=== PATIENT | male | born 1935 | race Caucasian/White ===

== ENCOUNTER 2018-03-21 08:54 | Day surgery (SDC) | payer OTHER, BC ==
[2018-03-14 15:28] LABS: Absolute Lymphocytes (CBC) 1.2 K/uL (0.7-4.9); Absolute Monocytes 0.6 K/uL (0.1-1.3); Absolute Neutrophil 3.9 K/uL (1.8-8.0); Basophils % 0.9 % (0-1.3); Eosinophils % 2.5 % (0-4.4); Hematocrit 39.8 % (39.6-49.0); Lymphocytes % 20.9 % (15.3-44.8); MCH 31.9 pg (27.0-35.0); MCV 92.7 fL (80-100); MPV 8.6 fL (7.6-11.3); Monocytes % 10.6 % (3.3-12.3); RBC Red Blood Cell Count 4.29 M/uL (4.33-5.43)
[2018-03-14 15:47] LABS: Potassium 4.4 mmol/L (3.5-5.1)
--- NOTE | 2018-03-14 16:27 | RAD REPORT ---
EXAM DESCRIPTION: RAD - Chest Pa And Lat (2 Views) - 03/14/2018 3:43 pm CLINICAL HISTORY: Preop chest, pending abdominal hernia repair COMPARISON: July 2012 TECHNIQUE: PA and lateral views of the chest were obtained. FINDINGS: The lungs are clear. Heart size is normal and central vasculature is within normal limit s. No pleural effusion or pneumothorax seen. No acute bony finding noted. No aortic abnormality. IMPRESSION: No acute cardiopulmonary process.
--- NOTE | 2018-03-14 17:05 | EKG ---
Test Date: 2018-03-14 Test Time: 15:15:26 Drivers License Examiner: LIZZIE MEASUREMENT RESULTS: Intervals: Rate: 60 MD: 176 QRSD: 76 QT: 394 QTc: 394 [place]: P: 50 MD: 176 QRS: 12 T: 56 INTERPRETIVE STATEMENTS: Normal sinus rhythm Normal ECG Compared to ECG 08/06/2012 16:59:08 Atrial premature complex(es) no longer present Electronically Signed On 03-14-18 17:04:05 CDT by Moisés Conway
--- OUTSIDE RECORDS SUMMARY | 2018-03-21 09:01 | XMS REPORT | Clinical Summary ---
:1935 Author Organization [facility] Address [address] [place] [address] Care Team Providers Name Role Phone Abbe Carl MD Primary Care Provider Allergies No Known Allergies Current Medications Prescription Sig. Disp. Refills Start Date End Date Status ferrous sulfate 325 TK 1 T PO BID 3 04/15/2017 Active (65 FE) MG tablet metoprolol succinate 3 01/26/2017 Active XL (TOPROL-XL) 50 mg 24 hr tablet sucralfate (CARAFATE) TK 1 T PO Q 6 H 11 03/17/2017 Active 1 gram tablet simvastatin (ZOCOR) TK 1 T PO QD 3 02/09/2017 Active 20 MG tablet AFTER THE SILVIA MEAL amLODIPine (NORVASC) TK 1 T PO QD 3 02/21/2017 Active 10 mg tablet valsartan (DIOVAN) 80 TK 1 T PO D ... 3 04/15/2017 Active MG tablet STOP BENICAR 20MG psyllium (METAMUCIL) Take 0.52 g by Active 0.52 gram capsule mouth as needed for constipation. aspirin 325 MG tablet Take 325 mg by Active mouth daily. diphenoxylate-atropin Take 1 tablet by Active e (LOMOTIL) 2.5-0.025 mouth 4 (four) mg per tablet times a day as needed for diarrhea. magnesium oxide 250 Take 250 mg by Active mg tablet mouth daily. esomeprazole (NexIUM) Take 1 capsule 30 capsule 11 04/20/2017 04/20/2018 Active 40 MG (40 mg total) by capsuleIndications: mouth daily Hematemesis without before nausea, Erosive breakfast. gastritis Active Problems Problem Noted Date Diverticulitis of colon Erosive gastritis Duodenitis with hemorrhage Hematemesis/vomiting blood CKD (chronic kidney disease) Colon polyp Diverticulosis of colon Encounters Date Type Specialty Care Team Description 12/12/2017 Telephone Family Medicine Abbe Carl MD 07/25/2017 Documentation Gastroenterology Areli Posey MA 07/24/2017 Telephone Gastroenterology Emmanuelle Carlin RN 04/20/2017 Office Visit Gastroenterology Keenan Cardona Diverticulitis of colon (Primary Dx); MD Carina Colon polyp; Hematemesis without nausea; Erosive gastritis; Duodenitis with hemorrhage; Diverticulosis of large intestine without hemorrhage 03/27/2017 Documentation Gastroenterology Areli Posey MA after 03/20/2017 Family History Medical History Relation Name Comments Pancreatic cancer Other Spouse Relation Name Status Comments Father Mother Other Spouse Alive Social History Tobacco Use Types Packs/Day Years Used Date Never Smoker Alcohol Use Drinks/Week oz/Week Comments Yes Sex Assigned at Date Recorded Not on file Last Filed Vital Signs Vital Sign Reading Time Taken Blood Pressure 175/83 04/20/2017 3:39 PM CDT Pulse 74 04/20/2017 3:39 PM CDT Temperature - - Respiratory Rate - - Oxygen Saturation - - Inhaled Oxygen Concentration - - Weight 78 kg (172 lb) 04/20/2017 3:39 PM CDT Height 177.8 cm (5' 10") 04/20/2017 3:39 PM CDT Body Mass Index 24.68 04/20/2017 3:39 PM CDT Plan of Treatment Health Maintenance Due Date Last Done Comments SHINGRIX VACCINE (#1) 1986 ZOSTER VACCINE 1996 PNEUMOCOCCAL POLYSACCHARIDE VACCINE AGE 65 AND OVER 2001 PNEUMOCOCCAL-13 2001 INFLUENZA VACCINE 03/07/2018 Procedures Procedure Name Priority Date/Time Associated Diagnosis Comments BASIC METABOLIC Routine 04/20/2017 4:36 PM Hematemesis without Results for this PANEL CDT nausea procedure are in the results section. CBC HEMOGRAM Routine 04/20/2017 4:36 PM Hematemesis without Results for this CDT nausea procedure are in the results section. after 03/20/2017 Results CBC hemogram (04/20/2017 4:36 PM) WBC 7.2 3.8 - 10.8 Thousand/uL [facility] [place] RBC 3.71 (L) 4.20 - 5.80 Million/uL [facility] [place] HGB 12.1 (L) 13.2 - 17.1 g/dL [facility] [place] HCT 35.2 (L) 38.5 - 50.0 % [email or web address] [place] MCV 94.9 80.0 - 100.0 fL [email or web address] [place] MCH 32.6 27.0 - 33.0 pg [facility] [place] MCHC 34.4 32.0 - 36.0 g/dL [facility] [place] RDW 12.6 11.0 - 15.0 % [facility] Platelet count 160 140 - 400 Thousand/uL [facility] [place] MPV 11.4 7.5 - 12.5 fL [email or web address] [place] Specimen Blood Narrative Performed At FASTING:UNKNOWN [facility] Resulting Agency Comment Performing Organization Information: Site ID: [id number] Name: [facility] Address: [address] [place] [id number] Director: Valeria Lopez MD Performing Organization Address City/State/Zipcode Phone Number [facility] [address] [place], [place] [id number] Basic metabolic panel (04/20/2017 4:36 PM) Glucose 105 (H) 65 - 99 mg/dL [email or web address] Comment: [place] Fasting reference interval For someone without known diabetes, a glucose value between 100 and 125 mg/dL is consistent with prediabetes and should be confirmed with a follow-up test. BUN, whole blood 23 7 - 25 mg/dL [facility] Creatinine 1.40 (H) 0.70 - 1.11 [facility] Comment: mg/dL [place] For patients >49 years of age, the reference limit for Creatinine is approximately 13% higher for people identified as -[place] Islander. EGFR Non-Afr. [place] Islander 47 (L) > OR=60 [facility] mL/min/1.73m2 [place] EGFR 54 (L) > OR=60 [facility] mL/min/1.73m2 [place] BUN/creatinine ratio 16 6 - 22 (calc) [facility] Sodium 139 135 - 146 mmol/L [facility] [place] Potassium 5.8 (H) 3.5 - 5.3 mmol/L [facility] [place] Chloride 107 98 - 110 mmol/L [email or web address] [place] CO2 27 20 - 31 mmol/L [email or web address] [place] Calcium 9.2 8.6 - 10.3 mg/dL [email or web address] [place] Specimen Blood Narrative Performed At FASTING:[facility]KNOWN [facility] Resulting Agency Comment Performing Organization Information: Site ID: [id number] Name: [facility] Address: [address] [place] [address] Director: Valeria Lopez MD Performing Organization Address City/State/Zipcode Phone Number [email or web address] [place] [address] [place] [address] after 03/20/2017 Insurance Payer Benefit Plan / Group Subscriber ID Type Phone Address MEDICARE MEDICARE PART A AND B xxxxxxxxxx Medicare [place], [place] BCBS BCBS CHOICE PPO/FEDERAL EMPL PPO xxxxxxxxxxxx PPO Home: [facility] [id number] [phone] [address]
--- OUTSIDE RECORDS SUMMARY | 2018-03-21 09:01 | XMS REPORT | Clinical Summary ---
:1935 Author Organization [facility] Address [address] [place] [address] Phone Care Team Providers Name Role Phone Unavailable Primary Care Provider Unavailable Allergies No Known Allergies Current Medications Prescription Sig. Disp. Refills Start Date End Date Status metoprolol Take 50 mg by Active (TOPROL-XL) 50 MG 24 mouth daily. hr tablet valsartan (DIOVAN) 80 Take 80 mg by Active MG tablet mouth daily. ALPRAZolam (XANAX) Take 0.25 mg by Active 0.25 MG tablet mouth every night as needed for Anxiety. psyllium 0.52 gram Take 0.52 g by Active capsule mouth daily. amLODIPine (NORVASC) Take 10 mg by Active 10 MG tablet mouth daily. pantoprazole Take 1 tablet 30 tablet 0 03/17/2017 Active (PROTONIX) 40 MG (40 mg total) tablet by mouth 2 (two) times daily. sucralfate (CARAFATE) Take 1 tablet 120 tablet 11 03/17/2017 03/17/2018 1 gram tablet (1 g total) by mouth every 6 (six) hours. Active Problems Problem Noted Date Hypertension 03/17/2017 Renal insufficiency 03/17/2017 Gastrointestinal hemorrhage, unspecified gastrointestinal hemorrhage type 05/2017 Social History Tobacco Use Types Packs/Day Years Used Date Never Smoker Alcohol Use Drinks/Week oz/Week Comments Yes ocassionally Sex Assigned at Date Recorded Not on file Last Filed Vital Signs Not on file Plan of Treatment Not on file Results RHYTHM STRIP - SCAN (04/21/2017 2:03 PM)Only the most recent of2 resultswithin the time period is included.TRANSFUSION SERVICE REPORT - SCAN (03/27/2017 3:39 PM)after 03/20/2017
--- OUTSIDE RECORDS SUMMARY | 2018-03-21 09:01 | XMS REPORT ---
:1935 Author [facility] Address [address] [place] [address] Dr. Saunders [address] [place] [id number] Care Team Providers Name Role Phone JONH ESTRADA Unavailable Unavailable Problems This patient has no known problems. Allergies, Adverse Reactions, Alerts This patient has no known allergies or adverse reactions. Medications This patient has no known medications. Results Test Description Test Time Test Comments Text Results Atomic Results Result Comments TISSUE EXAM 2017-03-22 13:29:00 Surgical Pathology Report Case: [id number] Authorizing Provider: Charly Mendoza MD Collected: 03/17/2017 1026 Ordering Location: [address] Received: 03/17/2017 1432 Service Pathologist: Angelia Pierre MD Specimen: Biopsy, Gastric, random gastric bx A. STOMACH, RANDOM BIOPSY: - ANTRAL MUCOSA WITH FOCAL ACTIVE CHRONIC GASTRITIS - OXYNTIC MUCOSA WITH CHRONIC INACTIVE GASTRITIS - RARE HELICOBACTER PYLORI ORGANISMS ON WARTHIN-STARRY STAIN - NO EVIDENCE OF INTESTINAL METAPLASIA OR DYSPLASIA OR MALIGNANCY IDENTIFIED Signing Pathologist Direct Phone Line: [phone] signed by Angelia Pierre MD on 03/22/2017 at 1:29 PMPreliminary result electronically signed by Angelia Pierre MD on 03/18/2017 at 10:20 [id number] gastric biopsyThe specimen is received in a formalin-filled container and labeled with the patient's information and labeled "random gastric biopsy" and consists of multiple fragments of vázquez tissue ranging from 0.1 to 0.6 cm. Submitted entirely A1. CG/pl Performed. CBC (HEMOGRAM ONLY) 2017-03-17 13:47:00 Test Item Value Reference Range Comments WHITE BLOOD CELL COUNT (BEAKER) (test gabv=053) 11.8 K/ L 3.5-10.5 RED BLOOD CELL COUNT (BEAKER) (test lsca=966) 3.23 M/ L 4.63-6.08 HEMOGLOBIN (BEAKER) (test atsj=095) 9.9 GM/DL 13.7-17.5 HEMATOCRIT (BEAKER) (test mcox=353) 31.4 % 40.1-51.0 MEAN CORPUSCULAR VOLUME (BEAKER) (test kgxz=181) 97.2 fL 79.0-92.2 MEAN CORPUSCULAR HEMOGLOBIN (BEAKER) (test dgls=627) 30.7 pg 25.7-32.2 MEAN CORPUSCULAR HEMOGLOBIN CONC (BEAKER) (test excr=487) 31.5 GM/DL 32.3- 36.5 RED CELL DISTRIBUTION WIDTH (BEAKER) (test nego=231) 13.2 % 11.6-14.4 PLATELET COUNT (BEAKER) (test uaea=214) 157 K/CU MM 150-450 MEAN PLATELET VOLUME (BEAKER) (test iazt=346) 10.8 fL 9.4-12.4 NUCLEATED RED BLOOD CELLS (BEAKER) (test pyuk=018) 0 /100 WBC 0-0 SEDIMENTATION [id number] 13:42:00 Test Item Value Reference Range Comments SEDIMENTATION RATE, ERYTHROCYTE (BEAKER) (test 17 mm/HR 0-40 tohw=655) TSH/FREE T4 IF [id number] 10:54:00 Test Item Value Reference Range Comments THYROID STIMULATING HORMONE (BEAKER) (test 1.53 uIU/mL 0.35-4.94 otnj=052) HEMOGLOBIN [id number] 08:51:00 Test Item Value Reference Range Comments HEMOGLOBIN A1C (BEAKER) (test deyw=149) 5.9 % 4.3-6.1 [id number] 06:34:00 Test Item Value Reference Range Comments MAGNESIUM (BEAKER) (test 2.1 mg/dL 1.6-2.6 Specimen slightly hemolyzed omdx=209) [id number] 06:34:00 Test Item Value Reference Range Comments PHOSPHORUS (BEAKER) (test 2.4 mg/dL 2.3-4.7 Specimen slightly hemolyzed wnsa=140) BASIC METABOLIC [id number] 06:34:00 Test Item Value Reference Range Comments SODIUM (BEAKER) (test 141 meq/L 136-145 upmy=572) POTASSIUM (BEAKER) (test 4.9 meq/L 3.5-5.1 Specimen slightly vabj=403) hemolyzed CHLORIDE (BEAKER) (test 112 meq/L 98-107 pved=536) CO2 (BEAKER) (test 22 meq/L 22-29 hnhn=560) BLOOD UREA NITROGEN 56 mg/dL 7-21 (BEAKER) (test jyak=064) CREATININE (BEAKER) (test 1.24 mg/dL 0.57-1.25 Specimen slightly pgtf=324) hemolyzed GLUCOSE RANDOM (BEAKER) 99 mg/dL 70-105 (test ucti=820) CALCIUM (BEAKER) (test 8.3 mg/dL 8.4-10.2 zyxs=534) EGFR (BEAKER) (test 56 mL/min/1.73 sq m ESTIMATED GFR IS NOT gpmi=2193) ACCURATE CREATININE CLEARANCE IN PREDICTING GLOMERULAR FILTRATION RATE. ESTIMATED GFR IS NOT APPLICABLE FOR DIALYSIS PATIENTS. LIPID [id number] 06:34:00 Test Item Value Reference Range Comments TRIGLYCERIDES (BEAKER) (test 75 mg/dL Specimen slightly hemolyzed mcch=032) CHOLESTEROL (BEAKER) (test 98 mg/dL Specimen slightly hemolyzed zvvc=454) HDL CHOLESTEROL (BEAKER) (test 46 mg/dL uoyk=121) LDL CHOLESTEROL CALCULATED 37 mg/dL (BEAKER) (test ccsf=639) Triglyceride Reference Range: Low Risk <150 Borderline 150- 199 High Risk 200-499 Very High Risk >=500Cholesterol Reference Range: Low Risk <200 Borderline 200-239 High Risk > 240HDL Cholesterol Reference Range: Low Risk >=60 High Risk <40LDL Cholesterol Reference Range: Optimal <100 Near Optimal 100-129 Borderline 130-159 High 160-189 Very High >=190HEPATIC FUNCTION [id number] 06:34:00 Test Item Value Reference Range Comments TOTAL PROTEIN (BEAKER) (test 5.7 gm/dL 6.0-8.3 Specimen slightly hemolyzed epco=093) ALBUMIN (BEAKER) (test 3.0 g/dL 3.5-5.0 Specimen slightly hemolyzed tbln=7697) BILIRUBIN TOTAL (BEAKER) (test 0.7 mg/dL 0.2-1.2 Specimen slightly hemolyzed mfpm=581) BILIRUBIN DIRECT (BEAKER) (test 0.3 mg/dL 0.1-0.5 Specimen slightly hemolyzed wair=297) ALKALINE PHOSPHATASE (BEAKER) 37 U/L 40-150 (test xtiy=310) AST (SGOT) (BEAKER) (test 23 U/L 5-34 Specimen slightly hemolyzed jmvs=591) ALT (SGPT) (BEAKER) (test 16 U/L 6-55 Specimen slightly hemolyzed ntem=311) CREATINE KINASE (CK), TOTAL AND [id number] 06:34:00 Test Item Value Reference Range Comments CREATINE KINASE TOTAL (BEAKER) (test wepp=428) 48 U/L 29-200 CREATINE KINASE-MB (BEAKER) (test liea=542) 1.2 ng/mL 0.0-6.6 CREATINE KINASE-MB INDEX (BEAKER) (test bxly=375) 2.5 % Effective 06/24/2014: CK-MB Reference Range ChangeNew: 0.0-6.6 Previous: 0.0- 4.9CK-MB Reference Range:<6.7 Normal6.7-10.0 Borderline>10.0 AbnormalC-REACTIVE [id number] 06:34:00 Test Item Value Reference Range Comments C-REACTIVE PROTEIN (BEAKER) (test ivol=450) 1.09 mg/dL 0.00-0.50 TROPONIN [id number] 06:20:00 Test Item Value Reference Range Comments TROPONIN I (BEAKER) (test rrkx=335) 0.01 ng/mL 0.00-0.03 Effective 06/24/2014: Reference Range ChangeNew: 0.00-0.03 Previous 0.00- 0.15Troponin I (TnI) levels must be interpreted in the context of the presenting symptoms and the clinical findings. Elevated TnI levels indicate myocardial damage, but are not specific for ischemic heart disease. Elevated TnI levels are seen in patients with other cardiac conditions (including myocarditis and congestive heartfailure), and slight TnI elevations occur in patients with other conditions, including sepsis, renalfailure, acidosis, acute neurological disease, and persistent tachyarrhythmia.CBC (HEMOGRAM ONLY) 05:48:00 Test Item Value Reference Range Comments WHITE BLOOD CELL COUNT (BEAKER) (test rcvs=225) 11.4 K/ L 3.5-10.5 RED BLOOD CELL COUNT (BEAKER) (test cxyf=223) 3.09 M/ L 4.63-6.08 HEMOGLOBIN (BEAKER) (test fmal=831) 9.7 GM/DL 13.7-17.5 HEMATOCRIT (BEAKER) (test tgmx=648) 29.6 % 40.1-51.0 MEAN CORPUSCULAR VOLUME (BEAKER) (test uqft=408) 95.8 fL 79.0-92.2 MEAN CORPUSCULAR HEMOGLOBIN (BEAKER) (test 31.4 pg 25.7-32.2 pxra=762) MEAN CORPUSCULAR HEMOGLOBIN CONC (BEAKER) (test 32.8 GM/DL 32.3-36.5 cbvy=137) RED CELL DISTRIBUTION WIDTH (BEAKER) (test 13.2 % 11.6-14.4 ulkv=230) PLATELET COUNT (BEAKER) (test ktbs=819) 155 K/CU MM 150-450 MEAN PLATELET VOLUME (BEAKER) (test ovkv=131) 11.0 fL 9.4-12.4 NUCLEATED RED BLOOD CELLS (BEAKER) (test 0 /100 WBC 0-0 tbxb=254) BASIC METABOLIC [id number] 19:47:00 Test Item Value Reference Range Comments SODIUM (BEAKER) (test 139 meq/L 136-145 ayga=476) POTASSIUM (BEAKER) (test 4.7 meq/L 3.5-5.1 apzg=842) CHLORIDE (BEAKER) (test 103 meq/L 98-107 chne=497) CO2 (BEAKER) (test 27 meq/L 22-29 guwl=805) BLOOD UREA NITROGEN 42 mg/dL 7-21 (BEAKER) (test tjjl=632) CREATININE (BEAKER) (test 1.89 mg/dL 0.57-1.25 uklb=436) GLUCOSE RANDOM (BEAKER) 188 mg/dL 70-105 (test tewi=412) CALCIUM (BEAKER) (test 9.2 mg/dL 8.4-10.2 gfln=314) EGFR (BEAKER) (test mL/min/1.73 sq m INSUFFICIENT CLINICAL DATA ojmu=7595) TO CALCULATE ESTIMATED GFR. HEPATIC FUNCTION [id number] 19:46:00 Test Item Value Reference Range Comments TOTAL PROTEIN (BEAKER) (test gmmv=770) 6.6 gm/dL 6.0-8.3 ALBUMIN (BEAKER) (test drmz=2001) 3.6 g/dL 3.5-5.0 BILIRUBIN TOTAL (BEAKER) (test sgwk=002) 0.7 mg/dL 0.2-1.2 BILIRUBIN DIRECT (BEAKER) (test ihgm=303) 0.3 mg/dL 0.1-0.5 ALKALINE PHOSPHATASE (BEAKER) (test btye=148) 49 U/L 40-150 AST (SGOT) (BEAKER) (test qdpw=444) 25 U/L 5-34 ALT (SGPT) (BEAKER) (test edmv=886) 19 U/L 6-55 [id number] 19:14:00 Test Item Value Reference Range Comments PROTIME (BEAKER) (test kcrc=937) 14.5 seconds 11.7-14.7 INR (BEAKER) (test ktvm=168) 1.1 <=5.9 PARTIAL THROMBOPLASTIN TIME (BEAKER) (test 25.7 seconds 22.5-36.0 jtve=546) RECOMMENDED COUMADIN/WARFARIN INR THERAPY RANGESSTANDARD DOSE: 2.0 - 3.0 Includes: PROPHYLAXIS forvenous thrombosis, systemic embolization; TREATMENT for venous thrombosis and/or pulmonary embolus.HIGH RISK: Target INR is 2.5-3.5 for patients with mechanical heart valves.CBC W/PLT COUNT & AUTO [id number] 19:08:00 Test Item Value Reference Range Comments WHITE BLOOD CELL COUNT (BEAKER) (test bcvk=786) 9.4 K/ L 3.5-10.5 RED BLOOD CELL COUNT (BEAKER) (test rprp=284) 3.62 M/ L 4.63-6.08 HEMOGLOBIN (BEAKER) (test yvxu=157) 11.3 GM/DL 13.7-17.5 HEMATOCRIT (BEAKER) (test piyb=890) 35.1 % 40.1-51.0 MEAN CORPUSCULAR VOLUME (BEAKER) (test hqob=047) 97.0 fL 79.0-92.2 MEAN CORPUSCULAR HEMOGLOBIN (BEAKER) (test 31.2 pg 25.7-32.2 seul=961) MEAN CORPUSCULAR HEMOGLOBIN CONC (BEAKER) (test 32.2 GM/DL 32.3-36.5 snmt=417) RED CELL DISTRIBUTION WIDTH (BEAKER) (test 13.1 % 11.6-14.4 qzil=120) PLATELET COUNT (BEAKER) (test qrvq=294) 196 K/CU MM 150-450 MEAN PLATELET VOLUME (BEAKER) (test bzgl=849) 11.0 fL 9.4-12.4 NUCLEATED RED BLOOD CELLS (BEAKER) (test 0 /100 WBC 0-0 lefq=821) NEUTROPHILS RELATIVE PERCENT (BEAKER) (test 71 % agsl=169) LYMPHOCYTES RELATIVE PERCENT (BEAKER) (test 19 % teuk=984) MONOCYTES RELATIVE PERCENT (BEAKER) (test 8 % xzzy=968) EOSINOPHILS RELATIVE PERCENT (BEAKER) (test 1 % pjvl=012) BASOPHILS RELATIVE PERCENT (BEAKER) (test 0 % tnad=517) NEUTROPHILS ABSOLUTE COUNT (BEAKER) (test 6.66 K/ L 1.78-5.38 pjwu=733) LYMPHOCYTES ABSOLUTE COUNT (BEAKER) (test 1.80 K/ L 1.32-3.57 bnqc=109) MONOCYTES ABSOLUTE COUNT (BEAKER) (test 0.72 K/ L 0.30-0.82 gooy=982) EOSINOPHILS ABSOLUTE COUNT (BEAKER) (test 0.12 K/ L 0.04-0.54 huuz=077) BASOPHILS ABSOLUTE COUNT (BEAKER) (test 0.04 K/ L 0.01-0.08 szyr=347) IMMATURE GRANULOCYTES-RELATIVE PERCENT (BEAKER) 0 % 0-1 (test xcyj=4263)
[2018-03-21] MEDS ORDERED: CEFAZOLIN/SWI 1gm 1 GM/10 ML SYR ONE (09:21)
[2018-03-21] MEDS ORDERED: Ringers Lactate 1,000 ML IV ONE (09:21)
[2018-03-21] MEDS ORDERED: ROCURONIUM 50 MG/5 ML VIAL IV ONE (09:36)
[2018-03-21] MEDS ORDERED: FENTANYL CITR 100 MCG/2 ML ONE (09:36)
[2018-03-21] MEDS ORDERED: LIDOCAINE 2% MPF 5 ML VIAL ONE (09:36)
[2018-03-21] MEDS ORDERED: ONDANSETRON HCL 40 MG/20 ML VIAL ONE (09:36)
[2018-03-21] MEDS ORDERED: PROPOFOL 200 MG/20 ML VIAL IV ONE (09:36)
[2018-03-21] MEDS ORDERED: MIDAZOLAM HCL 2 MG/2 ML INJ ONE (09:44)
[2018-03-21] MEDS ORDERED: EPHEDRINE SULF 50 MG/10 ML SYR ONE (10:18)
[2018-03-21] MEDS ORDERED: GLYCOPYRROLATE 0.2 MG/ML SYR ONE (10:47)
[2018-03-21] MEDS ORDERED: KETOROLAC 30 MG/ML INJ ONE (10:52)
[2018-03-21] MEDS: MORPHINE 4 MG/ML SYR ONE ×2 (11:05→11:10)
[2018-03-21] MEDS ORDERED: MORPHINE 4 MG/ML SYR ONE (11:18)
[2018-03-21] MEDS ORDERED: MEPERIDINE HCL 50 MG/ML AMP ONE (11:23)
[2018-03-21] MEDS ORDERED: HYDROCODONE/APAP 7.5/325 MG TAB ONE (12:43)
[2018-03-21 14:20] VITALS: BP 127/60; TEMP 97.6; O2SAT 100
--- NOTE | 2018-03-21 22:22 | OP ---
Date of Procedure: 03/21/2018 Surgeon: Devendra Bonds MD Preoperative Diagnosis: Umbilical hernia. Postoperative Diagnosis: Incarcerated umbilical hernia. Procedure Performed: Laparoscopic repair of incarcerated umbilical hernia. Estimated Blood Loss: Minimal. Specimen: Hernia sac. Findings: As above. Anesthesia: General. Complications: None. Disposition: The patient tolerated the procedure in stable condition and taken to recovery in good g eneral condition. Description Of Procedure: The patient was brought to the OR and placed in supine position. General anesthesia was begun. The patient was prepped and draped in usual sterile fashion. Marcaine 0.5% wa s infiltrated locally. A 15-blade was used to make a 1-cm left upper quadrant incision. Subcu tissu e was divided. The fascia was identified and divided. A #1 Vicryl stay suture was placed. Peritone al cavity was entered with sharp and blunt dissection. A 12-mm trocar was placed into the peritoneal cavity under direct vision. Pneumoperitoneum was established. A 5-mm trocar placed in the left low er quadrant. Laparoscopy revealed incarcerated omentum into the hernia sac which was carefully disse cted free from the hernia sac, and adhesions were lysed in order to reduce the omentum back into the peritoneal cavity. Then, a 4-cm infraumbilical transverse incision was made. Subcutaneous tissue wa s divided. Hernia sac was identified and excised and sent to Pathology as specimen. A 3-cm defect r emained. Primary closure with #1 PDS was performed. Then, 3-0 chromic was used for subcutaneous tis preethi and tano used to close the skin. Pneumoperitoneum was reestablished. Mesh medium sized with a balloon mechanism was inserted into the peritoneal cavity in the standard fashion. Tacks were used to secure the mesh to the peritoneal surface with at least 3-cm border in every direction. Then, th e balloon mechanism was removed. All components were accounted for. Subsequently, all trocars were removed under direct vision. Stay sutures were tied to each other across the fascial defect. Subcut aneous wounds were irrigated. Bleeding was controlled with cautery, and then tano were used to cl ose skin. Sterile dressing was applied. The patient was awakened and taken to Recovery in good gene ral condition. Discharge Note: The patient will go to Day Surgery and home when stable. Disposition: Home. Condition: Stable. Discharge Instructions: Resume home medications and diet. Activity as tolerated. No heavy lifting. Remove outer dressing in 2 days. Shower. Keep wound clean and dry. Abdominal binder, incentive s pirometry, Tylenol No. 3 one tablet p.o. q.4 hours p.r.n. pain. Follow up in my office in 1 week. C all for appointment. ALESSANDRO Voice ID: [id number] Report ID: [id number]
== END 2018-03-21 13:35 | disposition home or self-care (01) ==
LOC: OR 08:54
PROVIDERS: ATTEND Surgery
PROC: 0WUF4JZ Supplement Abdominal Wall with Synthetic Substitute, Percutaneous Endoscopic Approach (ICD-10-PCS; principal; 2018-03-21 10:30)
DX: K42.0 Umbilical hernia with obstruction, without gangrene (principal); Z88.7 Allergy status to serum and vaccine
CPT/HCPCS: 36415; 49653; 71046; 80048; 85025; 88302; 93005; C1781; J0690; J2175; J2405; J3010; J2250

== ENCOUNTER 2020-02-05 09:56 | Emergency (ER) | payer OTHER, BC ==
[2020-02-05] MEDS ORDERED: METHYLPREDNISOLONE 125 MG INJ ONE (10:52)
[2020-02-05] MEDS ORDERED: MAGNESIUM SULFATE 1 gm IVPB 1 GM/100 ML BAG IV ONE (10:52)
[2020-02-05] MEDS ORDERED: ALBUTEROL INHALER 60 PUFF/8 GM IH ONE (10:52)
--- NOTE | 2020-02-05 11:04 | RAD REPORT ---
EXAM DESCRIPTION: RAD - Chest Single View - 02/05/2020 10:53 am CLINICAL HISTORY: Cough;SOB Chest pain. COMPARISON: Chest Pa And Lat (2 Views) dated 03/14/2018; CHEST SINGLE VIEW dated 08/06/2012 FINDINGS: Portable technique limits examination quality. The lungs are grossly clear. The heart is normal in size. No displaced fractures. IMPRESSION: No acute intrathoracic process suspected.
[2020-02-05 11:21] LABS: Absolute Lymphocytes (CBC) 1.4 K/uL (0.7-4.9); Basophils % 0.4 % (0-1.3); Hematocrit 41.4 % (39.6-49.0); Lymphocytes % 14.1 % (15.3-44.8); MPV 8.2 fL (7.6-11.3); RBC Red Blood Cell Count 4.47 M/uL (4.33-5.43)
[2020-02-05 11:47] LABS: ALT/SGPT 28 U/L (12-78); AST/SGOT 27 U/L (15-37); Albumin 3.9 g/dL (3.4-5.0); Alkaline Phosphatase 72 U/L (45-117); BUN Blood Urea Nitrogen 29 mg/dL (7-18); Bicarbonate 23 mmol/L (21-32); Bilirubin Direct 0.2 mg/dL (0-0.2); Bilirubin Total 0.7 mg/dL (0.2-1.0); Glucose Level 102 mg/dL (74-106); Magnesium 2.7 mg/dL (1.8-2.4); NT PRO-BNP 192 pg/mL (<450); Potassium 4.1 mmol/L (3.5-5.1); Protein, Total 8.3 g/dL (6.4-8.2); Sodium Level 139 mmol/L (136-145); Troponin (Emerg Dept Use Only) < 0.02 ng/mL (0.0-0.045)
--- NOTE | 2020-02-05 13:06 | ER ---
Nurse's Notes [facility] Name: Navi Contreras Age: 84 yrs Sex: Male : 1935 Arrival Date: 02/05/2020 Time: 09:58 Bed 7 Private MD: Urban Carl C Diagnosis: Acute bronchitis, unspecified Presentation: 02/04 10:20 Chief complaint: Patient states: Cough and SOB x 1 week, denies fever, denies chest jl7 pain, denies N/V/D. Coronavirus screen: Surgical mask placed on patient. Patient moved to private room, placed in contact and droplet isolation with eye protection until further assessment. Patient reports a cough. Patient reports shortness of breath or difficulty breathing. Patient denies measured and/or subjective temperature greater than 100.4F prior to today's visit. Patient denies travel on a cruise ship or to a country the [facility] currently lists as an affected area. Patient denies contact with known and/or suspected case of COVID-19. Ebola Screen: No symptoms or risks identified at this time. Initial Sepsis Screen: Does the patient meet any 2 criteria? No. Patient's initial sepsis screen is negative. Does the patient have a suspected source of infection? No. Patient's initial sepsis screen is negative. Risk Assessment: Do you want to hurt yourself or someone else? Patient reports no desire to harm self or others. Onset of symptoms was January 29, 2020. Care prior to arrival: None. 10:20 Method Of Arrival: Ambulatory jl7 10:20 Acuity: IFTIKHAR 3 jl7 Triage Assessment: 10:23 General: Appears in no apparent distress. uncomfortable, Behavior is calm, cooperative, jl7 appropriate for age. Pain: Denies pain. Neuro: Level of Consciousness is awake, alert, obeys commands, Oriented to person, place, time, situation. Cardiovascular: Patient's skin is warm and dry. Respiratory: Reports shortness of breath cough that is dry, Airway is patent Respiratory effort is even, unlabored, Respiratory pattern is regular, symmetrical. Derm: Skin is pink, warm \T\ dry. Historical: - Allergies: 10:23 Horse/Equine Containing Products; jl7 - Home Meds: 10:23 Metamucil Smooth Texture Oral [Active]; carvedilol oral oral [Active]; amlodipine oral jl7 [Active]; losartan oral oral [Active]; esomeprazole magnesium oral oral [Active]; Magnesium Oxide Oral [Active]; Simvastatin Oral [Active]; Alprazolam Oral [Active]; Hydralazine Oral [Active]; - PMHx: 10:23 Hypertension; Hyperlipidemia; jl7 - Immunization history:: Adult Immunizations unknown. - Social history:: Smoking status: Patient denies any tobacco usage or history of. Screenin:13 Abuse screen: Denies threats or abuse. Denies injuries from another. Nutritional jl7 screening: No deficits noted. Tuberculosis screening: No symptoms or risk factors identified. Fall Risk IV access (20 points). Total Huff Fall Scale indicates No Risk (0-24 pts). Assessment: 10:15 General: See triage assessment. jl7 11:15 Reassessment: Patient appears in no apparent distress at this time. No changes from jl7 previously documented assessment. Patient and/or family updated on plan of care and expected duration. Pain level reassessed. Patient is alert, oriented x 3, equal unlabored respirations, skin warm/dry/pink. 12:15 Reassessment: Patient appears in no apparent distress at this time. No changes from jl7 previously documented assessment. Patient and/or family updated on plan of care and expected duration. Pain level reassessed. Patient is alert, oriented x 3, equal unlabored respirations, skin warm/dry/pink. 13:01 Reassessment: ERP at bedside discussing results and POC. jl7 Vital Signs: 10:20 BP 152 / 80; Pulse 76; Resp 19; Pulse Ox 96% ; jl7 11:12 BP 139 / 81; Pulse 76; Resp 20; Temp 97; Pulse Ox 96% ; jl7 12:24 BP 132 / 71; Pulse 71; Resp 15; Pulse Ox 98% ; jl7 13:30 BP 131 / 75; Pulse 75; Resp 17; Pulse Ox 98% ; jl7 ED Course: 09:58 Patient arrived in ED. ag5 09:58 Urban Carl MD is Private Physician. ag5 10:00 Cleveland Posey, KIA is Primary Nurse. jl7 10:02 Mcihel Cervantes PA is PHCP. cp 10:02 Matias Winchester MD is Attending Physician. cp 10:21 Triage completed. jl7 10:23 Arm band placed on right wrist. jl7 10:53 CXR XRAY In Process Unspecified. EDMS 11:13 Patient has correct armband on for positive identification. Placed in gown. Bed in low jl7 position. Call light in reach. Side rails up X 1. Pulse ox on. NIBP on. Warm blanket given. 11:13 Initial lab(s) drawn, by nc, sent to lab. Flu and/or RSV swab sent to lab. Strep swab jl7 sent to lab. COVID-19 swab sent to lab. Inserted saline lock: 20 gauge in right hand, using aseptic technique. Blood collected. 13:04 Urban Carl MD is Referral Physician. cp 13:30 No provider procedures requiring assistance completed. IV discontinued, intact, jl7 bleeding controlled, No redness/swelling at site. Pressure dressing applied. Administered Medications: 11:00 Drug: Magnesium Sulfate 1 grams Route: IVPB; Infused Over: 1 hrs; Site: right hand; jl7 12:00 Follow up: Response: No adverse reaction; IV Status: Completed infusion jl7 11:00 Drug: SOLU-Medrol 125 mg Route: IVP; Site: right hand; jl7 12:00 Follow up: Response: No adverse reaction; Marked relief of symptoms jl7 11:12 Drug: Albuterol HFA Inhaler 2 puffs Route: Inhalation; jl7 13:46 Follow up: Response: No adverse reaction jl7 Outcome: 13:05 Discharge ordered by MD. cp 13:47 Discharged to home ambulatory. jl7 13:47 Condition: stable 13:47 Discharge instructions given to patient, Instructed on discharge instructions, follow up and referral plans. medication usage, Demonstrated understanding of instructions, follow-up care, medications, Prescriptions given X 2. 13:47 Patient left the ED. jl7 Addendum: 02/07/2020 12:25 Addendum: Other pt notified of negative COVID-19 swab results. Pt advised to remain in d m5 isolation until symptom free for 3 days and to return to the ED for worsening symptoms. Signatures: Dispatcher [employer] EDMS Mariam Devries, RN RN [email or web address] Michel Cervantes PA PA cp Leal, Jahala, RN RN jl7 Neo Steve ag5
--- NOTE | 2020-02-05 13:06 | EDPHYS ---
Physician Documentation [facility] Name: Navi Contreras Age: 84 yrs Sex: Male : 1935 Arrival Date: 02/05/2020 Time: 09:58 Bed 7 Private MD: Urban Carl C ED Physician Matias Winchester HPI: 02/04 10:24 This 84 yrs old Male presents to ER via Ambulatory with complaints of Cough. cp 10:24 The patient or guardian reports cough, that is intermittent, with no sputum. Onset: The cp symptoms/episode began/occurred 7 day(s) ago. Associated signs and symptoms: Pertinent positives: shortness of breath, Pertinent negatives: chest pain, fever, abdominal pain. Historical: - Allergies: 10:23 Horse/Equine Containing Products; jl7 - Home Meds: 10:23 Metamucil Smooth Texture Oral [Active]; carvedilol oral oral [Active]; amlodipine oral jl7 [Active]; losartan oral oral [Active]; esomeprazole magnesium oral oral [Active]; Magnesium Oxide Oral [Active]; Simvastatin Oral [Active]; Alprazolam Oral [Active]; Hydralazine Oral [Active]; - PMHx: 10:23 Hypertension; Hyperlipidemia; jl7 - Immunization history:: Adult Immunizations unknown. - Social history:: Smoking status: Patient denies any tobacco usage or history of. ROS: 10:30 Constitutional: Negative for body aches, chills, fever, poor PO intake. cp 10:30 Eyes: Negative for injury, pain, redness, and discharge. cp 10:30 ENT: Negative for ear pain, sore throat, difficulty swallowing, difficulty handling secretions. 10:30 Cardiovascular: Negative for chest pain, edema, palpitations. 10:30 Respiratory: Positive for cough, shortness of breath, at rest. wheezing. 10:30 Abdomen/GI: Negative for abdominal pain, nausea, vomiting, and diarrhea, constipation. 10:30 Skin: Negative for rash. 10:30 Neuro: Negative for altered mental status, dizziness, headache, weakness. 10:30 All other systems are negative. Exam: 10:35 Constitutional: The patient appears in no acute distress, alert, awake, cp non-diaphoretic, non-toxic, well developed, well nourished. 10:35 Head/Face: Normocephalic, atraumatic. cp 10:35 Eyes: Periorbital structures: appear normal, Conjunctiva: normal, no exudate, no cp injection, Lids and lashes: appear normal, bilaterally. 10:35 ENT: External ear(s): are unremarkable, Ear canal(s): are normal, clear, TM's: cp dullness, bilaterally, Nose: is normal, Mouth: Lips: moist, Oral mucosa: pink and intact, moist, Posterior pharynx: is normal, airway is patent, no erythema, no exudate. 10:35 Neck: ROM/movement: is normal, is supple, without pain, no range of motions limitations, no nuchal rigidity. 10:35 Chest/axilla: Inspection: normal, Palpation: is normal, no crepitus, no tenderness. 10:35 Cardiovascular: Rate: normal, Rhythm: irregular, Edema: is not appreciated, JVD: is not appreciated. 10:35 Respiratory: the patient does not display signs of respiratory distress, Respirations: labored breathing, that is mild, accessory muscle usage, is absent, intercostal retractions, are absent, shallow respirations, are not present, tachypnea, is not appreciated, Breath sounds: decreased breath sounds, that are mild, diffuse, stridor, is not appreciated, wheezing: expiratory that is mild, is heard diffusely. 10:35 Abdomen/GI: Exam negative for discomfort, distension, guarding, Inspection: abdomen appears normal. 10:35 Skin: no rash present. cp 10:35 Neuro: Orientation: to person, place \T\ time. Mentation: is normal, Motor: moves all fours, strength is normal. 13:03 ECG was reviewed by the Attending Physician. cp Vital Signs: 10:20 BP 152 / 80; Pulse 76; Resp 19; Pulse Ox 96% ; jl7 11:12 BP 139 / 81; Pulse 76; Resp 20; Temp 97; Pulse Ox 96% ; jl7 12:24 BP 132 / 71; Pulse 71; Resp 15; Pulse Ox 98% ; jl7 13:30 BP 131 / 75; Pulse 75; Resp 17; Pulse Ox 98% ; jl7 MDM: 10:11 Patient medically screened. cp 10:30 Differential Diagnosis: Bronchitis Influenza Upper Respiratory Infection Viral Syndrome cp Pneumonia Other COVID-19, sepsis, respiratory distress, hypoxemia. 13:05 Data reviewed: vital signs, nurses notes, lab test result(s), EKG, radiologic studies, cp plain films, and as a result, I will. 13:05 Test interpretation: by ED physician or midlevel provider: ECG. Counseling: I had a cp detailed discussion with the patient and/or guardian regarding: the historical points, exam findings, and any diagnostic results supporting the discharge/admit diagnosis, lab results, radiology results, to return to the emergency department if symptoms worsen or persist or if there are any questions or concerns that arise at home. 13:05 Response to treatment: the patient's symptoms have markedly improved after treatment, cp and as a result, I will discharge patient. 13:05 ED course: VSS. Symptoms improved with meds. Will discharge to home for continued cp monitoring. 02/04 10:24 Order name: Flu 02/04 10:24 Order name: Strep 02/04 10:24 Order name: Basic Metabolic Panel; Complete Time: 12:01 02/04 12:01 Interpretation: Normal except: BUN 29; CRE 1.53; GFR 44. 02/04 10:24 Order name: CBC with Diff; Complete Time: 12:01 02/04 12:02 Interpretation: Normal except: LYM% 14.1; EOSINOPHIL % 4.9. 02/04 10:24 Order name: LFT's; Complete Time: 12:01 02/04 12:02 Interpretation: Normal except: TP 8.3; GLOB 4.4; A/G 0.9. 02/04 10:24 Order name: Magnesium; Complete Time: 12:01 02/04 10:24 Order name: NT PRO-BNP; Complete Time: 12:01 cp 02/04 10:24 Order name: Troponin (emerg Dept Use Only); Complete Time: 12:01 02/04 10:24 Order name: Procalcitonin; Complete Time: 12:40 02/04 10:24 Order name: Influenza Screen (A ; Complete Time: 12:01 EDID 02/04 10:24 Order name: Group A Streptococcus Rapid Sc; Complete Time: 12:01 [facility] 02/04 10:48 Order name: COVID-19 jl7 02/04 10:24 Order name: CXR XRAY; Complete Time: 11:24 02/04 11:25 Interpretation: Report review. 02/04 10:24 Order name: Document PUI#; Complete Time: 10:41 02/04 10:24 Order name: Droplet/Contact Precautions; Complete Time: 10:41 02/04 10:24 Order name: Labs collected and sent; Complete Time: 11:12 02/04 10:24 Order name: O2 Per Protocol; Complete Time: 10:42 02/04 10:24 Order name: EKG; Complete Time: 10:25 02/04 10:24 Order name: Cardiac monitoring; Complete Time: 11:12 02/04 10:24 Order name: EKG - Nurse/Tech; Complete Time: 13:46 02/04 10:24 Order name: IV Saline Lock; Complete Time: 11:12 02/04 10:24 Order name: O2 Sat Monitoring; Complete Time: 11:12 02/04 11:42 Order name: Throat Culture EDMS EC:03 Rate is 73 beats/min. Rhythm is regular. MN interval is normal. QRS interval is normal. cp QT interval is normal. T waves are Inverted in lead aVR. Interpreted by me. Reviewed by me. Administered Medications: 11:00 Drug: Magnesium Sulfate 1 grams Route: IVPB; Infused Over: 1 hrs; Site: right hand; 7 12:00 Follow up: Response: No adverse reaction; IV Status: Completed infusion jl7 11:00 Drug: SOLU-Medrol 125 mg Route: IVP; Site: right hand; 7 12:00 Follow up: Response: No adverse reaction; Marked relief of symptoms jl7 11:12 Drug: Albuterol HFA Inhaler 2 puffs Route: Inhalation; jl7 13:46 Follow up: Response: No adverse reaction jl7 Disposition: 15:55 Co-signature as Attending Physician, Matias Winchester MD I agree with the assessment and kdr plan of care. Disposition: 02/05/20 13:05 Discharged to Home. Impression: Acute bronchitis, unspecified. - Condition is Stable. - Discharge Instructions: Acute Bronchitis, Adult, COVID-19. - Prescriptions for Prednisone 20 mg Oral Tablet - take 2 tablet by ORAL route once daily for 5 days; 10 tablet. Albuterol Sulfate 90 mcg/actuation - inhale 1-2 puff by INHALATION route every 4-6 hours; 1 Inhaler. - Medication Reconciliation Form, Thank You Letter, Antibiotic Education, Prescription Opioid Use, Work release form form. - Follow up: Urban Carl MD; When: 2 - 3 days; Reason: Recheck today's complaints. - Problem is new. - Symptoms have improved. Signatures: Dispatcher [employer] EDID Matias Winchester MD MD kdr Michel Cervantes PA PA cp Cleveland Posey RN RN jl7 Corrections: (The following items were deleted from the chart) 10:25 10:24 CORONAVIRUS ordered. [facility] EDMS 13:47 13:05 02/05/2020 13:05 Discharged to Home. Impression: Acute bronchitis, unspecified. jl7 Condition is Stable. Discharge Instructions: COVID-19. Prescriptions for Zithromax Z-Nic 250 mg Oral Tablet - take 1 tablet by ORAL route as directed for 5 days Day 1 - take two (2) tablets one time. Day 2, 3, 4 , 5 take one (1) tablet once daily.; 6 tablet, Prednisone 20 mg Oral Tablet - take 2 tablet by ORAL route once daily for 5 days; 10 tablet, Albuterol Sulfate 90 mcg/actuation - inhale 1-2 puff by INHALATION route every 4-6 hours; 1 Inhaler. and Forms are Work release form, Medication Reconciliation Form, Thank You Letter, Antibiotic Education, Prescription Opioid Use. Follow up: Urban Carl; When: 2 - 3 days; Reason: Recheck today's complaints. Problem is new. Symptoms have improved. cp
[2020-02-05 13:55] VITALS: TEMP 97
[2020-02-05 13:56] VITALS: BP 132/71; O2SAT 98
--- OUTSIDE RECORDS SUMMARY | 2020-02-05 14:29 | XMS REPORT | Clinical Summary ---
:1935 Author Organization [facility] Address [address] [place] [address] Care Team Providers Name Role Phone Leelee Carl MD Primary Care Provider Allergies No Known Allergies Medications Medication Sig Dispensed Refills Start Date End Date Status metoprolol (TOPROL-XL) Take 50 mg by 0 Active 50 MG 24 hr tablet mouth daily. valsartan (DIOVAN) 80 Take 80 mg by 0 Active MG tablet mouth daily. ALPRAZolam (XANAX) 0.25 Take 0.25 mg by 0 Active MG tablet mouth every night as needed for Anxiety. psyllium 0.52 gram Take 0.52 g by 0 Active capsule mouth daily. amLODIPine (NORVASC) 10 Take 10 mg by 0 Active MG tablet mouth daily. pantoprazole (PROTONIX) Take 1 tablet (40 30 tablet 0 03/17/20 17 Active 40 MG tablet mg total) by mouth 2 (two) times daily. Active Problems Problem Noted Date Hypertension 03/17/2017 Renal insufficiency 03/17/2017 Gastrointestinal hemorrhage, unspecified gastrointesti nal hemorrhage type 03/16/2017 Social History Tobacco Use Types Packs/Day Years Used Date Never Smoker Alcohol Use Drinks/Week oz/Week Comments Yes ocassionally Sex Assigned at Date Recorded Not on file Job Start Date Occupation Industry Not on file Not on file Not on file Travel History Travel Start Travel End No recent travel history available. Last Filed Vital Signs Not on file Plan of Treatment Not on file Results Not on fileafter 02/04/2019 Insurance Payer Benefit Plan / Subscriber ID Type Phone Address Group MEDICARE MEDICARE A B xxxxxxxxxx Medicare BLUE CROSS/BLUE [place] IN[place]MNITY [place] xxxxxxxxxxxx [facility] [address] [place] [address] Advance Directives For more information, please contact:[place] [id number] [facility] [place], [place] [phone] Code Status Date Activated Date Inactivated Comments Full Code 03/17/2017 2:44 AM 03/17/2017 5:06 PM This code status was determined by: Patient
--- OUTSIDE RECORDS SUMMARY | 2020-02-05 14:29 | XMS REPORT | Clinical Summary ---
:1935 Author Organization [facility] Address [address] [place] [address] Care Team Providers Name Role Phone Leelee Carl MD Primary Care Provider Allergies No Known Allergies Medications Medication Sig Dispensed Refills Start Date End Date Status ferrous sulfate 325 TK 1 T PO BID 3 04/15/2017 Active (65 FE) MG tablet metoprolol succinate 3 01/26/2017 Active XL (TOPROL-XL) 50 mg 24 hr tablet sucralfate (CARAFATE) TK 1 T PO Q 6 H 11 03/17/2017 Active 1 gram tablet simvastatin (ZOCOR) TK 1 T PO QD AFTER 3 02/09/2017 Active 20 MG tablet THE SILVIA MEAL amLODIPine (NORVASC) TK 1 T PO QD 3 02/21/2017 Active 10 mg tablet valsartan (DIOVAN) 80 TK 1 T PO D ... 3 04/15/2017 Active MG tablet STOP BENICAR 20MG psyllium (METAMUCIL) Take 0.52 g by 0 Active 0.52 gram capsule mouth as needed for constipation. aspirin 325 MG tablet Take 325 mg by 0 Active mouth daily. diphenoxylate-atropin Take 1 tablet by 0 Active e (LOMOTIL) 2.5-0.025 mouth 4 (four) mg per tablet times a day as needed for diarrhea. magnesium oxide 250 Take 250 mg by 0 Active mg tablet mouth daily. esomeprazole (NexIUM) TAKE 1 CAPSULE(40 90 capsule 0 8 Active 40 MG MG) BY MOUTH DAILY capsuleIndications: BEFORE BREAKFAST Hematemesis without nausea, Erosive gastritis esomeprazole (NexIUM) TAKE 1 CAPSULE(40 90 capsule 0 9 Active 40 MG MG) BY MOUTH DAILY capsuleIndications: BEFORE BREAKFAST Hematemesis without nausea, Erosive gastritis Active Problems Problem Noted Date Diverticulitis of colon Erosive gastritis Duodenitis with hemorrhage Hematemesis/vomiting blood CKD (chronic kidney disease) Colon polyp Diverticulosis of colon Family History Medical History Relation Name Comments [...] Signs Not on file Plan of Treatment Health Maintenance Due Date Last Done Comments SHINGLES VACCINES (#1) 1986 65+ PNEUMOCOCCAL VACCINE (1 of 2 - PCV13) 2001 INFLUENZA VACCINE 03/07/2020 Results Not on fileafter 02/04/2019 Insurance Payer Benefit Plan / Subscriber ID Effective Dates Phone Addre ss Type Group MEDICARE MEDICARE PART A xxxxxxxxxx 2001-Present [place] Medicare AND B BCBS BCBS CHOICE xxxxxxxxxxxx 2012-Present PPO PPO/F[employer] EMPL PPO Advance Directives For more information, please contact: [phone] Type Date Recorded 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
--- OUTSIDE RECORDS SUMMARY | 2020-02-05 14:30 | XMS REPORT | Continuity of Care Document ---
:1935 Author Organization [facility] t Address [address] [place] [place] [address] Care Team Providers Name Role Phone Leelee Carl MD Primary Care Physician ERNESTO ESTRADA Attending Clinician Unavailable CLIFTON MORALES Admitting Clinician Unavailable Problems Condition Condition Condition Status Onset Resolution Last Treating Co mments Source Name Details Category Date Date Treatment Clinician Date Hypertensi Hypertensi Disease Active [facility] Renal Renal Disease Active [facility] insuffic[facility] insufficie 03-17 Jennifer kes - ncy ncy 00:00: Medical 00 Center Gastrointe Gastrointe Disease Active [facility] stinal stinal 03-16 [facility] - hemorrhage hemorrhage 00:00: Me dical , , 00 Center unspecifie unspecifie d d gastrointe gastrointe stinal stinal hemorrhage hemorrhage type type Diverticul Diverticul Disease Active [place] itis of itis of [facility] colon colon st Erosive Erosive Disease Active [place] gastritis gastritis Meth ace st Duodenitis Duodenitis Disease Active [place] with with [facility] hemorrhage hemorrhage st Hematemesi Hematemesi Disease Active H ou s/vomiting s/vomiting Me thodi blood blood st CKD CKD Disease Active [place] (chronic (chronic Method i kidney kidney st disease) disease) Colon Colon Disease Active [place] polyp polyp Methodi st Diverticul Diverticul Disease Active H osis of osis of Methodi colon colon st Allergies, Adverse Reactions, Alerts This patient has no known allergies or adverse reactions. Family History Family Member Diagnosis Comments Start Date Stop Date Source Other Pancreatic cancer [place] [facility] Social History Social Habit Start Date Stop Date Quantity Comments Source Sex Assigned At [place] [facility] Alcohol intake 2017-04-20 2017-04-20 Current drinker of Keanu ortiz 00:00:00 00:00:00 alcohol (finding) [facility] st Alcohol Comment 2017-03-16 2017-03-[address] [facility] Smoking Status Start Date Stop Date Source Never smoker [place] [facility] Medications Ordered Filled Start Stop Current Ordering Indication Dosage Frequency Signature Comments Components Source Medication Medication Date Date Medication? Clinician (SIG) Name Name esomeprazol Yes Erosive TAKE 1 [place] e (NexIUM) 4-09 gastritis CAPSULE(40 [facility] 40 MG 00:00: MG) BY st capsule 00 MOUTH DAILY BEFORE BREAKFAST esomeprazol 2017-08 Yes Erosive TAKE 1 [place] (NexIUM) 0-06 gastritis CAPSULE(40 [facility] 40 MG 00:00: MG) BY st capsule 00 MOUTH DAILY BEFORE BREAKFAST aspirin 325 Yes 325mg QD Take 325 [place] MG tablet 9-14 mg by Methodi 15:46: mouth st 31 daily. diphenoxyla Yes 1{tbl} Q.25D Take 1 [place] te-atropine 9-14 tablet by Met gregory (LOMOTIL) 15:46: mouth 4 st 2.5-0.025 31 (four) mg per times a tablet day as needed for diarrhea. magnesium 2016- Yes 250mg QD Take 250 Steven ston oxide 250 9-14 mg by [facility] mg tablet 15:46: mouth st 31 daily. psyllium 2017- Yes .52g Take 0.52 [place] (METAMUCIL) 9-14 g by mouth Me thodi 0.52 gram 15:45: as needed st capsule 18 for constipati on. ferrous 2017-0 Yes TK 1 T PO [place] sulfate 325 9-09 BID Method[facility] (65 FE) MG 00:00: st tablet 00 valsartan 2016- Yes TK 1 T PO Steven ston (DIOVAN) 80 9-09 D ... STOP Me thodi MG tablet 00:00: BENICAR st 00 20MG pantoprazol Yes 40mg Q.5D Take [address] e 8-11 tablet (40 [facility] - (PROTONIX) 00:00: mg total) Me dical 40 MG 00 by mouth 2 Center tablet (two) times daily. sucralfate Yes TK 1 T PO [place] (CARAFATE) 8-11 Q 6 H Methodi 1 gram 00:00: st tablet 00 valsartan Yes 80mg QD Take [address] (DIOVAN) 80 8-10 by mouth Luke s - MG tablet 18:20: daily. Medica l 58 Center ALPRAZolam Yes .25mg Take 0.[address] (XANAX) 8-10 mg by [facility] - 0.25 MG 18:20: mouth Medical tablet 58 every Center night as needed for Anxiety. psyllium Yes .52g QD Take 0.[address] 0.52 gram 8-10 g by mouth Luke s - capsule 18:20: daily. Medical 58 Center amLODIPine Yes 10mg QD Take [address] (NORVASC) 8-10 by mouth [facility] - 10 MG 18:20: daily. Medical tablet 58 Center metoprolol Yes 50mg QD Take [address] (TOPROL-XL) 8-10 by mouth Luke s - 50 MG 24 hr 18:20: daily. Medi kelly tablet 57 Center amLODIPine Yes TK 1 T PO Ho angel (NORVASC) 7-18 QD Methodi 10 mg 00:00: st tablet 00 simvastatin 2016-0 Yes TK 1 T PO [place] (ZOCOR) 20 7-06 QD AFTER Metho di MG tablet 00:00: THE SILVIA st 00 MEAL metoprolol Yes [place] succinate 6-22 Methodi XL 00:00: st (TOPROL-XL) 00 50 mg 24 hr tablet Procedures This patient has no known procedures. Plan of Care Planned Activity Planned Date Details Comments Source Future Scheduled 2020-03-07 INFLUENZA VACCINE [facility]ari l[facility] Test 00:00:00 [code = INFLUENZA VACCINE] Future Scheduled 2001 65+ PNEUMOCOCCAL [facility] Test 00:00:00 VACCINE (1 of 2 - PCV13) [code = 65+ PNEUMOCOCCAL VACCINE (1 of 2 - PCV13)] Future Scheduled 1986 SHINGLES VACCINES (#1) [facility] Test 00:00:00 [code = SHINGLES VACCINES (#1)] Results Test Description Test Time Test Comments Results Result Comments Source TISSUE EXAM 2017-03-22 Surgical Pathology 13:29:00 Report Case: [id number] Authorizing Provider: Charly Mendoza MD Collected: 03/17/2017 1026 Ordering Location: [address] Received: 03/17/2017 1432 Service Pathologist: Angelia Pierre MD Specimen: Biopsy, Gastric, random gastric bx A. STOMACH, RANDOM BIOPSY: - ANTRAL MUCOSA WITH FOCAL ACTIVE CHRONIC GASTRITIS - OXYNTIC MUCOSA WITH CHRONIC INACTIVE GASTRITIS - RARE HELICOBACTER PYLORI ORGANISMS ON WARTHIN-STARRY STAIN - NO EVIDENCE OF INTESTINAL METAPLASIA OR DYSPLASIA OR MALIGNANCY IDENTIFIED Signing Pathologist Direct Phone Line: [phone] ically signed by Angelia Pierre MD on 03/22/2017 at 1:29 PMPreliminary result electronically signed by Angelia Pierre MD on 03/18/2017 at 10:20 [id number] sisRandom gastric biopsyThe specimen is received in a formalin-filled container and labeled with the patient's information and labeled "random gastric biopsy" and consists of multiple fragments of vázquez tissue ranging from 0.1 to 0.6 cm. Submitted entirely A1. CG/pl Performed. CBC (HEMOGRAM ONLY) 2017-03-17 13:47:00 Test Item Value Reference Range Interpretation Comme nts WHITE BLOOD CELL COUNT (BEAKER) (test code = 775) 11.8 K/ L 3.5- 10.5 H RED BLOOD CELL COUNT (BEAKER) (test code = 761) 3.23 M/ L 4.63-6 .08 L HEMOGLOBIN (BEAKER) (test code = 410) 9.9 GM/DL 13.7-17.5 L HEMATOCRIT (BEAKER) (test code = 411) 31.4 % 40.1-51.0 L MEAN CORPUSCULAR VOLUME (BEAKER) (test code = 753) 97.2 fL 79. 0-92.2 H MEAN CORPUSCULAR HEMOGLOBIN (BEAKER) (test code = 751) 30.7 pg 25.7-32.2 MEAN CORPUSCULAR HEMOGLOBIN CONC (BEAKER) (test code = 752) 31.5 GM/DL 32.3-36.5 L RED CELL DISTRIBUTION WIDTH (BEAKER) (test code = 412) 13.2 % 11.6-14.4 PLATELET COUNT (BEAKER) (test code = 756) 157 K/CU MM 150-450 MEAN PLATELET VOLUME (BEAKER) (test code = 754) 10.8 fL 9.4-12 .4 NUCLEATED RED BLOOD CELLS (BEAKER) (test code = 413) 0 /100 WBC 0 -0 SEDIMENTATION [id number] 13:42:00 Test Item Value Reference Range Interpretation Comments SEDIMENTATION RATE, ERYTHROCYTE 17 mm/HR 0-40 (BEAKER) (test code = 766) TSH/FREE T4 IF [id number] 10:54:00 Test Item Value Reference Range Interpretation Comments THYROID STIMULATING HORMONE 1.53 uIU/mL 0.35-4.94 (BEAKER) (test code = 772) HEMOGLOBIN [id number] 08:51:00 Test Item Value Reference Range Interpretation Comments HEMOGLOBIN A1C (BEAKER) (test code = 5.9 % 4.3-6.1 368) [id number] 06:34:00 Test Item Value Reference Range Interpretation Comments MAGNESIUM (BEAKER) 2.1 mg/dL 1.6-2.6 Specimen slightly (test code = 627) hemolyzed [id number] 06:34:00 Test Item Value Reference Range Interpretation Comments PHOSPHORUS (BEAKER) 2.4 mg/dL 2.3-4.7 Specimen slightly (test code = 604) hemolyzed BASIC METABOLIC [id number] 06:34:00 Test Item Value Reference Range Interpretation Comments SODIUM (BEAKER) 141 meq/L 136-145 (test code = 381) POTASSIUM (BEAKER) 4.9 meq/L 3.5-5.1 Specimen slightly (test code = 379) hemolyzed CHLORIDE (BEAKER) 112 meq/L 98-107 H (test code = 382) CO2 (BEAKER) (test 22 meq/L 22-29 code = 355) BLOOD UREA NITROGEN 56 mg/dL 7-21 H (BEAKER) (test code = 354) CREATININE (BEAKER) 1.24 mg/dL 0.57-1.25 Specimen slightly (test code = 358) hemolyzed GLUCOSE RANDOM 99 mg/dL 70-105 (BEAKER) (test code = 652) CALCIUM (BEAKER) 8.3 mg/dL 8.4-10.2 L (test code = 697) EGFR (BEAKER) (test 56 mL/min/1.73 ESTIMA PRIYA GFR IS code = 1092) sq m NOT ACCURATE CREATININE CLEARANCE IN PREDICTING GLOMERULAR FILTRATION RATE . ESTIMATED GFR I S NOT APPLICABLE FOR DIALYSIS PATIEN TS. LIPID [id number] 06:34:00 Test Item Value Reference Range Interpretation Comments TRIGLYCERIDES (BEAKER) 75 mg/dL Speci men slightly (test code = 540) hemolyzed CHOLESTEROL (BEAKER) 98 mg/dL Specime n slightly (test code = 631) hemolyzed HDL CHOLESTEROL (BEAKER) 46 mg/dL (test code = 976) LDL CHOLESTEROL 37 mg/dL CALCULATED (BEAKER) (test code = 633) Triglyceride Reference Range: Low Risk <150 Borderline 150-199 High Risk 200-499 Very High Risk >=500Cholesterol Reference Range: Low Risk <200 Borderline 200-239 High Risk >240HDL Cholesterol Reference Range: Low Risk >=60 High Risk <40LDL Cholesterol Reference Range: Optimal <100 Near Optimal 100-129 Borderline 130-159 High 160-189 Very High >=190HEPATIC FUNCTION [id number] 06:34:00 Test Item Value Reference Range Interpretation Comments TOTAL PROTEIN (BEAKER) 5.7 gm/dL 6.0-8.3 L Speci men slightly (test code = 770) hemolyzed ALBUMIN (BEAKER) (test 3.0 g/dL 3.5-5.0 L Speci men slightly code = 1145) hemolyzed BILIRUBIN TOTAL 0.7 mg/dL 0.2-1.2 Specimen sli ghtly (BEAKER) (test code = hemoly zed 377) BILIRUBIN DIRECT 0.3 mg/dL 0.1-0.5 Specimen sl ightly (BEAKER) (test code = hemoly zed 706) ALKALINE PHOSPHATASE 37 U/L 40-150 L (BEAKER) (test code = 346) AST (SGOT) (BEAKER) 23 U/L 5-34 Specimen slightly (test code = 353) hemolyzed ALT (SGPT) (BEAKER) 16 U/L 6-55 Specimen slightly (test code = 347) hemolyzed CREATINE KINASE (CK), TOTAL AND [id number] 06:34:00 Test Item Value Reference Range Interpretation Comments CREATINE KINASE TOTAL (BEAKER) 48 U/L 29-200 (test code = 380) CREATINE KINASE-MB (BEAKER) (test 1.2 ng/mL 0.0-6.6 code = 750) CREATINE KINASE-MB INDEX (BEAKER) 2.5 % (test code = 395) Effective 06/24/2014: CK-MB Reference Range ChangeNew: 0.0-6.6 Previous: 0.0-4.9CK-MB Reference Range:<6.7 Normal6.7-10.0 Borderline>10.0 AbnormalC-REACTIVE [id number] 06:34:00 Test Item Value Reference Range Interpretation Comments C-REACTIVE PROTEIN (BEAKER) (test 1.09 mg/dL 0.00-0.50 H code = 676) TROPONIN [id number] 06:20:00 Test Item Value Reference Range Interpretation Comments TROPONIN I (BEAKER) (test code = 0.01 ng/mL 0.00-0.03 397) Effective 06/24/2014: Reference Range ChangeNew: 0.00-0.03 Previous [...] acute neurological disease, and persistent tachyarrhythmia.CBC (HEMOGRAM ONLY)2017-03-17 05:48:00 Test Item Value Reference Range Interpretation Comments WHITE BLOOD CELL COUNT (BEAKER) 11.4 K/ L 3.5-10.5 H (test code = 775) RED BLOOD CELL COUNT (BEAKER) 3.09 M/ L 4.63-6.08 L (test code = 761) HEMOGLOBIN (BEAKER) (test code = 9.7 GM/DL 13.7-17.5 L 410) HEMATOCRIT (BEAKER) (test code = 29.6 % 40.1-51.0 L 411) MEAN CORPUSCULAR VOLUME (BEAKER) 95.8 fL 79.0-92.2 H (test code = 753) MEAN CORPUSCULAR HEMOGLOBIN 31.4 pg 25.7-32.2 (BEAKER) (test code = 751) MEAN CORPUSCULAR HEMOGLOBIN CONC 32.8 GM/DL 32.3-36.5 (BEAKER) (test code = 752) RED CELL DISTRIBUTION WIDTH 13.2 % 11.6-14.4 (BEAKER) (test code = 412) PLATELET COUNT (BEAKER) (test 155 K/CU MM 150-450 code = 756) MEAN PLATELET VOLUME (BEAKER) 11.0 fL 9.4-12.4 (test code = 754) NUCLEATED RED BLOOD CELLS 0 /100 WBC 0-0 (BEAKER) (test code = 413) BASIC METABOLIC [id number] 19:47:00 Test Item Value Reference Range Interpretation Comments SODIUM (BEAKER) 139 meq/L 136-145 (test code = 381) POTASSIUM (BEAKER) 4.7 meq/L 3.5-5.1 (test code = 379) CHLORIDE (BEAKER) 103 meq/L 98-107 (test code = 382) CO2 (BEAKER) (test 27 meq/L 22-29 code = 355) BLOOD UREA NITROGEN 42 mg/dL 7-21 H (BEAKER) (test code = 354) CREATININE (BEAKER) 1.89 mg/dL 0.57-1.25 H (test code = 358) GLUCOSE RANDOM 188 mg/dL 70-105 H (BEAKER) (test code = 652) CALCIUM (BEAKER) 9.2 mg/dL 8.4-10.2 (test code = 697) EGFR (BEAKER) (test mL/min/1.73 INSUFFIC IENT CLINICAL code = 1092) sq m DATA TO CALCULA TE ESTIMATED GFR. HEPATIC FUNCTION [id number] 19:46:00 Test Item Value Reference Range Interpretation Comments TOTAL PROTEIN (BEAKER) (test code = 6.6 gm/dL 6.0-8.3 770) ALBUMIN (BEAKER) (test code = 1145) 3.6 g/dL 3.5-5.0 BILIRUBIN TOTAL (BEAKER) (test code 0.7 mg/dL 0.2-1.2 = 377) BILIRUBIN DIRECT (BEAKER) (test 0.3 mg/dL 0.1-0.5 code = 706) ALKALINE PHOSPHATASE (BEAKER) (test 49 U/L 40-150 code = 346) AST (SGOT) (BEAKER) (test code = 25 U/L 5-34 353) ALT (SGPT) (BEAKER) (test code = 19 U/L 6-55 347) [id number] 19:14:00 Test Item Value Reference Range Interpretation Comments PROTIME (BEAKER) (test code = 14.5 seconds 11.7-14.7 759) INR (BEAKER) (test code = 370) 1.1 <=5.9 PARTIAL THROMBOPLASTIN TIME 25.7 seconds 22.5-36.0 (BEAKER) (test code = 760) RECOMMENDED COUMADIN/WARFARIN INR THERAPY RANGESSTANDARD DOSE: 2.0 - 3.0 Includes: PROPHYLAXIS forvenous thrombosis, systemic embolization; TREATMENT for venous thrombosis and/or pulmonary embolus.HIGH RISK: Target INR is 2.5-3.5 for patients with mechanical heart valves.CBC W/PLT COUNT & AUTO DIFFERENTIAL 2017-03-16 19:08:00 Test Item Value Reference Range Interpretation Comments WHITE BLOOD CELL COUNT (BEAKER) 9.4 K/ L 3.5-10.5 (test code = 775) RED BLOOD CELL COUNT (BEAKER) 3.62 M/ L 4.63-6.08 L (test code = 761) HEMOGLOBIN (BEAKER) (test code = 11.3 GM/DL 13.7-17.5 L 410) HEMATOCRIT (BEAKER) (test code = 35.1 % 40.1-51.0 L 411) MEAN CORPUSCULAR VOLUME (BEAKER) 97.0 fL 79.0-92.2 H (test code = 753) MEAN CORPUSCULAR HEMOGLOBIN 31.2 pg 25.7-32.2 (BEAKER) (test code = 751) MEAN CORPUSCULAR HEMOGLOBIN CONC 32.2 GM/DL 32.3-36.5 L (BEAKER) (test code = 752) RED CELL DISTRIBUTION WIDTH 13.1 % 11.6-14.4 (BEAKER) (test code = 412) PLATELET COUNT (BEAKER) (test 196 K/CU MM 150-450 code = 756) MEAN PLATELET VOLUME (BEAKER) 11.0 fL 9.4-12.4 (test code = 754) NUCLEATED RED BLOOD CELLS 0 /100 WBC 0-0 (BEAKER) (test code = 413) NEUTROPHILS RELATIVE PERCENT 71 % (BEAKER) (test code = 429) LYMPHOCYTES RELATIVE PERCENT 19 % (BEAKER) (test code = 430) MONOCYTES RELATIVE PERCENT 8 % (BEAKER) (test code = 431) EOSINOPHILS RELATIVE PERCENT 1 % (BEAKER) (test code = 432) BASOPHILS RELATIVE PERCENT 0 % (BEAKER) (test code = 437) NEUTROPHILS ABSOLUTE COUNT 6.66 K/ L 1.78-5.38 H (BEAKER) (test code = 670) LYMPHOCYTES ABSOLUTE COUNT 1.80 K/ L 1.32-3.57 (BEAKER) (test code = 414) MONOCYTES ABSOLUTE COUNT (BEAKER) 0.72 K/ L 0.30-0.82 (test code = 415) EOSINOPHILS ABSOLUTE COUNT 0.12 K/ L 0.04-0.54 (BEAKER) (test code = 416) BASOPHILS ABSOLUTE COUNT (BEAKER) 0.04 K/ L 0.01-0.08 (test code = 417) IMMATURE GRANULOCYTES-RELATIVE 0 % 0-1 PERCENT (BEAKER) (test code = 3071)
--- NOTE | 2020-02-05 20:58 | EKG ---
Test Date: 2020-02-05 Test Time: 12:52:13 Marine Services Technician: MCKENZIE MEASUREMENT RESULTS: Intervals: Rate: 73 AK: 168 QRSD: 74 QT: 380 QTc: 418 [place]: P: 81 AK: 168 QRS: 0 T: 73 INTERPRETIVE STATEMENTS: Normal sinus rhythm Normal ECG Compared to ECG 03/14/2018 15:15:26 No significant changes Electronically Signed On 02-05-20 20:56:53 CDT by Kj Blackwell
== END 2020-02-05 13:47 | disposition home or self-care (01) ==
LOC: ER 09:56
DX: J20.9 Acute bronchitis, unspecified (principal); Z20.828 Contact with and (suspected) exposure to other viral communicable diseases; I10 Essential (primary) hypertension; E78.5 Hyperlipidemia, unspecified; Z91.048 Other nonmedicinal substance allergy status
CPT/HCPCS: 96365; 93005; 87070; 85025; 80048; 36415; 83735; 80076; 87081; 84484; 84145; 83880; 87804 ×2; 71045; 96375; 99284; U0001; J3475; J2930

== ENCOUNTER 2020-06-01 08:49 | Emergency (ER) | payer OTHER, BC ==
[2020-06-01] MEDS ORDERED: ALBUTEROL 2.5 MG/3 ML NEB SOL ONE (09:35)
[2020-06-01] MEDS ORDERED: METHYLPREDNISOLONE 125 MG INJ ONE (09:35)
[2020-06-01] MEDS ORDERED: IPRATROPIUM BROM 0.5MG/2.5ML ONE (09:35)
--- OUTSIDE RECORDS SUMMARY | 2020-06-01 09:36 | XMS REPORT | Clinical Summary ---
:1935 Author Organization [facility] Address [address] [place] [address] Care Team Providers Name Role Phone Leelee [...] Not on file Results Not on fileafter 06/01/2019 Insurance Payer Benefit Plan / Subscriber ID Effective Phone Address T ype Group Dates MEDICARE MEDICARE A B [id number] 2001-Joyce cruz BLUE BCBS INDEMNITY [id number] 2012-Joyce [phone] [address] [place] [id number] [place] [address] Advance Directives For more information, please contact: [phone] Code Status Date Activated Date Inactivated Comments Full Code 03/17/2017 2:44 AM 03/17/2017 5:06 PM This code status was determined by: Patient
--- OUTSIDE RECORDS SUMMARY | 2020-06-01 09:36 | XMS REPORT | Clinical Summary ---
:1935 Author Organization [facility] Address [address] [place] [address] Care Team Providers Name Role Phone Leelee Carl MD Primary Care Provider Allergies No Known Active Allergies Medications Medication Sig Dispensed Refills Start [...] kidney disease) Colon polyp Diverticulosis of colon Surgical History Surgery Date Site/Laterality Comments VASECTOMY CYSTO RETROGRADE TONSILLECTOMY COLONOSCOPY ZZ BLADDER CANCER, FISH Medical History Medical History Date Comments Hypertension Hyperlipidemia Aortic aneurysm and dissection (HCC) Arthritis Back pain Cancer (HCC) Bladder cancer (HCC) Colon polyp Hematemesis/vomiting blood Erosive gastritis Duodenitis with hemorrhage CKD (chronic kidney disease) Diverticulosis of colon Family History Medical History [...] (#1) 1986 65+ PNEUMOCOCCAL VACCINE (1 of 1 - PPSV23) 2001 INFLUENZA VACCINE 03/07/2020 Results Not on fileafter 06/01/2019 Insurance Payer Benefit Plan / Subscriber ID Effective Dates Phone Addre ss Type Group MEDICARE MEDICARE PART A [id number] 2001-Present [place], [place] Medicare [place] B BC[place] BCBS CHOICE [id number] 2012-Present PPO PPO/FEDERAL EMPL PPO Advance Directives For more information, please contact: [phone] Type Date Recorded 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
[2020-06-01 09:58] LABS: Absolute Lymphocytes (CBC) 1.3 K/uL (0.7-4.9); Basophils % 0.7 % (0-1.3); Hematocrit 39.4 % (39.6-49.0); Lymphocytes % 14.9 % (15.3-44.8); MPV 8.3 fL (7.6-11.3); RBC Red Blood Cell Count 4.24 M/uL (4.33-5.43)
[2020-06-01 10:01] LABS: Protime INR 1.05
[2020-06-01 10:37] LABS: ALT/SGPT 18 U/L (12-78); AST/SGOT 21 U/L (15-37); Albumin 3.4 g/dL (3.4-5.0); Alkaline Phosphatase 67 U/L (45-117); BUN Blood Urea Nitrogen 28 mg/dL (7-18); Bicarbonate 27 mmol/L (21-32); Bilirubin Direct 0.2 mg/dL (0-0.2); Bilirubin Total 0.6 mg/dL (0.2-1.0); Glucose Level 115 mg/dL (74-106); Magnesium 2.6 mg/dL (1.8-2.4); NT PRO-BNP 188 pg/mL (<450); Potassium 4.3 mmol/L (3.5-5.1); Protein, Total 7.2 g/dL (6.4-8.2); Sodium Level 142 mmol/L (136-145); Troponin (Emerg Dept Use Only) < 0.02 ng/mL (0.0-0.045)
--- NOTE | 2020-06-01 11:18 | RAD REPORT ---
EXAM DESCRIPTION: RAD - Chest Single View - 06/01/2020 10:29 am CLINICAL HISTORY: DYSPNEA Chest pain. COMPARISON: Chest Single View dated 02/05/2020; Chest Pa And Lat (2 Views) dated 03/14/2018; CHEST SINGL E VIEW dated 08/06/2012 FINDINGS: Portable technique limits examination quality. The lungs are grossly clear. The heart is normal in size. No displaced fractures. IMPRESSION: No acute intrathoracic process suspected.
--- NOTE | 2020-06-01 12:08 | EDPHYS ---
Physician Documentation [facility] Name: Navi Contreras Age: 85 yrs Sex: Male : 1935 Arrival Date: 06/01/2020 Time: 08:51 Bed 8 Private MD: Urban Carl C ED Physician Michel Alfred HPI: 06/01 10:13 This 85 yrs old Male presents to ER via Ambulatory with complaints of jr8 Shortness Of Breath, Congestion. 10:13 The patient has shortness of breath at rest. Onset: The symptoms/episode began/occurred jr8 acutely, 4 day(s) ago. Duration: The symptoms are continuous, and are steadily getting worse. The patient's shortness of breath is aggravated by light activity. Associated signs and symptoms: Pertinent positives: non-productive cough. Severity of symptoms: At their worst the symptoms were moderate in the emergency department the symptoms are unchanged. It is unknown whether or not the patient has had similar symptoms in the past. The patient has been recently seen by a physician:. Patient stated that he was started on albuterol HFA and fluticasone after started with cough, shortness of breath, and wheezing since last . Came to ED today for worsening of symptoms. Denies sick contacts or travel . Historical: - Allergies: 09:14 Horse/Equine Containing Products; aa5 09:16 Tetanus Vaccines and Toxoid; tw2 - Home Meds: 10:13 amlodipine 10 mg oral tab 1 tab once daily [Active]; carvedilol 6.25 mg oral tab 1 tab tw2 2 times per day [Active]; hydralazine 25 mg oral tab 1 tab 2 times per day [Active]; losartan 50 mg oral tab 1 tab 2 times per day [Active]; simvastatin 20 mg oral tab 2 tabs once daily [Active]; famotidine 20 mg Oral tab 1 tab once daily [Active]; fluticasone 50 mcg/actuation nasal spsn 1 spray 2 times per day [Active]; - PMHx: 09:16 Hyperlipidemia; Hypertension; tw2 - Immunization history:: Flu vaccine is up to date. Adult Immunizations. - Social history:: Smoking status: Patient denies any tobacco usage or history of. Smoking status: . ROS: 10:13 Eyes: Negative for injury, pain, redness, and discharge, ENT: Negative for injury, jr8 pain, and discharge, Neck: Negative for injury, pain, and swelling, Cardiovascular: Negative for chest pain, palpitations, and edema, Abdomen/GI: Negative for abdominal pain, nausea, vomiting, diarrhea, and constipation, Back: Negative for injury and pain, MS/Extremity: Negative for injury and deformity, Skin: Negative for injury, rash, and discoloration, Neuro: Negative for headache, weakness, numbness, tingling, and seizure. 10:13 Respiratory: Positive for cough, dyspnea on exertion, shortness of breath, wheezing. Exam: 10:13 Eyes: Pupils equal round and reactive to light, extra-ocular motions intact. Lids and jr8 lashes normal. Conjunctiva and sclera are non-icteric and not injected. Cornea within normal limits. Periorbital areas with no swelling, redness, or edema. ENT: Nares patent. No nasal discharge, no septal abnormalities noted. Tympanic membranes are normal and external auditory canals are clear. Oropharynx with no redness, swelling, or masses, exudates, or evidence of obstruction, uvula midline. Mucous membranes moist. Neck: Trachea midline, no thyromegaly or masses palpated, and no cervical lymphadenopathy. Supple, full range of motion without nuchal rigidity, or vertebral point tenderness. No Meningismus. Cardiovascular: Regular rate and rhythm with a normal S1 and S2. No gallops, murmurs, or rubs. Normal PMI, no JVD. No pulse deficits. Abdomen/GI: Soft, non-tender, with normal bowel sounds. No distension or tympany. No guarding or rebound. No evidence of tenderness throughout. Back: No spinal tenderness. No costovertebral tenderness. Full range of motion. Skin: Warm, dry with normal turgor. Normal color with no rashes, no lesions, and no evidence of cellulitis. MS/ Extremity: Pulses equal, no cyanosis. Neurovascular intact. Full, normal range of motion. Neuro: Awake and alert, GCS 15, oriented to person, place, time, and situation. Cranial nerves II-XII grossly intact. Motor strength 5/5 in all extremities. Sensory grossly intact. Cerebellar exam normal. Normal gait. 10:13 ECG was reviewed by the Attending Physician. 10:13 Respiratory: mild respiratory distress is noted, Respirations: tachypnea, that is mild, Breath sounds: wheezing: expiratory that is moderate, is heard diffusely. Vital Signs: 08:54 BP 118 / 79; Pulse 76; Resp 24 S; Temp 98.2(O); Pulse Ox 93% on R/A; Weight 74.84 kg aa5 (R); Height 5 ft. 9 in. (175.26 cm) (R); Pain 0/10; 09:56 BP 156 / 66; Pulse 69; Resp 14; Pulse Ox 100% on Nebulizer Mask; tw2 10:57 BP 134 / 62; Pulse 64; Resp 19; Pulse Ox 95% ; jl7 12:41 BP 140 / 66; Pulse 72; Resp 15; Temp 97.6(O); Pulse Ox 94% on R/A; mh5 08:54 Body Mass Index 24.37 (74.84 kg, 175.26 cm) aa5 MDM: 09:03 Patient medically screened. jr8 12:06 Data reviewed: vital signs, nurses notes, lab test result(s), EKG, radiologic studies, jr8 plain films. Data interpreted: Pulse oximetry: on room air is 93 %. Interpretation: borderline. Counseling: I had a detailed discussion with the patient and/or guardian regarding: the historical points, exam findings, and any diagnostic results supporting the discharge/admit diagnosis, lab results, radiology results, the need for outpatient follow up, a family practitioner, to return to the emergency department if symptoms worsen or persist or if there are any questions or concerns that arise at home. ED course: Patient doing much better. Decrease in wheezing. Saturation off oxygen 97% at this time. No pneumonia. Spoke to patient about renal function as well. Will refer to Dr. Garcia . 06/01 09:17 Order name: Basic Metabolic Panel; Complete Time: 10:45 8 06/01 09:17 Order name: CBC with Diff; Complete Time: 10:20 jr8 06/01 09:17 Order name: LFT's; Complete Time: 10:45 jr8 06/01 09:17 Order name: Magnesium; Complete Time: 10:45 jr8 06/01 09:17 Order name: NT PRO-BNP; Complete Time: 10:45 jr8 06/01 09:17 Order name: PT-INR; Complete Time: 10:20 jr8 06/01 09:17 Order name: Troponin (emerg Dept Use Only); Complete Time: 10:45 jr8 06/01 09:17 Order name: XRAY Chest (1 view); Complete Time: 12:06 jr8 06/01 09:17 Order name: Cardiac monitoring; Complete Time: 09:21 jr8 06/01 11:18 Order name: SARS-COV-2 RT PCR; Complete Time: 12:06 EDMS 06/01 09:17 Order name: EKG - Nurse/Tech; Complete Time: 09:56 jr8 06/01 09:17 Order name: IV Saline Lock; Complete Time: 09:56 jr8 06/01 09:17 Order name: Labs collected and sent; Complete Time: :06/01 09:17 Order name: O2 Per Protocol; Complete Time: :22 jr8 06/01 09:17 Order name: O2 Sat Monitoring; Complete Time: : EC:13 Rate is 70 beats/min. Rhythm is regular, Normal Sinus Rhythm. QRS [place] is Normal. IN jr8 interval is normal at 172 msec. QRS interval is normal at 74 msec. QT interval is normal at 376 msec. No Q waves. T waves are Normal. No ST changes noted. Clinical impression: Normal ECG. Interpreted by me. Reviewed by me. Administered Medications: 09:39 Drug: SOLU-Medrol 125 mg Route: IVP; Site: right antecubital; tw2 10:58 Follow up: Response: No adverse reaction jl7 09:45 Drug: Albuterol - atroVENT (3:1) (2.5 mg - 0.5 mg) 3 ml Route: Nebulizer; tw2 10:00 Follow up: Response: No adverse reaction jl7 Disposition: 15:57 Co-signature as Attending Physician, Michel Alfred MD I agree with the assessment and narciso plan of care. Disposition: 06/01/20 12:07 Discharged to Home. Impression: Acute bronchitis. - Condition is Stable. - Discharge Instructions: Acute Bronchitis, Adult. - Prescriptions for Albuterol Sulfate 2.5 mg /3 mL (0.083 %) Inhalation Solution for Nebulization - inhale 1 unit by NEBULIZATION route every 8 hours As needed; 1 box. Prednisone 20 mg Oral Tablet - take 2 tablet by ORAL route once daily for 5 days; 10 tablet. - Medication Reconciliation Form, Thank You Letter, Antibiotic Education, Prescription Opioid Use form. - Follow up: Urban Carl MD; When: 2 - 3 days; Reason: Recheck today's complaints, Continuance of care, Re-evaluation by your physician. Follow up: Zechariah Myers MD; When: 2 - 3 days; Reason: Recheck today's complaints, Continuance of care, Re-evaluation by your physician. - Problem is new. - Symptoms have improved. Signatures: Dispatcher [employer] [facility] Michel Alfred MD MD cha Calderon, Audri, RN RN aa5 Freddy Solis PA PA jr8 Mary Ch RN RN tw2 Cleveland Posey RN RN jl7 Corrections: (The following items were deleted from the chart) 09:55 09:21 CORONAVIRUS+.BRZ ordered. [facility] 10:13 09:14 PMHx: Hyperlipidemia; [place] [id number] 10:13 09:14 PMHx: Hypertension; [place] [id number] 10:13 09:16 Allergies: Horse/Equine Containing Products; [place] [id number] 13:16 12:07 06/01/2020 12:07 Discharged to Home. Impression: Acute bronchitis. Condition is jl7 Stable. Forms are Medication Reconciliation Form, Thank You Letter, Antibiotic Education, Prescription Opioid Use. Follow up: Urban Carl; When: 2 - 3 days; Reason: Recheck today's complaints, Continuance of care, Re-evaluation by your physician. Follow up: Zechariah Myers; When: 2 - 3 days; Reason: Recheck today's complaints, Continuance of care, Re-evaluation by your physician. Problem is new. Symptoms have improved. jr8
--- NOTE | 2020-06-01 12:08 | ER ---
Nurse's Notes [facility] Name: Navi Contreras Age: 85 yrs Sex: Male : 1935 Arrival Date: 06/01/2020 Time: 08:51 Bed 8 Private MD: Urban Carl C Diagnosis: Acute bronchitis Presentation: 06/01 08:54 Chief complaint: Patient states: SOB, productive cough that began 4 days ago. Audible aa5 wheezing noted. 08:54 Coronavirus screen: cough unrelated to allergies, shortness of breath, Client presents aa5 with at least one sign or symptom that may indicate coronavirus-19. Standard/surgical mask placed on the client. Provider contacted for isolation considerations. Ebola Screen: Patient negative for fever greater than or equal to 101.5 degrees Fahrenheit, and additional compatible Ebola Virus Disease symptoms. Initial Sepsis Screen: Does the patient meet any 2 criteria? RR > 20 per min. Does the patient have a suspected source of infection? Yes: Productive cough/pneumonia. Risk Assessment: Do you want to hurt yourself or someone else? Patient reports no desire to harm self or others. Onset of symptoms was May 2020. 08:54 Method Of Arrival: Ambulatory aa5 08:54 Acuity: IFTIKHAR 3 aa5 Historical: - Allergies: 09:14 Horse/Equine Containing Products; aa5 09:16 Tetanus Vaccines and Toxoid; tw2 - Home Meds: 10:13 amlodipine 10 mg oral tab 1 tab once daily [Active]; carvedilol 6.25 mg oral tab 1 tab tw2 2 times per day [Active]; hydralazine 25 mg oral tab 1 tab 2 times per day [Active]; losartan 50 mg oral tab 1 tab 2 times per day [Active]; simvastatin 20 mg oral tab 2 tabs once daily [Active]; famotidine 20 mg Oral tab 1 tab once daily [Active]; fluticasone 50 mcg/actuation nasal spsn 1 spray 2 times per day [Active]; - PMHx: 09:16 Hyperlipidemia; Hypertension; tw2 - Immunization history:: Flu vaccine is up to date. Adult Immunizations. - Social history:: Smoking status: Patient denies any tobacco usage or history of. Smoking status: . Screenin:59 Abuse screen: Denies threats or abuse. Nutritional screening: No deficits noted. tw2 Tuberculosis screening: No symptoms or risk factors identified. Fall Risk Secondary diagnosis (15 points) impaired mobility. Assessment: 08:55 General: Appears in no apparent distress. slender, well groomed, Behavior is calm, tw2 cooperative, appropriate for age. Pain: Denies pain. Neuro: Level of Consciousness is awake, alert, obeys commands, Oriented to person, place, time, situation. Cardiovascular: Heart tones S1 S2 Capillary refill < 3 seconds Patient's skin is warm and dry. Rhythm is regular. Respiratory: Reports shortness of breath at rest on exertion cough that is Airway is patent Respiratory effort is even, unlabored, Respiratory pattern is regular, symmetrical, Breath sounds with wheezes bilaterally. GI: Abdomen is flat, Bowel sounds present X 4 quads. : No signs and/or symptoms were reported regarding the genitourinary system. EENT: Reports nasal congestion nasal discharge. Derm: No signs and/or symptoms reported regarding the dermatologic system. Skin is intact, is fragile, is thin, Skin is dry. Musculoskeletal: Range of motion: intact in all extremities. 09:13 Reassessment: provider at bedside at this time. tw2 09:56 Reassessment: Patient appears in no apparent distress at this time. No changes from tw2 previously documented assessment. Patient and/or family updated on plan of care and expected duration. Pain level reassessed. Patient is alert, oriented x 3, equal unlabored respirations, skin warm/dry/pink. 10:57 Reassessment: Patient appears in no apparent distress at this time. Patient and/or jl7 family updated on plan of care and expected duration. Pain level reassessed. Patient is alert, oriented x 3, equal unlabored respirations, skin warm/dry/pink. Patient states feeling better. Patient states symptoms have improved. Vital Signs: 08:54 BP 118 / 79; Pulse 76; Resp 24 S; Temp 98.2(O); Pulse Ox 93% on R/A; Weight 74.84 kg aa5 (R); Height 5 ft. 9 in. (175.26 cm) (R); Pain 0/10; 09:56 BP 156 / 66; Pulse 69; Resp 14; Pulse Ox 100% on Nebulizer Mask; tw2 10:57 BP 134 / 62; Pulse 64; Resp 19; Pulse Ox 95% ; jl7 12:41 BP 140 / 66; Pulse 72; Resp 15; Temp 97.6(O); Pulse Ox 94% on R/A; mh5 08:54 Body Mass Index 24.37 (74.84 kg, 175.26 cm) aa5 ED Course: 08:51 Patient arrived in ED. ag5 08:51 Urban Carl MD is Private Physician. ag5 08:53 Arm band placed on. tw2 08:59 Mary Ch RN is Primary Nurse. tw2 08:59 Placed in gown. Bed in low position. traffic monitor specialist on. Pulse ox on. NIBP on. tw2 09:03 Freddy Solis PA is PHCP. jr8 09:03 Michel Alfred MD is Attending Physician. jr8 09:13 Triage completed. aa5 09:30 Radiology exam delayed due to nurse and tech in room getting labs and EKG. md1 09:38 Inserted saline lock: 20 gauge in right antecubital area, using aseptic technique. tw2 Blood collected. 10:29 XRAY Chest (1 view) In Process Unspecified. EDMS 12:07 Urban Carl MD is Referral Physician. jr8 12:07 Zechariah Myers MD is Referral Physician. jr8 13:16 No provider procedures requiring assistance completed. IV discontinued, intact, jl7 bleeding controlled, No redness/swelling at site. Pressure dressing applied. Administered Medications: 09:39 Drug: SOLU-Medrol 125 mg Route: IVP; Site: right antecubital; tw2 10:58 Follow up: Response: No adverse reaction jl7 09:45 Drug: Albuterol - atroVENT (3:1) (2.5 mg - 0.5 mg) 3 ml Route: Nebulizer; tw2 10:00 Follow up: Response: No adverse reaction jl7 Outcome: 12:07 Discharge ordered by MD. jr8 13:16 Discharged to home ambulatory, with family. jl7 13:16 Condition: stable 13:16 Discharge instructions given to patient, family, Instructed on discharge instructions, follow up and referral plans. medication usage, Demonstrated understanding of instructions, follow-up care, medications, Prescriptions given X 2. 13:16 Patient left the ED. jl7 Signatures: Dispatcher [employer] [facility] Monse Tolliver RN RN aa5 Freddy Solis PA PA jr8 Mary Ch RN RN tw2 Sahra Cobian 5 [place] Posey RN RN jl7 Neo Steve 5 Sandra Bowman md1 Corrections: (The following items were deleted from the chart) 09:14 PMHx: Hyperlipidemia; aa5 09:14 PMHx: Hypertension; 09:16 Allergies: Horse/Equine Containing Products;
[2020-06-01 13:45] VITALS: BP 140/66; TEMP 97.6; O2SAT 94
--- NOTE | 2020-06-02 10:10 | EKG ---
Test Date: 2020-06-01 Test Time: 09:32:04 Financial Rep: SANDY MEASUREMENT RESULTS: Intervals: Rate: 70 RI: 172 QRSD: 74 QT: 376 QTc: 406 [place]: P: 65 RI: 172 QRS: 43 T: 72 INTERPRETIVE STATEMENTS: Normal sinus rhythm with sinus arrhythmia Normal ECG Compared to ECG 02/05/2020 12:52:13 No significant changes Electronically Signed On 06-02-20 10:06:54 CDT by Kj Blackwell
== END 2020-06-01 13:16 | disposition home or self-care (01) ==
LOC: ER 08:49
DX: J20.9 Acute bronchitis, unspecified (principal); Z20.828 Contact with and (suspected) exposure to other viral communicable diseases; I10 Essential (primary) hypertension; E78.5 Hyperlipidemia, unspecified; Z88.7 Allergy status to serum and vaccine; Z91.048 Other nonmedicinal substance allergy status
CPT/HCPCS: 93005; 85025; 80048; 36415; 83735; 85610; 80076; 84484; 83880; 71045; 96374; 99285; U0003; J2930

== ENCOUNTER 2020-11-02 11:51 | Inpatient (IN) | payer OTHER, BC ==
[2020-11-02 15:35] LABS: Albumin 3.3 g/dL (3.4-5.0); Bilirubin Direct 0.2 mg/dL (0-0.2); Bilirubin Total 0.7 mg/dL (0.2-1.0); Potassium 4.4 mmol/L (3.5-5.1); Protein, Total 7.6 g/dL (6.4-8.2)
[2020-11-02 16:13] LABS: Absolute Lymphocytes (CBC) 1.3 K/uL (0.7-4.9); Basophils % 0.5 % (0-1.3); Hematocrit 34.2 % (39.6-49.0); Lymphocytes % 8.9 % (15.3-44.8); MPV 9.4 fL (7.6-11.3); RBC Red Blood Cell Count 3.52 M/uL (4.33-5.43)
--- NOTE | 2020-11-02 16:30 | RAD REPORT ---
EXAM DESCRIPTION: CT - Abdomen Pelvis Wo Contrast - 11/02/2020 4:12 pm CLINICAL HISTORY: Abdominal pain. ABD PAIN COMPARISON: <Comparisons> TECHNIQUE: CT imaging of the abdomen and pelvis was performed without contrast. Solid organ, bowel a nd vascular assessment is limited due to lack of IV and oral contrast. All CT scans are performed using dose optimization technique as appropriate and may include automated exposure control or mA/KV adjustment according to patient size. FINDINGS: The lower lung sanders are clear.Small hiatal hernia. The liver, spleen, pancreas, adrenal glands and kidneys are within normal limits for a limited non-co ntrast examination.Small benign 26 mm right renal cyst. Infrarenal abdominal aortic aneurysm is present measuring 5 cm in transverse dimension. This represen ts an increase in size from 2012 study at which time it measured 3.4 cm. No bowel obstruction, free air, free fluid or abscess. Prominent sigmoid diverticulosis coli is prese nt. There is wall thickening and mild inflammation involving a 10 cm length of sigmoid colon suspicio us for acute diverticulitis. No peridiverticular abscess. The appendix is normal. The osseous structures are within normal limits.11 cm diverticulum is present off of the posterolater al aspect of the urinary bladder. IMPRESSION: Evidence of moderate sigmoid acute diverticulitis is present. No abscess seen. Given the degree of wall thickening involving this portion of the colon, after appropriate therapy followup co lonoscopy would be recommended. Infrarenal abdominal aortic aneurysm is present measuring 5 cm, moderately enlarged since 2012 study as detailed. Large bladder diverticulum. A limited non-contrast examination was performed as detailed.
--- NOTE | 2020-11-02 16:55 | ER ---
Nurse's Notes [facility] Name: Navi Contreras Age: 85 yrs Sex: Male : 1935 Arrival Date: 11/02/2020 Time: 11:54 Bed 13 Private MD: Urban Carl C Diagnosis: Diverticulitis of intestine, part unspecified, without perforation or abscess without bleeding Presentation: 11/02 12:52 Chief complaint: Patient states: Went to urgent care on Monday for LLQ pain, was ca1 prescribed Amox-Clav. But for the last 4 - 5 days, haven't had a BM. Prior to Monday, I've had diarrhea. Right now, I am hurting on my lower abdominal cramps. Coronavirus screen: Client denies travel out of the [place] in the last 14 days. At this time, the client does not indicate any symptoms associated with coronavirus-19. Ebola Screen: Patient negative for fever greater than or equal to 101.5 degrees Fahrenheit, and additional compatible Ebola Virus Disease symptoms Patient denies exposure to infectious person. Patient denies travel to an Ebola-affected area in the 21 days before illness onset. No symptoms or risks identified at this time. Initial Sepsis Screen: Does the patient meet any 2 criteria? No. Patient's initial sepsis screen is negative. Does the patient have a suspected source of infection? No. Patient's initial sepsis screen is negative. Risk Assessment: Do you want to hurt yourself or someone else? Patient reports no desire to harm self or others. Onset of symptoms was November 02, 2020. 12:52 Method Of Arrival: Ambulatory ca1 12:52 Acuity: IFTIKHAR 3 ca1 Historical: - Allergies: 12:56 Tetanus Vaccines and Toxoid; ca1 - PMHx: 12:56 Hypertension; Hyperlipidemia; Diverticulitis; ca1 - PSHx: 12:56 Bladder Surgery; shouler surgery; ca1 - Immunization history:: Client reports receiving the 2nd dose of the Covid vaccine, Pneumococcal vaccine is up to date, Flu vaccine is up to date. - Social history:: Smoking status: Patient denies any tobacco usage or history of. Screenin:37 Abuse screen: Denies threats or abuse. Denies injuries from another. Nutritional zb screening: No deficits noted. Tuberculosis screening: No symptoms or risk factors identified. Fall Risk None identified. Assessment: 15:00 General: Appears in no apparent distress. uncomfortable, Behavior is calm, cooperative, zb appropriate for age. Pain: Complains of pain in right lower quadrant and left lower quadrant Pain currently is 8 out of 10 on a pain scale. Also complains of constipation. Neuro: Level of Consciousness is awake, alert, obeys commands, Oriented to person, place, time, situation. Cardiovascular: Capillary refill < 3 seconds Patient's skin is warm and dry. Respiratory: Airway is patent Respiratory effort is even, unlabored, Respiratory pattern is regular, symmetrical. GI: Abdomen is round Bowel sounds present X 4 quads. Abd is non tender in right lower quadrant and left lower quadrant. : No deficits noted. Derm: Skin is intact, is healthy with good turgor, Skin is dry, Skin is normal, Skin temperature is warm. Musculoskeletal: Range of motion: intact in all extremities. 15:50 Reassessment: Patient appears in no apparent distress at this time. Patient and/or zb family updated on plan of care and expected duration. Pain level reassessed. Patient is alert, oriented x 3, equal unlabored respirations, skin warm/dry/pink. 16:37 Reassessment: Patient appears in no apparent distress at this time. Patient and/or zb family updated on plan of care and expected duration. Pain level reassessed. Patient is alert, oriented x 3, equal unlabored respirations, skin warm/dry/pink. ECP at bedside. 17:00 Reassessment: Patient appears in no apparent distress at this time. Patient and/or zb family updated on plan of care and expected duration. Pain level reassessed. Patient is alert, oriented x 3, equal unlabored respirations, skin warm/dry/pink. 18:00 Reassessment: Patient appears in no apparent distress at this time. Patient and/or zb family updated on plan of care and expected duration. Pain level reassessed. Patient is alert, oriented x 3, equal unlabored respirations, skin warm/dry/pink. 19:00 Reassessment: Patient appears in no apparent distress at this time. Patient and/or zb family updated on plan of care and expected duration. Pain level reassessed. Patient is alert, oriented x 3, equal unlabored respirations, skin warm/dry/pink. 20:00 Reassessment: Patient appears in no apparent distress at this time. Patient and/or zb family updated on plan of care and expected duration. Pain level reassessed. Patient is alert, oriented x 3, equal unlabored respirations, skin warm/dry/pink. 20:59 Reassessment: Patient appears in no apparent distress at this time. Patient and/or zb family updated on plan of care and expected duration. Pain level reassessed. Patient is alert, oriented x 3, equal unlabored respirations, skin warm/dry/pink. pt ambulated to restroom. Vital Signs: 12:52 BP 120 / 70; Pulse 72; Resp 16 S; Temp 97; Pulse Ox 99% on R/A; Weight 72.57 kg (R); ca1 Height 5 ft. 10 in. (177.80 cm) (R); Pain 2/10; 15:41 BP 126 / 75; Pulse 72; Resp 16; Pulse Ox 98% on R/A; zb 16:40 BP 138 / 77; Pulse 77; Resp 16; Pulse Ox 98% on R/A; dh4 17:30 BP 144 / 71; Pulse 79; Resp 18; Pulse Ox 98% on R/A; dh4 18:30 BP 131 / 72; Pulse 79; Resp 18; Pulse Ox 97% on R/A; dh4 19:30 BP 132 / 66; Pulse 64; Resp 19; Pulse Ox 97% on R/A; dh4 20:17 BP 130 / 78; Pulse 87; Resp 17; Pulse Ox 97% on R/A; dh4 12:52 Body Mass Index 22.96 (72.57 kg, 177.80 cm) ca1 ED Course: 11:54 Patient arrived in ED. as 11:54 Urabn Carl MD is Private Physician. as 12:54 Triage completed. ca1 12:56 Arm band placed on right wrist. ca1 14:30 Mirella Biggs FNP-C [facility] kb 14:30 Harley Fay MD is Attending Physician. kb 14:36 Cassy Padgett RN is Primary Nurse. zb 15:04 Inserted saline lock: 20 gauge in left antecubital area, using aseptic technique. Blood dh4 collected. 15:52 Patient has correct armband on for positive identification. Bed in low position. Call zb light in reach. Side rails up X 1. Pulse ox on. NIBP on. Door closed. Noise minimized. 16:12 CT Abd/Pelvis - Without Contrast In Process Unspecified. EDMS 16:54 Urban Carl MD is Hospitalizing Provider. kb 22:20 No provider procedures requiring assistance completed. Patient admitted, IV remains in zb place. Administered Medications: 17:10 Drug: Flagyl 500 mg Volume: 100 ml; Route: IVPB; Rate: 200 ml/hr; Infused Over: 30 zb mins; Site: left antecubital; 18:24 Follow up: Response: No adverse reaction; IV Status: Completed infusion; IV Intake: zb 100ml 17:55 Drug: morphine 4 mg {Note: RASS 0.} Route: IVP; Site: left antecubital; zb 18:23 Follow up: Response: No adverse reaction; Marked relief of symptoms; Pain is decreased; zb RASS: Alert and Calm (0) 17:55 Drug: Zofran (Ondansetron) 4 mg Route: IVP; Site: left antecubital; zb 18:24 Follow up: Response: No adverse reaction; Marked relief of symptoms zb 18:22 Drug: Cipro (ciprofloxacin) 400 mg Volume: 200 ml; Route: IVPB; Infused Over: 60 mins; zb Site: left antecubital; 19:00 Follow up: Response: No adverse reaction; IV Status: Completed infusion; IV Intake: zb 200ml 21:08 Drug: morphine 4 mg {Note: RASS 0.} Route: IVP; Site: left antecubital; zb 21:20 Follow up: Response: No adverse reaction; Pain is decreased; RASS: Alert and Calm (0) zb Intake: 18:24 IV: 100ml; Total: 100ml. zb 19:00 IV: 200ml; Total: 300ml. zb Outcome: 16:54 Decision to Hospitalize by Provider. kb 22:00 Admitted to zb 22:00 Admitted to Med/surg accompanied by tech, room 216, with chart, Report called to KIA Garcia 22:00 Condition: stable 22:00 Instructed on the need for admit. 22:21 Patient left the ED. zb Signatures: Dispatcher [employer] EDMirella Figueroa, RUSSELL-C MEMBERSHIP MANAGER-CkIngrid Briggs Jimena Lowe RN RN [facility] Otilio [facility] Cassy Padgett RN RN zb Corrections: (The following items were deleted from the chart) 15:52 15:00 Musculoskeletal: zb zb 18:23 17:55 morphine 4 mg IVP in left antecubital zb zb 18: 18:23 Response: No adverse reaction; Marked relief of symptoms zb zb
--- NOTE | 2020-11-02 16:55 | EDPHYS ---
Physician Documentation [facility] Name: Navi Contreras Age: 85 yrs Sex: Male : 1935 Arrival Date: 11/02/2020 Time: 11:54 Bed 13 Private MD: Urban Carl C ED Physician Harley Fay HPI: 11/02 15:06 This 85 yrs old Male presents to ER via Ambulatory with complaints of kb Abdominal Pain. 15:06 Associated signs and symptoms: Pertinent positives: constipation, diarrhea, Pertinent kb negatives: nausea and vomiting, fever. 15:06 The patient presents with abdominal pain in the left lower quadrant. Onset: The kb symptoms/episode began/occurred 7 day(s) ago. The symptoms do not radiate. The symptoms are described as intermittent. Modifying factors: The symptoms are alleviated by nothing, the symptoms are aggravated by nothing. Severity of pain: At its worst the pain was moderate in the emergency department the pain is unchanged. The patient has experienced similar episodes in the past, a few times. The patient has been recently seen at an urgent care. Pt reports LLQ and diarrhea started 7 days ago, went to UC and was given augmentin for possible diverticulitis. Pain has continued intermittently and now pt reports constipation for 4-5 days.. Historical: - Allergies: 12:56 Tetanus Vaccines and Toxoid; ca1 - PMHx: 12:56 Hypertension; Hyperlipidemia; Diverticulitis; ca1 - PSHx: 12:56 Bladder Surgery; shouler surgery; ca1 - Immunization history:: Client reports receiving the 2nd dose of the Covid vaccine, Pneumococcal vaccine is up to date, Flu vaccine is up to date. - Social history:: Smoking status: Patient denies any tobacco usage or history of. ROS: 15:04 Constitutional: Negative for fever, chills, and weight loss, Cardiovascular: Negative kb for chest pain, palpitations, and edema, Respiratory: Negative for shortness of breath, cough, wheezing, and pleuritic chest pain, Back: Negative for injury and pain, MS/Extremity: Negative for injury and deformity, Skin: Negative for injury, rash, and discoloration, Neuro: Negative for headache, weakness, numbness, tingling, and seizure. 15:04 Abdomen/GI: Positive for abdominal pain, diarrhea, constipation, Negative for nausea and vomiting. Exam: 15:04 Constitutional: This is a well developed, well nourished patient who is awake, alert, kb and in no acute distress. Head/Face: Normocephalic, atraumatic. Cardiovascular: Regular rate and rhythm with a normal S1 and S2. No gallops, murmurs, or rubs. No pulse deficits. Respiratory: Respirations even and unlabored. No increased work of breathing, no retractions or nasal flaring. Skin: Warm, dry with normal turgor. Normal color. MS/ Extremity: Pulses equal, no cyanosis. Neurovascular intact. Full, normal range of motion. Neuro: Awake and alert, GCS 15, oriented to person, place, time, and situation. Moves all extremities. Normal gait. 15:04 Abdomen/GI: Inspection: abdomen appears normal, Bowel sounds: active, in the left upper quadrant and left lower quadrant, diminished, in the right upper quadrant and right lower quadrant, Palpation: soft, in all quadrants, mild abdominal tenderness, in the right lower quadrant and left lower quadrant. Vital Signs: 12:52 BP 120 / 70; Pulse 72; Resp 16 S; Temp 97; Pulse Ox 99% on R/A; Weight 72.57 kg (R); ca1 Height 5 ft. 10 in. (177.80 cm) (R); Pain 2/10; 15:41 BP 126 / 75; Pulse 72; Resp 16; Pulse Ox 98% on R/A; zb 16:40 BP 138 / 77; Pulse 77; Resp 16; Pulse Ox 98% on R/A; dh4 17:30 BP 144 / 71; Pulse 79; Resp 18; Pulse Ox 98% on R/A; dh4 18:30 BP 131 / 72; Pulse 79; Resp 18; Pulse Ox 97% on R/A; dh4 19:30 BP 132 / 66; Pulse 64; Resp 19; Pulse Ox 97% on R/A; dh4 20:17 BP 130 / 78; Pulse 87; Resp 17; Pulse Ox 97% on R/A; dh4 12:52 Body Mass Index 22.96 (72.57 kg, 177.80 cm) ca1 MDM: 14:30 Patient medically screened. kb 15:06 Data reviewed: vital signs, nurses notes. Data interpreted: Pulse oximetry: on room air kb is 99 %. Interpretation: normal. 16:51 Counseling: I had a detailed discussion with the patient and/or guardian regarding: the kb historical points, exam findings, and any diagnostic results supporting the discharge/admit diagnosis, lab results, radiology results, the need for further work-up and treatment in the hospital. Physician consultation: A Meseret DE LA FUENTE was contacted at 16:51, regarding admission, to the medical/surgical unit. patient's condition, and will see patient in inpatient room. ED course: Reviewed old medical records. Pt has been having yearly US to monitor growth of AAA by Dr Carl. Transverse measured 4.1cm on 2019 US. . 11/02 14:37 Order name: Basic Metabolic Panel; Complete Time: 15:52 kb 11/02 14:37 Order name: CBC with Diff; Complete Time: 16:28 kb 11/02 14:37 Order name: Hepatic Function; Complete Time: 15:52 kb 11/02 14:37 Order name: Lipase; Complete Time: 15:52 kb 11/02 18:02 Order name: SARS-COV-2 RT PCR; Complete Time: 18:04 EDMS 11/02 14:37 Order name: IV Saline Lock; Complete Time: 15:04 kb 11/02 14:37 Order name: Labs collected and sent; Complete Time: 15:04 kb 11/02 15:53 Order name: CT Abd/Pelvis - Without Contrast; Complete Time: 16:32 kb Administered Medications: 17:10 Drug: Flagyl 500 mg Volume: 100 ml; Route: IVPB; Rate: 200 ml/hr; Infused Over: 30 zb mins; Site: left antecubital; 18:24 Follow up: Response: No adverse reaction; IV Status: Completed infusion; IV Intake: zb 100ml 17:55 Drug: morphine 4 mg {Note: RASS 0.} Route: IVP; Site: left antecubital; zb 18:23 Follow up: Response: No adverse reaction; Marked relief of symptoms; Pain is decreased; zb RASS: Alert and Calm (0) 17:55 Drug: Zofran (Ondansetron) 4 mg Route: IVP; Site: left antecubital; zb 18:24 Follow up: Response: No adverse reaction; Marked relief of symptoms zb 18:22 Drug: Cipro (ciprofloxacin) 400 mg Volume: 200 ml; Route: IVPB; Infused Over: 60 mins; zb Site: left antecubital; 19:00 Follow up: Response: No adverse reaction; IV Status: Completed infusion; IV Intake: zb 200ml 21:08 Drug: morphine 4 mg {Note: RASS 0.} Route: IVP; Site: left antecubital; zb 21:20 Follow up: Response: No adverse reaction; Pain is decreased; RASS: Alert and Calm (0) zb Disposition: 11/03 18:47 Co-signature as Attending Physician, Harley Fay MD. ma2 Disposition: 11/02/20 16:54 Hospitalization ordered by Urban Carl for Inpatient Admission. Preliminary diagnosis is Diverticulitis of intestine, part unspecified, without perforation or abscess without bleeding. - Bed requested for Telemetry/MedSurg (Inpatient). - Status is Inpatient Admission. zb - Condition is Stable. - Problem is new. - Symptoms are unchanged. Signatures: Dispatcher [employer] EDNH Mirella Biggs, RUSSELL-Leelee VICE INVESTIGATOR-Svitlana Doss RN RN Harley Zamora MD MD ma2 Jimena Lowe RN RN ca1 Brown, Zipporah, RN RN zb Corrections: (The following items were deleted from the chart) 11/02 16:54 16:51 ED course: Reviewed old medical records. Pt has been having yearly US to monitor kb growth of AAA by Dr Carl. . kb 17:10 16:46 CORONAVIRUS+MR.LAB.BRZ ordered. EDMS EDMS 19:31 16:54 Hospitalization Ordered by A Meseret DE LA FUENTE for Inpatient Admission. Preliminary dw diagnosis is Diverticulitis of intestine, part unspecified, without perforation or abscess without bleeding. Bed requested for Telemetry/MedSurg (Inpatient). Status is Inpatient Admission. Condition is Stable. Problem is new. Symptoms are unchanged. kb 19:33 19:31 11/02/2020 16:54 Hospitalization Ordered by A Meseret DE LA FUENTE for Inpatient Admission. dw Preliminary diagnosis is Diverticulitis of intestine, part unspecified, without perforation or abscess without bleeding. Bed requested for Telemetry/MedSurg (Inpatient). Status is Inpatient Admission. Condition is Stable. Problem is new. Symptoms are unchanged. dw 22:21 19:33 11/02/2020 16:54 Hospitalization Ordered by A Meseret DE LA FUENTE for Inpatient Admission. zb Preliminary diagnosis is Diverticulitis of intestine, part unspecified, without perforation or abscess without bleeding. Bed requested for Telemetry/MedSurg (Inpatient). Status is Inpatient Admission. Condition is Stable. Problem is new. Symptoms are unchanged. dw
[2020-11-02] MEDS ORDERED: METRONIDAZOLE 500mg IVPB 500 MG/100 ML BAG IV ONE (17:09)
[2020-11-02] MEDS ORDERED: CIPROFLOXACIN 400mg IV 400 MG/200 ML BAG IV ONE (17:09)
[2020-11-02] MEDS ORDERED: ONDANSETRON 4 MG/2 ML VIAL ONE (18:08)
[2020-11-02] MEDS ORDERED: MORPHINE 4 MG/ML SYR ONE ×2 (18:08→21:21)
[2020-11-02] MEDS ORDERED: MORPHINE 4 MG/ML SYR IV PRN (22:13)
[2020-11-02] MEDS ORDERED: ACETAMINOPHEN 500 MG TAB PO PRN (22:13)
[2020-11-02] MEDS ORDERED: ONDANSETRON 4 MG/2 ML VIAL IV PRN (22:13)
[2020-11-02] MEDS: CIPROFLOXACIN 400mg IV 400 MG/200 ML BAG IV SCH (22:24)
[2020-11-02 22:53] VITALS: BMI 23.5
[2020-11-02] MEDS: carvediloL 6.25 MG TAB PO SCH (23:10)
[2020-11-02] MEDS: ALPRAZOLAM 0.5 MG TABLET PO PRN (23:10)
[2020-11-02] MEDS: HYDRALAZINE HCL 10 MG TABLET PO SCH (23:10)
[2020-11-02 23:38] VITALS: O2SAT 97
[2020-11-03] MEDS: METRONIDAZOLE 500mg IVPB 500 MG/100 ML BAG IV SCH ×3 (01:15→17:18)
[2020-11-03 04:20] LABS: Absolute Lymphocytes (CBC) 1.6 K/uL (0.7-4.9); Basophils % 0.5 % (0-1.3); Hematocrit 32.3 % (39.6-49.0); Lymphocytes % 10.8 % (15.3-44.8); MPV 8.7 fL (7.6-11.3); RBC Red Blood Cell Count 3.49 M/uL (4.33-5.43)
[2020-11-03 04:33] LABS: Potassium 4.5 mmol/L (3.5-5.1)
[2020-11-03] MEDS: FAMOTIDINE 20 MG TAB PO SCH (11:10)
[2020-11-03] MEDS: HEPARIN 5000 UNIT/ML 1 ML VIAL SQ SCH ×2 (11:10→20:15)
[2020-11-03] MEDS: HYDRALAZINE HCL 10 MG TABLET PO SCH ×2 (11:11→20:15)
[2020-11-03] MEDS: ATORVASTATIN 10 MG TAB PO SCH (11:11)
[2020-11-03] MEDS: carvediloL 6.25 MG TAB PO SCH ×2 (11:11→20:14)
[2020-11-03] MEDS: MAGNESIUM OXIDE 400 MG TAB PO SCH (11:12)
[2020-11-03] MEDS: CIPROFLOXACIN 400mg IV 400 MG/200 ML BAG IV SCH ×2 (11:13→20:15)
[2020-11-03] MEDS: ALPRAZOLAM 0.5 MG TABLET PO PRN (21:49)
[2020-11-04] MEDS: METRONIDAZOLE 500mg IVPB 500 MG/100 ML BAG IV SCH ×2 (00:52→09:18)
[2020-11-04] MEDS ORDERED: MAGNESIUM HYDROXIDE 8% 30 ML PO ONE (07:51)
[2020-11-04 08:42] VITALS: BP 115/65; TEMP 97.8
[2020-11-04] MEDS: MAGNESIUM OXIDE 400 MG TAB PO SCH (09:00)
[2020-11-04] MEDS: FAMOTIDINE 20 MG TAB PO SCH (09:18)
[2020-11-04] MEDS: carvediloL 6.25 MG TAB PO SCH (09:18)
[2020-11-04] MEDS: ATORVASTATIN 10 MG TAB PO SCH (09:19)
[2020-11-04] MEDS: HYDRALAZINE HCL 10 MG TABLET PO SCH (09:19)
[2020-11-04] MEDS: HEPARIN 5000 UNIT/ML 1 ML VIAL SQ SCH (09:19)
[2020-11-04] MEDS: CIPROFLOXACIN 400mg IV 400 MG/200 ML BAG IV SCH (09:57)
--- NOTE | 2020-11-04 20:47 | DS ---
Date of Discharge: 11/04/2020 Disposition: Discharged to go home. Physical Examination: HEENT: Unremarkable. Lungs: Clear to auscultation. Heart: Sounds normal. Abdomen: Soft. Bowel sounds normal. No guarding, rigidity, tenderness, distention. Extremities: No leg edema. Discharge Medications And Instructions: 1. Continue all prior home medications. 2. Take Cipro 500 mg 2 times a day for 10 days and Flagyl 500 mg 3 times a day for 10 days. 3. Follow up at office next week on Monday, which is 11/10/2020. 4. Discontinue previously prescribed antibiotic from [facility], which is Augmentin. Hospital Course: This is an 85-year-old male patient admitted to hospital with left lower quadrant abdominal pain. Please see dictated H and P for more information. The patient came into emergency room after 1 week of outpatient antibiotic therapy, which was Augmentin that he was taking, which was prescribed from [facility] and his symptoms of abdominal pain did not improve, so he came into emergency room after he was evaluated. He was admitted to hospital with acute diverticulitis problem. CAT scan did not show any complications from diverticulitis. CAT scan did report 5 cm abdominal aortic aneurysm. The patient was made aware of this CAT scan finding and he was advised that on an outpatient basis, we will refer him to civil engineering drafter for this abdominal aortic aneurysm problem. Initially, he was kept n.p.o., then clear liquid diet was started, and then today we advanced his diet to soft diet. The patient reported that he has not had a bowel movement in last few days and some milk of magnesia dose was given today and he had a bowel movement today. Overall, he feels better, ready to go home as he describes, and he was discharged to go home in stable condition. Final Diagnoses: 1. Acute diverticulitis without perforation. 2. Chronic kidney disease, stage 3B. 3. Hypertension. 4. Hyperlipidemia. 5. Abdominal aortic aneurysm. 6. Impaired fasting glucose. 7. Anemia due to chronic kidney disease. 8. Benign prostatic hypertrophy. 9. Gastroesophageal reflux disease. 10. Renal cyst. HELEN/MODL Voice ID: [id number] Report ID: [id number] [facility] SYSTEMSim
--- NOTE | 2020-11-09 13:48 | HP ---
Date of Admission: 11/03/2020 Chief Complaint: Abdominal pain. History Of Present Illness: This is an 85-year-old pleasant male patient, who started to have left lower quadrant abdominal pain about 1 week ago. [facility], was diagnosed as having acute diverticulitis and was sent home with Augmentin. The patient was taking his medication as prescribed, but his pain did not improve, so he went back to [facility] yesterday from where he was asked to come to the emergency room. Further evaluation done in the emergency room including CAT scan of the abdomen was done and it showed acute diverticulitis and patient was admitted to the hospital. He denies any nausea, vomiting. No bleeding. No constipation. No diarrhea. Allergies: TO TETANUS VACCINE. Medications: List reviewed. Review of Systems: GI: As mentioned above. All other systems reviewed and negative. Past Medical History: Significant for impaired fasting glucose, hypertension, hyperlipidemia, abdominal aortic aneurysm, gastroesophageal reflux disease, diverticulosis, umbilical hernia, renal cyst, chronic kidney disease, benign prostatic hypertrophy, anemia due to chronic kidney disease. Past Surgical History: Significant for inguinal hernia repair, transurethral resection of bladder tumor, shoulder surgery on the left shoulder. Family History: Details unknown about mother and brother. Father had some kind of kidney disease. Social History: Negative for smoking. Use of alcohol 1 or 2 glass of wine once a week. Physical Examination: Vital Signs: Temperature 97.6, pulse 67, respiratory rate 17, blood pressure 115/58, oxygen saturation 96%. Height 5 feet 10 inches, weight 163 pounds. General: Awake, alert, oriented, not in distress. HEENT: Head atraumatic, normocephalic. Conjunctivae nonerythematous. Sclerae white. Mouth, no thrush or edema noted. Ears/Nose, no mass, lesion, discharge noted. Neck: Supple. No JVD, lymph nodes, bruit, thyromegaly noted. Lungs: Bilateral good equal air entry. Clear to auscultation. No rhonchi. No rales. Heart: Normal heart sounds, no murmur or gallop. Abdomen: Soft. Bowel sounds normal. No guarding, rigidity, distention. No rebound tenderness. Bowel sounds normoactive. The patient has mild tenderness in left lower quadrant of abdomen. Extremities: No leg edema. No calf tenderness. Skin: No rash, ulcer, cellulitis. Lymphatics: No lymph node enlargement in neck, supraclavicular, infraclavicular region. Neuro: No focal neurological deficit. Chest: Unremarkable. External Genitalia: Deferred. Rectal: Deferred. Laboratory Data: CAT scan of the abdomen and pelvis done in emergency room shows evidence of diverticulitis without any evidence of perforation or abscess. White count 14.8, hemoglobin 11.8, and platelet count of 211. Sodium 139, potassium 4.4, chloride 107, bicarb 24, BUN 26, creatinine 1.54, glucose 113. Liver function tests unremarkable. Lipase 46. Impression: 1. Acute diverticulitis without perforation. 2. Chronic kidney disease, stage 3B. 3. Hypertension. 4. Hyperlipidemia. 5. Abdominal aortic aneurysm. 6. Impaired fasting glucose. 7. Anemia due to chronic kidney disease. 8. Benign prostatic hypertrophy. 9. Gastroesophageal reflux disease. 10. Renal cyst. Plan: Admit patient to hospital for further evaluation and management of this problem. The patient is appropriate for inpatient and is expected to spend 2 midnights in hospital. We will continue home medications per order. Give empiric antibiotic, Cipro and Flagyl per order. We will start the patient on DVT prophylaxis, and we will go ahead and leave him on clear liquid diet today. I will see him tomorrow for followup. Depending on his condition, we will decide about advancing diet and possible discharge tomorrow. Ambulation was encouraged. Details and plan of treatment discussed with the patient. The patient's abdominal aortic aneurysm is 5 cm in size and we will have him follow up with fiberglass boat parts finisher on outpatient basis. HELEN/ZA Voice ID: [id number]
== END 2020-11-04 12:32 | disposition home or self-care (01) | DRG 392 ==
LOC: ER 11:51 → ERHOLD 17:23 → 2ND 21:50
PROVIDERS: ADMIT Internal Medicine; ATTEND Internal Medicine
DX: K57.92 Diverticulitis of intestine, part unspecified, without perforation or abscess without bleeding (principal); E78.5 Hyperlipidemia, unspecified; I71.4 Abdominal aortic aneurysm, without rupture; K21.9 Gastro-esophageal reflux disease without esophagitis; I12.9 Hypertensive chronic kidney disease with stage 1 through stage 4 chronic kidney disease, or unspecified chronic kidney disease; N18.32 Chronic kidney disease, stage 3b; D63.1 Anemia in chronic kidney disease; N28.1 Cyst of kidney, acquired; R73.01 Impaired fasting glucose; Z88.7 Allergy status to serum and vaccine; Z20.822 Contact with and (suspected) exposure to COVID-19
CPT/HCPCS: 36415; 74176; 80048; 80076; 83690; 85025; 96365; 96375; 99285; J0744; J1644; J2405; U0003

== ENCOUNTER → 2023-09-04 | Emergency (ER) | payer OTHER, BC ==
[~2023-09-04] MED LIST: ACETAMINOPHEN 500 MG TAB ONE; TDAP (DIPHTH,PERTUSS(ACELL),TET VAC) 0.5 ML VIAL IMVAC ONE
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
[2023-09-04 17:29] VITALS: BP 145/75; TEMP 98.1; O2SAT 97
== END ==
LOC: ER 13:52
PROC: 0HQEXZZ Repair Left Lower Arm Skin, External Approach (ICD-10-PCS; principal; 2023-09-04)
DX: S51.812A Laceration without foreign body of left forearm, initial encounter (principal); Z88.7 Allergy status to serum and vaccine

== ENCOUNTER 2024-08-19 18:17 | Inpatient (IN) | payer OTHER, BC ==
[2024-08-19] MEDS ORDERED: METOPROLOL TAR 25 MG TAB ONE (19:32)
[2024-08-19] MEDS ORDERED: MAGNESIUM SULFATE 1 gm IVPB 1 GM/100 ML BAG IV ONE (19:32)
[2024-08-19] MEDS ORDERED: NA CHLORIDE 0.9% 500 ML ONE (19:32)
[2024-08-19 19:35] LABS: Absolute Basophils 0.1 K/uL (0-0.5); Absolute Eosinophils 0.6 K/uL (0-0.5); Absolute Lymphocytes (CBC) 1.5 K/uL (0.7-4.9); Absolute Monocytes 1.1 K/uL (0.1-1.3); Absolute Neutrophil 5.4 K/uL (1.8-8.0); Basophils % 0.7 % (0-1.3); Eosinophils % 6.9 % (0-4.4); Hematocrit 33.8 % (39.6-49.0); Hemoglobin 11.4 g/dL (13.6-17.9); Lymphocytes % 17.4 % (15.3-44.8); MCH 31.9 pg (27.0-35.0); MCHC 33.8 g/dL (32.0-36.0); MCV 94.4 fL (80-100); MPV 8.9 fL (7.6-11.3); Monocytes % 12.2 % (3.3-12.3); Neutrophils % 62.8 % (41.7-73.7); Platelets 161 thou/uL (152-406); RBC Red Blood Cell Count 3.58 M/uL (4.33-5.43); Red Cell Distribution Width 14.2 % (12.1-15.2)
[2024-08-19 19:40] LABS: PT Prothrombin Time 11.1 SECONDS (9.4-12.5); Protime INR 1.06
--- NOTE | 2024-08-19 19:47 | ER ---
Nurse's Notes [facility] Name: Navi Contreras Age: 89 yrs Sex: Male : 1935 Arrival Date: 08/19/2024 Time: 18:17 Bed 5 Private MD: Diagnosis: Persistent atrial fibrillation-with RVR Presentation: 08/19 18:51 Chief complaint: Patient states: Dizziness onset 2 days ago. Pt states that he checked cm10 his blood pressure and his heart rate was elevated in the 90s. Pt denies any chest pain. Coronavirus screen: Client denies travel out of the [place] in the last 14 days. Ebola Screen: Patient denies travel to an Ebola-affected area in the 21 days before illness onset. Initial Sepsis Screen: Does the patient meet any 2 criteria? No. Patient's initial sepsis screen is negative. Does the patient have a suspected source of infection? No. Patient's initial sepsis screen is negative. Risk Assessment: Do you want to hurt yourself or someone else? Patient reports no desire to harm self or others. Onset of symptoms was August 19, 2024. 18:51 Method Of Arrival: Ambulatory cm10 18:51 Acuity: IFTIKHAR 3 cm10 Triage Assessment: 18:52 General: Appears in no apparent distress. comfortable, Behavior is calm, cooperative. cm10 Neuro: No deficits noted. Level of Consciousness is awake, alert, obeys commands, Oriented to person, place, time, situation, Appropriate for age. Respiratory: No deficits noted. Airway is patent Respiratory effort is even, unlabored, Respiratory pattern is regular, symmetrical. Historical: - Allergies: 18:52 Tetanus Vaccines and Toxoid; cm10 - PMHx: 18:52 Aneurysm; Diverticulitis; Hyperlipidemia; Hypertension; cm10 - Immunization history:: Adult Immunizations up to date. - Infectious Disease History:: Denies. - Family history:: not pertinent. - Social history:: Smoking status: Patient denies any tobacco usage or history of. - Hospitalizations: : No recent hospitalization is reported. Screenin:10 [facility] ED Fall Risk Assessment (Adult) History of falling in the last 3 months, jj7 including since admission No falls in past 3 months (0 pts) Confusion or Disorientation No (0 pts) Intoxicated or Sedated No (0 pts) Impaired Gait No (0 pts) Mobility Assist Device Used No (0 pt) Altered Elimination No (0 pt) Score/Fall Risk Level 0 - 2 = Low Risk Oriented to surroundings, Maintained a safe environment, Educated pt \T\ family on fall prevention, incl call for assistance when getting out of bed, Assessed \T\ reinforced patient's understanding of fall precautions. Abuse screen: Denies threats or abuse. Nutritional screening: No deficits noted. Tuberculosis screening: No symptoms or risk factors identified. Assessment: 19:10 General: Appears in no apparent distress. uncomfortable, Behavior is calm, cooperative, jj7 appropriate for age. Pain: Denies pain. Cardiovascular: Reports DIZZINESS AND TACHYCARDIA EARLIER THAT HAS NOW RESOLVED Denies chest pain, lightheadedness, palpitations. 20:00 Reassessment: Patient is alert, oriented x 3, equal unlabored respirations, skin jj7 warm/dry/pink. Patient states feeling better. Vital Signs: 18:51 BP 151 / 70; Pulse 87; Resp 17; Temp 97.9; Pulse Ox 100% ; Weight 70.31 kg; Height 5 cm10 ft. 10 in. ; Pain 0/10; 19:25 BP 125 / 44; Pulse 84; Resp 17; Pulse Ox 100% ; jj7 20:06 BP 155 / 73; Pulse 93; Resp 18; Pulse Ox 99% on R/A; br2 21:14 BP 152 / 75; Pulse 91; Resp 16; Pulse Ox 96% on R/A; Pain 0/10; jj7 21:56 BP 148 / 72; Pulse 87; Resp 16; Temp 98.1; Pulse Ox 98% ; Pain 0/10; jj7 18:51 Body Mass Index 22.24 (70.31 kg, 177.8 cm) cm10 18:51 Pain Scale: Adult cm10 21:14 Pain Scale: Adult jj7 21:56 Pain Scale: Adult jj7 ED Course: 18:23 Patient arrived in ED. ra3 18:32 Hilario Infante MD is Attending Physician. rn 18:52 Triage completed. cm10 18:52 Arm band placed on right wrist. Patient placed in an exam room, on a stretcher, on cm10 youth nutritional monitor, on pulse oximetry. EKG completed in triage. Results shown to MD. 18:53 EKG done, by ED staff, reviewed by Hilario Infante MD. cm10 19:07 Valente Moreno, RN is Primary Nurse. jj7 19:10 Patient has correct armband on for positive identification. Placed in gown. Bed in low jj7 position. Call light in reach. Provided Education on: USE OF CALL SWANSON. Client placed on continuous cardiac and pulse oximetry monitoring. NIBP monitoring applied. pvc monitor on. 19:15 Inserted saline lock: 20 gauge in right antecubital area, using aseptic technique. jj7 Blood collected. 19:18 Basic Metabolic Panel Sent. jj7 19:18 CBC with Diff Sent. jj7 19:18 NT PRO-BNP Sent. jj7 19:18 PT-INR Sent. jj7 19:18 Troponin HS Sent. jj7 19:28 XRAY Chest (1 view) In Process Unspecified. EDMS 19:46 Urban Carl MD is Hospitalizing Provider. rn 21:14 Door closed. Lights dimmed. jj7 21:57 No provider procedures requiring assistance completed. Patient admitted, IV remains in j7 place. Administered Medications: 19:38 Drug: Magnesium Sulfate IVPB 1 grams IVPB once over 1 hrs Route: IVPB; Infused Over: 1 jj7 hrs; Site: right antecubital; 20:41 Follow up: IV Status: Completed infusion jj7 19:38 Drug: Metoprolol PO 25 mg PO once Route: PO; jj7 20:41 Follow up: Response: Marked relief of symptoms jj7 19:38 Drug: NS 0.9% IV 500 ml 500 ml IV at 1 bolus once; to be given as a bolus over 30 jj7 minutes Volume: 500 ml; Route: IV; Rate: 1 bolus; Site: right antecubital; 20:40 Follow up: IV Status: Completed infusion jj7 Medication: 19:10 VIS not applicable for this client. j7 Outcome: 19:46 Decision to Hospitalize by Provider. rn 21:57 Admitted to Med/surg accompanied by tech, via wheelchair, room 412, Report called to [facility] SBAR FAXED TO 4TH FLOOR \T\[id number] 21:57 Condition: improved 22:00 Patient left the ED. [facility] Signatures: Dispatcher [employer] EDAZ Hilario Infante MD MD rn Johnson, Juwairiyah, KIA RN jj7 Annette Cobian RN RN cm10 Natalia Montesinos ra3 Holly Peterson RN RN br2 Corrections: (The following items were deleted from the chart) 20:41 19:10 General: Appears in no apparent distress. uncomfortable, Behavior is calm, jj7 cooperative, appropriate for age, jj7 :42 19:10 Pain: Denies pain. jj7 jj7 20:42 19:10 Cardiovascular: Reports DIZZINESS AND TACHYCARDIA EARLIER THAT HAS NOW RESOLVED jj7 Denies chest pain, lightheadedness, palpitations, jj7 20:58 20:10 General: Appears in no apparent distress. uncomfortable, Behavior is calm, jj7 cooperative, appropriate for age, jj7 20:58 20:10 Pain: Denies pain. jj7 jj7 20:58 20:10 Cardiovascular: Reports DIZZINESS AND TACHYCARDIA EARLIER THAT HAS NOW RESOLVED jj7 Denies chest pain, lightheadedness, palpitations, jj7 20:58 20:58 Reassessment: Patient is alert, oriented x 3, equal unlabored respirations, skin jj7 warm/dry/pink. Patient states feeling better. jj7
--- NOTE | 2024-08-19 19:47 | EDPHYS ---
Physician Documentation [facility] Name: Navi Contreras Age: 89 yrs Sex: Male : 1935 Arrival Date: 08/19/2024 Time: 18:17 Bed 5 Private MD: ED Physician Hilario Infante HPI: 08/19 18:48 This 89 yrs old Male presents to ER via Unassigned with complaints of Fast heart rate. rn 18:48 The patient presents with a history of irregular heart beat, heart racing. Onset: The rn symptoms/episode began/occurred today. Duration: The patient or guardian reports multiple episodes, that are intermittent. Modifying factors: The symptoms are aggravated by nothing. The symptoms are alleviated by nothing. Severity of symptoms: At their worst the symptoms were moderate in the emergency department the symptoms are unchanged. The patient has not experienced similar symptoms in the past. Patient reports feeling palpitations with heart racing associated with dizzy episodes for the past 2 days. Has never been diagnosed with arrhythmia but has a friend with A-fib who told him to come and get evaluated. Patient reports takes a baby aspirin daily. No chest pain. No fever or recent illness. No vomiting or diarrhea or abdominal pain.. Historical: - Allergies: 18:52 Tetanus Vaccines and Toxoid; cm10 - PMHx: 18:52 Aneurysm; Diverticulitis; Hyperlipidemia; Hypertension; cm10 - Immunization history:: Adult Immunizations up to date. - Infectious Disease History:: Denies. - Family history:: not pertinent. - Social history:: Smoking status: Patient denies any tobacco usage or history of. - Hospitalizations: : No recent hospitalization is reported. ROS: 18:48 Constitutional: Negative for fever, chills, and weight loss, Cardiovascular: Positive rn for palpitations and heart racing Respiratory: Negative for shortness of breath, cough, wheezing, and pleuritic chest pain, Abdomen/GI: Negative for abdominal pain, nausea, vomiting, diarrhea, and constipation, MS/Extremity: Negative for injury and deformity, Skin: Negative for injury, rash, and discoloration, Neuro: Negative for focal weakness or numbness. Does report dizziness Exam: 18:48 Constitutional: This is a well developed, well nourished patient who is awake, alert, rn and in no acute distress. ENT: Dry mucous membranes Cardiovascular: Tachycardic, irregular Respiratory: Speaking full sentences, unlabored. Abdomen/GI: Soft, nontender MS/ Extremity: Pulses equal, no cyanosis. Neurovascular intact. Full, normal range of motion. Equal circumference. Neuro: Awake and alert, GCS 15, oriented to person, place, time, and situation. Cranial nerves II-XII grossly intact. Motor strength 5/5 in all extremities. Sensory grossly intact. Cerebellar exam normal. 18:51 ECG was reviewed by the Attending Physician. rn Vital Signs: 18:51 BP 151 / 70; Pulse 87; Resp 17; Temp 97.9; Pulse Ox 100% ; Weight 70.31 kg; Height 5 cm10 ft. 10 in. ; Pain 0/10; 19:25 BP 125 / 44; Pulse 84; Resp 17; Pulse Ox 100% ; jj7 20:06 BP 155 / 73; Pulse 93; Resp 18; Pulse Ox 99% on R/A; br2 21:14 BP 152 / 75; Pulse 91; Resp 16; Pulse Ox 96% on R/A; Pain 0/10; jj7 21:56 BP 148 / 72; Pulse 87; Resp 16; Temp 98.1; Pulse Ox 98% ; Pain 0/10; jj7 18:51 Body Mass Index 22.24 (70.31 kg, 177.8 cm) cm10 18:51 Pain Scale: Adult cm10 21:14 Pain Scale: Adult jj7 21:56 Pain Scale: Adult jj7 MDM: 18:32 Medical Screening Exam initiated rn 19:21 Independent interpretation of the following test(s) in the Emergency Department EKG: rn See my EKG interpretation above X-Ray: My interpretation is Chest x-ray images negative for pneumothorax or pulmonary edema per my interpretation.. 19:46 Differential diagnosis: arrythmia, dehydration, stress disorder. Data reviewed: vital rn signs, nurses notes, lab test result(s), EKG, radiologic studies, plain films, and as a result, I will admit patient. Consideration of Admission/Observation Patient was admitted/placed on observation. Escalation of care including admission/observation considered. Counseling: I had a detailed discussion with the patient and/or guardian regarding the historical points, exam findings, and any diagnostic results supporting the discharge/admit diagnosis, lab results, radiology results, the need for further work-up and treatment in the hospital. Response to treatment: the patient's symptoms have markedly improved after treatment, and as a result, I will admit patient. ED course: I personally spent 35 minutes engaged in work directly related to the individual patient's care. This does not include any time spent performing procedures. The patient has been deemed critically ill because of new onset atrial fibrillation with rapid ventricular rate requiring rate control, fluid resuscitation and organization of admission to hospital.. 20:10 ED course: Discussed case with Dr. Carl, will admit, request Eliquis 2.5 mg twice rn daily, orders were changed from Lovenox to Eliquis.. 08/19 18:44 Order name: Basic Metabolic Panel; Complete Time: 19:53 rn 08/19 18:44 Order name: CBC with Diff; Complete Time: 19:43 rn 08/19 18:44 Order name: NT PRO-BNP; Complete Time: 19:53 rn 08/19 18:44 Order name: PT-INR; Complete Time: 19:43 rn 08/19 18:44 Order name: Troponin HS; Complete Time: 19:53 rn 08/19 18:44 Order name: XRAY Chest (1 view); Complete Time: 20:04 rn 08/19 18:44 Order name: EKG; Complete Time: 18:44 rn 08/19 19:51 Order name: CONS Physician Consult EDCT 08/19 18:44 Order name: Cardiac monitoring; Complete Time: 18:50 rn 08/19 18:44 Order name: EKG - Nurse/Tech; Complete Time: 18:50 rn 08/19 18:44 Order name: IV Saline Lock; Complete Time: 19:18 rn 08/19 18:44 Order name: Labs collected and sent; Complete Time: 19:18 rn 08/19 18:44 Order name: O2 Per Protocol; Complete Time: 18:51 rn 08/19 18:44 Order name: O2 Sat Monitoring; Complete Time: 18:51 rn EC:51 Rate is 108 beats/min. Rhythm is irregularly irregular. QRS [place] is Normal. QRS rn interval is normal. QT interval is normal. No Q waves. T waves are Normal. No ST changes noted. Clinical impression: Atrial Fibrillation. Interpreted by me. Reviewed by me. Administered Medications: 19:38 Drug: Magnesium Sulfate IVPB 1 grams IVPB once over 1 hrs Route: IVPB; Infused Over: 1 jj7 hrs; Site: right antecubital; 20:41 Follow up: IV Status: Completed infusion 19:38 Drug: Metoprolol PO 25 mg PO once Route: PO; 20:41 Follow up: Response: Marked relief of symptoms 19:38 Drug: NS 0.9% IV 500 ml 500 ml IV at 1 bolus once; to be given as a bolus over 30 jj7 minutes Volume: 500 ml; Route: IV; Rate: 1 bolus; Site: right antecubital; 20:40 Follow up: IV Status: Completed infusion Disposition Summary: 08/19/24 19:46 Hospitalization Ordered Notes: Hospitalization Status: Inpatient Admission rn Provider: Urban Carl rn Location: Telemetry/[facility] (Inpatient) rn Condition: Stable rn Problem: new rn Symptoms: have improved rn Bed/Room Type: Standard rn Room Assignment: 412(08/19/24 21:11) kmf Diagnosis - Persistent atrial fibrillation - with RVR rn Forms: - Medication Reconciliation Form rn - SBAR form rn - Leadership Thank You Letter furniture assembler and installer time excluding procedures: 19:46 Critical care time: Bedside Care: 30 minutes, Consultation: 5 minutes. Total time: 35 rn minutes Signatures: Dispatcher [employer] EDMS Hilario Infante MD MD rn Johnson, Juwairiyah RN RN Annette Rowland RN RN [id number] Allyson Loja kmf Corrections: (The following items were deleted from the chart) 21:11 19:46 rn kmf
[2024-08-19 19:52] LABS: Anion Gap 9.6 mEq/L (5.0-15.0); Potassium 4.6 mEq/L (3.5-5.1); Troponin High Sensitivity 10.9 pg/mL (<58.9)
--- NOTE | 2024-08-19 20:00 | RAD REPORT ---
EXAMINATION: ONE VIEW CHEST XR CLINICAL INDICATION: Male, 89 years old.,PALPITATIONS TECHNIQUE: Frontal chest projection is submitted. Examination is limited by patient positioning and t echnique. COMPARISON: 11/11/2022 FINDINGS: The lungs are well inflated and clear. No pneumothorax or sizable effusion. The heart is normal in s ize. Mediastinal contours are unremarkable. IMPRESSION: No acute intrathoracic abnormalities.
[2024-08-19] MEDS: ENOXAPARIN 100 MG/ML SYR SQ SCH (21:00)
[2024-08-19] MEDS ORDERED: ONDANSETRON 4 MG/2 ML VIAL IV PRN (22:12)
[2024-08-19] MEDS: APIXABAN 2.5 MG TABLET PO SCH (23:13)
[2024-08-20] MEDS: METOPROLOL TAR 25 MG TAB PO SCH (06:03)
[2024-08-20 07:49] LABS: Absolute Eosinophils 0.6 K/uL (0-0.5); Absolute Lymphocytes (CBC) 1.8 K/uL (0.7-4.9); Absolute Monocytes 0.8 K/uL (0.1-1.3); Absolute Neutrophil 3.4 K/uL (1.8-8.0); Basophils % 0.6 % (0-1.3); Eosinophils % 8.7 % (0-4.4); Hematocrit 32.1 % (39.6-49.0); Lymphocytes % 27.4 % (15.3-44.8); MCHC 34.4 g/dL (32.0-36.0); MCV 96.1 fL (80-100); MPV 8.9 fL (7.6-11.3); Monocytes % 12.4 % (3.3-12.3); Neutrophils % 50.9 % (41.7-73.7); Platelets 155 thou/uL (152-406); RBC Red Blood Cell Count 3.34 M/uL (4.33-5.43); Red Cell Distribution Width 14.3 % (12.1-15.2)
[2024-08-20 08:02] LABS: Anion Gap 6.5 mEq/L (5.0-15.0); Potassium 4.5 mEq/L (3.5-5.1); Troponin High Sensitivity 16.3 pg/mL (<58.9)
[2024-08-20] MEDS: ASPIRIN EC 81 MG TAB PO SCH (09:00)
--- NOTE | 2024-08-20 13:31 | P.CNS ---
Date of Consult: 08/20/24 Chief Complaint: atrial fibrillation History of Present Illness: Patient presented with palpitations, dizzy spell, denies chest pain, no SOB, no VALLE, no syncope. cardiology consulted for atrial fibrillation. Allergies No Known Allergies Allergy (Verified 08/20/24 02:40) Home medications list reviewed: Yes Home Medications: Alprazolam [Xanax] 0.5 tab PO BEDTIME 03/14/18 Amlodipine Besylate 5 mg PO DAILY 03/14/18 Losartan Potassium [Cozaar] 100 mg PO DAILY 03/14/18 Simvastatin 20 mg PO BEDTIME 03/14/18 carvediloL [Coreg] 12.5 mg PO BID 03/14/18 Famotidine 20 mg PO DAILY 11/02/20 Hydralazine [Apresoline] 50 mg PO BID 11/02/20 Magnesium Oxide [Magnesium] 500 mg PO BEDTIME 11/02/20 - Past Medical/Surgical History Diabetic: No -: AAA -: DIVERTICULITIS -: HTN -: HYPERLIPIDEMIA -: AAA stent -: BLADDER SURGERY -: SHOULDER SURGERY - Family History Mother Medical History: Lung disease Father Medical History: Kidney disease - Social History Alcohol use: Yes CD- Drugs: No Caffeine use: Yes Place of Residence: Home Review of Systems 10-point ROS is otherwise unremarkable Physical Examination Temp Pulse Resp BP Pulse Ox 97.9 F 100 H 20 144/89 H 98 08/20/24 08:00 08/20/24 08:00 08/20/24 08:00 08/20/24 08:00 08/20/24 08:00 General: Alert, In no apparent distress HEENT: Atraumatic, PERRLA, Mucous membr. moist/pink, EOMI, Sclerae nonicteric Neck: Supple, 2+ carotid pulse no bruit, No LAD, Without JVD or thyroid abnormality Respiratory: Clear to auscultation bilaterally, Normal air movement Cardiovascular: Irregular heart rate/rhythm Gastrointestinal: Normal bowel sounds, No tenderness Musculoskeletal: No tenderness Integumentary: No rashes Neurological: Normal gait, Normal speech, Normal tone, Normal affect Lymphatics: No axilla or inguinal lymphadenopathy Laboratory Data (last 24 hrs) 08/19/24 08/19/24 08/19/24 19:15 19:15 19:15 WBC 8.60 Hgb 11.4 L Hct 33.8 L Plt Count 161 PT 11.1 INR 1.06 Sodium 138 Potassium 4.6 BUN 33 H Creatinine 1.92 H Glucose 109 H - Problems (1) Atrial fibrillation Current Visit: Yes Status: Acute Plan: not sure if it is new onset, currently rate controlled, discussed multiple options with patient and he wants to try rate control and anticoagulation at this time. - continue Metoprolol 25 mg po BID (May uptitrate if BP and HE permits) - continue Eliquis 2.5 mg po BID - Get echo - continue to monitor on tele
[2024-08-20] MEDS: TAMSULOSIN 0.4 MG SR CAP PO SCH (14:23)
[2024-08-20] MEDS: AMLODIPINE 5 MG TAB PO SCH (14:23)
[2024-08-20] MEDS: LOSARTAN POTASSIUM 50 MG TABLET PO SCH (14:23)
[2024-08-20 17:10] VITALS: TEMP 98; BMI 23.6
[2024-08-20] MEDS: METOPROLOL TAR 50 MG TAB PO SCH (18:38)
--- NOTE | 2024-08-20 20:20 | HP ---
Date of Admission: 08/20/2024 Chief Complaint: Dizziness. History Of Present Illness: This is an 89-year-old male patient, who came into emergency room with 1 to 2 weeks' history of intermittent dizziness problem. The patient says that yesterday, he was kat g to [place] to visit a friend with a friend in his car and both of this friends have atrial fibrilla tion problem and when he started complaining of this dizziness to his friends, they both asked him to come to emergency room to get things checked out and after he was evaluated in ER, he was admitted t [facility] with atrial fibrillation onset. or shortness of breath. Denies any palpitatio n. No recent febrile illness, nausea, vomiting, or diarrhea type of problem. After admit radha to the hospital he received first dose of both of this medication last night. Allergies: TO TETANUS TOXOID CAUSING RASH. Review of Systems: ONE PIECE EXPANSION MAKER HAND: As mentioned above. All other systems reviewed and negative. Medications: Albuterol nebulizer treatment 4 times a day as needed, alprazolam 0.25 mg at bedtime as needed, amlodipine 5 mg daily in morning, carvedilol 12.5 mg 2 times a day, famotidine 20 mg daily a t bedtime, Breo Ellipta inhaler 1 puff daily, fluticasone nasal spray 1 spray each nostril 2 times a day, hydralazine 50 mg 2 times a day, simvastatin 20 mg daily at bedtime, losartan 100 mg daily, tams ulosin 0.4 mg daily. Past Medical History: Significant for hypertension, abdominal aortic aneurysm which is infrarenal, c hronic kidney disease stage IIIB, unspecified anemia, hyperlipidemia, gastroesophageal reflux disease , benign prostatic hypertrophy, osteoarthritis at multiple sites, impaired fasting glucose. 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 Family History: Parents and brother , details unknown about any of this family members. Social History: Negative for smoking. Use of alcohol, couple of glasses of wine once a week. Physical Examination: Vital Signs: Height 5 feet 10 inches, weight 164 pounds, temperature 98.4, pulse 106, respiratory ra te 18, blood pressure 148/58, oxygen saturation 97% on room air. General: Awake, alert, oriented, not in distress. HEENT: Head atraumatic, normocephalic. Conjunctivae nonerythematous. Sclerae white. Mouth, no thr ush or edema noted. Ears/Nose, no mass, lesion, discharge noted. Neck: Supple. No JVD, lymph nodes, bruit, thyromegaly noted. Lungs: Bilateral good equal air entry. Clear to auscultation. No rhonchi. No rales. Heart: The patient's heart rhythm is irregularly irregular and no evidence of any murmur or gallop. Abdomen: Soft, bowel sounds normal. No guarding, rigidity, tenderness, mass, hepatosplenomegaly, dis tention, or bruit noted. Extremities: No leg edema. No calf tenderness. Skin: No rash, ulcer, cellulitis. Lymphatics: No lymph node enlargement in neck, supraclavicular, infraclavicular region. Neuro: No focal neurological deficit. Chest: Unremarkable. External Genitalia: Deferred. Rectal: Deferred. Laboratory Data: Yesterday, white count 8.6, hemoglobin 11.4, platelets 161. Sodium 138, potassium 4.6, chloride 108, bicarb 25, BUN 33, creatinine 1.92, glucose 109. Troponin 10.9. ProBNP 1573. Ch est x-ray, no acute intrathoracic changes. EKG shows atrial fibrillation. Impression: 1.Atrial fibrillation with rapid ventricular rate, new onset. 2.Chronic kidney disease, stage IIIB. 3.Hypertension. 4.Hyperlipidemia. 5.Gastroesophageal reflux disease. 6.Osteoarthritis, multiple sites. Plan: We will go ahead and admit the patient to hospital for further evaluation and management of th is problem. The patient is appropriate for inpatient and is expected to spend 2 midnights in [facility]. For his atrial fibrillation, he was started on metoprolol and Eliquis last night in the emergency room. This morning after I evaluated him, I increased the dose of metoprolol from 25 mg twice a day to 50 mg twice a day. On basis of patient's age and creatinine, he qualifies for lower dose of Eliq uis which is 2.5 mg 2 times a day and we will continue that. I did communicate details with Dr. Kirk caro today from Cardiology Service. For hypertension, we will continue his antihypertensive medication . Monitor blood pressure. If necessary, adjust medication. For hyperlipidemia, we will continue hi s statin therapy per order and no need for any further intervention. For his benign prostatic hypert rophy, we will continue tamsulosin per order and no need for further intervention. Total time spent was 85 minutes including review of last office visit from 07/11/2024, review of curr ent emergency room record, communication with emergency room physician, communication with cardiologi st, and perform today's evaluation and management. I will see him tomorrow for followup. HELEN/TIANL Voice ID: [id number]
[2024-08-20] MEDS: ATORVASTATIN 10 MG TAB PO SCH (20:33)
[2024-08-20] MEDS: FAMOTIDINE 20 MG TAB PO SCH (20:33)
[2024-08-21] MEDS: D5 0.45 NS 1,000 ML IV SCH (09:21)
[2024-08-21] MEDS: SOTALOL HCL 80 MG TAB PO SCH (09:21)
[2024-08-21] MEDS: NA CHLORIDE 0.9% 500 ML ONE (10:03)
[2024-08-21] MEDS ORDERED: LIDOCAINE 1% MPF 5 ML VIAL ONE (10:15)
[2024-08-21] MEDS ORDERED: propofoL 200 MG/20 ML VIAL IV ONE (10:15)
--- NOTE | 2024-08-21 11:21 | ECHO ---
HEIGHT: 5 ft 10 in WEIGHT: 164 lb 0 oz DATE OF STUDY: 08/21/[address]: Abbe Carl MD 2-DIMENSIONAL: YES M.MODE: YES DOPPLER: YES COLOR FLOW: YES TDS: NO PORTABLE: YES DEFINITY: NO BUBBLE STUDY: NO DIAGNOSIS: ATRIAL FIBRILLATION CARDIAC HISTORY: CATHERIZATION:YES SURGERY: NO PROSTHETIC VALVE: NO PACEMAKER: NO MEASUREMENTS (cm) DIASTOLIC (NORMALS) SYSTOLIC (NORMALS) IVSd 1.0 (0.6-1.2) LA Diam 4.1 (1.9-4.0) LVEF 50-55% LVIDd 5.0 (3.5-5.7) LVIDs 3.7 (2.0-3.5) %FS 25% LVPWd 1.0 (0.6-1.2) Ao Diam 3.2 (2.0-3.7) 2 DIMENSIONAL ASSESSMENT: RIGHT ATRIUM: NORMAL LEFT ATRIUM: MILD DILATED RIGHT VENTRICLE: NORMAL LEFT VENTRICLE: NORMAL TRICUSPID VALVE: MODERATE TRICUSPID REGURGITATION MITRAL VALVE: MODERATE MITRAL REGURGITATION PULMONIC VALVE: NORMAL AORTIC VALVE: NORMAL PERICARDIAL EFFUSION: NONE AORTIC ROOT: NORMAL LEFT VENTRICULAR WALL MOTION: NORMAL. DOPPLER/COLOR FLOW: GRADE I DIASTOLIC DYSFUNCTION. COMMENTS: 1. LOW NORMAL LEFT VENTRICULAR SYSTOLIC FUNCTION. LEFT VENTRICULAR EJECTION FRACTION 50-55%. NORMAL WALL MOTION. 2. GRADE I DIASTOLIC DYSFUNCTION. 3. NORMAL FILLING PRESSURE. RIGHT ATRIAL PRESSURE 0-5 mmHg. 4. MODERATE TRICUSPID REGURGITATION. 5. MODERATE MITRAL REGURGITATION. TECHNOLOGIST: WADE PFEIFFER
--- NOTE | 2024-08-21 11:21 | P.PN ---
Subjective Date of Service: 08/21/24 Chief Complaint: atrial fibrillation Subjective: No new changes, No C/O voiced, Tolerating diet, Ambulating, Improving Review of Systems 10-point ROS is otherwise unremarkable Physical Examination - Vital Signs Temperature: 97.7 F Blood Pressure: 119/52 Pulse: 61 Respirations: 15 Pulse Ox (%): 98 - Physical Exam General: Alert, In no apparent distress HEENT: Atraumatic, PERRLA, EOMI Neck: Supple, JVD not distended Respiratory: Clear to auscultation bilaterally, Normal air movement Cardiovascular: Regular rate/rhythm, Normal S1 S2 Gastrointestinal: Normal bowel sounds, No tenderness Musculoskeletal: No tenderness Integumentary: No rashes Neurological: Normal speech, Normal tone, Normal affect Lymphatics: No axilla or inguinal lymphadenopathy - Studies Medications List Reviewed: Yes Assessment And Plan - Current Problems (Diagnosis) (1) Atrial fibrillation Current Visit: Yes Status: Acute Plan: not sure if it is new onset, currently rate controlled, SIMON DCCV attempted but patient did not respond and stayed in AF - continue Sotalol 80 mg po BID (EKG after 3rd dose) - continue Metoprolol 50 mg po BID - continue Eliquis 2.5 mg po BID - continue to monitor on tele
--- NOTE | 2024-08-21 13:48 | TEE ---
TRANSESOPHAGEAL ECHOCARDIOGRAM REPORT CARDIOLOGY DEPARTMENT DATE OF STUDY: 08/21/2024 HEIGHT: 5'10 WEIGHT: 164 lbs DIAGNOSIS: ATRIAL FIBRILLATION COMMENTS: 1. SEVERELY DILATED LEFT ATRIUM. 2. NORMAL LEFT ATRIAL APPENDAGE, NO THROMBUS. 3. FAILED SIMON DIRECT CURRENT CARDIOVERSION. TECHNOLOGIST: WADE PFEIFFER
--- NOTE | 2024-08-21 20:35 | OP ---
Date of Procedure: 08/21/2024 Surgeon: Mathew Lundy Procedure Performed: Synchronized transesophageal echocardiogram cardioversion. Indication For Procedure: Atrial fibrillation. Complications: None. Estimated Blood Loss: None. Sedation: Done by Anesthesia team. Description Of Procedure: After risks, and benefits, and alternatives were explained to the patient, patient agreed to proceed with the procedure and signed informed consent. The patient was brought b ack to the OR. Time-out was performed. Sedation was administered by Anesthesia Team. Next, the SIMON probe was inserted. The images were obtained. SIMON probe out and synchronized cardioversion was don e with 200 joules followed by 250 joules and followed by 300 joules. Patient stayed in atrial fibril lation. So, we decided to stop the procedure. The patient was moved back to Recovery in stable cond ition. Assessment And Plan: Atrial fibrillation, status post failed transesophageal echocardiogram cardiove rsion despite trying 3 times. The plan is to continue sotalol 80 mg p.o. b.i.d. and continue Eliquis . ROBIN Voice ID: [id number] Report ID: [id number]
[2024-08-21] MEDS: ALPRAZOLAM 0.25 MG TABLET PO PRN (20:47)
--- NOTE | 2024-08-21 20:52 | PN ---
Date of Progress Note: 08/21/2024 Subjective: The patient was seen this morning for followup. No new complaints or problems reported by the patient. He was lying in bed. Denies any dizziness. No chest pain, shortness of breath, or palpitation. Objective: Vital Signs: Reviewed. HEENT: Unremarkable. Lungs: Clear to auscultation. Heart: Sounds normal, but heart rhythm is still irregularly irregular. No murmur. No gallop. Abdomen: Soft. Bowel sounds normal. No guarding, rigidity, tenderness, distention. Extremities: No leg edema. Impression: 1.Atrial fibrillation, new onset. 2.Hypertension. 3.Chronic kidney disease. 4.Hyperlipidemia. Plan: The patient remains in atrial fibrillation, but his heart rate is well controlled. I have rev iewed home management supervisor readings. We will continue metoprolol. Continue Eliquis. This morning, I h ad a long discussion with the patient and he had misunderstanding after he communicated with [employer] yesterday, and he thought that over the horizon targeting supervisor was recommending to go for ablation therapy at our [facility]. I informed him that ablation is one of the considerations, but it will be the last consider ation and not the first consideration, and we do not even do ablation therapy at our hospital. We di d talk about medications like sotalol and cardioversion to help with atrial fibrillation. After I lyles d a long discussion with him, he was agreeable to this treatment, so I did communicate with Dr. Janette green and he will plan cardioversion. He has advised to start the patient on sotalol 80 mg twice a day, which was started. We will continue Eliquis, and possible discharge to go home tomorrow. HELEN/MODL Voice ID: [id number] Report ID: [id number]
--- NOTE | 2024-08-22 09:32 | P.PN ---
Subjective Date of Service: 08/22/24 Chief Complaint: atrial fibrillation Subjective: No new changes, No C/O voiced, Tolerating diet, Ambulating, Improving Review of Systems 10-point ROS is otherwise unremarkable Physical Examination - Vital Signs Temperature: 98 F Blood Pressure: 169/78 Pulse: 65 Respirations: 18 Pulse Ox (%): 96 - Physical Exam General: Alert, In no apparent distress HEENT: Atraumatic, PERRLA, EOMI Neck: Supple, JVD not distended Respiratory: Clear to auscultation bilaterally, Normal air movement Cardiovascular: Irregular heart rate/rhythm Gastrointestinal: Normal bowel sounds, No tenderness Musculoskeletal: No tenderness Integumentary: No rashes Neurological: Normal speech, Normal tone, Normal affect Lymphatics: No axilla or inguinal lymphadenopathy - Studies Medications List Reviewed: Yes Assessment And Plan - Current Problems (Diagnosis) (1) Atrial fibrillation Current Visit: Yes Status: Acute Plan: not sure if it is new onset, currently rate controlled, SIMON DCCV attempted but patient did not respond and stayed in AF - continue Sotalol 80 mg po BID (EKG after 3rd dose) - continue Metoprolol 50 mg po BID - continue Eliquis 2.5 mg po BID - outpatient follow up with cardiology
--- NOTE | 2024-08-22 12:00 | EKG ---
Test Date: 2024-08-19 Test Time: 18:38:54 Women'S Studies Professor: OMAIRA MEASUREMENT RESULTS: Intervals: Rate: 108 MN: QRSD: 74 QT: 300 QTc: 402 [place]: P: MN: QRS: 8 T: 74 INTERPRETIVE STATEMENTS: Atrial fibrillation with premature ventricular or aberrantly conducted complexes Septal infarct, age undetermined Abnormal ECG Compared to ECG 06/01/2020 09:32:04 Ventricular premature complex(es) now present Myocardial infarct finding now present Sinus rhythm no longer present Sinus arrhythmia no longer present Electronically Signed On 08-22-24 11:58:55 MECHANICAL DETAILER by Mathew Lundy
--- NOTE | 2024-08-22 20:56 | DS ---
Date of Discharge: 08/22/2024 Disposition: Discharged to go home. Physical Examination: HEENT: Unremarkable. Lungs: Clear to auscultation. Heart: Sounds normal. Irregularly irregular with controlled heart rate. Abdomen: Soft. Bowel sounds normal. No guarding, rigidity, tenderness, distention. Extremities: No leg edema. Discharge Medications And Instructions: Continue all prior home medications except following changes . 1.Stop carvedilol and stop hydralazine. 2.Start Eliquis 2.5 mg take 1 tablet by mouth 2 times a day. 3.Start metoprolol 50 mg take 1 tablet by mouth 2 times a day. 4.Start sotalol 80 mg take 1 tablet by mouth 2 times a day. 5.Follow up at my office next week. 6.Follow up with Dr. Lundy in 2 weeks. Laboratory Data: Echocardiogram done during this hospitalization on 08/21/2024 shows ejection fracti on 50% to 55% diastolic dysfunction, moderate tricuspid regurgitation, and mitral regurgitation. Laboratory Data: Upon admission, white count 8.6, hemoglobin 11.4, platelets 161, and day after admi ssion, white count 6.6, hemoglobin 11, platelets 155. For chemistry upon admission, sodium 138, pota ssium 4.6, chloride 108, bicarb 25, BUN 33, creatinine 1.92, glucose 109. Troponin 10.9, repeat trop onin 16.3 with sodium 140, potassium 4.5, chloride 111, bicarb 27, BUN 29, creatinine 1.71. Final Diagnoses: 1.Atrial fibrillation. 2.Chronic kidney disease stage IIIB. 3.Hypertension. 4.Hyperlipidemia. 5.Gastroesophageal reflux disease. 6.Osteoarthritis, multiple sites. Hospital Course: An 89-year-old pleasant male patient, admitted to the hospital after he came into e mergency room with complaints of dizziness and further evaluation done in the emergency room revealed presence of atrial fibrillation with rapid ventricular rate and this is new onset atrial fibrillatio n. After the patient was evaluated in ER, he was admitted to hospital under my service and he was st arted on Eliquis 2.5 mg 2 times a day starting the evening of admission. The patient qualifies for l ower dose of Eliquis on basis of his age and renal function. Cardiology consultation was requested f rom Dr. Lundy. The patient was initially started on metoprolol 25 mg twice a day which was increase d to 50 mg twice a day, day after the admission. Anticoagulation therapy was continued. Dr. Lundy evaluated the patient and different treatment option discussed with the patient and the patient decid ed to go with medication management along with cardioversion after he communicated details with me an d yesterday Dr. Lundy did transesophageal echocardiogram and then subsequently performed cardioversi on and it was unsuccessful after 3 attempts. So plan is to discharge the patient to go home. His he art rate is well controlled with metoprolol and sotalol. He has received third dose of sotalol and E KG was done this morning which was reviewed and after that, decision was made to discharge the patien t to go home with above-mentioned medications and instructions. I did inform the patient regarding r isk and benefit of anticoagulation therapy and informed him to take appropriate precautions to avoid any fall, head injury, or any skin laceration, and in the event of any bleeding complications or head injury, he should return to the emergency room right away for further evaluation. His prescriptions for this new medications were sent to his pharmacy from my office. I will see him next week at [facility] for followup. Total time spent today 40 minutes. HELEN/MODL Voice ID: [id number] Report ID: [id number]
[2024-08-23 01:04] VITALS: BP 169/78
[2024-08-23 01:50] VITALS: O2SAT 95
== END 2024-08-22 09:55 | disposition home or self-care (01) | DRG 310 ==
LOC: ER 18:17 → ERHOLD 19:49 → 4TH 21:28
PROVIDERS: ADMIT Internal Medicine; ATTEND Internal Medicine
PROC: B24BZZ4 Ultrasonography of Heart with Aorta, Transesophageal (ICD-10-PCS; principal; 2024-08-21)
PROC: 5A2204Z Restoration of Cardiac Rhythm, Single (ICD-10-PCS; 2024-08-21)
DX: I48.19 Other persistent atrial fibrillation (principal); E78.5 Hyperlipidemia, unspecified; I12.9 Hypertensive chronic kidney disease with stage 1 through stage 4 chronic kidney disease, or unspecified chronic kidney disease; N18.32 Chronic kidney disease, stage 3b; N40.0 Benign prostatic hyperplasia without lower urinary tract symptoms; K21.9 Gastro-esophageal reflux disease without esophagitis; M19.09 Primary osteoarthritis, other specified site; R73.01 Impaired fasting glucose; Z88.7 Allergy status to serum and vaccine; Z79.02 Long term (current) use of antithrombotics/antiplatelets; Z79.899 Other long term (current) drug therapy
CPT/HCPCS: 36415; 71045; 80048; 83880; 84484; 85025; 85610; 92960; 93005; 93306; 93312; 96365; 99285; J2003; J2704; J3475; J7040; J7799

== ENCOUNTER 2024-09-12 11:48 | Inpatient (IN) | payer OTHER, BC ==
[2024-09-12] MEDS ORDERED: FOLIC ACID 5 MG/ML VIAL ONE (12:05)
[2024-09-12] MEDS ORDERED: NA CHLORIDE 0.9% 0 ML ONE (12:06)
--- NOTE | 2024-09-12 12:26 | RAD REPORT ---
EXAM: CT brain without contrast HISTORY: Alteration of consciousness. COMPARISON: None TECHNIQUE: Multiple contiguous axial images were obtained and a CT of the brain without contrast. Sagittal and coronal reformats were performed. Automated exposure control, adjustment of the mA and/or kV according to patient size, and/or itera tive reconstruction. Unless otherwise specified, incidental findings do not require dedicated imaging follow-u FINDINGS: An intracranial bleed is not seen Ventricles are prominent most likely the sequela of cerebral atrophy. 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 Moderate sinusitis IMPRESSION: No acute intracranial abnormality noted. If the patient's symptoms persist MRI of the brain would be recommended. from the emergency room was notified at 12:10 PM September 12, 2024
[2024-09-12 12:43] LABS: Absolute Basophils 0.1 K/uL (0-0.5); Absolute Eosinophils 0.5 K/uL (0-0.5); Absolute Lymphocytes (CBC) 1.3 K/uL (0.7-4.9); Absolute Monocytes 1.2 K/uL (0.1-1.3); Absolute Neutrophil 13.7 K/uL (1.8-8.0); Basophils % 0.4 % (0-1.3); Eosinophils % 2.9 % (0-4.4); Hematocrit 34.6 % (39.6-49.0); Lymphocytes % 7.6 % (15.3-44.8); MCHC 34.8 g/dL (32.0-36.0); MCV 94.7 fL (80-100); MPV 8.5 fL (7.6-11.3); Monocytes % 7.5 % (3.3-12.3); Neutrophils % 81.6 % (41.7-73.7); Platelets 205 thou/uL (152-406); RBC Red Blood Cell Count 3.65 M/uL (4.33-5.43); Red Cell Distribution Width 13.8 % (12.1-15.2)
[2024-09-12 12:50] LABS: PT Prothrombin Time 13.2 SECONDS (9.4-12.5); Protime INR 1.26
[2024-09-12 13:04] LABS: Albumin 3.1 g/dL (3.4-5.0); Albumin/Globulin Ratio 0.7 (1.1-1.8); Anion Gap 7.5 mEq/L (5.0-15.0); Bilirubin Direct 0.2 mg/dL (0-0.2); Bilirubin Indirect, Calculated 0.4 mg/dL (0.2-0.8); Bilirubin Total 0.6 mg/dL (0.2-1.0); Globulin 4.5 g/dL (2.3-3.5); Magnesium 2.2 mg/dL (1.6-2.4); Potassium 4.5 mEq/L (3.5-5.1); Protein, Total 7.6 g/dL (6.4-8.2); Troponin High Sensitivity 11.6 pg/mL (<58.9)
[2024-09-12] MEDS ORDERED: ASPIRIN 81 MG CHEWABLE TABLET ONE (13:04)
[2024-09-12] MEDS ORDERED: ACETYLCYST 6,000 MG/30 ML VIAL ONE (13:04)
--- NOTE | 2024-09-12 13:06 | RAD REPORT ---
EXAMINATION: CTA HEAD CLINICAL INDICATION: Alteration of consciousness. Headache TECHNIQUE: Axial CT images were obtained through the head after 100 cc Isovue-370 intravenous contras t utilizing angiographic protocol with 3D post-processing (maximum intensity projection images, volume rendered images and/or shaded surface rendered images). One or more of the following dose red uction techniques were used: Automated exposure control, adjustment of the mA and/or kV according to patient size, and/or iterative reconstruction. Unless otherwise specified, incidental findings do not require dedicated imaging follow-up. COMPARISON: None FINDINGS: Distal internal carotid, basilar, anterior cerebral, middle cerebral and posterior cerebral arteries do not demonstrate a significant stenosis origin right posterior cerebral artery An aneurysm not noted. No large vessel occlusion IMPRESSION: No acute vascular abnormality displayed
--- NOTE | 2024-09-12 13:06 | RAD REPORT ---
EXAMINATION: Neck Angio CLINICAL INDICATION: Neck pain alteration of consciousness. TECHNIQUE: Axial CT images were obtained from the aortic arch to the skull base after intravenous adm inistration of 100 cc Isovue-370 utilizing angiographic protocol. Multiplanar reformats, as well as 3D post-processing (maximum intensity projection images, volume rendered images and/or shaded surface rendered images) were generated and reviewed. One or more of the following dose reduction techniques were used: Automated exposure control, adjustment of the mA and/or kV according to patient size, and/or iterative reconstruction. Unless otherwise specified, incidental findings do not require dedicated imaging follow-up. COMPARISON: No prior exam. FINDINGS: The great vessels do not demonstrate a significant abnormality. Ulcerated plaque is present within the left carotid bulb. Moderate plaque proximal left internal carotid artery. Severe plaque proximal left external carotid artery. Mild to moderate plaque right carotid bulb and proximal right internal carotid. Marked calcified plaque distal right vertebral artery Mild plaque left vertebral artery No significant stenosis noted. A dissection is not seen. Methods for NASCET criteria: Mild stenosis, 0% to 49%; Moderate stenosis 50% to 69%; Severe stenosis, 70% to 99% IMPRESSION: Ulcerated plaque left carotid bulb Moderate plaque left internal carotid artery results in approximately 50 stenosis. marked calcified plaque distal right vertebral artery Marked plaque proximal left external carotid artery
[2024-09-12 13:34] LABS: Specific Gravity 1.013 (1.005-1.030); Sqamous Epithelial <5 /HPF (None Seen); Urine Bacteria >50 /HPF (<20); Urine Bilirubin NEGATIVE (Negative); Urine Blood Negative (Negative); Urine Clarity Extremely Turbid (Clear); Urine Color Light-Yellow (Yellow); Urine Culture Reflex Order REFLEXED; Urine Glucose NEGATIVE (Negative); Urine Ketones NEGATIVE (Negative); Urine Microscopic Reflex YN ORDER UMIC; Urine Mucus Slight /HPF (None Seen); Urine Nitrite NEGATIVE (Negative); Urine Protein 1+ (Negative); Urine RBC <5 /HPF (None Seen); Urine Urobilinogen Normal (Normal); Urine WBC >50 /HPF (<5); Urine pH 6.5 (5.0-7.0)
--- NOTE | 2024-09-12 13:55 | RAD REPORT ---
EXAMINATION: ONE VIEW CHEST XR CLINICAL INDICATION: Male, 89 years old.,COUGH TECHNIQUE: Frontal chest projection is submitted. Examination is limited by patient positioning and t echnique. COMPARISON: 08/19/2024 FINDINGS: The lungs are well inflated and clear. No pneumothorax or sizable effusion. The heart is normal in s ize. Mediastinal contours are unremarkable. IMPRESSION: No acute intrathoracic abnormalities.
--- NOTE | 2024-09-12 14:02 | EDPHYS ---
Physician Documentation [facility] Name: Navi Contreras Age: 89 yrs Sex: Male : 1935 Arrival Date: 09/12/2024 Time: 11:48 Bed 7 Private MD: ED Physician Michel Alfred HPI: 09/12 13:46 This 89 yrs old Male presents to ER via Ambulatory with complaints of Altered narciso Mental Status. 13:46 The patient presents with confusion, decreased mental status, decreased responsiveness, narciso trouble concentrating. Onset: The symptoms/episode began/occurred this morning, today. Possible causes: CVA or TIA, head injury, low blood sugar, seizure, sepsis, unknown. Associated signs and symptoms: Pertinent positives: dizziness, lightheadedness, palpitations, weakness. Current symptoms: In the emergency department the patient's symptoms have improved, moderately. Patient's baseline: Neuro: alert and fully oriented. It is unknown whether or not the patient has had similar symptoms in the past. Historical: - Allergies: 12:12 Tetanus Vaccines and Toxoid; jl7 - PMHx: 12:12 Aneurysm; Diverticulitis; Hyperlipidemia; Hypertension; jl7 - PSHx: 18:20 Unable to Obtain; ko1 - Immunization history:: Adult Immunizations unknown. - Infectious Disease History:: Denies. - Social history:: Smoking status: Patient denies any tobacco usage or history of. ROS: 13:48 Constitutional: Negative for fever, chills, and weight loss, Eyes: Negative for injury, narciso pain, redness, and discharge, ENT: Negative for injury, pain, and discharge, Neck: Negative for injury, pain, and swelling, Cardiovascular: Negative for chest pain, palpitations, and edema, Respiratory: Negative for shortness of breath, cough, wheezing, and pleuritic chest pain, Abdomen/GI: Negative for abdominal pain, nausea, vomiting, diarrhea, and constipation, Back: Negative for injury and pain, MS/Extremity: Negative for injury and deformity, Skin: Negative for injury, rash, and discoloration, Psych: Negative for depression, anxiety, suicide ideation, homicidal ideation, and hallucinations, Allergy/Immunology: Negative for hives, rash, and allergies, Endocrine: Negative for neck swelling, polydipsia, polyuria, polyphagia, and marked weight changes, Hematologic/Lymphatic: Negative for swollen nodes, abnormal bleeding, and unusual bruising, 13:48 : Positive for burning with urination, difficulty urinating, 13:48 Neuro: Positive for altered mental status, dizziness, weakness, Exam: 13:48 Constitutional: This is a well developed, well nourished patient who is awake, alert, narciso and in no acute distress. Head/Face: Normocephalic, atraumatic. Eyes: Pupils equal round and reactive to light, extra-ocular motions intact. Lids and lashes normal. Conjunctiva and sclera are non-icteric and not injected. Cornea within normal limits. Periorbital areas with no swelling, redness, or edema. ENT: Nares patent. No nasal discharge, no septal abnormalities noted. Tympanic membranes are normal and external auditory canals are clear. Oropharynx with no redness, swelling, or masses, exudates, or evidence of obstruction, uvula midline. Mucous membranes moist. Neck: Trachea midline, no thyromegaly or masses palpated, and no cervical lymphadenopathy. Supple, full range of motion without nuchal rigidity, or vertebral point tenderness. No Meningismus. Chest/axilla: Normal chest wall appearance and motion. Nontender with no deformity. No lesions are appreciated. Cardiovascular: Regular rate and rhythm with a normal S1 and S2. No gallops, murmurs, or rubs. Normal PMI, no JVD. No pulse deficits. Respiratory: Lungs have equal breath sounds bilaterally, clear to auscultation and percussion. No rales, rhonchi or wheezes noted. No increased work of breathing, no retractions or nasal flaring. Abdomen/GI: Soft, non-tender, with normal bowel sounds. No distension or tympany. No guarding or rebound. No evidence of tenderness throughout. Back: No spinal tenderness. No costovertebral tenderness. Full range of motion. Male : Normal genitalia with no discharge or lesions. Skin: Warm, dry with normal turgor. Normal color with no rashes, no lesions, and no evidence of cellulitis. MS/ Extremity: Pulses equal, no cyanosis. Neurovascular intact. Full, normal range of motion., bilateral aka Neuro: Awake and alert, GCS 15, oriented to person, place, time, and situation. Cranial nerves II-XII grossly intact. Motor strength 5/5 in all extremities. Sensory grossly intact. Cerebellar exam normal. Normal gait. Psych: Awake, alert, with orientation to person, place and time. Behavior, mood, and affect are within normal limits. 13:48 ECG was reviewed by the Attending Physician. Vital Signs: 13:24 BP 164 / 74; Pulse 70; Resp 14; Pulse Ox 99% ; ko1 14:11 Weight 70.31 kg; ko1 15:14 BP 149 / 76; Pulse 53; Resp 18; Pulse Ox 99% on R/A; ld1 16:00 BP 158 / 71; Pulse 62; Resp 15; Pulse Ox 98% ; ko1 18:09 BP 162 / 74; Pulse 58; Resp 15; Pulse Ox 98% ; ko1 19:00 BP 162 / 70; Pulse 60; Resp 16; Pulse Ox 100% on R/A; al5 NIH Stroke Scale Scores: 12:00 NIHSS Score: 0 jl7 MDM: 11:54 Medical Screening Exam initiated narciso 13:51 Differential Diagnosis altered mental status, sepsis, flu. Differential Diagnosis: CVA, narciso electrolyte abnormality, hypoglycemia, intracranial bleed, pneumonia, seizure, sepsis, TIA, UTI, volume depletion. Data reviewed: vital signs, nurses notes, lab test result(s), EKG, radiologic studies, CT scan, MRI, plain films. Consideration of Admission/Observation Patient was admitted/placed on observation. Escalation of care including admission/observation considered. I considered the following discharge prescriptions or medication management in the emergency department Medications were administered in the Emergency Department. See MAR. Independent interpretation of the following test(s) in the Emergency Department EKG: See my EKG interpretation above. Test considered but Not performed: Ultrasound no abd usg. Historians other than the Patient: pt well informed. Care significantly affected by the following chronic conditions: Hypertension, aneurysm, diverticulitis, hyperlipidemia, htn. Post IV fluid administration reassessment for Sepsis: Client prescribed 30 mL/kg IVF. 09/12 11:56 Order name: Basic Metabolic Panel; Complete Time: 13:39 [facility] 09/12 11:56 Order name: CBC with Diff; Complete Time: 13:39 [facility] 09/12 11:56 Order name: LFT's; Complete Time: 13:39 [facility] 09/12 11:56 Order name: Magnesium; Complete Time: 13:39 [facility] 09/12 11:56 Order name: NT PRO-BNP; Complete Time: 13:39 [facility] 09/12 11:56 Order name: PT-INR; Complete Time: 13:39 [facility] 09/12 11:56 Order name: Troponin HS; Complete Time: 13:39 [facility] 09/12 11:56 Order name: Urinalysis w/ reflexes; Complete Time: 13:39 [facility] 09/12 12:59 Order name: Glucose, Ancillary Testing; Complete Time: 13:39 EDMS 09/12 13:38 Order name: Urine Culture EDID 09/12 13:45 Order name: Blood Culture Adult (2) [facility] 09/12 13:45 Order name: Lactate w/ 2H reflex if indic.; Complete Time: 17:28 [facility] 09/12 14:23 Order name: CREATININE WHOLE BLOOD; Complete Time: 17:28 EDID 09/12 11:56 Order name: XRAY Chest (1 view); Complete Time: 17:28 [facility] 09/12 11:56 Order name: CT Stroke Brain w/o Contrast; Complete Time: 13:39 [facility] 09/12 11:56 Order name: CT Head Angio; Complete Time: 13:39 [facility] 09/12 11:56 Order name: CT Neck Angio; Complete Time: 13:39 [facility] 09/12 11:56 Order name: MRI Stroke Protocol [facility] 09/12 13:45 Order name: CT Stone Protocol; Complete Time: 17:28 [facility] 09/12 17:04 Order name: MRI; Complete Time: 17:28 EDID 09/12 11:56 Order name: EKG; Complete Time: 11:57 [facility] 09/12 11:56 Order name: Cardiac monitoring; Complete Time: 12:37 [facility] 09/12 11:56 Order name: EKG - Nurse/Tech; Complete Time: 12:43 [facility] 09/12 11:56 Order name: IV Saline Lock; Complete Time: 12:32 [facility] 09/12 11:56 Order name: Labs collected and sent; Complete Time: 12:37 [facility] 09/12 11:56 Order name: O2 Per Protocol; Complete Time: 12:32 [facility] 09/12 11:56 Order name: O2 Sat Monitoring; Complete Time: 12:32 [facility] EC:48 Rate is 66 beats/min. Rhythm is regular. QRS [place] is Normal. CA interval is normal. QRS narciso interval is normal. QT interval is normal. No Q waves. T waves are Normal. No ST changes noted. Clinical impression: Atrial Fibrillation. Interpreted by me. Reviewed by me. Administered Medications: 12:37 Drug: foLIC Acid IVPB 1 mg IVPB once Route: IVPB; Site: left forearm; ko1 12:52 Follow up: Response: No adverse reaction; IV Status: Completed infusion; IV Intake: ko1 0.2ml 12:37 Drug: NS 0.9% IV 1000 ml IV at 1000 ml once; to be given as a bolus over 60 minutes ko1 Route: IV; Rate: 1000 ml; Site: left forearm; 13:37 Follow up: Response: No adverse reaction; IV Status: Completed infusion; IV Intake: ko1 1000ml 13:06 Drug: Mucomyst - Acetylcysteine PO 600 mg PO once Route: PO; ko1 13:36 Follow up: Response: No adverse reaction ko1 13:06 Drug: Aspirin PO Chewable Tablet 81 mg PO once Route: PO; ko1 13:36 Follow up: Response: No adverse reaction ko1 13:45 CANCELLED (Duplicate Order): ns 0.9% 1000 ml IV at 1000 ml once; to be given as a bolus narciso over 60 minutes 14:13 Drug: NS 0.9% IV (30 ml/kg) 30 ml/kg IV at bolus once; Sepsis Protocol; to be given as ko1 a bolus over 90 minutes Route: IV; Rate: bolus; Site: left forearm; 15:25 Follow up: Response: No adverse reaction; IV Status: Completed infusion; IV Intake: ko1 1000ml 14:13 Drug: Famotidine IVP 20 mg IVP once; dilute with 10 mL 0.9% NaCl; give over 2 minutes ko1 Route: IVP; Site: left forearm; 14:28 Follow up: Response: No adverse reaction ko1 14:39 Drug: Rocephin IV 2 grams IV at per protocol once; Given slow IV push per pharmarcy ko1 instructions Route: IV; Rate: per protocol; Site: left forearm; 15:25 Follow up: Response: No adverse reaction; IV Status: Completed infusion; IV Intake: ko1 100ml 18:42 Drug: levofloxacin IVPB 500 mg 100 ml IVPB once over 60 mins Volume: 100 ml; Route: ko1 IVPB; Infused Over: 60 mins; Site: left forearm; 19:36 Follow up: Response: No adverse reaction; IV Status: Infusion continued upon admission al5 Point of Care Testing: Blood Glucose: 12:30 Blood Glucose: 99 mg/dL; ko1 Ranges: Critical Glucose Levels:Adult <50 mg/dl or >400 mg/dl <40 mg/dl or >180 mg/dl Disposition Summary: 09/12/24 14:02 Hospitalization Ordered Notes: Hospitalization Status: Inpatient Admission narciso Provider: Urban Carl cha Location: Telemetry/MedSurg (Inpatient) narciso Condition: Fair narciso Problem: new narciso Symptoms: have improved narciso Bed/Room Type: Standard narciso Room Assignment: 210(09/12/24 18:00) bc6 Diagnosis - Altered mental status, unspecified narciso - UTI/ Urinary tract infection, site not specified narciso - Elevated white blood cell count narciso - Weakness narciso - Chronic atrial fibrillation narciso - Other acute kidney failure narciso Forms: - Medication Reconciliation Form narciso - SBAR form narciso - Leadership Thank You Letter narciso NIH Stroke Scale - NIH Stroke Score Date: 09/12/2024 Time: 12:00 Total Score = 0 10. Dysarthria (speech clarity - read or repeat words) - 0(Normal) 11. Extinction and Inattention (visual/tactile/auditory/spatial/personal) - 0(No abnormality) 1a. Level of Consciousness (LOC) - 0(Alert) 1b. Level of Consciousness (LOC) (Month \T\ Age) - 0(Both) 1c. LOC Commands (Open \T\ Closes Eyes/Ssrs Report Developer) - 0(Both) 2. Best Gaze (Lateral Gaze Paresis) - 0(Normal) 3. Visual Field Loss - 0(No visual loss) 4. Facial Palsy - 0(Normal) 5a. Left Arm: Motor (10-second hold) - 0(No drift) 5b. Right Arm: Motor (10-second hold) - 0(No drift) 6a. Left Leg: Motor (5-second hold - always test supine) - 0(No drift) 6b. Right Leg: Motor (5-second hold - always test supine) - 0(No drift) 7. Limb Ataxia (finger/nose \T\ heel/mayen - test with eyes open) - 0(Absent) 8. Sensory Loss (pinprick arms/legs/face) - 0(Normal) 9. Best Language: Aphasia (description/naming/reading) - 0(No aphasia) Initials: jl7 Signatures: Dispatcher [employer] Michel Hunter MD MD cha Leal, Jahala RN RN jl7 Yani Ortiz RN RN ko1 Courtney Madison6 Natalie Chowdhury RN al5 Corrections: (The following items were deleted from the chart) 13:45 13:45 NS 0.9% IV 1000 ml IV at 1000 ml once; to be given as a bolus over 60 narciso minutes ordered. [facility] 18:00 14:02 narciso 6
--- NOTE | 2024-09-12 14:02 | ER ---
Nurse's Notes [facility] Name: Navi Contreras Age: 89 yrs Sex: Male : 1935 Arrival Date: 09/12/2024 Time: 11:48 Bed 7 Private MD: Diagnosis: Altered mental status, unspecified;UTI/ Urinary tract infection, site not specified;Elevated white blood cell count;Weakness;Chronic atrial fibrillation;Other acute kidney failure Presentation: 09/12 12:00 Chief complaint: Grandson reports he was confused, didn't know who he was or where he jl7 was this morning, went to bed last night around 1999, symptoms resolved at this time. 12:00 Method Of Arrival: Ambulatory jl7 12:00 Coronavirus screen: At this time, the client does not indicate any symptoms associated jl7 with coronavirus-19. Ebola Screen: No symptoms or risks identified at this time. No acute neurological deficit is noted. Pre-hospital glucose is not applicable to this patient. Risk Assessment: Do you want to hurt yourself or someone else? Patient reports no desire to harm self or others. Onset of symptoms is unknown. 12:00 Acuity: IFTIKHAR 2 jl7 12:30 Initial Sepsis Screen: Does the patient meet any 2 criteria? No. Patient's initial ko1 sepsis screen is negative. Does the patient have a suspected source of infection? No. Patient's initial sepsis screen is negative. Triage Assessment: 12:30 The onset of the patients symptoms was at an unknown time. General: Appears in no ko1 apparent distress. Behavior is calm, cooperative. 12:30 The onset of the patients symptoms was September 11, 2024 at 20:00. ko1 12:30 Neuro: Reports son reports confusion. ko1 Stroke Activation: Symptom onset > 6 hours Physician: ED Attending; Name: Tima; Notified At: 12:00; Arrived At: 12:00 Physician: Mid-Level Provider; Name: ; Notified At: 12:00; Arrived At: Physician: [not used]; Name: ; Notified At: ; Arrived At: Physician: [not used]; Name: ; Notified At: ; Arrived At: Physician: [not used]; Name: ; Notified At: ; Arrived At: Historical: - Allergies: 12:12 Tetanus Vaccines and Toxoid; jl7 - PMHx: 12:12 Aneurysm; Diverticulitis; Hyperlipidemia; Hypertension; jl7 - PSHx: 18:20 Unable to Obtain; ko1 - Immunization history:: Adult Immunizations unknown. - Infectious Disease History:: Denies. - Social history:: Smoking status: Patient denies any tobacco usage or history of. Screenin:35 [facility] ED Fall Risk Assessment (Adult) History of falling in the last 3 months, ko1 including since admission No falls in past 3 months (0 pts) Confusion or Disorientation No (0 pts) Intoxicated or Sedated No (0 pts) Impaired Gait No (0 pts) Mobility Assist Device Used No (0 pt) Altered Elimination No (0 pt) Score/Fall Risk Level 0 - 2 = Low Risk Oriented to surroundings, Maintained a safe environment, Educated pt \\T\\ family on fall prevention, incl call for assistance when getting out of bed, Assessed \\T\\ reinforced patient's understanding of fall precautions, Provided non-skid footwear, Hourly rounding (assess needs \\T\\ fall precautionary measures) done. Abuse screen: Denies threats or abuse. Denies injuries from another. Nutritional screening: No deficits noted. Tuberculosis screening: No symptoms or risk factors identified. Assessment: 12:00 VAN Scoring: Arm Drift: Patients demonstrates NO arm weakness. Patient is VAN Negative. jl7 12:00 Reassessment: code stroke called, pt transported to CT via wheelchair. jl7 12:15 [place] Swallow Protocol Exclusion Criteria: Exclusion Criteria Result: Proceed Brief ko1 Cognitive Screen What is your name? Normal, Where are you right now? Normal, What year is it? Normal. Oral Mechanism Examination Facial Symmetry: Normal, Motion: Normal, Lip Closure: Normal, Oral Mechanism Result: Normal. 3 oz Water Swallow Challenge: Pt able to drink all water without stopping, coughing, choking or throat clearing: Yes Result: PASS Notified: Michel Alfred MD. TNKase (Tenecteplase) Screening: Not Applicable. 15:13 Reassessment: Cleaned patient on incontinence - placed patient in gown, on male ld1 purewick, warm blanket provided. Items in bag at bedside. Denies concerns at this time. Pain: Denies pain. Neuro: Level of Consciousness is awake, alert, confused, Oriented to person, Pt disoriented to situation. Stating "Why am I here, when can I leave?". Vital Signs: 13:24 BP 164 / 74; Pulse 70; Resp 14; Pulse Ox 99% ; ko1 14:11 Weight 70.31 kg; ko1 15:14 BP 149 / 76; Pulse 53; Resp 18; Pulse Ox 99% on R/A; ld1 16:00 BP 158 / 71; Pulse 62; Resp 15; Pulse Ox 98% ; ko1 18:09 BP 162 / 74; Pulse 58; Resp 15; Pulse Ox 98% ; ko1 19:00 BP 162 / 70; Pulse 60; Resp 16; Pulse Ox 100% on R/A; al5 NIH Stroke Scale Scores: 12:00 NIHSS Score: 0 jl7 ED Course: 11:51 Patient arrived in ED. im 11:54 Michel lAfred MD is Attending Physician. narciso 12:00 Arm band placed on right wrist. jl7 12:12 Triage completed. jl7 12:15 No provider procedures requiring assistance completed. ko1 12:19 CT Stroke Brain w/o Contrast In Process Unspecified. EDMS 12:24 CT Head Angio In Process Unspecified. EDMS 12:24 CT Neck Angio In Process Unspecified. EDMS 12:35 Patient has correct armband on for positive identification. Allergy band placed. Bed in ko1 low position. Call light in reach. Side rails up X2. Provided Education on: labs. Client placed on continuous cardiac and pulse oximetry monitoring. NIBP monitoring applied. quality assurance monitor on. Door closed. Noise minimized. Lights dimmed. Warm blanket given. Pillow given. 12:35 Initial lab(s) drawn, by ED staff, sent to lab. EKG done, by ED staff, reviewed by barbara Alfred MD. Inserted saline lock: 22 gauge in left forearm, using aseptic technique. Blood collected. Flushed with 10 mL NS. 12:37 Basic Metabolic Panel Sent. ko1 12:37 CBC with Diff Sent. ko1 12:37 LFT's Sent. ko1 12:37 Magnesium Sent. ko1 12:37 NT PRO-BNP Sent. ko1 12:37 PT-INR Sent. ko1 12:37 Troponin HS Sent. ko1 12:47 Yani Ortiz, RN is Primary Nurse. ko1 13:13 XRAY Chest (1 view) In Process Unspecified. EDMS 13:13 Urinalysis w/ reflexes Sent. ko1 13:22 Urine collected: clean catch specimen, cloudy. ko1 14:00 Urban Carl MD is Hospitalizing Provider. [facility] 14:07 CT Stone Protocol In Process Unspecified. EDMS 14:12 Urine Culture Sent. ko1 16:00 Patient admitted, IV remains in place. ko1 Administered Medications: 12:37 Drug: foLIC Acid IVPB 1 mg IVPB once Route: IVPB; Site: left forearm; ko1 12:52 Follow up: Response: No adverse reaction; IV Status: Completed infusion; IV Intake: ko1 0.2ml 12:37 Drug: NS 0.9% IV 1000 ml IV at 1000 ml once; to be given as a bolus over 60 minutes ko1 Route: IV; Rate: 1000 ml; Site: left forearm; 13:37 Follow up: Response: No adverse reaction; IV Status: Completed infusion; IV Intake: ko1 1000ml 13:06 Drug: Mucomyst - Acetylcysteine PO 600 mg PO once Route: PO; ko1 13:36 Follow up: Response: No adverse reaction ko1 13:06 Drug: Aspirin PO Chewable Tablet 81 mg PO once Route: PO; ko1 13:36 Follow up: Response: No adverse reaction ko1 13:45 CANCELLED (Duplicate Order): ns 0.9% 1000 ml IV at 1000 ml once; to be given as a bolus [facility] over 60 minutes 14:13 Drug: NS 0.9% IV (30 ml/kg) 30 ml/kg IV at bolus once; Sepsis Protocol; to be given as ko1 a bolus over 90 minutes Route: IV; Rate: bolus; Site: left forearm; 15:25 Follow up: Response: No adverse reaction; IV Status: Completed infusion; IV Intake: ko1 1000ml 14:13 Drug: Famotidine IVP 20 mg IVP once; dilute with 10 mL 0.9% NaCl; give over 2 minutes ko1 Route: IVP; Site: left forearm; 14:28 Follow up: Response: No adverse reaction ko1 14:39 Drug: Rocephin IV 2 grams IV at per protocol once; Given slow IV push per pharmarcy ko1 instructions Route: IV; Rate: per protocol; Site: left forearm; 15:25 Follow up: Response: No adverse reaction; IV Status: Completed infusion; IV Intake: ko1 100ml 18:42 Drug: levofloxacin IVPB 500 mg 100 ml IVPB once over 60 mins Volume: 100 ml; Route: ko1 IVPB; Infused Over: 60 mins; Site: left forearm; 19:36 Follow up: Response: No adverse reaction; IV Status: Infusion continued upon admission al5 Medication: 12:54 VIS not applicable for this client. ko1 Point of Care Testing: Blood Glucose: 12:30 Blood Glucose: 99 mg/dL; ko1 Ranges: Intake: 12:52 IV: 0ml; Total: 0ml. ko1 13:37 IV: 1000ml; Total: 1000ml. ko1 15:25 IV: 1000ml; Total: 2000ml. ko1 15:25 IV: 100ml; Total: 2100ml. ko1 Outcome: 14:02 Decision to Hospitalize by Provider. narciso 18:09 Admitted to Tele accompanied by tech, via wheelchair, room 210, with chart, ko1 18:09 Condition: stable 18:09 Instructed on the need for admit, 19:36 Patient left the ED. al5 NIH Stroke Scale - NIH Stroke Score Date: 09/12/2024 Time: 12:00 Total Score = 0 10. Dysarthria (speech clarity - read or repeat words) - 0(Normal) 11. Extinction and Inattention (visual/tactile/auditory/spatial/personal) - 0(No abnormality) 1a. Level of Consciousness (LOC) - 0(Alert) 1b. Level of Consciousness (LOC) (Month \\T\\ Age) - 0(Both) 1c. LOC Commands (Open \\T\\ Closes Eyes/Transfer Controller) - 0(Both) 2. Best Gaze (Lateral Gaze Paresis) - 0(Normal) 3. Visual Field Loss - 0(No visual loss) 4. Facial Palsy - 0(Normal) 5a. Left Arm: Motor (10-second hold) - 0(No drift) 5b. Right Arm: Motor (10-second hold) - 0(No drift) 6a. Left Leg: Motor (5-second hold - always test supine) - 0(No drift) 6b. Right Leg: Motor (5-second hold - always test supine) - 0(No drift) 7. Limb Ataxia (finger/nose \\T\\ heel/mayen - test with eyes open) - 0(Absent) 8. Sensory Loss (pinprick arms/legs/face) - 0(Normal) 9. Best Language: Aphasia (description/naming/reading) - 0(No aphasia) Initials: jl7 Signatures: Dispatcher [employer] Michel Hunter MD MD cha Leal, Jahala, RN RN jl7 Nelida Jurado RN RN ld1 Yani Ortiz RN RN ko1 Angelica Costello Amanda RN RN al5
[2024-09-12] MEDS ORDERED: CEFTRIAXONE 2000 MG/VIAL ONE (14:17)
[2024-09-12] MEDS ORDERED: NA CHLORIDE 0.9% 1,000 ML ONE (14:17)
[2024-09-12] MEDS ORDERED: FAMOTIDINE 20 MG/2 ML VIAL IV ONE (14:17)
--- NOTE | 2024-09-12 14:55 | RAD REPORT ---
EXAMINATION: CT Stone Protocol CLINICAL INDICATION: Male, 89 years old. Kidney stones;Pain TECHNIQUE: CT abdomen and pelvis was performed, without IV contrast, as per department protocol. Axia l, sagittal and coronal reconstructions were obtained. One or more of the following dose reduction techniques were used: Automated exposure control, adjustment of the mA and kV according to the patien t size, and iterative reconstruction. Unless otherwise specified, incidental findings do not require dedicated imaging follow-up. COMPARISON: No prior exam. FINDINGS: The lack of intravenous contrast limits the sensitivity of this exam for evaluation of solid visceral organs, vascular structures, and retroperitoneum. LOWER CHEST: The visualized lung bases are clear. LIVER: Normal in size and contour. Fluid density inferior right lobe 1.2 cm lesion, may represent a s mall cyst. No suspicious focal lesion. BILIARY SYSTEM: No suspicious abnormalities. SPLEEN: Normal size. No focal lesion. PANCREAS: No mass, ductal dilation, or oscar-pancreatic fluid. ADRENALS: Normal; no mass. KIDNEYS AND URETERS: Normal size and contour. No hydronephrosis. URINARY BLADDER: Stable appearance with large diverticula, including a left wall 12.4 cm diverticulum , and posterior wall/dome 5.6 cm diverticulum. No radiopaque calculi or suspicious masses. Air-fluid levels within the bladder lumen and the diverticula, could relate to recent. GASTROINTESTINAL TRACT: Sigmoid diverticulosis without evidence of acute diverticulitis. No evidence of bowel obstruction, significant free fluid, free air or abscess. APPENDIX: Normal appendix. LYMPH NODES: No lymphadenopathy. MUSCULOSKELETAL: No acute or suspicious osseous abnormality. ADDITIONAL FINDINGS: Fusiform infrarenal abdominal aortic aneurysm measuring 5.9 x 5.9 cm in greatest axial dimensions, with interval placement of aortobiiliac graft in place. Aneurysm sac has increased in size a 2020 exam. Right inguinal hernia containing fat. IMPRESSION: Air-fluid levels within the urinary bladder and known diverticula, could relate to recent instrumenta tion. Interval increase in size of infrarenal abdominal aortic aneurysm sac, now measuring up to 5.9 cm, wi interval placement of aortobiiliac graft. No other acute or concerning abnormalities in the abdomen or pelvis, with evaluation limited by lack of IV contrast. Other incidental findings as above.
--- NOTE | 2024-09-12 17:04 | RAD REPORT ---
EXAMINATION: MRI BRAIN WITHOUT CONTRAST CLINICAL INDICATION: Male, 89 years old. TIA TECHNIQUE: Multiplanar multisequence MR images of the brain were obtained without intravenous contras t. Unless otherwise specified, incidental findings do not require dedicated imaging follow-up. COMPARISON: Head CT and CT angiogram of the same day FINDINGS: INTRACRANIAL: Midline structures are unremarkable. Diffusion-weighted images show no acute or early subacute infarction. Regions of encephalomalacia with underlying gliosis along the left precentral and postcentral gyri, r ight posterior lateral temporal cortex, and bilateral basal ganglia regions right centrum semiovale bowel, suggestive of sequelae of remote infarct. There is moderate brain atrophy with other moderateT2/FLAIR hyperintensities in the periventricular a nd deep white matter regions, likely representing chronic microvascular ischemic changes. There is no mass effect or midline shift. No abnormal extraaxial fluid collection. VASCULATURE: Normal signal voids in the larger intracranial arteries and dural venous sinuses. SINUSES: Patchy advanced paranasal sinus mucosal thickening. Mastoid air cells show patchy opacificat ion of the right. BONE: The marrow signal pattern is within normal limits. IMPRESSION: No significant intracranial abnormalities. Chronic findings as above.
[2024-09-12] MEDS: Levofloxacin500mg IV 500 MG/100 ML BAG IV ONE (18:44)
[2024-09-12] MEDS: NA CHLORIDE 0.9% 1,000 ML IV SCH (19:48)
[2024-09-12] MEDS ORDERED: ACETAMINOPHEN 500 MG TAB PO PRN (19:48)
[2024-09-12] MEDS ORDERED: ONDANSETRON 4 MG/2 ML VIAL IV PRN (19:48)
[2024-09-12] MEDS ORDERED: FAMOTIDINE 20 MG/2 ML VIAL IV SCH (20:00)
[2024-09-12] MEDS: SOTALOL HCL 80 MG TAB PO SCH (21:00)
[2024-09-12] MEDS: METOPROLOL TAR 50 MG TAB PO SCH ×2 (21:00→23:21)
[2024-09-12] MEDS: CEFTRIAXONE 1,000 MG in NA CHLORIDE 0.9% 50 ML IVPB SCH (21:56)
[2024-09-12] MEDS: APIXABAN 2.5 MG TABLET PO SCH (21:56)
--- NOTE | 2024-09-12 22:11 | HP ---
Date of Admission: 09/12/2024 Chief Complaint: Feeling weak and fainting episode. History Of Present Illness: An 89-year-old pleasant male patient, who was doing fine in his normal usual state of health until today. He was brought into emergency room with above-mentioned problem. The patient says he was in bed and as he tried to get up, he was extremely weak and had fainting type of episode. He denies any head injury. He was brought into ER and after he was evaluated in emergency room, I was contacted requesting admission to hospital with urinary tract infection and possibility to rule out sepsis. The patient received IV fluid and IV antibiotic in emergency room and was admitted to hospital. When I saw him, he was lying in bed and appeared slightly weaker than normal, but did not have any other specific complaints. Allergies: TO TETANUS TOXOID CAUSING RASH. 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 Constitutional: As mentioned above. All other systems reviewed and negative. Medications: Albuterol nebulizer treatment 4 times a day as needed, alprazolam 0.25 mg at bedtime as needed, amlodipine 5 mg daily in morning, metoprolol 50 mg 2 times a day, famotidine 20 mg daily at bedtime, Breo Ellipta inhaler 1 puff daily, fluticasone nasal spray 1 spray each nostril 2 times a day, sotalol 80 mg 2 times a day, eliquis 2.5 mg 2 times a day, simvastatin 20 mg daily at bedtime, losartan 100 mg daily, tamsulosin 0.4 mg daily. Past Medical History: Significant for hypertension, abdominal aortic aneurysm which is infrarenal, chronic kidney disease stage IIIB, unspecified anemia, hyperlipidemia, gastroesophageal reflux disease, benign prostatic hypertrophy, osteoarthritis at multiple sites, impaired fasting glucose. Past Surgical History: Endograft placement on February 10, 2023, for abdominal aortic aneurysm, inguinal hernia repair, transurethral resection of bladder tumor, shoulder surgery, removal of basal cell carcinoma from left ear in 2020. Family History: Parents and brother , details unknown about any of this family members. Social History: Negative for smoking. Use of alcohol, couple of glasses of wine once a week. Physical Examination: Vital Signs: Height 5 feet 10 inches, weight 156 pounds, temperature 97.8, pulse 60, respiratory rate 16, blood pressure 162/70, oxygen saturation 100% on room air. General: Awake, alert, oriented, not in distress. HEENT: Head atraumatic, normocephalic. Conjunctivae nonerythematous. Sclerae white. Mouth, no thrush or edema noted. Ears/Nose, no mass, lesion, discharge noted. Neck: Supple. No JVD, lymph nodes, bruit, thyromegaly noted. Lungs: Bilateral good equal air entry. Clear to auscultation. No rhonchi. No rales. Heart: Normal heart sounds, no murmur or gallop. Abdomen: Soft, bowel sounds normal. No guarding, rigidity, tenderness, mass, hepatosplenomegaly, distention, or bruit noted. Extremities: No leg edema. No calf tenderness. Skin: No rash, ulcer, cellulitis. Lymphatics: No lymph node enlargement in neck, supraclavicular, infraclavicular region. Neuro: No focal neurological deficit. Chest: Unremarkable. External Genitalia: Deferred. Rectal: Deferred. Laboratory Data: WBC 16.8, hemoglobin 12, platelets 205. Sodium 138, potassium 4.5, chloride 107, bicarb 28, BUN 28, creatinine 1.75, glucose 104, lactic acid 0.9. Liver function tests unremarkable. Troponin 11.6. ProBNP 2446. Urinalysis, leukocyte esterase 500, wbc more than 50, bacteria more than 50. Chest x-ray, no acute intrathoracic changes. CAT scan of the head, no acute intracranial changes. MRI of brain was negative for any acute intracranial changes. CT angiogram of head was negative for any acute vascular abnormality. CT angiogram of neck was negative for any evidence of dissection. No significant stenotic lesion. It showed ulcerated plaque in left carotid bulb, moderate plaque in left internal carotid artery, result in approximately 50% stenosis, marked calcified plaque in distal right vertebral artery, marked plaque in proximal left external carotid artery. CT scan of the abdomen per kidney stone protocol showed air-fluid level within the urinary bladder and known diverticula, interval increase in size of infrarenal abdominal aortic aneurysm sac, now measuring 5.9 cm size with interval placement of aortoiliac graft. Impression: 1. Urinary tract infection. 2. Rule out sepsis. 3. Paroxysmal atrial fibrillation. 4. Chronic anticoagulation therapy. 5. Chronic kidney disease stage IIIB. 6. Hypertension. 7. Hyperlipidemia. 8. Gastroesophageal reflux disease. 9. Osteoarthritis, multiple sites. 10. Abdominal aortic aneurysm, infrarenal. Plan: We will go ahead and admit the patient to hospital for further evaluation and management of this problem. The patient is appropriate for inpatient and is expected to spend 2 midnights in hospital. For his urinary tract infection, we will go ahead and continue antibiotic ceftriaxone per order. Follow up on urine culture and blood culture result, and depending on culture result, we will decide about culture-specific antibiotic. For his atrial fibrillation, he is on sotalol 80 mg twice a day. We will continue that and the patient is also on chronic anticoagulation therapy, Eliquis 2.5 mg 2 times a day, which we will continue that. For hypertension, he is taking metoprolol 50 mg twice a day, we will continue that. Monitor blood pressure. If necessary, adjust medication. For hyperlipidemia, continue statin therapy per order. No need for any further intervention. For abdominal aortic aneurysm, the patient had prior procedure done in [place] at [facility] on outpatient basis after discharge. I will encourage him to follow up with his keyboard operator, Dr. To, as soon as possible. Fall precaution was ordered. We will consult Physical Therapy tomorrow. Total time spent today 80 minutes including review of last hospital admission visit record from August 19, 2024, communication with emergency room physician, review of emergency room visit record, review of last office visit record, and performing today's evaluation and management. HELEN/ZA Voice ID: [id number] JAYLIN
[2024-09-13] MEDS: SOTALOL HCL 80 MG TAB PO SCH (00:06)
[2024-09-13 02:05] VITALS: BMI 21.2
[2024-09-13 04:37] LABS: Absolute Basophils 0.1 K/uL (0-0.5); Absolute Eosinophils 0.3 K/uL (0-0.5); Absolute Lymphocytes (CBC) 1.4 K/uL (0.7-4.9); Absolute Monocytes 1.2 K/uL (0.1-1.3); Absolute Neutrophil 9.4 K/uL (1.8-8.0); Basophils % 0.6 % (0-1.3); Eosinophils % 2.7 % (0-4.4); Hematocrit 34.8 % (39.6-49.0); Hemoglobin 11.9 g/dL (13.6-17.9); Lymphocytes % 11.2 % (15.3-44.8); MCH 31.8 pg (27.0-35.0); MCHC 34.2 g/dL (32.0-36.0); MPV 8.4 fL (7.6-11.3); Monocytes % 9.6 % (3.3-12.3); Neutrophils % 75.9 % (41.7-73.7); Platelets 185 thou/uL (152-406); RBC Red Blood Cell Count 3.74 M/uL (4.33-5.43); Red Cell Distribution Width 13.8 % (12.1-15.2)
[2024-09-13 04:55] LABS: Anion Gap 7.1 mEq/L (5.0-15.0); Potassium 4.1 mEq/L (3.5-5.1)
[2024-09-13] MEDS ORDERED: ACETAMINOPHEN 325 MG TABLET PO PRN (05:51)
[2024-09-13] MEDS ORDERED: ALPRAZOLAM 0.25 MG TABLET PO PRN (08:51)
[2024-09-13] MEDS: FOLIC ACID 1 MG in NA CHLORIDE 0.9% 50 ML IV SCH ×2 (09:00→12:00)
[2024-09-13] MEDS: HOME MED 1 EA UNK (Fluticasone/Vilanterol [Breo Ellipta 200-25 Mcg Inhalr] Blst.W.Dev) IH SCH (09:00)
[2024-09-13] MEDS: FAMOTIDINE 20 MG/2 ML VIAL IV SCH (09:00)
[2024-09-13] MEDS ORDERED: ASPIRIN EC 81 MG TAB PO SCH (09:00)
[2024-09-13] MEDS: LOSARTAN POTASSIUM 50 MG TABLET PO SCH (09:35)
[2024-09-13] MEDS: AMLODIPINE 5 MG TAB PO SCH (09:36)
--- NOTE | 2024-09-13 12:02 | PN ---
Date of Progress Note: 09/13/2024 Subjective: The patient was seen this morning for followup. Overall, he feels better than yesterday . No new complaints or problems reported by him. No nausea, vomiting, shortness of breath. No abdo amanda pain. Denies any dysuria or hematuria. Objective: Vital Signs: Reviewed. HEENT: Unremarkable. Lungs: Clear to auscultation. Heart: Sounds normal. Abdomen: Soft. Bowel sounds normal. No guarding, rigidity, tenderness, distention. Extremities: No leg edema. Laboratory Data: WBC this morning 12.4, hemoglobin 11.9, and platelets 185. Sodium 141, potassium 4 .1, chloride 110, bicarb 28, BUN 20, creatinine 1.42, glucose 95. Impression: 1. Urinary tract infection. 2. Rule out sepsis. 3. Chronic kidney disease, stage IIIB. 4. Hypertension. 5. Anemia, unspecified. Plan: We will go ahead and continue current antibiotic, which is ceftriaxone. Urine culture prelimi nary result is gram-negative rods. We will follow up on final results and then decide about culture specific antibiotic. We will discontinue his IV fluid. The patient is on Eliquis, so he does not ne ed SCD and nurse was advised to remove that and assist patient with ambulation. If he needs any assi stance, then to order Physical Therapy consult, but hopefully patient should be able to ambulate on h is own, as he is normally self-sufficient at home. Continue current antihypertensive medication and I will see him tomorrow for followup. HELEN/MODL Voice ID: [id number] Report ID: [id number]
--- NOTE | 2024-09-13 13:42 | EKG ---
Test Date: 2024-09-12 Test Time: 12:41:25 Professor Of Spanish: JAMAL MEASUREMENT RESULTS: Intervals: Rate: 66 SC: QRSD: 80 QT: 430 QTc: 450 [place]: P: SC: QRS: 18 T: 31 INTERPRETIVE STATEMENTS: Atrial fibrillation Anterior infarct, age undetermined Abnormal ECG Compared to ECG 08/22/2024 07:09:43 Myocardial infarct finding now present Electronically Signed On 09-13-24 13:38:45 TELECOM COORDINATOR by Shola Ramachandran
[2024-09-13 15:16] VITALS: O2SAT 94
[2024-09-13] MEDS: ATORVASTATIN 10 MG TAB PO SCH (20:25)
[2024-09-13] MEDS: TAMSULOSIN 0.4 MG SR CAP PO SCH (20:25)
[2024-09-13] MEDS ORDERED: HOME MED 1 EA UNK (Simvastatin [Simvastatin] 20 MG Tablet) PO SCH (21:00)
[2024-09-14 12:07] VITALS: BP 183/84; TEMP 97.3
[2024-09-14] MEDS: cloNIDine HCL 0.1 MG TAB PO ONE (12:30)
--- NOTE | 2024-09-17 12:56 | EKG ---
Test Date: 2024-09-13 Test Time: 07:33:23 Stay Cutter: HB MEASUREMENT RESULTS: Intervals: Rate: 90 MA: 146 QRSD: 78 QT: 396 QTc: 484 [place]: P: MA: 146 QRS: -7 T: 68 INTERPRETIVE STATEMENTS: Sinus rhythm with frequent premature ventricular complexes in a pattern of bigeminy Prolonged QT Abnormal ECG Compared to ECG 09/12/2024 12:41:25 Ventricular premature complex(es) now present Prolonged QT interval now present Atrial fibrillation no longer present Myocardial infarct finding no longer present Electronically Signed On 09-17-24 12:47:44 STITCHDOWN THREAD LASTER by Mathew Lundy
== END 2024-09-14 15:11 | disposition home or self-care (01) | DRG 690 ==
LOC: ER 11:48 → ERHOLD 14:06 → 2ND 20:01
PROVIDERS: ADMIT Internal Medicine; ATTEND Internal Medicine
DX: N39.0 Urinary tract infection, site not specified (principal); N17.9 Acute kidney failure, unspecified; I48.0 Paroxysmal atrial fibrillation; E78.5 Hyperlipidemia, unspecified; M19.09 Primary osteoarthritis, other specified site; N40.0 Benign prostatic hyperplasia without lower urinary tract symptoms; I12.9 Hypertensive chronic kidney disease with stage 1 through stage 4 chronic kidney disease, or unspecified chronic kidney disease; N18.32 Chronic kidney disease, stage 3b; D63.1 Anemia in chronic kidney disease; K21.9 Gastro-esophageal reflux disease without esophagitis; I71.43 Infrarenal abdominal aortic aneurysm, without rupture; R73.01 Impaired fasting glucose; Z88.7 Allergy status to serum and vaccine; Z79.01 Long term (current) use of anticoagulants
CPT/HCPCS: 36415; 70450; 70496; 70498; 70551; 71045; 74176; 76377; 80048; 80076; 81001; 82565; 82947; 83605; 83735; 83880; 84484; 85025; 85610; 87040; 87077; 87086; 87088; 87186; 93005; 96361; 96365; 96367; 96375; 99285; J0696; J7030; J7608; Q9967

== ENCOUNTER 2024-09-19 06:12 | Inpatient (IN) | payer OTHER, BC ==
[~2024-09-19 06:12] MED LIST changes: -ACETAMINOPHEN 500 MG TAB ONE; -TDAP (DIPHTH,PERTUSS(ACELL),TET VAC) 0.5 ML VIAL IMVAC ONE; +WATER FOR INJ,STERILE 10 ML ONE; +ZIPRASIDONE MESYLA 20 MG/VIAL IM ONE
[2024-09-19] MEDS ORDERED: NA CHLORIDE 0.9% 2,000 ML ONE (06:50)
[2024-09-19 06:55] LABS: Absolute Eosinophils 0.4 K/uL (0-0.5); Absolute Lymphocytes (CBC) 1.1 K/uL (0.7-4.9); Absolute Monocytes 1.4 K/uL (0.1-1.3); Absolute Neutrophil 14.8 K/uL (1.8-8.0); Basophils % 0.2 % (0-1.3); Eosinophils % 2.4 % (0-4.4); Hematocrit 36.1 % (39.6-49.0); Lymphocytes % 6.1 % (15.3-44.8); MCHC 33.2 g/dL (32.0-36.0); MCV 93.6 fL (80-100); MPV 8.8 fL (7.6-11.3); Monocytes % 7.7 % (3.3-12.3); Neutrophils % 83.6 % (41.7-73.7); Platelets 213 thou/uL (152-406); RBC Red Blood Cell Count 3.86 M/uL (4.33-5.43); Red Cell Distribution Width 13.8 % (12.1-15.2)
[2024-09-19 07:09] LABS: PT Prothrombin Time 13.4 SECONDS (9.4-12.5); PTT, Activated Partial Thromb 31.1 SECONDS (24.3-36.9); Protime INR 1.28
[2024-09-19] MEDS ORDERED: CEFEPIME 2 GM VIAL ONE (07:16)
[2024-09-19] MEDS ORDERED: NA CHLORIDE 0.9% 0 ML ONE (07:16)
[2024-09-19] MEDS ORDERED: VANCOMYCIN 1 GM/VIAL ONE (07:16)
[2024-09-19] MEDS ORDERED: NA CHLORIDE 0.9% 250 ML ONE (07:16)
[2024-09-19 07:27] LABS: Albumin 2.9 g/dL (3.4-5.0); Albumin/Globulin Ratio 0.6 (1.1-1.8); Bilirubin Total 0.6 mg/dL (0.2-1.0); C-Reactive Protein 17.1 mg/L (<3.00); Globulin 4.5 g/dL (2.3-3.5); Protein, Total 7.4 g/dL (6.4-8.2); Troponin High Sensitivity 10.2 pg/mL (<58.9)
[2024-09-19 07:32] LABS: Thyroid Stimulating Hormone 10.9 uIU/mL (0.358-3.740)
[2024-09-19] MEDS ORDERED: LORazepam 2 MG/ML VIAL ONE (07:35)
--- NOTE | 2024-09-19 08:01 | RAD REPORT ---
EXAM: CT brain without contrast HISTORY: CONFUSED COMPARISON: 09/12/2024 TECHNIQUE: Multiple contiguous axial images were obtained and a CT of the brain without contrast. Sag ittal and coronal reformats were performed. One or more of the following dose reduction techniques were used: Automated exposure control, adjust ment of the mA and/or kV according to patient size, and/or iterative reconstruction. FINDINGS: Mild motion artifact is present, limiting the quality of study. No evidence of hydrocephalus, intracranial hemorrhage, or extra-axial fluid collection. Moderate brain atrophy with moderate periventricular and deep white matter chronic microvascular isc hemic changes present. No evidence of midline shift or areas of brain edema. The calvarium is intact. Mild polypoid mucosal thickening noted in the paranasal sinuses. Vertebral atherosclerosis. IMPRESSION: No evidence of acute intracranial abnormality.
--- NOTE | 2024-09-19 08:22 | RAD REPORT ---
EXAM: CT CHEST, ABDOMEN AND PELVIS WITHOUT CONTRAST CLINICAL INDICATION: CHEST PAIN TECHNIQUE: CT chest, abdomen and pelvis was performed without contrast, as per department protocol. A xial, sagittal and coronal reconstructions were obtained. One or more of the following dose reduction techniques were used: Automated exposure control, adjustment of the mA and/or kV according to patient size, and/or iterative reconstruction. Unless otherwise specified, incidental findings do not require dedicated imaging follow-up. Examination is limited by the lack of intravenous contrast material. COMPARISON: No prior exam. FINDINGS: LUNGS: No evidence of airspace or interstitial process. No nodules. Mild linear atelectasis is seen i n both lung bases. Small hiatal hernia. PLEURA: No pleural effusion. No pneumothorax. MEDIASTINUM AND LYMPH NODES: No mediastinal mass or fluid collection. Normal size mediastinal, hilar, and axillary lymph nodes. OSSEOUS STRUCTURES AND CHEST WALL: Intact. LIVER: Liver is normal in size. 12 mm low-density lesion right lobe of the liver likely benign cyst. Grossly unremarkable gallbladder. PANCREAS: No mass, ductal dilation, or oscar-pancreatic fluid. SPLEEN: Normal size. No focal lesion. ADRENALS: Normal; no mass. KIDNEYS: Normal size and contour. No hydronephrosis. Right renal cyst identified measuring 2 cm. URINARY BLADDER: Significantly distended urinary bladder is present containing air as well as fluid. There is evidence of a large bladder diverticulum present on the left measuring 11 cm. GASTROINTESTINAL TRACT: No bowel obstruction, free air, significant free fluid or abscess. Prominen t sigmoid diverticulosis coli is present without diverticulitis. APPENDIX: Normal appendix. LYMPH NODES: No lymphadenopathy. MUSCULOSKELETAL: Mild lumbar degenerative changes. OTHER: Large infrarenal aortic aneurysm measuring 6.4 cm in dimension and containing an endograft. Sm all fat-containing right hernia. IMPRESSION: There is quite significant urinary bladder distention with fluid and air suggesting recent instrument ation or infection. 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 Prominent sigmoid diverticulosis coli without diverticulitis.
--- NOTE | 2024-09-19 08:30 | EDPHYS ---
Physician Documentation [facility] Name: Navi Contreras Age: 89 yrs Sex: Male : 1935 Arrival Date: 09/19/2024 Time: 06:12 Bed 3 Private MD: ED Physician Haider Cannon HPI: 09/19 06:19 This 89 yrs old Male presents to ER via Unassigned with complaints of sp4 Shortness Of Breath. 06:26 Patient arrives with EMS with acute delirium. Patient was found by his family today sp4 sitting on the floor laying in bed. EMS arrived to evaluate the patient and found him staring blankly. Patient would not respond to questions. Patient became agitated and combative while EMS were loading him on the stretcher. Patient was incontinent of bowel. Patient is moving arms and legs does not seem to have focal neurologic deficits. However patient is acutely delirious on presentation becomes combative with physical exam. Geodon 20 mg IM was administered for acute agitation. . 06:26 Recent admission 09/12/2024. Patient was admitted for UTI, paroxysmal A-fib, chronic sp4 anticoagulation therapy, chronic kidney disease stage IIIb, hypertension, hyperlipidemia, GERD, osteoarthritis, history of abdominal aortic aneurysm.. Patient's medications include sotalol 80 mg twice a day, Eliquis 2.5 mg 2 times a day, metoprolol 50 mg twice a day,. 06:29 Additional medications include Xanax, amlodipine, Breo Ellipta, apixaban 2.5 mg twice a sp4 day, famotidine, losartan, simvastatin, sotalol, tamsulosin. Historical: - Allergies: 06:30 Tetanus Vaccines and Toxoid; dd2 - PMHx: 06:30 Aneurysm; Diverticulitis; Hyperlipidemia; Hypertension; dd2 - PSHx: 06:30 Unable to Obtain; dd2 - Immunization history:: Adult Immunizations unknown. - Infectious Disease History:: UNKNOWN . - Family history:: not pertinent. - Social history:: Smoking status: unknown. ROS: 06:29 Constitutional: Negative for fever, chills, and weight loss, positive for acute sp4 delirium, positive for agitation, positive for altered mental status 06:29 All other systems are negative, Exam: 06:32 Constitutional: Frail elderly male, acutely delirious, becomes agitated with physical sp4 exam, incontinent of bowel, ill-appearing but nontoxic. Not able to follow commands Head/Face: Normocephalic, atraumatic. Eyes: Pupils equal round and reactive to light, extra-ocular motions intact. Lids and lashes normal. Conjunctiva and sclera are not injected. Cornea within normal limits. Periorbital areas with no swelling, redness, or edema. ENT: Nares patent. No nasal discharge, no septal abnormalities noted. Tympanic membranes are normal and external auditory canals are clear. Oropharynx with no redness, swelling, or masses, exudates, or evidence of obstruction, uvula midline. Dry mucous membranes Neck: Trachea midline, no thyromegaly or masses palpated, and no cervical lymphadenopathy. Supple, full range of motion without nuchal rigidity, or vertebral point tenderness. Chest/axilla: Normal chest wall appearance and motion. Nontender with no deformity. No lesions are appreciated. Cardiovascular: Regular rate and rhythm with a normal S1 and S2. No gallops, murmurs, or rubs. Normal PMI, no JVD. No pulse deficits. Respiratory: Lungs have equal breath sounds bilaterally, clear to auscultation and percussion. No rales, rhonchi or wheezes noted. No increased work of breathing, no retractions or nasal flaring. Abdomen/GI: Soft, with normal bowel sounds. No distension or tympany. No guarding or rebound. No evidence of tenderness throughout. Back: No spinal tenderness. No costovertebral tenderness. Male : Normal genitalia with no discharge or lesions. Skin: Warm, dry with normal turgor. Normal color with no rashes, no lesions, and no evidence of cellulitis. MS/ Extremity: Pulses equal, no cyanosis. Neurovascular intact. Full, normal range of motion. Neuro: Acutely delirious, responds to painful stimuli, not oriented, patient becomes agitated and combative with physical exam. Patient not able to fully cooperate. Patient is moving all extremities grossly no signs of localized deficits Vital Signs: 06:25 BP 125 / 65; Pulse 81; Resp 17; Temp 98.7(A); Pulse Ox 98% on 2 lpm NC; Weight 55.79 kg;dd2 07:00 BP 118 / 60; Pulse 71; Resp 18; Pulse Ox 100% on 3 lpm NC; ph 08:00 BP 155 / 70; Pulse 71; Resp 18; Pulse Ox 100% on 3 lpm NC; ph 09:00 BP 147 / 61; Pulse 72; Resp 18; Pulse Ox 100% on 3 lpm NC; ph 09:57 BP 145 / 59; Pulse 67; Resp 18; Pulse Ox 100% on 2 lpm NC; ph 10:53 BP 122 / 83; Pulse 64; Resp 18; Temp 97.8; Pulse Ox 97% on R/A; ph [place] Coma Score: 06:32 Eye Response: to pain(2). Motor Response: localizes pain(5). Verbal Response: sp4 inappropriate words(3). Total: 10. MDM: 06:32 Medical Screening Exam initiated sp4 07:25 Data reviewed: vital signs, nurses notes. ED course: Patient signed out to me by ec2 previous physician, in brief arrives today for evaluation of altered mental status. Patient was combative on arrival, is currently being treated for urinary tract infection. Patient was given Geodon for agitation. Workup was remarkable for leukocytosis, pending rest of lab work and imaging.. 07:38 ED course: Patient with restlessness, family member at bedside is extremely combative, ec2 does not want to get additional testing despite patient deterioration in symptoms. I instructed family member that patient has significantly worsened since the past several days which prompted evaluation today and he requires additional testing to further elucidate reason for altered mental status.. 08:06 ED course: EKG independently reviewed and interpreted by me, shows nsr, rate of 71, no ec2 acute ST segment elevations, intervals are non-actionable. 08:28 ED course: CT imaging shows significant urinary retention. Will place Griffin catheter, ec2 admit for UTI. Discussed case with hospitalist who will admit. 09/19 06:20 Order name: Blood Culture Adult (2) sp4 09/19 06:20 Order name: CBC with Diff; Complete Time: 07:25 sp4 09/19 06:20 Order name: CMP; Complete Time: 08:07 sp4 09/19 06:20 Order name: Lactate w/ 2H reflex if indic.; Complete Time: 08:07 sp4 09/19 06:20 Order name: Protime (+inr); Complete Time: 07:25 sp4 09/19 06:20 Order name: Ptt, Activated; Complete Time: 07:25 sp4 09/19 06:20 Order name: Urinalysis w/ reflexes; Complete Time: 11:10 sp4 09/19 06:20 Order name: ABG 4 09/19 06:20 Order name: Troponin High Sensitivity; Complete Time: 08:07 sp4 09/19 06:20 Order name: BNP; Complete Time: 08:07 sp4 09/19 06:21 Order name: TSH; Complete Time: 08:07 sp4 09/19 06:21 Order name: CRP; Complete Time: 08:07 sp4 09/19 06:21 Order name: CDIFF 4 09/19 06:22 Order name: Fecal Leukocyte Stain 4 09/19 06:22 Order name: Ova And Parasites 4 09/19 06:22 Order name: Rotavirus Antigen 4 09/19 06:22 Order name: Stool Culture 4 09/19 07:34 Order name: T4 Free; Complete Time: 08:07 EDMS 09/19 08:33 Order name: CBC with Automated Diff EDMS 09/19 08:33 Order name: Comprehensive Metabolic Panel EDMS 09/19 06:31 Order name: CT Chest Abdomen Pelvis W/O Contrast; Complete Time: 08:28 sp4 09/19 06:31 Order name: CT Head Brain wo Cont; Complete Time: 08:07 4 09/19 06:20 Order name: EKG; Complete Time: 06:20 4 09/19 06:20 Order name: Accucheck; Complete Time: 07:09 4 09/19 06:20 Order name: Cardiac monitoring; Complete Time: 08:10 4 09/19 06:20 Order name: Cath; Complete Time: 08:47 4 09/19 06:20 Order name: EKG - Nurse/Tech; Complete Time: 08:10 sp4 09/19 06:20 Order name: IV Saline Lock - Large Bore; Complete Time: 06:38 sp4 09/19 06:20 Order name: Labs collected and sent; Complete Time: 06:38 4 09/19 06:20 Order name: O2 Per Protocol; Complete Time: 06:38 09/19 06:20 Order name: O2 Sat Monitoring; Complete Time: 06:38 sp09/19 06:20 Order name: Vital Signs; Complete Time: 06:38 sp4 09/19 08:57 Order name: Gaby; Complete Time: 08:58 ph Administered Medications: 06:10 Drug: Geodon IM 20 mg IM once Route: IM; Site: left deltoid; cp4 09:01 Follow up: Response: No adverse reaction ph 06:40 Not Given (Physician Discretion): acetaminophensuppository 650 mg NM once dd2 07:26 Drug: Cefepime IVPB 2 grams IVPB at 200 ml/hr once over 30 mins; (mix in NS 100 mL) ph Route: IVPB; Rate: 200 ml/hr; Infused Over: 30 mins; Site: left forearm; 08:00 Follow up: Response: No adverse reaction; IV Status: Completed infusion ph 07:28 Not Given (Other Intervention Used): vancomycin2 grams IVPB at calculated rate once ph 07:38 Drug: Ativan IVP 1 mg IVP once Route: IVP; Site: left forearm; ph 09:01 Follow up: Response: No adverse reaction ph 08:45 Drug: vancoMYCIN IVPB 1 grams IVPB once over 2 hrs Route: IVPB; Infused Over: 2 hrs; ph Site: left forearm; 09:57 Follow up: Response: No adverse reaction; IV Status: Completed infusion; IV Intake: ph 250ml 09:01 Not Given (Physician Discretion): ns 0.9% (30 ml/kg) 30 ml/kg IV at bolus once; Sepsis ph Protocol; to be given as a bolus over 90 minutes Disposition Summary: 09/19/24 08:29 Hospitalization Ordered Notes: Hospitalization Status: Inpatient Admission ec2 Provider: Urban Carl Condition: Stable ec2 Problem: an ongoing problem ec2 Symptoms: are unchanged ec2 Bed/Room Type: Standard ec2 Location: Telemetry/MedSurg (Inpatient)(09/19/24 15:39) ja1 Room Assignment: [facility](09/19/24 15:39) ja Diagnosis - UTI/ Urinary tract infection, site not specified ec2 - Altered mental status, unspecified ec2 Forms: - Medication Reconciliation Form ec2 - SBAR form ec2 - Leadership Thank You Letter ec2 Signatures: Dispatcher [employer] Mignon Peraza RN RN ph Chavo Bishop RN RN ja1 Becky Sherman RN RN [email or web address] Milton Naidu MD MD sp4 Haider Cannon MD MD ec2 Vanessa Ramirez cp4 AZUCENA MENESES, RN RN dd2 Corrections: (The following items were deleted from the chart) 06:22 06:22 Fecal Leukocyte Stain+BA.LAB.BRZ ordered. EDMS EDMS 06:22 06:22 Ova and Parasites+MR.LAB.BRZ ordered. EDMS EDMS 06:22 06:22 Rotavirus Antigen+BA.LAB.BRZ ordered. EDMS EDMS 06:22 06:22 Stool Culture+BA.LAB.BRZ ordered. EDMS EDMS 06:47 06:32 C-REACTIVE PROTEIN+C.LAB.BRZ ordered. EDMS EDMS 09:58 08:29 Telemetry/MedSurg (Inpatient) ec2 kb3 09:58 08:29 ec2 kb3 14:51 09:58 [facility] ER HOLD kb3 ja1 14:51 09:58 ERHOLD- kb3 ja1 14:57 14:51 Telemetry/MedSurg (Inpatient) ja1 kb3 14:57 14:51 232 ja1 kb3 15:39 14:57 [facility] ER HOLD kb3 ja1 15:39 14:57 ERHOLD- kb3 ja1
--- NOTE | 2024-09-19 08:30 | ER ---
[facility] Name: Navi Contreras Age: 89 yrs Sex: Male : 1935 Arrival Date: 09/19/2024 Time: 06:12 Bed 3 Private MD: Diagnosis: UTI/ Urinary tract infection, site not specified;Altered mental status, unspecified Presentation: 09/19 06:25 Chief complaint: EMS states: TONED OUT FOR ALTERED MENTAL STATUS. EMS REPORTS THAT dd2 FAMILY FOUND PT SITTING ON THE FLOOR NEAR THE BATHROOM NAKED, NOT RESPONDING TO FAMILY. EMS STATES THAT ON THEIR ARRIVAL, PT WAS NOT ANSWERING QUESTIONS. PT BECAME COMBATIVE, AND CONFUSED. FAMILY REPORTS LAST SEEN NORMAL WAS 10PM. PER MD, PT CURRENTLY BEING TREATED FOR UTI. Coronavirus screen: At this time, the client does not indicate any symptoms associated with coronavirus-19. Ebola Screen: No symptoms or risks identified at this time. Initial Sepsis Screen: Does the patient meet any 2 criteria? No. Patient's initial sepsis screen is negative. Does the patient have a suspected source of infection? No. Patient's initial sepsis screen is negative. Risk Assessment: Do you want to hurt yourself or someone else? Unable to obtain. Onset of symptoms is unknown. Care prior to arrival: Glucose check: 125 Oxygen administered. via nasal cannula. Activity prior to arrival: combative, confused. 06:25 Method Of Arrival: EMS: [facility] dd2 06:25 Acuity: IFTIKHAR 3 dd2 09:00 Acuity: IFTIKHAR 2 ph Triage Assessment: 06:30 General: Appears Behavior is. General: Appears uncomfortable, slender, Behavior is dd2 agitated, restless, uncooperative. Pain: Unable to use pain scale. Does not appear to understand pain scale. Neuro: [place] Agitation-Sedation Scale (RASS): +3 Very Agitated. Neuro: Level of Consciousness is awake, confused, Oriented to none. Respiratory: No deficits noted. Airway is patent Respiratory effort is even, unlabored, Respiratory pattern is regular, symmetrical. Historical: - Allergies: 06:30 Tetanus Vaccines and Toxoid; dd2 - PMHx: 06:30 Aneurysm; Diverticulitis; Hyperlipidemia; Hypertension; dd2 - PSHx: :30 Unable to Obtain; dd2 - Immunization history:: Adult Immunizations unknown. - Infectious Disease History:: UNKNOWN . - Family history:: not pertinent. - Social history:: Smoking status: unknown. Screenin:10 [facility] ED Fall Risk Assessment (Adult) History of falling in the last 3 months, ph including since admission No falls in past 3 months (0 pts) Confusion or Disorientation Yes (5 pts) Intoxicated or Sedated Yes (3 pts) Impaired Gait No (0 pts) Mobility Assist Device Used No (0 pt) Altered Elimination No (0 pt) Score/Fall Risk Level 3 or more points = High Risk Oriented to surroundings, Maintained a safe environment, Hourly rounding (assess needs \T\ fall precautionary measures) done, Used ambulatory aids as needed (educated on \T\ assisted with), Used gait belt as appropriate. Abuse screen: Denies threats or abuse. Denies injuries from another. Nutritional screening: No deficits noted. Tuberculosis screening: No symptoms or risk factors identified. Assessment: 07:00 General: Appears in no apparent distress. comfortable, well groomed, Behavior is ph drowsy, restless. Pain: Unable to use pain scale. Patient is disoriented. Neuro: Level of Consciousness is confused, lethargic, Oriented to none. Cardiovascular: Rhythm is sinus rhythm with unifocal PVCs. Respiratory: Airway is patent Respiratory effort is even, unlabored, Respiratory pattern is regular, symmetrical. GI: No signs and/or symptoms were reported involving the gastrointestinal system. Derm: Skin is pink, warm \T\ dry. 08:35 Reassessment: Pt straight cathed to obtain urine sample, urine noted in brief however ph approx 1500 mL urine drained from bladder, ERP notified, will insert Griffin. Vital Signs: 06:25 BP 125 / 65; Pulse 81; Resp 17; Temp 98.7(A); Pulse Ox 98% on 2 lpm NC; Weight 55.79 kg;dd2 07:00 BP 118 / 60; Pulse 71; Resp 18; Pulse Ox 100% on 3 lpm NC; ph 08:00 BP 155 / 70; Pulse 71; Resp 18; Pulse Ox 100% on 3 lpm NC; ph 09:00 BP 147 / 61; Pulse 72; Resp 18; Pulse Ox 100% on 3 lpm NC; ph 09:57 BP 145 / 59; Pulse 67; Resp 18; Pulse Ox 100% on 2 lpm NC; ph 10:53 BP 122 / 83; Pulse 64; Resp 18; Temp 97.8; Pulse Ox 97% on R/A; ph Vitals: 08:00 Cardiac Rhythm Assessment Sinus rhythm W/unifocal PVC's. ph [place] Coma Score: 06:32 Eye Response: to pain(2). Motor Response: localizes pain(5). Verbal Response: sp4 inappropriate words(3). Total: 10. ED Course: 06:14 Patient arrived in ED. [email or web address] 06:19 Milton Naidu MD is Attending Physician. sp4 06:30 Triage completed. dd2 06:30 Arm band placed on right wrist. Patient placed in an exam room, on a stretcher, on dd2 oxygen, on pulse oximetry. 06:33 Inserted saline lock: 22 gauge in left forearm, using aseptic technique. Blood ha1 collected. Flushed with 10 mL NS. 07:03 Attending Physician role handed off by Milton Naidu MD ec2 07:03 Haider Cannon MD is Attending Physician. ec2 07:07 Mignon Seo, RN is Primary Nurse. ph 07:10 Patient has correct armband on for positive identification. Placed in gown. Bed in low ph position. Call light in reach. Side rails up X2. Client placed on continuous cardiac and pulse oximetry monitoring. NIBP monitoring applied. bus monitor on. Warm blanket given. 07:59 CT Chest Abdomen Pelvis W/O Contrast In Process Unspecified. EDMS 07:59 CT Head Brain wo Cont In Process Unspecified. EDMS 08:29 Urban Carl MD is Hospitalizing Provider. ec2 08:30 Urine collected: straight cath specimen, francy colored. Straight cath inserted, using ph sterile technique, 14 Fr. Returned Approx 1500 mL francy urine. 08:40 Griffin cath inserted, using sterile technique, 16 Fr., by co, balloon inflated, to ph gravity drainage, returned francy urine. 08:53 Urinalysis w/ reflexes Sent. ph 08:54 No provider procedures requiring assistance completed. Patient admitted, IV remains in ph place. Administered Medications: 06:10 Drug: Geodon IM 20 mg IM once Route: IM; Site: left deltoid; cp4 09:01 Follow up: Response: No adverse reaction ph 06:40 Not Given (Physician Discretion): acetaminophensuppository 650 mg PA once dd2 07:26 Drug: Cefepime IVPB 2 grams IVPB at 200 ml/hr once over 30 mins; (mix in NS 100 mL) ph Route: IVPB; Rate: 200 ml/hr; Infused Over: 30 mins; Site: left forearm; 08:00 Follow up: Response: No adverse reaction; IV Status: Completed infusion ph 07:28 Not Given (Other Intervention Used): vancomycin2 grams IVPB at calculated rate once ph 07:38 Drug: Ativan IVP 1 mg IVP once Route: IVP; Site: left forearm; ph 09:01 Follow up: Response: No adverse reaction ph 08:45 Drug: vancoMYCIN IVPB 1 grams IVPB once over 2 hrs Route: IVPB; Infused Over: 2 hrs; ph Site: left forearm; 09:57 Follow up: Response: No adverse reaction; IV Status: Completed infusion; IV Intake: ph 250ml 09:01 Not Given (Physician Discretion): ns 0.9% (30 ml/kg) 30 ml/kg IV at bolus once; Sepsis ph Protocol; to be given as a bolus over 90 minutes Medication: 07:10 VIS not applicable for this client. ph Intake: 09:57 IV: 250ml; Total: 250ml. ph Outcome: 08:29 Decision to Hospitalize by Provider. ec2 10:53 Admitted to ER Hold. Please see [facility] for further documentation. ph 10:53 Condition: stable 10:53 Instructed on the need for admit, 17:18 Patient left the ED. ph Signatures: Dispatcher [employer] Mignon Peraza RN RN Violeta Cary [email or web address] Naina Ramos RN RN ha1 Potepalov, Sergey, MD MD sp4 Haider Cannon MD MD ec2 Vanessa Ramirez cp4 AZUCENA MENESES RN RN dd2
[2024-09-19 09:18] LABS: Specific Gravity 1.013 (1.005-1.030); Sqamous Epithelial None Seen /HPF (None Seen); Urine Bacteria None Seen /HPF (<20); Urine Bilirubin NEGATIVE (Negative); Urine Blood Negative (Negative); Urine Clarity Turbid (Clear); Urine Color Light-Yellow (Yellow); Urine Culture Reflex Order REFLEXED; Urine Glucose NEGATIVE (Negative); Urine Ketones NEGATIVE (Negative); Urine Microscopic Reflex YN ORDER UMIC; Urine Mucus Slight /HPF (None Seen); Urine Nitrite NEGATIVE (Negative); Urine Protein 1+ (Negative); Urine RBC <5 /HPF (None Seen); Urine Urobilinogen Normal (Normal); Urine WBC 20-50 /HPF (<5); Urine pH 5.5 (5.0-7.0)
[2024-09-19 11:51] VITALS: BMI 18.6
[2024-09-19 12:51] LABS: Absolute Eosinophils 0.1 K/uL (0-0.5); Absolute Monocytes 1.6 K/uL (0.1-1.3); Absolute Neutrophil 15.6 K/uL (1.8-8.0); Basophils % 0.2 % (0-1.3); Eosinophils % 0.5 % (0-4.4); Hematocrit 30.8 % (39.6-49.0); Hemoglobin 10.6 g/dL (13.6-17.9); Lymphocytes % 5.6 % (15.3-44.8); MCH 31.9 pg (27.0-35.0); MCHC 34.5 g/dL (32.0-36.0); MCV 92.6 fL (80-100); MPV 8.8 fL (7.6-11.3); Monocytes % 8.8 % (3.3-12.3); Neutrophils % 84.9 % (41.7-73.7); Platelets 157 thou/uL (152-406); RBC Red Blood Cell Count 3.33 M/uL (4.33-5.43); Red Cell Distribution Width 13.8 % (12.1-15.2)
[2024-09-19 13:09] LABS: Albumin 2.5 g/dL (3.4-5.0); Albumin/Globulin Ratio 0.6 (1.1-1.8); Anion Gap 5.1 mEq/L (5.0-15.0); Bilirubin Total 0.5 mg/dL (0.2-1.0); Potassium 4.1 mEq/L (3.5-5.1); Protein, Total 6.5 g/dL (6.4-8.2)
[2024-09-19 17:40] VITALS: O2SAT 97
[2024-09-19] MEDS: TAMSULOSIN 0.4 MG SR CAP PO SCH (20:58)
[2024-09-19] MEDS: ATORVASTATIN 10 MG TAB PO SCH (20:59)
[2024-09-19] MEDS: APIXABAN 2.5 MG TABLET PO SCH (20:59)
[2024-09-19] MEDS: NA CHLORIDE 0.9% 1,000 ML IV SCH (20:59)
[2024-09-19] MEDS: SOTALOL HCL 80 MG TAB PO SCH (20:59)
[2024-09-19] MEDS: FAMOTIDINE 20 MG TAB PO SCH (20:59)
[2024-09-19] MEDS: METOPROLOL TAR 50 MG TAB PO SCH (21:00)
[2024-09-19] MEDS: LORazepam 2 MG/ML VIAL IV PRN (21:55)
--- NOTE | 2024-09-20 02:41 | HP ---
Date of Admission: 09/19/2024 Chief Complaint: Feeling weak and fall. History Of Present Illness: An 89-year-old male patient, who saw me at office yesterday as he was brought into office by his [id number] and besides generalized weakness from the last hospital admission, no new complaints or problems reported. The patient has not been eating or drinking enough water, so we did talk about importance of nutrition and hydration. Early this morning when I was in the emergency room, he was actually brought in by EMS and I did discuss details with EMS staff and she informed me that the patient was found on the floor with his back against the wall. There was no evidence of any injury. No nausea, vomiting, or any bleeding noted at the site. When the patient was brought into ER, I saw him having altered mental status and he was on oxygen per nasal cannula. He was not able to answer any questions and was restless to some extent. Details were discussed with ER physician as well and after the patient was evaluated, he was admitted to the hospital. Allergies: TO TETANUS TOXOID CAUSING RASH. Review of Systems: CUMULATIVE EFFECTS ANALYST: As mentioned above. Constitutional: As mentioned above. All other systems reviewed and negative. Medications: Albuterol nebulizer treatment 4 times a day as needed, alprazolam 0.25 mg at bedtime as needed, amlodipine 5 mg daily in morning, metoprolol 50 mg 2 times a day, famotidine 20 mg daily at bedtime, Breo Ellipta inhaler 1 puff daily, fluticasone nasal spray 1 spray each nostril 2 times a day, sotalol 80 mg 2 times a day, eliquis 2.5 mg 2 times a day, simvastatin 20 mg daily at bedtime, losartan 100 mg daily, tamsulosin 0.4 mg daily, augmentin 500 mg 2 times a day, clonidine 0.1 mg 2 times a day. Past Medical History: Significant for hypertension, abdominal aortic aneurysm which is infrarenal, chronic kidney disease stage IIIB, unspecified anemia, hyperlipidemia, gastroesophageal reflux disease, benign prostatic hypertrophy, osteoarthritis at multiple sites, impaired fasting glucose. Past Surgical History: Endograft placement on February 10, 2023, for abdominal aortic aneurysm, inguinal hernia repair, transurethral resection of bladder tumor, shoulder surgery, removal of basal cell carcinoma from left ear in 2020. Family History: Parents and brother , details unknown about any of this family members. Social History: Negative for smoking. Use of alcohol, couple of glasses of wine once a week. Physical Examination: Vital Signs: Temperature 98.7, pulse 81, respiratory rate 17, blood pressure 125/65, oxygen saturation 98% on 2 L/minute nasal cannula oxygen. Height 5 feet 8 inches, weight 122 pounds. General: Awake, alert, oriented, not in distress. HEENT: Head atraumatic, normocephalic. Conjunctivae nonerythematous. Sclerae white. Mouth, no thrush or edema noted. Ears/Nose, no mass, lesion, discharge noted. Neck: Supple. No JVD, lymph nodes, bruit, thyromegaly noted. Lungs: Bilateral good equal air entry. Clear to auscultation. No rhonchi. No rales. Heart: Normal heart sounds, no murmur or gallop. Abdomen: Soft, bowel sounds normal. No guarding, rigidity, tenderness, mass, hepatosplenomegaly, distention, or bruit noted. Extremities: No leg edema. No calf tenderness. Skin: No rash, ulcer, cellulitis. Lymphatics: No lymph node enlargement in neck, supraclavicular, infraclavicular region. Neuro: No focal neurological deficit. Chest: Unremarkable. External Genitalia: Deferred. Rectal: Deferred. Laboratory Data: Sodium 137, potassium 4, chloride 105, bicarb 28, BUN 38, creatinine 1.99, glucose 112. Liver function tests unremarkable. Lactic acid level 10.8. Today, repeat chemistry, sodium 137, potassium 4.1, chloride 107, bicarb 29, BUN 36, creatinine 1.77, glucose 106. Today, repeat WBC was 18.4, hemoglobin 10.6, platelets 157, and upon initial presentation to emergency room, WBC 17.7, hemoglobin 12, platelets 213. The patient's CAT scan of the head was negative for any acute intracranial changes and CAT scan of his chest, abdomen, pelvis shows significant urinary bladder distention with diverticulosis. Stool for C. diff was ordered, result pending. Urinalysis, 75 leukocytes, 20 to 50 wbc, rest negative. Impression: 1. Urinary tract infection. 2. Rule out sepsis. 3. Acute kidney injury. 4. Anemia due to chronic kidney disease. 5. Hypertension. 6. Hyperlipidemia. 7. Paroxysmal atrial fibrillation. 8. Chronic anticoagulation therapy. 9. Chronic kidney disease stage IIIB. 10. Gastroesophageal reflux disease. 11. Osteoarthritis, multiple sites. 12. Abdominal aortic aneurysm, infrarenal, status post aortic endograft placement in 2022. Plan: We will go ahead and admit the patient to hospital for further evaluation and management of this problem. The patient is appropriate for inpatient and is expected to spend 2 midnights in hospital. We will go ahead and continue IV fluid. Start the patient on IV antibiotic which is Levaquin and cefepime, which was already started in emergency room. We will go ahead and give IV fluid. Consult Physical Therapy and the patient should not return back home directly from the hospital and he [facility] and for hypertension, we will continue antihypertensive medication per order. No need for further intervention. For hyperlipidemia, continue statin therapy per order. For atrial fibrillation, he is on sotalol and Eliquis. We will continue that per order. Total time spent 85 minutes including communication with ER physician, communication with the patient's [id number] this evening, communication with Hospitalist Service, review of last 2 hospital admission visit records within last 1 month, and review of current emergency room visit records, review of yesterday's office visit record, and performing today's evaluation and management was 90 minutes. Starting tomorrow, Hospitalist Team will take over this patient's care in my absence until Monday. HELEN/ZA Voice ID: [id number] [id number]
[2024-09-20 05:11] LABS: Absolute Basophils 0.1 K/uL (0-0.5); Absolute Eosinophils 0.1 K/uL (0-0.5); Absolute Lymphocytes (CBC) 1.3 K/uL (0.7-4.9); Absolute Monocytes 1.7 K/uL (0.1-1.3); Absolute Neutrophil 19.3 K/uL (1.8-8.0); Basophils % 0.3 % (0-1.3); Eosinophils % 0.3 % (0-4.4); Hematocrit 34.5 % (39.6-49.0); Hemoglobin 11.5 g/dL (13.6-17.9); Lymphocytes % 5.8 % (15.3-44.8); MCHC 33.5 g/dL (32.0-36.0); MCV 92.6 fL (80-100); MPV 8.9 fL (7.6-11.3); Monocytes % 7.6 % (3.3-12.3); Platelets 174 thou/uL (152-406); RBC Red Blood Cell Count 3.72 M/uL (4.33-5.43); Red Cell Distribution Width 13.8 % (12.1-15.2)
[2024-09-20 07:50] LABS: Anion Gap 10.8 mEq/L (5.0-15.0); Potassium 4.8 mEq/L (3.5-5.1)
[2024-09-20 08:16] LABS: Platelet Estimate ADEQ; White Blood Cell Scan OK (OK)
[2024-09-20 08:18] LABS: Blood Morphology Comment NOT SEEN (NOT SEEN)
[2024-09-20] MEDS: CEFEPIME 1 GM in NA CHLORIDE 0.9% 100 ML IV SCH (09:42)
[2024-09-20] MEDS: AMLODIPINE 5 MG TAB PO SCH (09:45)
[2024-09-20] MEDS: VANCOMYCIN HCL 125 MG CAPSULE PO SCH (14:24)
--- NOTE | 2024-09-20 17:02 | RAD REPORT ---
EXAMINATION: MRI BRAIN WITHOUT CONTRAST CLINICAL INDICATION: CVA/confusion TECHNIQUE: Multiplanar multisequence MR images of the brain were obtained without intravenous contras t. Unless otherwise specified, incidental findings do not require dedicated imaging follow-up. COMPARISON: September 12, 2024 FINDINGS: Mild to moderate abnormal signal within periventricular, deep and subcortical white matter probably i schemic changes secondary to small vessel disease.. Small old bilateral infarcts are present within the cerebral hemispheres. Diffusion weighted/ADC mapping does not demonstrate evidence of an acute infarction. Prominence of the ventricles is unchanged and likely the sequela of moderate cerebral atrophy. No extra-axial fluid collection. No fluid within the sinuses/mastoid seen. Chronic sinusitis IMPRESSION: No acute intracranial abnormalities displayed
[2024-09-20] MEDS: VANCOMYCIN 1 GM in NA CHLORIDE 0.9% 250 ML IVPB SCH (19:00)
[2024-09-20] MEDS ORDERED: VANCOMYCIN 1 GM in NA CHLORIDE 0.9% 250 ML IVPB SCH (22:00)
[2024-09-21] MEDS: VANCOMYCIN 1 GM in NA CHLORIDE 0.9% 250 ML IVPB SCH
--- NOTE | 2024-09-21 01:38 | P.PN ---
Subjective Date of Service: 09/20/24 Patient is still pretty lethargic. Patient wakes up and interact briefly but patient is presenting with generalized weakness. Will continue with therapy and try to get patient to start engaging more. Will get an MRI of the brain to make sure there is no CVA. Review of Systems 10-point ROS is otherwise unremarkable Physical Examination - Vital Signs Temperature: 98.1 F Blood Pressure: 158/69 Pulse: 70 Respirations: 16 Pulse Ox (%): 96 - Physical Exam General: Alert, In no apparent distress, Oriented x1, Mild distress, Unresponsive HEENT: Atraumatic, PERRLA, EOMI Neck: Supple, JVD not distended Respiratory: Clear to auscultation bilaterally, Normal air movement Cardiovascular: Regular rate/rhythm, Normal S1 S2, No murmurs Gastrointestinal: Normal bowel sounds, Soft and benign, Non-distended, No tenderness Musculoskeletal: No clubbing, No swelling, No tenderness Integumentary: No rashes Neurological: Normal tone, Sensation intact, Cranial nerves 3-12 intact, Normal reflexes 2+ - Studies Microbiology Data (last 24 hrs): 09/19/24 06:35 Blood - Blood Anaerobic Blood Culture - Final 09/19/24 06:20 Blood - Blood Anaerobic Blood Culture - Final Medications List Reviewed: Yes Assessment & Plan - Problems (Diagnosis) (1) Altered mental status Current Visit: Yes Status: Acute (2) C. difficile colitis Current Visit: Yes Status: Acute (3) Atrial fibrillation Current Visit: No Status: Acute (4) Diverticulitis Current Visit: No Status: Acute (5) HTN (hypertension) Current Visit: No Status: Acute (6) Hx of abdominal aortic aneurysm Current Visit: No Status: Acute (7) Hyperlipidemia Current Visit: No Status: Acute - Plan Plan: 1. Patient with C. difficile colitis; continue with oral vancomycin. Continue with hydration 2. Recent UTI; continue with IV fluids and IV antibiotics 3. History of atrial fibrillation; continue with medication rate controlled 4. Patient is weak and lethargic; will get MRI of the brain 5. Patient is severely malnourished; will start appetite stimulant 6. GI DVT prophylaxis Discharge Plan: Other (Rehab) Plan to discharge in: Greater than 2 days - Advance Directives Does patient have a Living Will: No Does patient have a Durable POA for Healthcare: No - Code Status/Comfort Care Code Status Assessed: Yes Code Status: Full Code Critical Care: No Time Spent Managing PTS Care (In Minutes): 35
[2024-09-21 10:55] LABS: Absolute Basophils 0.1 K/uL (0-0.5); Absolute Eosinophils 0.2 K/uL (0-0.5); Absolute Lymphocytes (CBC) 1.4 K/uL (0.7-4.9); Absolute Monocytes 1.7 K/uL (0.1-1.3); Absolute Neutrophil 18.9 K/uL (1.8-8.0); Basophils % 0.3 % (0-1.3); Eosinophils % 0.8 % (0-4.4); Hematocrit 31.2 % (39.6-49.0); Hemoglobin 10.8 g/dL (13.6-17.9); Lymphocytes % 6.2 % (15.3-44.8); MCH 31.4 pg (27.0-35.0); MCHC 34.5 g/dL (32.0-36.0); MCV 91.3 fL (80-100); MPV 8.6 fL (7.6-11.3); Monocytes % 7.6 % (3.3-12.3); Neutrophils % 85.1 % (41.7-73.7); Platelets 169 thou/uL (152-406); RBC Red Blood Cell Count 3.42 M/uL (4.33-5.43); Red Cell Distribution Width 13.9 % (12.1-15.2)
[2024-09-21 11:29] LABS: Anion Gap 5.9 mEq/L (5.0-15.0); Potassium 2.9 mEq/L (3.5-5.1)
[2024-09-22 04:46] LABS: Absolute Basophils 0.1 K/uL (0-0.5); Absolute Eosinophils 0.4 K/uL (0-0.5); Absolute Lymphocytes (CBC) 1.8 K/uL (0.7-4.9); Absolute Monocytes 1.1 K/uL (0.1-1.3); Basophils % 0.6 % (0-1.3); Eosinophils % 2.3 % (0-4.4); Hematocrit 30.1 % (39.6-49.0); Hemoglobin 10.2 g/dL (13.6-17.9); Lymphocytes % 10.7 % (15.3-44.8); MCH 31.9 pg (27.0-35.0); MCHC 33.8 g/dL (32.0-36.0); MCV 94.3 fL (80-100); MPV 8.5 fL (7.6-11.3); Monocytes % 6.9 % (3.3-12.3); Neutrophils % 79.5 % (41.7-73.7); Platelets 182 thou/uL (152-406); RBC Red Blood Cell Count 3.19 M/uL (4.33-5.43); Red Cell Distribution Width 13.8 % (12.1-15.2)
[2024-09-22 05:05] LABS: Anion Gap 6.7 mEq/L (5.0-15.0); Magnesium 1.9 mg/dL (1.6-2.4); Potassium 2.7 mEq/L (3.5-5.1)
--- NOTE | 2024-09-22 06:23 | P.PN ---
Date of Service: 09/21/24 Subjective MRI of the brain was negative.Patient is more awake and alert. However, he still not eating much. May add Megace to his regimen. His long-term prognosis is poor. He has a lot of temporal wasting and he is really not engaged in really improving his nutritional status. If this does not improve then his long-term prognosis is poor. Family interested in inpatient rehab. May proceed with this. Physical Examination - Vital Signs reviewed - Physical Exam General: Alert, In no apparent distress, Oriented x2, Mild distress, Appears really weak; Temporal wasting Respiratory: Clear to auscultation bilaterally, Diminished air entry Cardiovascular: Regular rate/rhythm, Normal S1 S2, No murmurs Gastrointestinal: Normal bowel sounds, Soft and benign, Non-distended, No tenderness Musculoskeletal: No clubbing, No swelling, No tenderness Integumentary: No rashes Neurological: Decreased motor strength; 4-/5; Cerebellar ataxia Medications List Reviewed: Yes Assessment & Plan - Problems (Diagnosis) (1) Altered mental status Current Visit: Yes Status: Acute (2) C. difficile colitis Current Visit: Yes Status: Acute (3) Atrial fibrillation Current Visit: No Status: Acute (4) Diverticulitis Current Visit: No Status: Acute (5) HTN (hypertension) Current Visit: No Status: Acute (6) Hx of abdominal aortic aneurysm Current Visit: No Status: Acute (7) Hyperlipidemia Current Visit: No Status: Acute - Plan Continue with plan of care as mentioned above: 1. Patient with C. difficile colitis; continue with oral vancomycin. Continue with hydration. C. difficile study still pending 2. Recent UTI; continue with IV fluids and IV antibiotics 3. History of atrial fibrillation; continue with medication rate controlled 4. Patient is weak and lethargic; MRI was negative 5. Patient is severely malnourished; will start appetite stimulant 6. GI DVT prophylaxis Discharge Plan: Other (Rehab) Plan to discharge in: Greater than 2 days - Advance Directives Does patient have a Living Will: No Does patient have a Durable POA for Healthcare: No - Code Status/Comfort Care Code Status Assessed: Yes Code Status: Full Code Critical Care: No Time Spent Managing PTS Care (In Minutes): 25
[2024-09-22] MEDS: MEGESTROL 400 MG/10 ML UCUP PO SCH (10:19)
[2024-09-22] MEDS: KCL 20 MEQ/100 mL IVPB 20 MEQ/100 ML BAG IV SCH (10:21)
--- NOTE | 2024-09-22 11:45 | P.PN ---
Date of Service: 09/22/24 Subjective: family updated at bedside they feel patient looks better overall today compared to yesterday appetite slowly improving per family multiple loose BMs overnight and this morning afebrile ROS: 10 point ROS as noted above, otherwise negative Physical Exam: GEN: awake oriented x2, confused CV: Regular rate and rhythm, no edema Pulm: Nonlabored respirations on room air, clear bilaterally ABD: soft, nontender, nondistended Neuro: Normal speech, normal affect Problem List: UTI Diarrhea, concern for C. 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 diff Generalized weakness he presents to EMS with weakness, diarrhea after he was found on the flood with his back against the wall, feeling weak unable to get up. No evidence of traumatic injury. No nausea/vomiting. He does appear somewhat confused. Continue IV cefepime to cover possible UTI (09/20-) previously diagnosed with UTI ~1 week ago and given prescription for augmentin on 09/14 family feels UTI never truly cleared up / patient didn't improve. MRI brain (09/20): no acute findings. Small old bilateral infarcts are presents within the cerebral hemisphere. CT chest/abdomen/pelvis (09/19): significant urinary bladder distention with fluid and air suggesting recent instrumentation/infection. 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 Prominent sigmoid diverticulosis. Oral vanc added (09/20) to cover possible C. diff. Continue for 10 days. Stool studies, C. 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
[2024-09-23] MEDS: HYDROCODONE/APAP 5/325 MG TAB PO ONE (02:58)
[2024-09-23 05:31] LABS: Absolute Basophils 0.1 K/uL (0-0.5); Absolute Eosinophils 0.5 K/uL (0-0.5); Absolute Lymphocytes (CBC) 1.6 K/uL (0.7-4.9); Absolute Monocytes 1.3 K/uL (0.1-1.3); Absolute Neutrophil 10.9 K/uL (1.8-8.0); Basophils % 0.5 % (0-1.3); Eosinophils % 3.4 % (0-4.4); Hematocrit 31.9 % (39.6-49.0); Hemoglobin 10.8 g/dL (13.6-17.9); Lymphocytes % 11.1 % (15.3-44.8); MCH 30.8 pg (27.0-35.0); MCHC 33.7 g/dL (32.0-36.0); MCV 91.4 fL (80-100); MPV 8.9 fL (7.6-11.3); Monocytes % 8.9 % (3.3-12.3); Neutrophils % 76.1 % (41.7-73.7); Platelets 187 thou/uL (152-406); RBC Red Blood Cell Count 3.49 M/uL (4.33-5.43); Red Cell Distribution Width 14.1 % (12.1-15.2)
[2024-09-23 05:41] LABS: Anion Gap 6.3 mEq/L (5.0-15.0); Magnesium 1.8 mg/dL (1.6-2.4); Potassium 3.3 mEq/L (3.5-5.1)
[2024-09-23] MEDS: NA CHLORIDE 0.9% 1,000 ML IV SCH (06:37)
[2024-09-23] MEDS: cloNIDine HCL 0.1 MG TAB PO SCH (09:00)
--- NOTE | 2024-09-23 21:30 | PN ---
Date of Progress Note: 09/23/2024 Subjective: The patient was seen this morning for followup and I have reviewed hospital record for l ast 3 days while I was out of town. This morning when I saw him, his [id number] was in room wit h him. The patient was better than last time when I saw him which was the day of admission. Physical Examination: Vital Signs: Reviewed. For vital signs this morning, temperature 98, pulse 67, respiratory rate 16, blood pressure 188/78, oxygen saturation 98%. HEENT: Unremarkable. Lungs: Clear to auscultation. Heart: Sounds normal. Abdomen: Soft. Bowel sounds normal. No guarding, rigidity, tenderness, distention. Extremities: No leg edema. Laboratory Data: This morning, WBC 14.3, hemoglobin 10.8, platelets 187. Sodium 141, potassium 3.3, chloride 111, bicarb 27, BUN 21, creatinine 1.21, glucose 113, magnesium 1.8. Impression: 1. Urinary tract infection. 2. Rule out Clostridium difficile colitis. 3. Volume depletion. 4. Hypertension. 5. Generalized weakness. 6. Debility. Plan: We will go ahead and continue current antibiotic. Stool C diff was ordered upon admission, bu t I still do not see the results and I am not sure whether it has been collected, so I did order anot her stool specimen. The patient is on oral vancomycin, which we will continue that along with his IV antibiotic which is cefepime. We will go ahead and continue to work with Physical Therapy. Continu e current antihypertensive medication, mg twice a day, which was prescribed and started du [facility] last hospital stay. I did communicate with the rehab and the patient is accepted to go to [facility] rehab tomorrow, so I will see him tomorrow morning and we will discharge him to go to inpatient rehab. The patient's son had called my office and requested for me to call him back and I did call h im at [phone] and there was no answer. HELEN/MODL Voice ID: [id number] Report ID: [id number]
[2024-09-24] MEDS ORDERED: ALPRAZOLAM 0.25 MG TABLET PO PRN (07:06)
[2024-09-24 08:58] VITALS: BP 162/83; TEMP 97.2
--- NOTE | 2024-09-30 12:54 | EKG ---
Test Date: 2024-09-19 Test Time: 08:03:02 Diamond Blender: PH MEASUREMENT RESULTS: Intervals: Rate: 71 AK: 172 QRSD: 78 QT: 412 QTc: 447 Eastern: P: 96 AK: 172 QRS: 4 T: 59 INTERPRETIVE STATEMENTS: Sinus rhythm with occasional premature ventricular complexes and premature atrial complexes Otherwise normal ECG Compared to ECG 09/13/2024 07:33:23 Atrial premature complex(es) now present Prolonged QT interval no longer present Electronically Signed On 09-30-24 12:25:24 SCHEDULE CHECKER by Mathew Lundy
== END 2024-09-24 11:39 | DRG 689 ==
LOC: ER 06:12 → ERHOLD 08:30 → 2ND 16:20
PROVIDERS: ADMIT Internal Medicine; ATTEND Internal Medicine
PROC: 4A033R1 Measurement of Arterial Saturation, Peripheral, Percutaneous Approach (ICD-10-PCS; principal; 2024-09-20)
PROC: 0T9B70Z Drainage of Bladder with Drainage Device, Via Natural or Artificial Opening (ICD-10-PCS; 2024-09-20)
DX: N39.0 Urinary tract infection, site not specified (principal); E43 Unspecified severe protein-calorie malnutrition; G92.9 Unspecified toxic encephalopathy; N17.9 Acute kidney failure, unspecified; Z68.1 Body mass index [BMI] 19.9 or less, adult; E78.5 Hyperlipidemia, unspecified; I71.40 Abdominal aortic aneurysm, without rupture, unspecified; I12.9 Hypertensive chronic kidney disease with stage 1 through stage 4 chronic kidney disease, or unspecified chronic kidney disease; D63.1 Anemia in chronic kidney disease; N18.32 Chronic kidney disease, stage 3b; K21.9 Gastro-esophageal reflux disease without esophagitis; N40.0 Benign prostatic hyperplasia without lower urinary tract symptoms; M19.90 Unspecified osteoarthritis, unspecified site; Z86.73 Personal history of transient ischemic attack (TIA), and cerebral infarction without residual deficits; I48.0 Paroxysmal atrial fibrillation; Z79.01 Long term (current) use of anticoagulants; E86.9 Volume depletion, unspecified; R53.81 Other malaise
CPT/HCPCS: 36415; 51702; 70450; 70551; 71250; 74176; 80048; 80053; 80202; 81001; 83605; 83735; 83880; 84439; 84443; 84484; 85025; 85610; 85730; 86140; 87040; 87045; 87046; 87086; 87088; 87177; 87209; 87425; 89055; 92523; 93005; 96365; 96367; 96372; 96375; 97116; 97161; 97530; 99285; J0692; J3480; J3486; J7030; J7050

== ENCOUNTER 2024-09-24 09:24 | Inpatient (IN) | payer OTHER, BC ==
[2024-09-24] MEDS: VANCOMYCIN HCL 125 MG CAPSULE PO SCH ×2 (13:00→14:34)
[2024-09-24] MEDS: SOTALOL HCL 80 MG TAB PO SCH (17:38)
[2024-09-24] MEDS: APIXABAN 2.5 MG TABLET PO SCH (19:56)
[2024-09-24] MEDS: TAMSULOSIN 0.4 MG SR CAP PO SCH (19:56)
[2024-09-24] MEDS: ATORVASTATIN 10 MG TAB PO SCH (19:57)
[2024-09-24] MEDS: FAMOTIDINE 20 MG TAB PO SCH (19:57)
[2024-09-24] MEDS: METOPROLOL TAR 50 MG TAB PO SCH (19:57)
[2024-09-24] MEDS: cloNIDine HCL 0.1 MG TAB PO SCH (19:57)
[2024-09-24] MEDS: ALPRAZOLAM 0.25 MG TABLET PO PRN (22:37)
[2024-09-24 22:55] LABS: Sqamous Epithelial <5 /HPF (None Seen); Urine Bacteria <20 /HPF (<20); Urine Bilirubin NEGATIVE (Negative); Urine Blood Trace (Negative); Urine Clarity Turbid (Clear); Urine Color Light-Yellow (Yellow); Urine Culture Reflex Order NOT NEEDED; Urine Glucose NEGATIVE (Negative); Urine Ketones NEGATIVE (Negative); Urine Micro Reflex YN NO BILL MICROSCOPIC; Urine Mucus Slight /HPF (None Seen); Urine Nitrite NEGATIVE (Negative); Urine Protein 1+ (Negative); Urine RBC <5 /HPF (None Seen); Urine Urobilinogen Normal (Normal); Urine WBC <5 /HPF (<5); Urine WBC Clump Rare /HPF (None Seen)
--- NOTE | 2024-09-25 00:26 | HP ---
Date of Admission: 09/24/2024 Time Of Service: 1:10 p.m. Chief Complaint: "I'm confused, I've infections, and I need to get stronger." History Of Present Illness: Mr. Contreras is an 89-year-old patient with hypertension, abdominal aorti c infrarenal aneurysm, stage 3 kidney disease, anemia, gastroesophageal reflux disease, impaired fast ing glucose, who presented to the emergency department after falling at home. He was [facility] and found to not be thriving with poor oral intake of food and liquids. Evaluati on showed urinary tract infection with acute encephalopathy secondary to UTI. Also, anemia, hyperten lina, volume depletion, decreased mobility, decreased physical functioning. He received cefepime int ravenously as well as vancomycin, intravenous fluids, and had anticoagulation for atrial fibrillation which is Eliquis. Additionally, his electrolytes were addressed and were abnormal. He was evaluate d by Physical Therapy and Speech Therapy and found to be significantly performing below the baseline level, needing moderate to maximum assistance for transfers, ordinary activities of daily living, and mobilization. Had issues of confusion, disorientation, which is the encephalopathy related to urina ry tract infection. At this point, the patient is a good candidate for aggressive inpatient rehabili tation to help him return to prior level of functioning and reduce risk of rehospitalization. [facility], who will be following him, is Dr. Carl. Past Medical History: As noted above. Past Surgical History: Endograft placement on 02/10/2023, inguinal hernia repair, transurethral rese ction of bladder tumor, shoulder surgery, and basal cell carcinoma removed from left ear in 2020. Allergies: NO KNOWN DRUG ALLERGIES. Medications: Xanax 0.25 mg as needed at bedtime, Norvasc 5 mg daily, Eliquis 2.5 mg twice daily, Lip itor 10 mg at bedtime, cefepime 1 g daily IV, clonidine 0.1 mg twice daily, Pepcid 20 mg twice daily, Lopressor 50 mg twice daily, sotalol 80 mg twice daily, Flomax 0.4 mg daily, and vancomycin 250 mg 4 times daily. X-ray/imaging: MRI of the brain on 09/19/2024 shows no acute intracranial abnormalities. CT scan of the head on 09/19/2024, again no acute intracranial abnormalities. Chest, abdomen, and pelvis CT sc an on 09/19/2024 shows quite significant urinary bladder distention. Fluid and air suggests recent i nstrumentation or infection. There is a large left-sided urinary bladder diverticulum measuring 11 c m and prominent sigmoid diverticulosis without diverticulitis. Family History: Noncontributory. Social History: No alcohol, tobacco, or drug use. Laboratory Studies: White blood cell count 14.3, hemoglobin 10.8, platelets 187, hematocrit 31.9. S odium 141, potassium 3.3, glucose 113, BUN 21, creatinine 1.21, calcium 8.0, magnesium 1.8, albumin 2 .5. Review of Systems: Mr. Contreras is resting comfortably, in no significant distress, working with Speech Pathology, and is happy to be in the unit and no new or bothersome complaints. Feels that the confusion is clearing a nd no fevers and chills. No myalgias, arthralgias. Physical Examination: Vital Signs: Blood pressure 154/73, pulse 63, respiratory rate 16, temperature 98.2, oxygen saturati on 97%. General: Mr. Contreras is sitting in a chair. Speech pathologist is at his side. HEENT: He appears normocephalic, atraumatic. Sclerae anicteric. Oropharynx pink, moist. Neck: Supple. Chest: Clear. Extremities: No significant clubbing, cyanosis, or edema noted. Current Level Of Functioning: Mr. Contreras requires set up assistance for eating and grooming, modera te assistance for bathing, supervision for upper body dressing, moderate assistance for lower body dr essing and donning and doffing footwear. For toileting, moderate assistance. Wheelchair transfers, moderate assistance. Toilet transfers, moderate assistance. Ambulation, moderate assistance coverin g 150 feet. Rehab And Medical Assessment And Plan: Mr. Contreras is an 89-year-old patient admitted to the [facility] rehabilitation unit with impairment category 03, nontraumatic brain injury. His rehabilitation pairment group code is 02.1, nontraumatic injury. Etiologic diagnosis, toxic encephalopathy. Comorb id conditions; hypertension, abdominal aortic aneurysm in the infrarenal area, stage 3 kidney disease , impaired glucose tolerance, anemia, dyslipidemia, gastroesophageal reflux disease, benign prostatic hypertrophy, osteoarthritis at multiple sites. Plan: He will have physical, occupational, and speech therapy 3.5 hours, 5 of 7 days. We will have his comorbid conditions managed by Dr. Carl. We will continue vancomycin and cefepime per Dr. Carl, sotalol for heart rate management, Flomax for prostate hypertrophy, Pepcid for GE reflux, clonidine f or elevated blood pressures greater than 170 q.4 hours 0.1 mg as needed, Lipitor for dyslipidemia, El iquis 2.5 mg daily for DVT risk reduction, Norvasc 5 mg daily for hypertension, and Xanax for anxiety . Comorbidities That Are Impacting Rehabilitation: The need for IV antibiotics will continue and the [facility] is going to have this scheduled, worked around the IV antibiotics, and oral antibiotics to be continued as well. May have interval urinalysis and chest x-ray to rule out any worsening or ongoing infection. Blood work including complete blood count with differential will also be very helpful. Otherwise, his comorbidities are stably managed. Rehab Specific Plan: Mr. Contreras will have physical, occupational, and speech therapy 3.5 hours, 5 o f 7 days, to improve his ability to transfer from bed to chair, to toilet, to be able to mobilize 250 feet with a rolling walker and with a wheelchair, and go up and down 10 steps as well. Mr. Contreras has a good understanding of the process of admission to the inpatient rehabilitation unit and how he will benefit from physical, occupational, and speech therapy. He will have 24 hours a da y, 7 days a week, skilled rehabilitation and nursing, daily physician evaluation and management, and social service evaluation and management for discharge planning, home equipment, and to follow up wit h primary care physician and to continue with physical therapy. Barriers To Discharge: He does have Dr. Carl following and will help with management of his comorbid conditions. Length Of Stay: About 10 days. Disposition: Back home with family and continue therapy via Home Health. Prognosis: Good. Code Status: Full code. Rehab Specific Goals: 1. Become independent with upper and lower body dressing. 2. Independently mobilize a wheelchair 250 feet and then a rolling walker 250 feet and up and down 10 steps with bilateral handrails. 3. Independently perform all cognitive functioning. 4. Independently have his medications managed and with a little bit of help from family. The above goals were reviewed with Mr. Contreras and he is in agreement. By signing this document, I acknowledge I personally performed a full physical examination on Mr. Rahel keller no later than 24 hours after his admission to the inpatient rehabilitation unit and determined t hat he is able to tolerate the above course of treatment at an intensive level for a reasonable perio d of time. A detailed individualized plan of care for him will be completed by hospital day 4 based on the preadmission screen, history and physical, and therapy evaluations. KENYATTA Voice ID: [id number]
[2024-09-25 05:40] LABS: Absolute Basophils 0.1 K/uL (0-0.5); Absolute Eosinophils 0.3 K/uL (0-0.5); Absolute Lymphocytes (CBC) 1.8 K/uL (0.7-4.9); Absolute Monocytes 1.4 K/uL (0.1-1.3); Absolute Neutrophil 6.8 K/uL (1.8-8.0); Basophils % 0.8 % (0-1.3); Eosinophils % 2.7 % (0-4.4); Hematocrit 28.8 % (39.6-49.0); Lymphocytes % 17.5 % (15.3-44.8); MCH 33.1 pg (27.0-35.0); MCHC 34.9 g/dL (32.0-36.0); MCV 94.9 fL (80-100); MPV 8.3 fL (7.6-11.3); Monocytes % 13.3 % (3.3-12.3); Neutrophils % 65.7 % (41.7-73.7); Platelets 216 thou/uL (152-406); RBC Red Blood Cell Count 3.03 M/uL (4.33-5.43); Red Cell Distribution Width 13.5 % (12.1-15.2)
[2024-09-25 05:49] LABS: Albumin 1.9 g/dL (3.4-5.0); Anion Gap 5.2 mEq/L (5.0-15.0); Magnesium 2.1 mg/dL (1.6-2.4); Potassium 3.2 mEq/L (3.5-5.1)
[2024-09-25] MEDS: AMLODIPINE 5 MG TAB PO SCH (07:05)
[2024-09-25] MEDS: CEFEPIME 1 GM in NA CHLORIDE 0.9% 100 ML IV SCH (07:06)
[2024-09-25] MEDS: FLUTICASONE FUROATE IH SCH (07:07)
[2024-09-25] MEDS: VILANTEROL IH SCH (07:07)
[2024-09-25] MEDS: cloNIDine HCL 0.1 MG TAB PO SCH (08:00)
[2024-09-25] MEDS ORDERED: AMLODIPINE 5 MG TAB PO SCH (08:00)
[2024-09-25] MEDS: POTASSIUM CL SA 10 MEQ TAB PO ONE (09:32)
[2024-09-25] MEDS ORDERED: TRAZODONE 50 MG TABLET PO PRN (13:09)
--- NOTE | 2024-09-25 19:59 | PN ---
Date of Progress Note: 09/25/2024 Time Of Service: 1:40 p.m. Subjective: Mr. Contreras is sitting in a chair in the hallway. He did have an episode of owning yesterday. He was trying to get out of the room to go to a place that he is not aware of, that jr rider is somewhere in the past, but the nursing staff were able to redirect him and he did very well af ter. Objective: He denies any fevers, chills, nausea, vomiting, myalgias, arthralgias. He did see Dr. Melgar in earlier today who is managing his comorbid conditions. Physical Examination: Vital Signs: Blood pressure 118/55, pulse 70, respiratory rate 18, temperature 97.4, oxygen saturati on 95%. General: Mr. Contreras is sitting in a chair in the hallway. HEENT: He is normocephalic, atraumatic. Sclerae anicteric. Oropharynx pink, moist. Neck: Supple. Neurological: Denies any significant pain at this point and he has no focal neurologic deficits. Laboratory Studies: White blood cell count 10.3, hemoglobin 10.0, platelets 216. Sodium 142, potass ium 3.2, chloride 111, BUN 26, creatinine 1.39, glucose 100, calcium 8.3, magnesium 2.1, albumin 1.9, prealbumin is significantly low at 7.0. Urinalysis: Trace blood, 1+ total protein, turbid clarity, otherwise unremarkable. X-ray/imaging: No new x-rays or imaging. Medications: Xanax 0.5 mg at bedtime as needed, Norvasc 5 mg daily, Eliquis 2.5 mg twice daily, Lipi tor 10 mg at bedtime. He still has the cefepime 1 g IV daily, managed by Dr. Carl. He has clonidine 0.2 mg twice daily for systolic blood pressure greater than . He does have Pepcid 20 mg a t bedtime, Lopressor 50 mg twice daily, Ensure Enlive 237 mL twice daily, sotalol 80 mg twice daily, Flomax 0.4 mg at bedtime, trazodone 25 mg at bedtime, and vancomycin 250 mg 4 times daily. Progress Made With Physical, Occupational, And Speech Therapy: With physical therapy today, he compl eted gait training using a rolling walker 175 feet with minimum assistance. He is up and down 15 suellen ps with moderate assistance. Mobilized wheelchair 150 feet with minimum assistance. Regarding occup ational therapy, did perform sink side oral hygiene with supervision. Toileting is done with minimum assistance including management and for standing. He wheeled himself in a wheelchair to the shower room where he was able to do shower with contact guard assistance. Regarding speech today, continued to use the call lights when he needed assistance in his room. Dive rgent naming of concrete categories completed with 50% accuracy for 7 members of the category. Tempo ral orientation, he was 50% accurate, and in spatial orientation, he was also 50% accurate. Assessment And Plan: Mr. Contreras is an 89-year-old patient admitted to the rehabilitation unit with toxic encephalopathy due to urinary tract infection. He is on multiple antibiotics, managed by Dr. Urban burris. He has decreased mobility, decreased physical functioning, insomnia, prostate hypertrophy, maln utrition, dyslipidemia, hypertension, risk of deep vein thrombus. He is doing very well, and for his plan, he will again continue with physical, occupational, and speech therapy with 3.5 hours, 5 of 7 days. Continue with list of comorbid condition medications with Dr. Carl who is also managing those and again he is doing well. ITZ/ZA Voice ID: [id number] Report ID: [id number]
[2024-09-25] MEDS: ENSURE ENLIVE 237 ML CAN PO SCH (20:00)
--- NOTE | 2024-09-26 06:21 | PN ---
Date of Progress Note: 09/25/2024 Subjective: The patient was seen this morning for followup. No new complaints or problems reported by the patient. He was on rehab floor, lying in bed, not in any distress. Appears less tired today than last few days. Objective: Vital Signs: Reviewed. HEENT: Unremarkable. Lungs: Clear to auscultation. Heart: Sounds normal. Abdomen: Soft. Bowel sounds normal. No guarding, rigidity, tenderness, distention. Extremities: No leg edema. Impression: 1. Urinary tract infection. 2. Benign prostatic hypertrophy. 3. Hypertension. 4. Hyperlipidemia. Plan: We will go ahead and continue current antibiotic, which is cefepime and oral vancomycin. Cont inue current antihypertensive medications except we will increase the dose of clonidine from 0.1 mg 2 times a day to 0.2 mg 2 times a day as his blood pressure this morning was 173/74, pulse rate 60. C ontinue physical therapy under guidance of Dr. Erickson. I will see him tomorrow for followup. HELEN/MODL Voice ID: [id number] Report ID: [id number]
[2024-09-26] MEDS: TAMSULOSIN 0.4 MG SR CAP PO SCH (19:31)
[2024-09-26] MEDS: TRAZODONE 50 MG TABLET PO SCH (19:31)
--- NOTE | 2024-09-26 20:01 | PN ---
Date of Progress Note: 09/26/2024 Subjective: Patient was seen this morning for followup. No new complaints, problems reported by the patient. He was lying in bed. He was very slow to answer questions this morning and really had obv ious difficulty communication rice as he would say words then stop and would keep on thinking what to say and had obvious difficulty with communication today. His speech was clear. Objective: Vital Signs: Reviewed. HEENT: Unremarkable. Lungs: Clear to auscultation. Heart: Sounds normal. Abdomen: Soft. Bowel sounds normal. No guarding, rigidity, tenderness, distention. Extremities: No leg edema. Impression: 1. Urinary tract infection. 2. Hypertension. 3. Generalized weakness. 4. Debility. Plan: We will go ahead and continue current medications. Continue current cefepime and oral vancomy brittany. Continue physical therapy under guidance of Dr. Erickson. We will continue current antihyperte nsive medication. Monitor blood pressure, if necessary adjust medication. I will see him tomorrow f or followup. The patient was encouraged to hydrate himself. I suspect that he may have some underly ing dementia problem on basis of what I have seen during this hospital stay, but obviously this will not be the best time to evaluate, will need to wait until he gets back to his [facility]. HELEN/MODL Voice ID: [id number] Report ID: [id number]
--- NOTE | 2024-09-26 21:56 | PN ---
Date of Progress Note: 09/26/2024 Time Of Service: 1:25 p.m. Subjective: Mr. Contreras is sitting in his room, somewhat disoriented, but very alert, interactive, f ollowing all commands. He has no new complaints. Objective: No fevers, chills, nausea, vomiting. No myalgias, arthralgias. Physical Examination: Vital Signs: Blood pressure 155/75, pulse 75, respiratory rate 18, temperature 97.7, oxygen saturati on 96%. General: Again, Mr. Contreras is resting in a chair beside the bed. HEENT: He is normocephalic, atraumatic. Sclerae anicteric. Oropharynx pink, moist. Neck: Supple. Chest: Clear. Laboratory Studies: White blood cell count 10.3, hemoglobin 10.0, platelets 216. Sodium 142, potass ium 3.2, chloride 111, carbon dioxide 29, BUN 26, creatinine 1.39, glucose 100, calcium 8.3, magnesiu m 2.1, albumin 1.9, prealbumin 7.0. X-ray/imaging: No new x-rays or imaging. Medications: Medications are managed by Dr. Carl, his primary care physician. He is on Flomax now 0 .4 mg at bedtime. He has Desyrel 50 mg at bedtime as well for insomnia. Progress Made With Physical, Occupational, And Speech Therapy: With physical therapy today, multiple qjg-pb-uwsgp transfers done with contact guard assistance, multiple givid-yh-ucnkb transfers also wi th contact guard assistance. He ambulated 150 feet and 50 feet with a rolling walker. He mobilized a wheelchair 250 feet with minimum assistance. It is noted he had more confusion today than the prev ious day. With occupational therapy, contact guard assistance for bed mobility and wheelchair to bed transfer. Again, noted some more increased confusion today than yesterday. Lower body dressing was done independently. With speech, unable to recite any orientation information. He could neither or ganize information by concrete categories nor give information regarding cause and effect situations. Appeared to be doing somewhat less in terms of cognition to compare to previous days. Assessment: Mr. Contreras is an 89-year-old patient with toxic encephalopathy. 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 Seems to be fluctuating, but perhaps somewhat worse today. He has decre ased mobility, decreased physical functioning in addition to prostate hypertrophy, malnutrition that is moderate, hypertension, dyslipidemia, and still on antibiotics per Dr. Cral. He may benefit from brain MRI and routine EEG. Plan: The patient will continue with all of therapy as noted, speech, physical, and occupational the rapy and again may consider brain MRI and routine electroencephalogram to further evaluate if there i s any reason for worsening encephalopathy. LB/MODL Voice ID: [id number] Report ID: [id number]
--- NOTE | 2024-09-27 11:12 | PN ---
Date of Progress Note: 09/27/2024 Subjective: The patient was seen this morning for followup. No new complaints or problems reported by him. He was lying in bed, not in distress. This morning he was better in terms of answering ques tions and communication rice compared to yesterday. Objective: Vital Signs: Reviewed. HEENT: Unremarkable. Lungs: Clear to auscultation. Heart: Sounds normal. Abdomen: Soft. Bowel sounds normal. No guarding, rigidity, tenderness, distention. Extremities: No leg edema. Neurological: No focal neurological deficits. The patient has very good strength in his upper and l ower extremities. No focal weakness. Impression: 1. Urinary tract infection. 2. Hypertension. 3. Chronic kidney disease, stage III. 4. Hyperlipidemia. Plan: We will go ahead and continue current medication. Continue physical therapy under guidance of Dr. Erickson. I am concerned about the patient might be having underlying dementia problem and I wi ll communicate with the patient's son because upon discharge if the patient returns back home without proper assistance or supervision done, there would be definitely concern in my mind. So I will comm unicate with the patient's son about it. The patient has 2 sons, 1 who lives in [place] who has [facility] power of litigation attorney associate for him and I will communicate with him about the details. The patient has ano ther son who lives in town with the patient, but unfortunately from what I understand from patient himself that the son who lives with him is not in good health and has a signi ficant alcohol issue. HELEN/MODL Voice ID: [id number] Report ID: [id number]
--- NOTE | 2024-09-27 13:38 | P.RH.PN ---
Estimated Length of Stay: 11 Expected Discharge Date: 10/03/24 Discharge Disposition Plan: Home Family Support: Yes Custodial Goal: Mobility, Transfers, Self Care Vital Signs: Last Vital Signs Temp 97.8 F 09/27/24 07:20 Pulse 61 09/27/24 07:30 Resp 18 09/27/24 07:20 BP 162/71 H 09/27/24 07:30 Pulse Ox 97 09/27/24 07:20 Laboratory: Laboratory Last Values WBC 10.30 thou/uL (4.3-10.9) 09/25/24 04:49 RBC 3.03 M/uL (4.33-5.43) L 09/25/24 04:49 Hgb 10.0 g/dL (13.6-17.9) L 09/25/24 04:49 Hct 28.8 % (39.6-49.0) L 09/25/24 04:49 MCV 94.9 fL (80-100) 09/25/24 04:49 MCH 33.1 pg (27.0-35.0) 09/25/24 04:49 MCHC 34.9 g/dL (32.0-36.0) 09/25/24 04:49 RDW 13.5 % (12.1-15.2) 09/25/24 04:49 Plt Count 216 thou/uL (152-406) 09/25/24 04:49 MPV 8.3 fL (7.6-11.3) 09/25/24 04:49 Neutrophils % 65.7 % (41.7-73.7) 09/25/24 04:49 Lymphocytes % 17.5 % (15.3-44.8) 09/25/24 04:49 Monocytes % 13.3 % (3.3-12.3) H 09/25/24 04:49 Eosinophils % 2.7 % (0-4.4) 09/25/24 04:49 Basophils % 0.8 % (0-1.3) 09/25/24 04:49 Absolute Neutrophils 6.8 K/uL (1.8-8.0) 09/25/24 04:49 Absolute Lymphocytes 1.8 K/uL (0.7-4.9) 09/25/24 04:49 Absolute Monocytes 1.4 K/uL (0.1-1.3) H 09/25/24 04:49 Absolute Eosinophils 0.3 K/uL (0-0.5) 09/25/24 04:49 Absolute Basophils 0.1 K/uL (0-0.5) 09/25/24 04:49 Sodium 142 mEq/L (136-145) 09/25/24 04:49 Potassium 3.2 mEq/L (3.5-5.1) L 09/25/24 04:49 Chloride 111 mEq/L (98-107) H 09/25/24 04:49 Carbon Dioxide 29 mEq/L (21-32) 09/25/24 04:49 Anion Gap 5.2 mEq/L (5.0-15.0) 09/25/24 04:49 BUN 26 mg/dL (7-18) H 09/25/24 04:49 Creatinine 1.39 mg/dL (0.70-1.30) H 09/25/24 04:49 Est GFR (CKD-EPI) 49 ml/min (=/>90) L 09/25/24 04:49 Glucose 100 mg/dL (74-106) 09/25/24 04:49 Calcium 8.3 mg/dL (8.5-10.1) L 09/25/24 04:49 Magnesium 2.1 mg/dL (1.6-2.4) 09/25/24 04:49 Albumin 1.9 g/dL (3.4-5.0) L 09/25/24 04:49 Prealbumin 7.0 mg/dL (20-40) L 09/25/24 04:49 Urine Color Light-yellow (Yellow) 09/24/24 22:18 Urine Clarity Turbid (Clear) H 09/24/24 22:18 Urine pH 6.0 (5.0-7.0) 09/24/24 22:18 Ur Specific [place] 1.010 (1.005-1.030) 09/24/24 22:18 Glucose (UA)(Auto) Negative (Negative) 09/24/24 22:18 Urine Ketones Negative (Negative) 09/24/24 22:18 Urine Blood Trace (Negative) H 09/24/24 22:18 Urine Nitrite Negative (Negative) 09/24/24 22:18 Urine Bilirubin Negative (Negative) 09/24/24 22:18 Urine Urobilinogen Normal (Normal) 09/24/24 22:18 Ur Leukocyte Esterase Negative [place]/uL (Negative) 09/24/24 22:18 Urine RBC <5 /HPF (None Seen) 09/24/24 22:18 Urine WBC <5 /HPF (<5) 09/24/24 22:18 Urine WBC Clumps Rare /HPF (None Seen) 09/24/24 22:18 Ur Squamous Epith Cells <5 /HPF (None Seen) 09/24/24 22:18 U Non-Squamous Epi Cells <5 /HPF (None Seen) 09/24/24 22:18 Urine Bacteria <20 /HPF (<20) 09/24/24 22:18 Urine Mucus Slight /HPF (None Seen) 09/24/24 22:18 Urine Culture Reflexed Not needed 09/24/24 22:18 Urine Total Protein 1+ (Negative) H 09/24/24 22:18 Weight: 122 lb Wound Present: No Closed Surgical Incision Present: No Physician Update: Labs reviewed and are stable. BIMS 7, SLUMS 15, only 1/4 STG and 1/2 LTG. Poor short term memory, problem solving. Met 3 STG and 1 LTG. CTG assist for all transfers, RW 250' min assist. With OT met all STG. Summary: Patient's care plan and vermin exterminator goals have been reviewed and revised as necessary. Please see the Rehabilitation Signature page for all necessary sig natures.
[2024-09-28 06:32] LABS: Anion Gap 9.4 mEq/L (5.0-15.0); Potassium 4.4 mEq/L (3.5-5.1)
--- NOTE | 2024-09-28 10:37 | PN ---
Date of Progress Note: 09/28/2024 Subjective: The patient was seen this morning for followup. No new complaints or problems reported by the patient, lying in bed, not in distress. He is awake, alert, answering questions appropriately , and communicating very well today. No new complaints or problems reported by him. Objective: Vital Signs: Reviewed. HEENT: Unremarkable. Lungs: Clear to auscultation. Heart: Sounds normal. Abdomen: Soft. Bowel sounds normal. No guarding, rigidity, tenderness, distention. Extremities: No leg edema. Laboratory Data: Sodium 140, potassium 4.4, chloride 107, bicarb 28, BUN 37, creatinine 1.51, glucos e 113. Impression: 1. Hypertension. 2. Hyperlipidemia. 3. Chronic kidney disease stage IIIA. 4. Generalized weakness. 5. Debility. Plan: Continue current medications. We will continue current antihypertensive medication. The isiah ent was encouraged to drink 60 ounces of water daily and we will continue physical therapy under cassie mejia of Dr. Erickson. We will continue current antibiotic therapy. HELEN/MODL Voice ID: [id number] Report ID: [id number]
[2024-09-28] MEDS: UMECLIDINIUM IH SCH (15:58)
[2024-09-28] MEDS: VILANTEROL IH SCH (15:58)
[2024-09-28] MEDS: FLUTICASONE FUROATE IH SCH (15:58)
--- NOTE | 2024-09-29 10:54 | PN ---
Date of Progress Note: 09/29/2024 Subjective: The patient was seen this morning for followup. He was lying in bed, not in distress. Recognized me as usual but he was telling me upon further questioning that he had a good day and bad day yesterday. Upon further questioning, reports that he did well with physical therapy, but he feel s like he is having some confusion which he notices while watching TV or while looking at the time, h e tends to get confused easily. No chest pain, shortness of breath, nausea, vomiting. No constipati on or diarrhea. Objective: Vital Signs: Reviewed. HEENT: Unremarkable. Lungs: Clear to auscultation. Heart: Sounds normal. Abdomen: Soft. Bowel sounds normal. No guarding, rigidity, tenderness, distention. Extremities: No leg edema. Neurological: No focal neurological deficits. Impression: 1. Urinary tract infection. 2. Hypertension. 3. Chronic kidney disease, stage 3A. 4. Hyperlipidemia. 5. Senile dementia. Plan: I have seen during last admission and this admission that the patient's mental status did not look like his normal self, so I definitely have concerns about him having some underlying senile elliot ntia problem, and today is the first time that he has admitted having some trouble with confusion. W e are hoping that this may improve to some extent when he gets out of the hospital and gets back home , and this was discussed with him also today, and on outpatient basis, he should definitely follow up with the neurologist. We will continue current physical therapy under guidance of Dr. Erickson, and I will see him tomorrow for followup. Continue current antihypertensive medications. HELEN/MODL Voice ID: [id number] Report ID: [id number]
--- NOTE | 2024-09-30 12:13 | P.CNS ---
Date of Consult: 09/30/24 Reason for Consult: Painful toenails Allergies No Known Allergies Allergy (Verified 09/24/24 15:43) Home Medications: ALPRAZolam [Xanax*] 0.25 mg PO PRN PRN 09/12/24 Amlodipine [Norvasc*] 5 mg PO DAILY 09/12/24 Apixaban [Eliquis *] 2.5 mg PO BID 09/12/24 Famotidine [Pepcid*] 20 mg PO BEDTIME 09/12/24 Fluticasone/Vilanterol [Breo Ellipta 200-25 Mcg Inhalr] 1 puff IH DAILY 09/12/24 Metoprolol Tartrate [Lopressor*] 50 mg PO BID 09/12/24 Simvastatin 20 mg PO BEDTIME 09/12/24 Sotalol HCl [Betapace*] 80 mg PO BID 09/12/24 Tamsulosin [Flomax*] 0.4 mg PO BEDTIME 09/12/24 cloNIDine HCL [Clonidine HCl] 0.1 mg PO BID 09/19/24 - Past Medical/Surgical History Diabetic: No -: AAA -: DIVERTICULITIS -: HTN -: HYPERLIPIDEMIA -: AAA stent -: BLADDER SURGERY -: SHOULDER SURGERY - Family History Mother Medical History: Lung disease Father Medical History: Kidney disease - Social History Smoking Status: Unknown if ever smoked Alcohol use: No CD- Drugs: No Caffeine use: Yes Place of Residence: Home Review of Systems 10-point ROS is otherwise unremarkable Physical Examination Temp Pulse Resp BP Pulse Ox 98 F 64 18 158/74 H 96 09/30/24 06:43 09/30/24 08:50 09/30/24 06:43 09/30/24 08:50 09/30/24 06:43 General: Alert, In no apparent distress, Oriented x3 Cardiovascular: No edema, Abnormal pulses (0/4 dp pulse bilateral, 1/4 pt pulse bilateral) Capillary refill: <2 Seconds Musculoskeletal: No clubbing, No swelling, No contractures, No erythema, No tenderness, No warmth Integumentary: Other (Thickened hypertrophic bilateral hallux nails bilateral, elongated nails 2-5 bilateral) Neurological: Sensation intact - Problems (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
--- NOTE | 2024-10-01 01:44 | PN ---
Date of Progress Note: 09/30/2024 Time Of Service: 1:20 p.m. Subjective: Mr. Contreras is in his room, son is at the bedside. There was a discussion about where t he patient going to go after given the patient does have an acute on chronic encephalopathy and he is unable to be aware of what is going to allow him to be safe. He has to have 24 hours supervision. The patient's son is exploring options including memory care unit, home with 24-hour care along with continued therapy via home health. Objective: No fevers, chills, nausea, vomiting, myalgias, arthralgias. Physical Examination: Vital Signs: Blood pressure 151/70, pulse 62, respiratory rate of 16, temperature 98, oxygen saturat ion 96%. General: Mr. Contreras is sitting in a chair beside bed. GENERAL: He is normocephalic, atraumatic. Sclerae anicteric. Oropharynx pink and moist. Neck: Supple. Neurologic: He has no focal neurological deficits. Laboratory Studies: No new laboratory studies. X-ray/imaging: No new x-rays or imaging. He was seen by Dr. Facundo Toscano on the podiatry service. Did debridement of the toenails at the beds star. Medications: Have been reviewed. Progress Made With Physical, Occupational, And Speech Therapy: Today, he performs ohjljz-wx-thj keith sfers independently, multiple xtf-hz-ntjdw transfers done independently. He ambulated 750 feet and 5 50 feet independently. He was able to go up and down 15 steps with bilateral handrails independently . With his occupational therapy, toilet transfers with supervision and he did lower body dressing in dependently. Sink oral hygiene done independently. With speech therapy, he used divergent thinking with moderate cues, 80% accuracy. Also oriented to temporal information with 75% accuracy and minimu m assistance. Mr. 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 He has decreased mobility, decreased physical functioning, hyperten lina. Continuing cefepime antibiotic per Dr. Carl, his primary care physician. He has Flomax for ur inary retention, Desyrel for insomnia, Ensure Enlive for malnutrition, metoprolol for heart rate cont rol, Protonix for GE reflux disease, Lipitor for dyslipidemia, Xanax for anxiety. Plan: 1. We will continue with physical, occupational, speech therapy 3 hours a day, 5 to 7 days. 2. His comorbid condition has been listed and medications are continued and followed by Dr. Carl. ITZ/ZA Voice ID: [id number] Report ID: [id number]
--- NOTE | 2024-10-01 07:15 | PN ---
Date of Progress Note: 09/30/2024 Subjective: The patient was seen this morning for followup. He was lying in bed, not in distress. He still appears to be confused, but slowly improving, but confusion is still noted when he is commun icating with me as he is not clear about his thoughts while he is talking to me. He is able to recog nize me, but not able to give otherwise clear-cut information when he is trying to communicate with sharita kirby. Objective: Vital Signs: Reviewed. HEENT: Unremarkable. Lungs: Clear to auscultation. Heart: Sounds normal. Abdomen: Soft. Bowel sounds normal. No guarding, rigidity, tenderness, distention. Extremities: No leg edema. Impression: 1. Senile dementia. 2. Hypertension. 3. Chronic kidney disease. 4. Hyperlipidemia. 5. Generalized weakness. 6. Urinary tract infection. Plan: We will continue current antibiotic. Hopefully, we should be able to stop his antibiotic in n ext day or 2 days. Continue current antihypertensive medication and physical therapy under guidance of Dr. Erickson. I did call the patient's son, Vamsi, who lives in [place] and communicated all the de tails with him. He visits the patient almost on a daily basis and he has also noted this confusion a nd at the same time, confusion seems to be improving while he is on the rehab floor. The patient srinath es at home with another son and we have discussed about safety concerns when he returns back home and Vamsi has informed me that he is already aware of it and he has communicated with Dr. Erickson as well and he is going to make arrangements for 24-hour care provider service at home upon discharge using local agency and I have also discussed with him about taking the patient to Dr. Erickson's office for evaluation of dementia on an outpatient basis which he will do so. I will see him tomorrow for santosh turner. HELEN/MODL Voice ID: [id number] Report ID: [id number]
[2024-10-01 19:10] VITALS: TEMP 98
--- NOTE | 2024-10-01 19:45 | PN ---
Date of Progress Note: 10/01/2024 Subjective: The patient was seen this morning for followup. He was sleeping, not in any distress. No new complaints or problems reported by nursing staff. Objective: HEENT: Unremarkable. Lungs: Clear to auscultation. Heart: Sounds normal. Abdomen: Soft. Bowel sounds normal. No guarding, rigidity, tenderness, distention. Extremities: No leg edema. Impression: 1. Urinary tract infection. 2. Hypertension. 3. Hyperlipidemia. 4. Chronic kidney disease stage III. 5. Senile dementia. Plan: We will continue to follow up with Dr. Erickson for physical therapy. Continue current antihy pertensive medication and antibiotic. We will probably stop antibiotics tomorrow and plan is to disc harge him to go home day after tomorrow. HELEN/MODL Voice ID: [id number] Report ID: [id number]
--- NOTE | 2024-10-01 21:45 | PN ---
Subjective: The patient was in the room with son at bedside. Reportedly, while he was out with ther césary doing some other activities, the therapist noted he had brief period of rest and activity, did no t have rhythmic shaking or tonic or clonic activity, tongue biting, or loss of bowel or bladder contr ol. The patient when he came back to the elevator after being outside for a few minutes, could not e xplain what happened, very little recall of the episode. Objective: No fevers or chills. No significant myalgias, arthralgias, or rash. No other complaints . Physical Examination: Vital Signs: Blood pressure is 138/64, pulse 66, respiratory rate of 18, temperature 97.6, oxygen sa turation 97%. General: Again, Mr. Contreras is sitting in the room. His son is beside the bed. He is very alert, i nteractive, spontaneously speaking, moving arms and legs equally well. Again, was unable to recall w hat occurred while he was doing therapy on the outside. He has no new or focal deficits. Laboratory Studies: White blood cell count from 19th 10.3, hemoglobin 10, platelets 216 from 22nd. Sodium 140, potassium 4.4, BUN 37, creatinine 1.51, his glucose was 113, calcium 8.7. X-ray/imaging: No new x-rays or imaging. Medications: Medications have been reviewed and are unchanged. His medications are managed by his [facility] physician, Dr. Carl. Progress Made With Physical, Occupational, And Speech Therapy: With physical therapy today, he did p erform damivx-zy-zbu transfers independently, multiple rmx-jb-gtpqf transfers done independently, sta nd-to-pivot transfers also independently. With a rolling walker, ambulated 125 feet with minimum ass istance and mobilized a wheelchair 250 feet with minimum assistance. With occupational therapy, toil et transfers done independently, lower body dressing, putting up pants, sink, lower body dressing don e with some supervision. Regarding speech, he was able to recall 3 of 3 unrelated pictures after 3 m inutes, but 2 of 3 after 6 minutes. He was oriented to temporal concepts with 100% accuracy and spat ial concepts with 75% accuracy. Assessment: Mr. Contreras is an 89-year-old patient in rehabilitation unit with toxic encephalopathy. He is making good progress with physical therapy. Still has significant cognitive impairment. The patient's son did note that several weeks prior to this patient becoming more confused, he was able t o be independent and drive and take care of his activities of daily living. At this point, he does r equire 24-hour supervision for safety awareness as he is at high risk of falling, making unsafe decis ions as he tries to mobilize and ambulate. In terms of his additional comorbid conditions, he does h ave prostate hypertrophy, hypertension, insomnia, dyslipidemia, and GE reflux. Plan: He will continue with physical, occupational, and speech therapy 3.5 hours, 5 of 7 days. Cont inue with his list of comorbid condition medications. The patient and his son are planning on his ne xt phase where his discharge will be to a safe environment which will require a likely Memory Care Un it and 24-hour supervision or at home with such care. Therapy should continue following discharge. ITZ/ZA Voice ID: [id number] Report ID: [id number]
[2024-10-02 02:07] VITALS: BMI 18.7
[2024-10-02 06:18] LABS: Absolute Basophils 0.1 K/uL (0-0.5); Absolute Eosinophils 0.3 K/uL (0-0.5); Absolute Neutrophil 6.1 K/uL (1.8-8.0); Basophils % 0.9 % (0-1.3); Eosinophils % 3.6 % (0-4.4); Hematocrit 27.6 % (39.6-49.0); Hemoglobin 9.7 g/dL (13.6-17.9); Lymphocytes % 20.7 % (15.3-44.8); MCHC 35.4 g/dL (32.0-36.0); MCV 90.4 fL (80-100); MPV 7.6 fL (7.6-11.3); Neutrophils % 63.8 % (41.7-73.7); Nucleated Red Blood Cells % 0.1 % (0-0); Platelets 278 thou/uL (152-406); RBC Red Blood Cell Count 3.05 M/uL (4.33-5.43); Red Cell Distribution Width 13.8 % (12.1-15.2)
[2024-10-02 06:41] LABS: Albumin 2.1 g/dL (3.4-5.0); Anion Gap 8.1 mEq/L (5.0-15.0); Magnesium 2.3 mg/dL (1.6-2.4); Potassium 4.1 mEq/L (3.5-5.1); Prealbumin 15.4 mg/dL (20-40)
--- NOTE | 2024-10-02 20:01 | PN ---
Date of Progress Note: 10/02/2024 Subjective: The patient was seen this morning for followup. Objective: General: He was lying in bed, not in distress. He was lot more awake, alert, denied any new complaints. Vital Signs: Reviewed. HEENT: Unremarkable. Lungs: Clear to auscultation. Heart: Sounds normal. Abdomen: Soft. Bowel sounds normal. No guarding, rigidity, tenderness, distention. Extremities: No leg edema. Laboratory Data: Sodium 140, potassium 4.1, chloride 108, bicarb 28, BUN 39, creatinine 1.77, glucos e 95. WBC 9.5, hemoglobin 9.7, platelets 278. Impression: 1. Chronic kidney disease, stage 3. 2. Acute kidney injury. 3. Hypertension. 4. Generalized weakness. 5. Debility. 6. Senile dementia. Plan: Continue current medications. The patient was encouraged to continue to drink 60 ounce of cuate er daily. Continue physical therapy under guidance of Dr. Erickson. We will see him tomorrow for trae martinez. He is scheduled to go home tomorrow. HELEN/MODL Voice ID: [id number] Report ID: [id number]
--- NOTE | 2024-10-02 22:51 | PN ---
Date of Progress Note: 10/02/2024 Time Of Service: 1:20 p.m. Subjective: Mr. Contreras is sitting in bed, looking out the window. He is very bright and happy toda y, and knows he is about to be discharged in the morning and son has arranged for 24-hour care superv [facility] for poor safety awareness. He has no new complaints. Objective: No fevers, chills, nausea, vomiting. No myalgias, arthralgias, rash. Physical Examination: Vital Signs: Blood pressure 178/77, pulse 62, respiratory rate 18, temperature 98, oxygen saturation 96%. General: Mr. Contreras is again sitting in the chair beside the bed. HEENT: He appears normocephalic, atraumatic. Sclerae anicteric. Oropharynx pink and moist. Neck: Supple. Chest: Clear. Neurologic: He does follow simple commands appropriately. Has some difficulty with immediate recall . Laboratory Studies: White blood cell count 9.5, hemoglobin 9.7, platelets 278. Sodium 140, potassiu m 4.1, chloride 108, carbon dioxide 28, BUN 39, creatinine 1.77. Prealbumin 15.4. Albumin 2.1. Mag nesium 2.3, calcium 8.8. Glucose 95. X-ray/imaging: No new x-rays or imaging. Medications: Medications have been reviewed and are unchanged. His comorbid conditions are managed by Dr. Carl, his primary care physician. Progress Made With Physical, Occupational, And Speech Therapy: With physical therapy today, he was a ble to ambulate 750 feet and 350 feet independently with a rolling walker. He ascended and descended 15 steps with bilateral handrails independently. [id number] transfers done independently. With occupational therapy, he did achieve independence with most of his ADLs. He had mild confusion. Did functional ambulation from the bedroom to the shower with rolling walker and was independent. With his speech, he was readministered the BIMS score. He improved from a 7/15 to a 12/15, and his S LUMS score improved from 15 to 23, areas of deficits include orientation, short-term memory, recall, and processing information. Assessment: Mr. 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 He has decreased mobility, decreased physical functioning, hypertension, urinary retenti on, insomnia, mild malnutrition, dyslipidemia, anxiety, gastroesophageal reflux. Plan: He will have physical and occupational therapy along with speech therapy continued until he is discharged and it will be 3.5 hours, 5 of 7 days. We will continue his comorbid condition medicatio ns, which have been listed. He is managed by Dr. Carl for these conditions. After discharge, he alf l follow up with Dr. Carl as scheduled. ITZ/MODL Voice ID: [id number] Report ID: [id number]
[2024-10-03 07:28] VITALS: BP 152/63
--- NOTE | 2024-10-03 22:02 | DS ---
Date of Discharge: 10/03/2024 Disposition: Discharged to go home. Physical Examination: HEENT: Unremarkable. Lungs: Clear to auscultation. Heart: Sounds normal. Abdomen: Soft. Bowel sounds normal. No guarding, rigidity, tenderness, distention. Extremities: No leg edema. Laboratory Data: Initial CBC on 09/25/2024 showed WBC 10.3, hemoglobin 10, platelets 216. Last CBC from yesterday; WBC 9.5, hemoglobin 9.7, platelets 278. For chemistry, last chemistry yesterday, sod ium 140, potassium 4.1, chloride 108, bicarb 28, BUN 39, creatinine 1.77, glucose 95. On 09/25/2024, sodium 142, potassium 3.2, chloride 111, bicarb 29, BUN 26, creatinine 1.39, glucose 100. Hospital Course: This is an 89-year-old pleasant male patient, who was admitted to rehab floor after his brief stay on medical floor. The patient originally was brought into emergency room complaining of feeling weak and fall at home. He had urinary tract infection and diarrhea, which was suspected due to Clostridium difficile colitis and he was treated with vancomycin and cefepime. Urine culture did not grow any specific bacteria and stool for C diff was ordered upon admission, but unfortunately it was never collected, but the patient did receive treatment with vancomycin. His diarrhea problem has resolved. He had elevated WBC count when he first came into hospital which has resolved. After the patient was admitted to rehab floor, he received physical therapy under guidance of Dr. Erickson . His antibiotics were continued on the rehab floor. His antihypertensive medications also were con tinued. The patient has chronic kidney disease stage IIIB and I have encouraged him multiple times t o drink plenty of water about 60 ounces water on a daily basis. He also has shown signs of senile de mentia during this hospitalization, which has actually improved over a period of this stay on the [facility]. He lives at home with his son and his other son who lives in [place] has medical power of strategy director and I have communicated with him on 2 or 3 different occasions and expressed my concern abou t the patient living alone at home by himself and son has realized that as well and he has made arran gements for provider service. On outpatient basis, the patient should get evaluated by urologist for further evaluation and management of senile dementia and son will make that arrangements for the pat bebeto to go see Dr. Erickson. Overall, the patient's condition has improved and today he will be disc harged to go home in stable condition. Discharge Medications And Instructions: 1. Continue all prior home medications. 2. Follow up at my office week after next and the patient to drink 60 ounces water daily. Discharge Medications And Instructions: 1. Urinary tract infection. 2. Senile dementia. 3. Generalized weakness. 4. Debility. 5. Chronic kidney disease, stage IIIB. 6. Anemia due to chronic kidney disease. 7. Hypokalemia. 8. Hypertension. 9. Hyperlipidemia. 10. Paroxysmal atrial fibrillation. 11. Chronic anticoagulation therapy. 12. Gastroesophageal reflux disease. 13. Osteoarthritis, multiple sites. 14. Abdominal aortic aneurysm, infrarenal, status post aortic endograft placement in 2022. Total time spent today 40 minutes. HELEN/MODL Voice ID: [id number] Report ID: [id number]
== END 2024-10-03 14:25 | disposition home health service (06) | DRG 92 ==
LOC: 5TH 11:30
PROVIDERS: ADMIT Internal Medicine; ATTEND Internal Medicine
PROC: 0HBRXZZ Excision of Toe Nail, External Approach (ICD-10-PCS; principal; 2024-09-30)
PROC: 0HBRXZZ Excision of Toe Nail, External Approach (ICD-10-PCS; 2024-09-30)
PROC: 0HBRXZZ Excision of Toe Nail, External Approach (ICD-10-PCS; 2024-09-30)
PROC: 0HBRXZZ Excision of Toe Nail, External Approach (ICD-10-PCS; 2024-09-30)
PROC: 0HBRXZZ Excision of Toe Nail, External Approach (ICD-10-PCS; 2024-09-30)
PROC: 0HBRXZZ Excision of Toe Nail, External Approach (ICD-10-PCS; 2024-09-30)
PROC: 0HBRXZZ Excision of Toe Nail, External Approach (ICD-10-PCS; 2024-09-30)
PROC: 0HBRXZZ Excision of Toe Nail, External Approach (ICD-10-PCS; 2024-09-30)
DX: G92.9 Unspecified toxic encephalopathy (principal); E44.0 Moderate protein-calorie malnutrition; F05 Delirium due to known physiological condition; N39.0 Urinary tract infection, site not specified; Z68.1 Body mass index [BMI] 19.9 or less, adult; I12.9 Hypertensive chronic kidney disease with stage 1 through stage 4 chronic kidney disease, or unspecified chronic kidney disease; R73.02 Impaired glucose tolerance (oral); E78.5 Hyperlipidemia, unspecified; K21.9 Gastro-esophageal reflux disease without esophagitis; M15.9 Polyosteoarthritis, unspecified; I71.43 Infrarenal abdominal aortic aneurysm, without rupture; R53.81 Other malaise; N18.31 Chronic kidney disease, stage 3a; B35.1 Tinea unguium; L60.2 Onychogryphosis; F41.9 Anxiety disorder, unspecified; G47.00 Insomnia, unspecified; F03.90 Unspecified dementia, unspecified severity, without behavioral disturbance, psychotic disturbance, mood disturbance, and anxiety; N40.1 Benign prostatic hyperplasia with lower urinary tract symptoms; R33.8 Other retention of urine; E87.6 Hypokalemia; I48.0 Paroxysmal atrial fibrillation; Z79.01 Long term (current) use of anticoagulants
CPT/HCPCS: 36415; 80048; 81001; 82040; 83735; 84134; 85025; 87086; 87088; 92523; 97110; 97116; 97129; 97163; 97165; 97530; 97542; J0692

== ENCOUNTER 2024-10-15 10:45 | Emergency (ER) | payer OTHER, BC ==
[2024-10-15 11:21] LABS: Absolute Basophils 0.1 K/uL (0-0.5); Absolute Eosinophils 0.4 K/uL (0-0.5); Absolute Lymphocytes (CBC) 1.6 K/uL (0.7-4.9); Absolute Monocytes 0.8 K/uL (0.1-1.3); Absolute Neutrophil 6.5 K/uL (1.8-8.0); Eosinophils % 4.1 % (0-4.4); Hematocrit 31.5 % (39.6-49.0); Hemoglobin 10.7 g/dL (13.6-17.9); Lymphocytes % 16.6 % (15.3-44.8); MCH 31.9 pg (27.0-35.0); MCV 93.6 fL (80-100); MPV 8.5 fL (7.6-11.3); Monocytes % 8.7 % (3.3-12.3); Neutrophils % 69.6 % (41.7-73.7); Platelets 241 thou/uL (152-406); RBC Red Blood Cell Count 3.37 M/uL (4.33-5.43); Red Cell Distribution Width 14.3 % (12.1-15.2)
--- NOTE | 2024-10-15 11:23 | RAD REPORT ---
EXAM: CT Ct Stroke Brain Wo Cont HISTORY: r/o stroke COMPARISON: 09/19/2024, and 09/12/2024 TECHNIQUE: Multiple contiguous axial images were obtained for a CT of the brain without contrast. Sag ittal and coronal reformats were performed. One or more of the following dose reduction techniques were used: Automated exposure control, adjus tment of the mA and kV according to patient size, and iterative reconstruction. Unless otherwise specified, incidental findings do not require dedicated imaging follow-up. FINDINGS: No evidence of hydrocephalus, intracranial hemorrhage, or extra-axial fluid collection. Bilateral near CSF density foci within the basal ganglia, involving the caudate heads and bilateral lower thalamus/hypothalamic regions, as well as linear region of near CSF density along the left subthalamic region, suggesting sequelae of remote ischemia. These are stable in appearance. Backgroun d of at least moderate diffuse parenchymal volume loss. Ventricular caliber prominence somewhat out of proportion to the degree of sulcal prominence, stable. Other periventricular and deep white matter subtle hypodensities, stable, nonspecific, suggestive of chronic small vessel ischemic changes. The calvarium is intact. Mastoid air cells are well-aerated. Patchy mucosal thickening again seen thr oughout the paranasal sinuses with air-fluid levels most pronounced in the right maxillary sinus. IMPRESSION: No evidence of acute intracranial abnormality. Stable bilateral basal ganglia and left subinsular reg ion hypodensities, suggesting sequelae of remote ischemia. Other stable findings as above. THIS REPORT CONTAINS FINDINGS THAT MAY BE CRITICAL TO PATIENT CARE. The findings were verbally commun icated via telephone to Hilario Infante MD on 10/15/2024 10:56AM.
[2024-10-15 11:33] LABS: PT Prothrombin Time 13.1 SECONDS (10-13.0); PTT, Activated Partial Thromb 30.3 SECONDS (27.2-37.4); Protime INR 1.16
--- NOTE | 2024-10-15 11:33 | RAD REPORT ---
EXAMINATION: CT Neck Angio CLINICAL INDICATION: Male, 89 years old. [facility] r/o stroke TECHNIQUE: Axial CT images were obtained from the aortic arch to the skull base after intravenous con trast utilizing angiographic protocol. Multiplanar reformats, as well as 3D post-processing (maximum intensity projection images, volume rendered images and/or shaded surface rendered images) w ere generated and reviewed. One or more of the following dose reduction techniques were used: Automated exposure control, adjustment of the mA and/or kV according to patient size, and/or iterativ e reconstruction. Unless otherwise specified, incidental findings do not require dedicated imaging follow-up. COMPARISON: 09/12/2024 FINDINGS: AORTA: The imaged aortic arch is normal. Normal three-vessel configuration of the arch. CCA: No artifact The common carotid arteries are patent and normal in caliber. ICA/ECA: Predominantly noncalcified proximal left ICA atherosclerotic plaque, with plaque ulceration (arrowed, and luminal narrowing, up to 2.9 mm, compared to 5.9 mm more distally, amounting to 51% stenosis. The appearance is stable. Predominantly calcified moderate atherosclerotic plaque at the ri ght ICA bifurcation without significant stenosis. Tortuosity of the distal cervical ICAs bilaterally, however patent. VERTEBRAL: The cervical vertebral arteries are patent to the skull base. Vertebral arteries are codom inant. SOFT TISSUE: No significant neck soft tissue abnormalities. The visualized lung apices are clear. 3D images confirm these findings. IMPRESSION: Stable plaque ulceration and luminal narrowing of the left proximal ICA, amounting to 51% stenosis. Tortuosity of the distal cervical ICAs without other significant stenosis. Vertebral arteries appear patent.. NASCET criteria used to quantify ICA stenosis, with the following grading scheme: Mild 0-49% stenosis Moderate 50-69% stenosis Severe 70-99% stenosis Reference: [place] Symptomatic Carotid Endarterectomy Trial Collaborators; Mireya LOCKETTM, Gail DW, Elif RB, et al. Beneficial effect of carotid endarterectomy in symptomatic patients with high-grade carotid stenosis. N Engl J Med. 1990 15;325(7):445-53.
--- NOTE | 2024-10-15 11:35 | RAD REPORT ---
EXAMINATION: CTA HEAD CLINICAL INDICATION: Male, 89 years old. r/o stroke TECHNIQUE: Axial CT images were obtained through the head after intravenous contrast utilizing angiog raphic protocol with 3D post-processing (maximum intensity projection images, volume rendered images and/or shaded surface rendered images). One or more of the following dose reduction technique s were used: Automated exposure control, adjustment of the mA and/or kV according to patient size, and/or iterative reconstruction. Unless otherwise specified, incidental findings do not require dedic ated imaging follow-up. COMPARISON: 09/12/2024 FINDINGS: ICA: The petrous, cavernous, and supraclinoid segments of the bilateral internal carotid arteries are patent, with dense calcified atherosclerotic plaque mild to moderate narrowing of the distal left cavernous ICA, appear stable. HELEN: Anterior cerebral arteries are normal bilaterally. The anterior communicating artery is patent. MCA: Middle cerebral arteries are normal bilaterally. BAG INSPECTOR: Posterior cerebral arteries are patent bilaterally, again with diminutive right P1 segment, and patent right posterior indicating artery. Vertebrobasilar: The vertebral arteries are patent. The basilar artery is normal in appearance. 3D images confirm these findings. IMPRESSION: No large vessel occlusion or hemodynamically significant stenosis.
--- NOTE | 2024-10-15 11:50 | RAD REPORT ---
EXAMINATION: ONE VIEW CHEST XR CLINICAL INDICATION: Male, 89 years old.,r/o pneumonia TECHNIQUE: Frontal chest projection is submitted. Examination is limited by patient positioning and t echnique. COMPARISON: 09/12/2024 FINDINGS: The lungs are clear, and show diffuse hyperlucency. No focal airspace opacities. No pneumothorax or sizable effusion. The heart is normal in size. Mediastinal contours are unremarkable. IMPRESSION: No acute intrathoracic abnormalities. Diffuse hyperlucency, may suggest underlying COPD.
[2024-10-15 12:34] LABS: Anion Gap 7.8 mEq/L (5.0-15.0); Potassium 3.8 mEq/L (3.5-5.1)
[2024-10-15 13:33] LABS: Specific Gravity 1.008 (1.005-1.030); Sqamous Epithelial None Seen /HPF (None Seen); Urine Bacteria None Seen /HPF (<20); Urine Bilirubin NEGATIVE (Negative); Urine Blood Negative (Negative); Urine Clarity Clear (Clear); Urine Color Colorless (Yellow); Urine Culture Reflex Order NOT NEEDED; Urine Glucose NEGATIVE (Negative); Urine Ketones NEGATIVE (Negative); Urine Microscopic Reflex YN ORDER UMIC; Urine Mucus Slight /HPF (None Seen); Urine Nitrite NEGATIVE (Negative); Urine Protein TRACE (Negative); Urine RBC <5 /HPF (None Seen); Urine Urobilinogen Normal (Normal); Urine WBC <5 /HPF (<5); Urine pH 6.5 (5.0-7.0)
--- NOTE | 2024-10-15 13:49 | EDPHYS ---
Physician Documentation [facility] Name: Navi Contreras Age: 89 yrs Sex: Male : 1935 Arrival Date: 10/15/2024 Time: 10:45 Bed 2 Private MD: ED Physician Vel Soriano HPI: 10/15 10:53 89-year-old man comes emergency department for evaluation of confusion, difficulty jj9 speaking and dizziness that happened at 830 this morning 2-1/2 hours ago. The patient feels better now. He denies chest pain, shortness of breath, weakness, tingling or any other problem. He is currently on Eliquis for A-fib, he has history of hypertension and was recently treated for UTI with similar symptoms.. Historical: - Allergies: 10:58 Tetanus Vaccines and Toxoid; ap3 10:58 Tetanus Vaccines and Toxoid; ld1 - Home Meds: 10:58 Eliquis 2.5 mg oral tablet 1 tab [Active]; ld1 - PMHx: 10:58 Aneurysm; Diverticulitis; Hyperlipidemia; Hypertension; ap3 10:58 Aneurysm; Diverticulitis; Hyperlipidemia; Hypertension; Atrial fibrillation; ld1 - Immunization history:: Adult Immunizations unknown, Adult Immunizations up to date. - Infectious Disease History:: Denies. Denies. - Social history:: Smoking status: Patient denies any tobacco usage or history of. Smoking status: unknown. ROS: 10:56 Neuro: Positive for dizziness, speech changes, jj9 20:11 Constitutional: Negative for fever, chills, and weight loss, Eyes: Negative for injury, jj9 pain, redness, and discharge, ENT: Negative for injury, pain, and discharge, Neck: Negative for injury, pain, and swelling, Cardiovascular: Negative for chest pain, palpitations, and edema, Respiratory: Negative for shortness of breath, cough, wheezing, and pleuritic chest pain, Abdomen/GI: Negative for abdominal pain, nausea, vomiting, diarrhea, and constipation, MS/Extremity: Negative for injury and deformity, Skin: Negative for injury, rash, and discoloration, Neuro: Negative for headache, weakness, numbness, tingling, and seizure, Psych: Negative for depression, anxiety, suicide ideation, homicidal ideation, and hallucinations, Allergy/Immunology: Negative for hives, rash, and allergies, Endocrine: Negative for neck swelling, polydipsia, polyuria, polyphagia, and marked weight changes, Exam: 10:56 Radiologist reports: No acute findings jj9 13:49 ECG was reviewed by the Attending Physician. Sinus bradycardia with frequent PVCs, rate jj9 of [address]-T changes. 20:12 Constitutional: This is a well developed, well nourished patient who is awake, alert, jj9 and in no acute distress. Head/Face: Normocephalic, atraumatic. Eyes: Pupils equal round and reactive to light, extra-ocular motions intact. Lids and lashes normal. Conjunctiva and sclera are non-icteric and not injected. Cornea within normal limits. Periorbital areas with no swelling, redness, or edema. ENT: Nares patent. No nasal discharge, no septal abnormalities noted. Tympanic membranes are normal and external auditory canals are clear. Oropharynx with no redness, swelling, or masses, exudates, or evidence of obstruction, uvula midline. Mucous membranes moist. Neck: Trachea midline, no thyromegaly or masses palpated, and no cervical lymphadenopathy. Supple, full range of motion without nuchal rigidity, or vertebral point tenderness. No Meningismus. Chest/axilla: Normal chest wall appearance and motion. Nontender with no deformity. No lesions are appreciated. Cardiovascular: Regular rate and rhythm with a normal S1 and S2. No gallops, murmurs, or rubs. Normal PMI, no JVD. No pulse deficits. Respiratory: Lungs have equal breath sounds bilaterally, clear to auscultation and percussion. No rales, rhonchi or wheezes noted. No increased work of breathing, no retractions or nasal flaring. Abdomen/GI: Soft, non-tender, with normal bowel sounds. No distension or tympany. No guarding or rebound. No evidence of tenderness throughout. Back: No spinal tenderness. No costovertebral tenderness. Full range of motion. Skin: Warm, dry with normal turgor. Normal color with no rashes, no lesions, and no evidence of cellulitis. MS/ Extremity: Pulses equal, no cyanosis. Neurovascular intact. Full, normal range of motion. Neuro: Awake and alert, GCS 15, oriented to person, place, time, and situation. Cranial nerves II-XII grossly intact. Motor strength 5/5 in all extremities. Sensory grossly intact. Cerebellar exam normal. Normal gait. Psych: Awake, alert, with orientation to person, place and time. Behavior, mood, and affect are within normal limits. Vital Signs: 10:45 BP 155 / 80; Pulse 52; Resp 18; Temp 98.2(O); Pulse Ox 99% on R/A; Weight 70.76 kg; ld1 Height 5 ft. 10 in. ; Pain 0/10; 11:32 BP 173 / 68; Pulse 52; Resp 18; Pulse Ox 99% on R/A; ld1 13:27 BP 166 / 64; Pulse 58; Resp 18; Pulse Ox 99% on R/A; ld1 14:45 BP 156 / 70; Pulse 55; Resp 18; Pulse Ox 96% on R/A; ld1 15:09 BP 174 / 63; Pulse 51; Resp 18; Pulse Ox 97% on R/A; ld1 10:45 Body Mass Index 22.38 (70.76 kg, 177.8 cm) ld1 10:45 Pain Scale: Adult ld1 NIH Stroke Scale Scores: 10:45 NIHSS Score: 0 ld1 10:58 NIHSS Score: 0 [facility] MDM: 10:48 Medical Screening Exam initiated [facility] 10:57 Differential diagnosis: CVA, TIA, Dementia, metabolic disorder, UTI, infection. [facility] Discussion of test interpretation with radiology: I had a discussion with radiology regarding a test interpretation. No acute findings on CT's,. 13:41 Consideration of Admission/Observation. ED course: 89-year-old man comes to the [facility] emergency department for evaluation of dizziness and brief episode of slurred speech happening this morning around 8:30 AM. Symptoms improve on their own without significant intervention. The patient is awake alert oriented at the time of arrival to the emergency department he denies any problems at this time. Neurological exam is unremarkable NIH score is 0. The patient has history of aneurysm, diverticulitis, hyperlipidemia, hypertension, and apparently recent UTI. His workup essentially negative no acute intracranial abnormalities on CT and CT angiogram of the head, and neck. Cardiac enzymes are negative, patient has but appears to be an underlying CKD. He currently feels fine and ready go home he denies any other problems. I discussed the case with Neurology Dr. Erickson the patient understands and agrees with the plan. . 13:45 Management of patient was discussed with the following: Farm Facility Manager: Neurologist Dr. dixie Erickson the patient will f/u in clinic. . Historians other than the Patient: Provider. ED course: . 10/15 10:57 Order name: Basic Metabolic Panel; Complete Time: 13:00 EDMS 10/15 10:57 Order name: CBC with Automated Diff; Complete Time: 11:58 EDCA 10/15 10:57 Order name: Protime (+INR); Complete Time: 11:58 EDMS 10/15 11:15 Order name: PTT, Activated Partial Thromb; Complete Time: 11:58 EDCA 10/15 11:16 Order name: CREATININE WHOLE BLOOD; Complete Time: 11:58 EDCA 10/15 12:21 Order name: Urinalysis w/ reflexes; Complete Time: 13:43 [facility] 10/15 10:57 Order name: Head angio; Complete Time: 11:58 EDCA 10/15 10:57 Order name: Neck Angio; Complete Time: 11:58 EDCA 10/15 10:59 Order name: Ct Stroke Brain Wo Cont; Complete Time: 11:58 EDCA 10/15 11:14 Order name: Chest Single View; Complete Time: 11:58 EDCA 10/15 10:49 Order name: Accucheck; Complete Time: 11:08 10/15 10:49 Order name: Cardiac monitoring; Complete Time: 11: 10/15 10:49 Order name: EKG - Nurse/Tech; Complete Time: 11: 10/15 10:49 Order name: IV Saline Lock; Complete Time: : 10/15 10:49 Order name: Labs collected and sent; Complete Time: 11: 10/15 10:49 Order name: NPO; Complete Time: : 10/15 10:49 Order name: O2 Per Protocol; Complete Time: : 10/15 10:49 Order name: O2 Sat Monitoring; Complete Time: 11: 10/15 10:49 Order name: Stroke Swallow Screen; Complete Time: : Administered Medications: No medications were administered Disposition Summary: 10/15/24 13:48 Discharge Ordered Notes: Location: Home jj9 Condition: Stable jj9 Diagnosis - Dizziness and giddiness jj9 Followup: jj9 - With: Michael Erickson MD - When: 24 Hours - Reason: Discharge Instructions: - Discharge Summary Sheet jj9 - Dizziness jj9 Forms: - Medication Reconciliation Form jj9 - Antibiotic Education jj9 - Prescription Opioid Use jj9 - Patient Portal Instructions jj9 - Leadership Thank You Letter jj9 NIH Stroke Scale - NIH Stroke Score Date: 10/15/2024 Time: 10:45 Total Score = 0 10. Dysarthria (speech clarity - read or repeat words) - 0(Normal) 11. Extinction and Inattention (visual/tactile/auditory/spatial/personal) - 0(No abnormality) 1a. Level of Consciousness (LOC) - 0(Alert) 1b. Level of Consciousness (LOC) (Month \T\ Age) - 0(Both) 1c. LOC Commands (Open \T\ Closes Eyes/Procurement Intern) - 0(Both) 2. Best Gaze (Lateral Gaze Paresis) - 0(Normal) 3. Visual Field Loss - 0(No visual loss) 4. Facial Palsy - 0(Normal) 5a. Left Arm: Motor (10-second hold) - 0(No drift) 5b. Right Arm: Motor (10-second hold) - 0(No drift) 6a. Left Leg: Motor (5-second hold - always test supine) - 0(No drift) 6b. Right Leg: Motor (5-second hold - always test supine) - 0(No drift) 7. Limb Ataxia (finger/nose \T\ heel/mayen - test with eyes open) - 0(Absent) 8. Sensory Loss (pinprick arms/legs/face) - 0(Normal) 9. Best Language: Aphasia (description/naming/reading) - 0(No aphasia) Initials: ld1 NIH Stroke Scale - NIH Stroke Score Date: 10/15/2024 Time: 10:58 Total Score = 0 10. Dysarthria (speech clarity - read or repeat words) - 0(Normal) 11. Extinction and Inattention (visual/tactile/auditory/spatial/personal) - 0(No abnormality) 1a. Level of Consciousness (LOC) - 0(Alert) 1b. Level of Consciousness (LOC) (Month \T\ Age) - 0(Both) 1c. LOC Commands (Open \T\ Closes Eyes/Procurement Intern) - 0(Both) 2. Best Gaze (Lateral Gaze Paresis) - 0(Normal) 3. Visual Field Loss - 0(No visual loss) 4. Facial Palsy - 0(Normal) 5a. Left Arm: Motor (10-second hold) - 0(No drift) 5b. Right Arm: Motor (10-second hold) - 0(No drift) 6a. Left Leg: Motor (5-second hold - always test supine) - 0(No drift) 6b. Right Leg: Motor (5-second hold - always test supine) - 0(No drift) 7. Limb Ataxia (finger/nose \T\ heel/mayen - test with eyes open) - 0(Absent) 8. Sensory Loss (pinprick arms/legs/face) - 0(Normal) 9. Best Language: Aphasia (description/naming/reading) - 0(No aphasia) Initials: jj9 Signatures: Dispatcher [employer] EDCA Natalie Goddard RN RN ap3 Nelida Jurado RN RN ld1 Vel Soriano MD MD jj9 Corrections: (The following items were deleted from the chart) 11:15 10:57 PTT, Activated Partial Thromb ordered. [facility] EDCA 13:48 13:41 ED course: 89-year-old man comes to the emergency department for jj9 evaluation of dizziness and brief episode of slurred speech happening this morning around 8:30 AM. Symptoms improve on their own without significant intervention. The patient is awake alert oriented at the time of arrival to the emergency department he denies any problems at this time. Neurological exam is unremarkable NIH score is 0. The patient has history of aneurysm, diverticulitis, hyperlipidemia, hypertension, and apparently recent UTI. His workup essentially negative no acute intracranial abnormalities on CT and CT angiogram of the head, and neck. Cardiac enzymes are negative, patient has but appears to be an underlying CKD. He currently feels fine and ready go home he denies any other problems.. jj9
--- NOTE | 2024-10-15 13:49 | ER ---
Nurse's Notes [facility] Name: Navi Contreras Age: 89 yrs Sex: Male : 1935 Arrival Date: 10/15/2024 Time: 10:45 Bed 2 Private MD: Diagnosis: Dizziness and giddiness Presentation: 10/15 10:45 Chief complaint: EMS states: toned out to patient home for dizziness and dysphagia - ld1 onset 0830 10/15/24. Pt reports symptoms resolving prior to ER. No acute neurological deficit is noted. The patients blood glucose was checked before arriving to the hospital and was found to be normal. Initial Sepsis Screen: Does the patient meet any 2 criteria? No. Patient's initial sepsis screen is negative. Does the patient have a suspected source of infection? No. Patient's initial sepsis screen is negative. Risk Assessment: Do you want to hurt yourself or someone else? Patient reports no desire to harm self or others. Onset of symptoms was October 15, 2024. 10:45 Acuity: IFTIKHAR 2 ld1 10:55 Coronavirus screen: At this time, the client does not indicate any symptoms associated ld1 with coronavirus-19. Ebola Screen: No symptoms or risks identified at this time. 10:55 Method Of Arrival: EMS: [facility] ld1 Triage Assessment: 10:45 The onset of the patients symptoms was October 15, 2024 at 08:30. General: Appears in no ld1 apparent distress. comfortable, Behavior is calm, cooperative, appropriate for age. Pain: Denies pain. EENT: No signs and/or symptoms were reported regarding the EENT system. Neuro: Level of Consciousness is awake, alert, obeys commands, Oriented to person, place, time, situation, Reports dizziness, since 0830. Cardiovascular: Capillary refill < 3 seconds Patient's skin is warm and dry. Rhythm is atrial fibrillation. Respiratory: Airway is patent Respiratory effort is even, unlabored. GI: Abdomen is flat, non-distended. : No signs and/or symptoms were reported regarding the genitourinary system. Derm: No signs and/or symptoms reported regarding the dermatologic system. Musculoskeletal: No signs and/or symptoms reported regarding the musculoskeletal system. Stroke Activation: Symptom onset < 3 hours Physician: ED Attending; Name: ; Notified At: 10:41; Arrived At: Physician: Mid-Level Provider; Name: ; Notified At: 10:41; Arrived At: Physician: [not used]; Name: ; Notified At: ; Arrived At: Physician: [not used]; Name: ; Notified At: ; Arrived At: Physician: [not used]; Name: ; Notified At: ; Arrived At: Historical: - Allergies: 10:58 Tetanus Vaccines and Toxoid; ap3 10:58 Tetanus Vaccines and Toxoid; ld1 - Home Meds: 10:58 Eliquis 2.5 mg oral tablet 1 tab [Active]; ld1 - PMHx: 10:58 Aneurysm; Diverticulitis; Hyperlipidemia; Hypertension; ap3 10:58 Aneurysm; Diverticulitis; Hyperlipidemia; Hypertension; Atrial fibrillation; ld1 - Immunization history:: Adult Immunizations unknown, Adult Immunizations up to date. - Infectious Disease History:: Denies. Denies. - Social history:: Smoking status: Patient denies any tobacco usage or history of. Smoking status: unknown. Screenin:09 [facility] ED Fall Risk Assessment (Adult) History of falling in the last 3 months, ld1 including since admission No falls in past 3 months (0 pts) Confusion or Disorientation No (0 pts) Intoxicated or Sedated No (0 pts) Impaired Gait No (0 pts) Mobility Assist Device Used No (0 pt) Altered Elimination No (0 pt) Score/Fall Risk Level 0 - 2 = Low Risk Oriented to surroundings, Hourly rounding (assess needs \T\ fall precautionary measures) done. Abuse screen: Denies threats or abuse. Denies injuries from another. Nutritional screening: No deficits noted. Tuberculosis screening: No symptoms or risk factors identified. Assessment: 10:41 General: code stroke called at 1041. ap3 10:45 VAN Scoring: Arm Drift: Patients demonstrates NO arm weakness. Patient is VAN Negative. ld1 [place] Swallow Protocol 3 oz Water Swallow Challenge: Pt able to drink all water without stopping, coughing, choking or throat clearing: Yes Result: PASS Notified: Vel Soriano MD. [place] Swallow Protocol Exclusion Criteria: Unable to remain alert for testing: No Brief Cognitive Screen What is your name? Normal, Where are you right now? Normal, What year is it? Normal. Oral Mechanism Examination Facial Symmetry: Normal, Motion: Normal, Lip Closure: Normal, Oral Mechanism Result: Normal. TNKase (Tenecteplase) Screening: Contraindications: Is the patient on Aspirin, Heparin, or Warfarin: Yes. Reassessment: See triage assessment. Pain: Denies pain. Neuro: [place]azo Agitation-Sedation Scale (RASS): 0 - Alert and Calm Level of Consciousness is awake, alert, obeys commands, Oriented to person, place, time, situation. 11:35 Reassessment: Patient appears in no apparent distress at this time. No changes from ld1 previously documented assessment. Patient and/or family updated on plan of care and expected duration. Pain level reassessed. 13:27 Reassessment: Patient appears in no apparent distress at this time. No changes from ld1 previously documented assessment. Patient and/or family updated on plan of care and expected duration. Pain level reassessed. Patient denies pain at this time. Patient states symptoms have improved. 14:00 Reassessment: Patient appears in no apparent distress at this time. No changes from ld1 previously documented assessment. Patient and/or family updated on plan of care and expected duration. Pain level reassessed. Patient states symptoms have improved. 14:55 Reassessment: Patient appears in no apparent distress at this time. No changes from ld1 previously documented assessment. Patient and/or family updated on plan of care and expected duration. Pain level reassessed. Patient denies pain at this time. 15:09 Reassessment: Patient appears in no apparent distress at this time. No changes from ld1 previously documented assessment. Patient and/or family updated on plan of care and expected duration. Pain level reassessed. Vital Signs: 10:45 BP 155 / 80; Pulse 52; Resp 18; Temp 98.2(O); Pulse Ox 99% on R/A; Weight 70.76 kg; ld1 Height 5 ft. 10 in. ; Pain 0/10; 11:32 BP 173 / 68; Pulse 52; Resp 18; Pulse Ox 99% on R/A; ld1 13:27 BP 166 / 64; Pulse 58; Resp 18; Pulse Ox 99% on R/A; ld1 14:45 BP 156 / 70; Pulse 55; Resp 18; Pulse Ox 96% on R/A; ld1 15:09 BP 174 / 63; Pulse 51; Resp 18; Pulse Ox 97% on R/A; ld1 10:45 Body Mass Index 22.38 (70.76 kg, 177.8 cm) ld1 10:45 Pain Scale: Adult ld1 NIH Stroke Scale Scores: 10:45 NIHSS Score: 0 ld1 10:58 NIHSS Score: 0 jj9 ED Course: 10:45 Maintain EMS IV. Dressing intact. Good blood return noted. Site clean \T\ dry. Gauge \T\ ld 1 site: 20G RAC. Flushed with 10 mL NS. 10:45 Arm band placed on right wrist. ld1 10:47 Patient arrived in ED. ss 10:48 Vel Soriano MD is Attending Physician. jj9 10:58 Triage completed. ld1 11:03 Ct Stroke Brain Wo Cont In Process Unspecified. EDMS 11:07 Head angio In Process Unspecified. EDMS 11:07 Neck Angio In Process Unspecified. EDMS 11:07 Nelida Jurado, KIA is Primary Nurse. ld1 11:29 Chest Single View In Process Unspecified. EDMS 13:18 Urinalysis w/ reflexes Sent. ld1 13:48 Michael Erickson MD is Referral Physician. jj9 15:17 No provider procedures requiring assistance completed. IV discontinued, intact, id bleeding controlled. Administered Medications: No medications were administered Medication: 15:09 VIS not applicable for this client. ld1 Outcome: 13:48 Discharge ordered by . jj9 15:18 Discharged to home via wheelchair, with family, id 15:18 Condition: stable 15:18 Discharge instructions given to patient, family, Instructed on discharge instructions, follow up and referral plans. Demonstrated understanding of instructions, follow-up care, 15:19 Patient left the ED. id NIH Stroke Scale - NIH Stroke Score Date: 10/15/2024 Time: 10:45 Total Score = 0 10. Dysarthria (speech clarity - read or repeat words) - 0(Normal) 11. Extinction and Inattention (visual/tactile/auditory/spatial/personal) - 0(No abnormality) 1a. Level of Consciousness (LOC) - 0(Alert) 1b. Level of Consciousness (LOC) (Month \T\ Age) - 0(Both) 1c. LOC Commands (Open \T\ Closes Eyes/Corporate Physical Security Supervisor) - 0(Both) 2. Best Gaze (Lateral Gaze Paresis) - 0(Normal) 3. Visual Field Loss - 0(No visual loss) 4. Facial Palsy - 0(Normal) 5a. Left Arm: Motor (10-second hold) - 0(No drift) 5b. Right Arm: Motor (10-second hold) - 0(No drift) 6a. Left Leg: Motor (5-second hold - always test supine) - 0(No drift) 6b. Right Leg: Motor (5-second hold - always test supine) - 0(No drift) 7. Limb Ataxia (finger/nose \T\ heel/mayen - test with eyes open) - 0(Absent) 8. Sensory Loss (pinprick arms/legs/face) - 0(Normal) 9. Best Language: Aphasia (description/naming/reading) - 0(No aphasia) Initials: ld1 NIH Stroke Scale - NIH Stroke Score Date: 10/15/2024 Time: 10:58 Total Score = 0 10. Dysarthria (speech clarity - read or repeat words) - 0(Normal) 11. Extinction and Inattention (visual/tactile/auditory/spatial/personal) - 0(No abnormality) 1a. Level of Consciousness (LOC) - 0(Alert) 1b. Level of Consciousness (LOC) (Month \T\ Age) - 0(Both) 1c. LOC Commands (Open \T\ Closes Eyes/Corporate Physical Security Supervisor) - 0(Both) 2. Best Gaze (Lateral Gaze Paresis) - 0(Normal) 3. Visual Field Loss - 0(No visual loss) 4. Facial Palsy - 0(Normal) 5a. Left Arm: Motor (10-second hold) - 0(No drift) 5b. Right Arm: Motor (10-second hold) - 0(No drift) 6a. Left Leg: Motor (5-second hold - always test supine) - 0(No drift) 6b. Right Leg: Motor (5-second hold - always test supine) - 0(No drift) 7. Limb Ataxia (finger/nose \T\ heel/mayen - test with eyes open) - 0(Absent) 8. Sensory Loss (pinprick arms/legs/face) - 0(Normal) 9. Best Language: Aphasia (description/naming/reading) - 0(No aphasia) Initials: jj9 Signatures: Dispatcher [employer] EDJanice Diaz, RN RN ss Natalie Goddard RN RN ap3 Nelida Jurado RN RN ld1 Vel Soriano MD MD jj9 Stefani Dang RN RN id Corrections: (The following items were deleted from the chart) 10:58 10:40 BP 155 / 80; Pulse 52bpm; Resp 18bpm; Pulse Ox 99% RA; Temp 98.2F Oral; ld1 70.76 kg; Height 5 ft. 10 in.; BMI: 22.3; Pain 0/10, Adult; ld1
[2024-10-15 15:35] VITALS: TEMP 98.2
[2024-10-15 15:39] VITALS: BP 174/63; O2SAT 97
--- NOTE | 2024-10-18 14:53 | EKG ---
Test Date: 2024-10-15 Test Time: 11:02:51 Plant And Instrument Engineer: ALP MEASUREMENT RESULTS: Intervals: Rate: 76 SD: 176 QRSD: 76 QT: 426 QTc: 479 Ramona: P: 79 SD: 176 QRS: 11 T: 54 INTERPRETIVE STATEMENTS: Sinus bradycardia with frequent premature ventricular complexes Otherwise normal ECG Compared to ECG 09/19/2024 08:03:02 Sinus rhythm no longer present Atrial premature complex(es) no longer present Electronically Signed On 10-18-24 14:44:10 CDT by Mathew Lundy
== END 2024-10-15 15:19 | disposition home or self-care (01) ==
LOC: ER 10:45
DX: R42 Dizziness and giddiness (principal); R41.0 Disorientation, unspecified; I48.91 Unspecified atrial fibrillation; Z79.01 Long term (current) use of anticoagulants; I10 Essential (primary) hypertension
CPT/HCPCS: 93005; 85025; 81001; 80048; 36415; 85610; 82565; 85730; 70496; 70498; 70450; 71045; 99284; Q9967

== ENCOUNTER 2024-11-03 17:41 | Emergency (ER) | payer OTHER, BC ==
--- NOTE | 2024-11-03 18:31 | RAD REPORT ---
EXAMINATION: Head Brain Wo Cont CLINICAL INDICATION: Male, 89 years old.AMS TECHNIQUE: Axial CT images from the skull base to the vertex without intravenous contrast. Coronal an d sagittal reformatted images were created from the data set. One or more of the following dose reduction techniques were used: Automated exposure control, adjustment of the mA and/or kV according to patient size, and/or iterative reconstruction. Unless otherwise specified, incidental findings do not require dedicated imaging follow-up. [id number]. COMPARISON: 10/15/2024 FINDINGS: INTRACRANIAL: No acute intracranial hemorrhage. No hydrocephalus. No mass effect or midline shift. Mo derate chronic small vessel ischemic changes.Moderate cerebral atrophy. Remote basal ganglia and left subinsular infarct. VASCULATURE: No visualized abnormalities in the arteries or dural venous sinuses. SCALP/SKULL: No calvarial fracture identified. No acute soft tissue abnormality. SINUSES: Paranasal sinus thickening including at the maxillary sinuses, sphenoid sinuses, and ethmoid air cells. No significant mastoid fluid. IMPRESSION: No acute intracranial abnormality. Chronic changes as noted above.
--- NOTE | 2024-11-03 18:52 | RAD REPORT ---
EXAM: Chest Single View HISTORY: 89 years Male AMS, bradycardia COMPARISON: 10/15/2024 FINDINGS: LUNGS/PLEURA: The lungs are clear. No pleural effusions or pneumothorax. No pulmonary edema. CARDIAC/MEDIASTINUM: The cardiac silhouette is within normal limits. UPPER ABDOMEN: No significant abnormality. BONES: No acute abnormality. LINES/TUBES/OTHER: N/A IMPRESSION: No evidence of acute cardiopulmonary disease.
[2024-11-03 19:01] LABS: Absolute Basophils 0.1 K/uL (0-0.5); Absolute Eosinophils 0.3 K/uL (0-0.5); Absolute Lymphocytes (CBC) 1.4 K/uL (0.7-4.9); Absolute Monocytes 0.6 K/uL (0.1-1.3); Absolute Neutrophil 5.5 K/uL (1.8-8.0); Eosinophils % 4.1 % (0-4.4); Hematocrit 35.1 % (39.6-49.0); Hemoglobin 11.8 g/dL (13.6-17.9); Lymphocytes % 17.7 % (15.3-44.8); MCH 31.3 pg (27.0-35.0); MCHC 33.7 g/dL (32.0-36.0); MCV 92.8 fL (80-100); MPV 8.1 fL (7.6-11.3); Monocytes % 7.7 % (3.3-12.3); Neutrophils % 69.5 % (41.7-73.7); Platelets 194 thou/uL (152-406); RBC Red Blood Cell Count 3.78 M/uL (4.33-5.43); Red Cell Distribution Width 15.3 % (12.1-15.2)
[2024-11-03 19:05] LABS: PT Prothrombin Time 14.3 SECONDS (10-13.0); PTT, Activated Partial Thromb 33.9 SECONDS (27.2-37.4); Protime INR 1.27
[2024-11-03 19:34] LABS: Albumin/Globulin Ratio 0.7 (1.1-1.8); Anion Gap 8.5 mEq/L (5.0-15.0); Bilirubin Total 0.6 mg/dL (0.2-1.0); Globulin 4.4 g/dL (2.3-3.5); Potassium 4.5 mEq/L (3.5-5.1); Protein, Total 7.4 g/dL (6.4-8.2); Troponin High Sensitivity 17.1 pg/mL (<58.9)
[2024-11-03] MEDS ORDERED: ATROPINE SULFATE 1 MG/ML INJ ONE ×2 (20:02→20:42)
[2024-11-03] MEDS ORDERED: NA CHLORIDE 0.9% 1,000 ML ONE (20:35)
--- NOTE | 2024-11-03 20:41 | EDPHYS ---
Physician Documentation [facility] Name: Navi Contreras Age: 89 yrs Sex: Male : 1935 Arrival Date: 11/03/2024 Time: 17:41 Bed 3 Private MD: ED Physician Milton Naidu HPI: 11/03 18:00 This 89 yrs old Male presents to ER via Unassigned with complaints of Altered Mental rn Status, Bradycardia. 18:00 The patient presents with confusion, decreased responsiveness. Onset: The rn symptoms/episode began/occurred at an unknown time. Possible causes: unknown. Current symptoms: In the emergency department the patient's symptoms are unchanged from the initial presentation. It is unknown whether or not the patient has had similar symptoms in the past. EMS reports called out for confusion and altered mental status, per report is being treated for urinary tract infection. Has history of atrial fibrillation on sotalol and metoprolol. They noted heart rate in 30s, gave 0.5 mg atropine and heart rate jumped to the 60s and 70s. Patient is aware that he is confused but denies any focal pain. No chest pain or shortness of breath. Denies accidentally taking extra medication. No abdominal pain. No focal weakness or numbness. No headache.. 20:57 Patient's medications include alprazolam as needed, amlodipine 5 mg daily, apixaban 2.5 sp4 mg twice daily, famotidine 20 mg bedtime, fluticasone inhalation daily, metoprolol daily, simvastatin bedtime, sotalol twice daily, tamsulosin bedtime, clonidine twice daily, . Historical: - Allergies: 18:02 Tetanus Vaccines and Toxoid; hb - Home Meds: 18:02 Xanax 0.25 mg oral tablet as needed [Active]; amlodipine 5 mg tablet daily [Active]; hb Eliquis 2.5 mg Oral tablet 1 tab 2 times per day [Active]; Pepcid 20 mg oral tablet nightly [Active]; Breo Ellipta 200-25 mcg/dose inhalation Blister, With Inhalation Device daily [Active]; Lopressor 50 mg Oral tablet 2 times per day [Active]; simvastatin 20 mg Oral tablet nightly [Active]; sotalol 80 mg Oral tablet 2 times per day [Active]; tamsulosin 0.4 mg oral capsule every day at bedtime [Active]; clonidine HCl 0.1 mg Oral tablet 2 times per day [Active]; - PMHx: 18:02 Aneurysm; Atrial fibrillation; Diverticulitis; Hyperlipidemia; Hypertension; hb - Immunization history:: Adult Immunizations unknown. - Infectious Disease History:: Denies. - Family history:: not pertinent. - Hospitalizations: : No recent hospitalization is reported. - Social history:: Smoking status: unknown. ROS: 18:03 Constitutional: Negative for fever, chills, and weight loss, Neck: Negative for injury, rn pain, and swelling, Cardiovascular: Negative for chest pain, palpitations, and edema, Respiratory: Negative for shortness of breath, cough, wheezing, and pleuritic chest pain, Abdomen/GI: Negative for abdominal pain, nausea, vomiting, diarrhea, and constipation, Back: Negative for injury and pain, : Negative for injury, bleeding, discharge, and swelling, MS/Extremity: Negative for injury and deformity, Neuro: Positive for generalized weakness, negative for headache or seizure. No syncope. No focal weakness or numbness Exam: 18:03 Constitutional: This is a well developed, well nourished patient who is awake, alert, rn and in no acute distress. Pleasantly confused but answers questions appropriately Head/Face: Normocephalic, atraumatic. ENT: Dry mucous membranes Cardiovascular: Bradycardic, irregular Respiratory: No increased work of breathing, no retractions or nasal flaring. Abdomen/GI: Soft, non-tender MS/ Extremity: Pulses equal, no cyanosis. Neuro: Awake and alert, GCS 15, oriented to person, and situation. Cranial nerves II-XII grossly intact. Motor strength 4/5 in all extremities. Sensory grossly intact. 18:40 ECG was reviewed by the Attending Physician. rn Vital Signs: 17:45 BP 180 / 66; Pulse 57; Resp 15; Temp 98.2; Pulse Ox 100% on R/A; Pain 0/10; hb 18:50 BP 150 / 71; Pulse 56; Resp 16 S; Pulse Ox 100% on R/A; aa5 20:00 BP 151 / 82; Pulse 59; Resp 18; Pulse Ox 96% ; me1 20:15 BP 183 / 68; Pulse 70; Resp 18; Pulse Ox 99% ; me1 20:30 BP 174 / 56; Pulse 58; Resp 17; Pulse Ox 98% ; me1 20:45 BP 176 / 70; Pulse 60; Resp 17; Pulse Ox 98% ; me1 21:15 BP 156 / 66; Pulse 66; Resp 18; Pulse Ox 97% ; me1 21:42 BP 96 / 72; Pulse 69; Resp 18; Pulse Ox 100% ; me1 22:20 BP 104 / 89; Pulse 55; Resp 18; Pulse Ox 98% ; me1 17:45 Pain Scale: Adult hb MDM: 17:55 Medical Screening Exam initiated rn 20:38 ED course: COMPARISON: 10/15/2024 FINDINGS: INTRACRANIAL: No acute intracranial sp4 hemorrhage. No hydrocephalus. No mass effect or midline shift. Moderate chronic small vessel ischemic changes.Moderate cerebral atrophy. Remote basal ganglia and left subinsular infarct. VASCULATURE: No visualized abnormalities in the arteries or dural venous sinuses. SCALP/SKULL: No calvarial fracture identified. No acute soft tissue abnormality. SINUSES: Paranasal sinus thickening including at the maxillary sinuses, sphenoid sinuses, and ethmoid air cells. No significant mastoid fluid. IMPRESSION: No acute intracranial abnormality. Chronic changes as noted above. . ED course: HISTORY: 89 years Male AMS, bradycardia COMPARISON: 10/15/2024 FINDINGS: LUNGS/PLEURA: The lungs are clear. No pleural effusions or pneumothorax. No pulmonary edema. CARDIAC/MEDIASTINUM: The cardiac silhouette is within normal limits. UPPER ABDOMEN: No significant abnormality. BONES: No acute abnormality. LINES/TUBES/OTHER: N/A IMPRESSION: No evidence of acute cardiopulmonary disease. . 20:43 Differential Diagnosis: electrolyte abnormality, pneumonia, seizure, sepsis, TIA, UTI, sp4 volume depletion. Data reviewed: vital signs, nurses notes, EMS record, old medical records, lab test result(s), EKG, radiologic studies, CT scan, plain films. Consideration of Admission/Observation Escalation of care including admission/observation considered. Management of patient was discussed with the following: Staff Auditor: Connie Tony MD , pcts was contacted by Dr. Lundy / . ED course: Patient stable for transfer to [facility].. 11/03 17:57 Order name: Blood Culture Adult (2) rn 11/03 17:57 Order name: CBC with Diff; Complete Time: 20:05 rn 11/03 17:57 Order name: CMP; Complete Time: 20:05 rn 11/03 17:57 Order name: Lactate w/ 2H reflex if indic.; Complete Time: 20:05 rn 11/03 17:57 Order name: Protime (+inr); Complete Time: 20:05 rn 11/03 17:57 Order name: Ptt, Activated; Complete Time: 20:05 rn 11/03 17:57 Order name: Urinalysis w/ reflexes; Complete Time: 21:17 rn 11/03 17:57 Order name: Troponin High Sensitivity; Complete Time: 20:05 rn 11/03 17:57 Order name: BNP; Complete Time: 20:05 rn 11/03 17:57 Order name: Chest Single View XRAY; Complete Time: 18:53 rn 11/03 18:03 Order name: CT Head Brain wo Cont; Complete Time: 18:32 rn 11/03 17:57 Order name: Cardiac monitoring; Complete Time: 18:13 rn 11/03 17:57 Order name: EKG - Nurse/Tech; Complete Time: 18:13 rn 11/03 17:57 Order name: IV Saline Lock - Large Bore; Complete Time: 18:13 rn 11/03 17:57 Order name: Labs collected and sent; Complete Time: 18:56 rn 11/03 17:57 Order name: O2 Per Protocol; Complete Time: 18:13 rn 11/03 17:57 Order name: O2 Sat Monitoring; Complete Time: 18:13 rn 11/03 17:57 Order name: Vital Signs; Complete Time: 18:13 rn 11/03 20:30 Order name: Cath; Complete Time: 20:54 sp4 11/03 20:34 Order name: NPO; Complete Time: 20:39 sp4 EC:40 Rate is 48 beats/min. Rhythm is regular. QRS [place] is Normal. IA interval is normal. QRS rn interval is normal. QT interval is normal. No Q waves. T waves are Normal. No ST changes noted. Clinical impression: Sinus bradycardia. Interpreted by me. Reviewed by me. Administered Medications: 20:05 Drug: Atropine IVP 1 mg IVP once Route: IVP; Site: right wrist; me1 20:26 Follow up: Response: No adverse reaction me1 20:44 Drug: NS 0.9% IV 1000 ml IV at 100 bolus Per protocol; to be given as a bolus over 60 me1 minutes Route: IV; Rate: 100 bolus; Site: right wrist; 22:03 Follow up: IV Status: Infusion continued upon transfer dd2 20:44 Drug: Atropine IVP 1 mg IVP once Route: IVP; Site: right wrist; me1 21:10 Follow up: Response: No adverse reaction me1 20:54 Not Given (Physician Discretion): midodrine 10 mg PO once dd2 21:09 CANCELLED (Duplicate Order; confirmed with Dr Griggs): ns 0.9% 1000 ml IV at 100 me1 ml/hr Per protocol; to be given as a bolus over 60 minutes Disposition: 20:43 Critical Care:. sp4 Disposition Summary: 11/03/24 20:41 Transfer Ordered Notes: Transfer Location: [facility] sp4 Reason: Higher level of care sp4 Condition: Serious sp4 Problem: new sp4 Symptoms: have improved sp4 Accepting Physician: Connie Tony MD - Electrophysiology (11/03/24 22:31) me1 Diagnosis - Symptomatic Bradycardia , Acute Heart Block unspecified sp4 Forms: - Medication Reconciliation Form sp4 - SBAR form sp4 Critical care time excluding procedures: 20:43 Critical care time: Bedside Care: 36 minutes, Consultation: 12 minutes, Family sp4 Intervention: 12 minutes. Total time: 60 minutes Signatures: Dispatcher [employer] EDMS Hilario Infante MD MD rn Baxter, Heather, RN RN hb Potepalov, Sergey, MD MD sp4 Edwina Rogers RN RN me1 AZUCENA MENESES RN dd2 Corrections: (The following items were deleted from the chart) 17:57 17:57 BLOOD CULTURE*+BA.LAB.BRZ ordered. EDMS EDMS 17:57 17:57 CBC+H.LAB.BRZ ordered. EDMS EDMS 17:57 17:57 COMPREHENSIVE METABOLIC PANEL+C.LAB.BRZ ordered. EDMS EDMS 17:57 17:57 LACTATE+C.LAB.BRZ ordered. EDMS EDMS 17:57 17:57 PROTIME (+INR)+COAG.LAB.BRZ ordered. EDMS EDMS 17:57 17:57 PTT, ACTIVATED+COAG.LAB.BRZ ordered. EDMS EDMS 17:57 17:57 Urinalysis+U.LAB.BRZ ordered. EDMS EDMS 17: 17:57 Troponin High Sensitivity+C.LAB.BRZ ordered. EDMS EDMS 17:57 17:57 PROBNP+C.LAB.BRZ ordered. EDMS EDMS 17:57 17:57 Chest Single View+RAD.RAD.BRZ ordered. EDMS EDMS 21:09 20:35 NS 0.9% IV 1000 ml IV at 100 ml/hr Per protocol; to be given as a bolus over 60 me1 minutes ordered. sp4 22:31 20:41 Connie Tony MD - Electrophysiology sp4 me1
--- NOTE | 2024-11-03 20:41 | ER ---
Nurse's Notes [facility] Name: Navi Contreras Age: 89 yrs Sex: Male : 1935 Arrival Date: 11/03/2024 Time: 17:41 Bed 3 Private MD: Diagnosis: Symptomatic Bradycardia , Acute Heart Block unspecified Presentation: 11/03 17:45 Chief complaint: EMS states: Home health nurse reports AMS x 2 days, being treated for hb UTI. BP 140/88, HR 28, improved to 70s after atropine 0.5mg and NS 400 to 20g RAC. 17:45 Method Of Arrival: EMS: [facility] hb 17:45 Coronavirus screen: At this time, the client does not indicate any symptoms associated hb with coronavirus-19. Ebola Screen: No symptoms or risks identified at this time. Initial Sepsis Screen: Does the patient meet any 2 criteria? No. Patient's initial sepsis screen is negative. Does the patient have a suspected source of infection? No. Patient's initial sepsis screen is negative. Risk Assessment: Do you want to hurt yourself or someone else? Patient reports no desire to harm self or others. Onset of symptoms was November 02, 2024. 17:45 Acuity: IFTIKHAR 2 hb Historical: - Allergies: 18:02 Tetanus Vaccines and Toxoid; hb - Home Meds: 18:02 Xanax 0.25 mg oral tablet as needed [Active]; amlodipine 5 mg tablet daily [Active]; hb Eliquis 2.5 mg Oral tablet 1 tab 2 times per day [Active]; Pepcid 20 mg oral tablet nightly [Active]; Breo Ellipta 200-25 mcg/dose inhalation Blister, With Inhalation Device daily [Active]; Lopressor 50 mg Oral tablet 2 times per day [Active]; simvastatin 20 mg Oral tablet nightly [Active]; sotalol 80 mg Oral tablet 2 times per day [Active]; tamsulosin 0.4 mg oral capsule every day at bedtime [Active]; clonidine HCl 0.1 mg Oral tablet 2 times per day [Active]; - PMHx: 18:02 Aneurysm; Atrial fibrillation; Diverticulitis; Hyperlipidemia; Hypertension; hb - Immunization history:: Adult Immunizations unknown. - Infectious Disease History:: Denies. - Family history:: not pertinent. - Hospitalizations: : No recent hospitalization is reported. - Social history:: Smoking status: unknown. Screenin:[address] [facility] ED Fall Risk Assessment (Adult) History of falling in the last 3 months, aa5 including since admission No falls in past 3 months (0 pts) Confusion or Disorientation No (0 pts) Intoxicated or Sedated No (0 pts) Impaired Gait No (0 pts) Mobility Assist Device Used No (0 pt) Altered Elimination No (0 pt) Score/Fall Risk Level 0 - 2 = Low Risk Oriented to surroundings, Maintained a safe environment, Educated pt \\T\\ family on fall prevention, incl call for assistance when getting out of bed, Assessed \\T\\ reinforced patient's understanding of fall precautions. 18:56 Abuse screen: Denies threats or abuse. Nutritional screening: No deficits noted. aa5 Tuberculosis screening: No symptoms or risk factors identified. Assessment: 18:10 General: Appears comfortable, Behavior is calm, cooperative. Pain: Denies pain. Neuro: aa5 Level of Consciousness is awake, alert, obeys commands, Oriented to person, place, time, situation, Appropriate for age Scout Sniper are weak bilaterally Moves all extremities. Speech is normal, Facial symmetry appears normal, Reports "Feeling confused". Cardiovascular: Heart tones S1 S2 present Rhythm is sinus bradycardia. Respiratory: Airway is patent Respiratory effort is even, unlabored, Respiratory pattern is regular, symmetrical. GI: Abdomen is non-distended, Abd is soft and non tender X 4 quads. : Reports recent UTI. EENT: No signs and/or symptoms were reported regarding the EENT system. Derm: Skin is pink, warm \\T\\ dry. Musculoskeletal: Range of motion: intact in all extremities. 18:45 Reassessment: Pt back from CT scan, additional warm blankets provided for comfort. . aa5 18:48 Reassessment: Patient is alert, oriented x 3, equal unlabored respirations, skin aa5 warm/dry/pink. 21:06 General: Pacer pads applied per order. . me1 21:10 Reassessment: Attempted to call report to [facility], put on hold for 15 minutes. me1 21:25 Reassessment: Called [facility] ER to give report. Put on hold for 10 minutes. me1 Vital Signs: 17:45 BP 180 / 66; Pulse 57; Resp 15; Temp 98.2; Pulse Ox 100% on R/A; Pain 0/10; hb 18:50 BP 150 / 71; Pulse 56; Resp 16 S; Pulse Ox 100% on R/A; aa5 20:00 BP 151 / 82; Pulse 59; Resp 18; Pulse Ox 96% ; me1 20:15 BP 183 / 68; Pulse 70; Resp 18; Pulse Ox 99% ; me1 20:30 BP 174 / 56; Pulse 58; Resp 17; Pulse Ox 98% ; me1 20:45 BP 176 / 70; Pulse 60; Resp 17; Pulse Ox 98% ; me1 21:15 BP 156 / 66; Pulse 66; Resp 18; Pulse Ox 97% ; me1 21:42 BP 96 / 72; Pulse 69; Resp 18; Pulse Ox 100% ; me1 22:20 BP 104 / 89; Pulse 55; Resp 18; Pulse Ox 98% ; me1 17:45 Pain Scale: Adult hb ED Course: 17:52 Patient arrived in ED. cm10 17:53 Client placed on continuous cardiac and pulse oximetry monitoring. NIBP monitoring hb applied. awake overnight monitor on. Pulse ox on. NIBP on. 17:53 EKG done, by ED staff, reviewed by Hilario Infante MD. hb 17:55 Hilario Infante MD is Attending Physician. rn 18:02 Triage completed. hb 18:05 Arm band placed on right wrist. hb 18:10 Patient has correct armband on for positive identification. Bed in low position. Call aa5 light in reach. Side rails up X2. Client placed on continuous cardiac and pulse oximetry monitoring. NIBP monitoring applied. awake overnight monitor on. Pulse ox on. NIBP on. 18:23 CT Head Brain wo Cont In Process Unspecified. EDMS 18:43 Chest Single View XRAY In Process Unspecified. EDMS 18:48 Initial lab(s) drawn, by me, sent to lab. First set of blood cultures drawn by me. aa5 18:48 Maintain EMS IV. Dressing intact. Good blood return noted. Site clean \\T\\ dry. Gauge \\T\\ aa 5 site: 20 G to R AC . Flushed with 10 mL NS. 18:51 Monse Tolliver, RN is Primary Nurse. aa5 18:52 Inserted saline lock: 20 gauge in right hand, using aseptic technique. Flushed with 10 aa5 mL NS. 19:08 Report given to KIA Shane. aa5 19:47 Attending Physician role handed off by Hilario Infante MD sp4 19:47 Milton Naidu MD is Attending Physician. sp4 20:02 Blood Culture Adult (2) Sent. mm11 20:23 INITIATED TRANSFER WITH MARILYN \\T\\ [facility]. kmf 20:54 Urine collected: straight cath specimen, clear. me1 21:11 Provided Education on: POC. Family verbalized understanding.. me1 22:29 No provider procedures requiring assistance completed. Patient transferred, IV remains me1 in place. 11/04 00:24 PT WAS ACCEPTED TO [facility]. ACCEPTING DR. OBRIEN \\T\\ 2032. ACCEPTING ADMIN MARILYN Montemayor \\Chandni\\ km f 2032. PT WILL GO TO THE ER- [facility] TO TRANSFER PT. Administered Medications: 11/03 20:05 Drug: Atropine IVP 1 mg IVP once Route: IVP; Site: right wrist; me1 20:26 Follow up: Response: No adverse reaction me1 20:44 Drug: NS 0.9% IV 1000 ml IV at 100 bolus Per protocol; to be given as a bolus over 60 me1 minutes Route: IV; Rate: 100 bolus; Site: right wrist; 22:03 Follow up: IV Status: Infusion continued upon transfer dd2 20:44 Drug: Atropine IVP 1 mg IVP once Route: IVP; Site: right wrist; me1 21:10 Follow up: Response: No adverse reaction me1 20:54 Not Given (Physician Discretion): midodrine 10 mg PO once dd2 21:09 CANCELLED (Duplicate Order; confirmed with Dr Griggs): ns 0.9% 1000 ml IV at 100 me1 ml/hr Per protocol; to be given as a bolus over 60 minutes Medication: 18:58 VIS not applicable for this client. aa5 Outcome: 20:41 ER care complete, transfer ordered by . sp4 22:29 Transferred by ground EMS Note: [facility] me1 22:29 Condition: stable 22:29 Instructed on the need for transfer, 22:31 Patient left the ED. me1 Signatures: Dispatcher [employer] EDMS Hilario Infante MD MD rn Calderon, Audri RN RN aa5 Mirna Hinkle RN RN hb Potepalov Milton, MD MD sp4 Annette Cobian RN RN cm10 Edwina Rogers RN RN me1 Allyson Loja [facility] AZUCENA MENESES RN RN dd2 ed connolly mm11 Corrections: (The following items were deleted from the chart) 20:26 20:00 BP 151 / 82; Pulse 76bpm; Resp 18bpm; Pulse Ox 96%; me1 me1
[2024-11-03] MEDS ORDERED: MIDODRINE HCL 5 MG TABLET ONE ×2 (20:43→20:46)
[2024-11-03 21:03] LABS: Specific Gravity 1.013 (1.005-1.030); Sqamous Epithelial <5 /HPF (None Seen); Urine Bacteria None Seen /HPF (<20); Urine Bilirubin NEGATIVE (Negative); Urine Blood Negative (Negative); Urine Clarity Clear (Clear); Urine Color Light-Yellow (Yellow); Urine Crystals Unidentified Few /HPF (None Seen); Urine Culture Reflex Order NOT NEEDED; Urine Glucose NEGATIVE (Negative); Urine Ketones NEGATIVE (Negative); Urine Microscopic Reflex YN ORDER UMIC; Urine Nitrite NEGATIVE (Negative); Urine Protein 1+ (Negative); Urine RBC <5 /HPF (None Seen); Urine Urobilinogen Normal (Normal); Urine WBC None Seen /HPF (<5); Urine pH 6.5 (5.0-7.0)
[2024-11-03 22:52] VITALS: TEMP 98.2
[2024-11-03 23:01] VITALS: BP 104/89; O2SAT 98
--- NOTE | 2024-11-04 11:18 | EKG ---
Test Date: 2024-11-03 Test Time: 17:53:07 Contract Administration Manager: HB MEASUREMENT RESULTS: Intervals: Rate: 48 NC: 178 QRSD: 72 QT: 472 QTc: 421 [place]: P: 105 NC: 178 QRS: 3 T: 48 INTERPRETIVE STATEMENTS: Sinus bradycardia with marked sinus arrhythmia Otherwise normal ECG Compared to ECG 10/15/2024 11:02:51 Ventricular premature complex(es) no longer present Electronically Signed On 11-04-24 11:16:36 CDT by Mathew Lundy
== END 2024-11-03 22:31 | disposition short-term general hospital (02) ==
LOC: ER 17:41
DX: I45.9 Conduction disorder, unspecified (principal); I48.91 Unspecified atrial fibrillation; Z79.01 Long term (current) use of anticoagulants; I10 Essential (primary) hypertension
CPT/HCPCS: 93005; 87040 ×2; 85025; 81001; 36415; 85610; 83605; 85730; 84484; 80053; 83880; 70450; 71045; J0461 ×2; J7030

== ENCOUNTER 2024-11-17 18:20 | Inpatient (IN) | payer OTHER, BC ==
[2024-11-17 19:18] LABS: Absolute Basophils 0.1 K/uL (0-0.5); Absolute Eosinophils 0.5 K/uL (0-0.5); Absolute Lymphocytes (CBC) 1.6 K/uL (0.7-4.9); Absolute Monocytes 0.9 K/uL (0.1-1.3); Absolute Neutrophil 5.5 K/uL (1.8-8.0); Basophils % 1.4 % (0-1.3); Eosinophils % 6.3 % (0-4.4); Hematocrit 35.2 % (39.6-49.0); Lymphocytes % 18.2 % (15.3-44.8); MCH 31.4 pg (27.0-35.0); MCHC 34.1 g/dL (32.0-36.0); MCV 91.9 fL (80-100); MPV 7.8 fL (7.6-11.3); Monocytes % 10.1 % (3.3-12.3); Nucleated Red Blood Cells % 0.1 % (0-0); Platelets 233 thou/uL (152-406); RBC Red Blood Cell Count 3.83 M/uL (4.33-5.43); Red Cell Distribution Width 15.1 % (12.1-15.2)
[2024-11-17 19:26] LABS: PT Prothrombin Time 13.8 SECONDS (10-13.0); Protime INR 1.22
[2024-11-17 19:31] LABS: Anion Gap 9.1 mEq/L (5.0-15.0); Potassium 4.1 mEq/L (3.5-5.1)
[2024-11-17] MEDS ORDERED: NA CHLORIDE 0.9% 1,000 ML ONE (20:46)
--- NOTE | 2024-11-17 20:53 | RAD REPORT ---
EXAM: CT brain without contrast HISTORY: FALL, HEAD INJURY, AMS, ABD PAIN COMPARISON: 10/15/2024 TECHNIQUE: Multiple contiguous axial images were obtained and a CT of the brain without contrast. Sag ittal and coronal reformats were performed. FINDINGS: No evidence of hydrocephalus, intracranial hemorrhage, or extra-axial fluid collection. The brain is normal in morphology. The calvarium is intact. Polypoidal mucosal thickening and scattered air-fluid levels, throughout the paranasal sinuses most pronounced in the right maxillary sinus. Mastoid air cells are essentially clear. IMPRESSION: No evidence of acute intracranial abnormality. EXAM: CT of the cervical spine without contrast HISTORY: FALL, HEAD INJURY, AMS, ABD PAIN COMPARISON: None TECHNIQUE: Multiple contiguous axial images were obtained in a CT of the cervical spine without contr ast. Sagittal and coronal reformats were performed. FINDINGS: The vertebral bodies demonstrate normal height and alignment. No evidence of acute fracture or subluxation.. Multilevel degenerative changes contributing to moderate to advanced degrees of neural foraminal narrowing bilaterally at C4-5 and on the right at C5-6 and C6-7. No prevertebral so ft tissue swelling is seen. The posterior facets are well aligned. Normal alignment of the skull base with the cervical spine is seen. The lung apices are unremarkable. IMPRESSION: No evidence of acute osseous abnormality of the cervical spine. Degenerative changes as above.
[2024-11-17 21:05] LABS: Troponin High Sensitivity 16.8 pg/mL (<58.9)
--- NOTE | 2024-11-17 21:23 | RAD REPORT ---
EXAM: CT CHEST, ABDOMEN AND PELVIS WITHOUT CONTRAST CLINICAL INDICATION: Male, 89 years old. [facility] fall, head injury, AMS, abd pain Bed Name: 15 TECHNIQUE: CT chest, abdomen and pelvis was performed, without IV contrast, as per department protoco l. Axial, sagittal and coronal reconstructions were obtained. One or more of the following dose reduction techniques were used: Automated exposure control, adjustment of the mA and/or kV according to the patient size, and/or iterative reconstruction. Unless otherwise specified, incidental findings do not require dedicated imaging follow-up. COMPARISON: 09/19/2024. FINDINGS: The lack of intravenous contrast limits the sensitivity of this exam for evaluation of solid visceral organs, vascular structures, and retroperitoneum. Chest: LOWER NECK/CHEST WALL: Visualized thyroid gland and soft tissues are normal. LUNGS AND AIRWAYS: Airways are clear. No evidence of airspace or interstitial process. No nodules. PLEURA: No pleural effusion. No pneumothorax. Hemidiaphragms are normally positioned. MEDIASTINUM AND LYMPH NODES: No mediastinal mass or fluid collection. Normal size mediastinal, hilar, and axillary lymph nodes. THORACIC AORTA: Normal caliber and configuration. PULMONARY ARTERIES: Normal caliber. HEART: Unremarkable. Abdomen/Pelvis LIVER: Normal in size and contour. Inferior right lobe 1 cm hypoattenuating lesions suggestive of a c yst, stable. No focal lesion. GALLBLADDER/BILE DUCTS: No biliary ductal dilatation. PANCREAS: No mass, ductal dilation, or oscar-pancreatic fluid. SPLEEN: Normal size. No focal lesion. ADRENALS: Normal; no mass. KIDNEYS AND URETERS: Normal size and contour with stable somewhat hyperdense right upper pole exophyt ic cyst measuring 2.8 cm. No hydronephrosis. GASTROINTESTINAL TRACT: Stomach is non-dilated. Small bowel has normal course and caliber. No colonic wall thickening or pericolonic inflammatory changes. Distal colonic diverticulosis without evidence of acute diverticulitis. PERITONEUM: No free fluid. LYMPH NODES: No lymphadenopathy. ABDOMINAL AORTA AND OTHER VESSELS: Normal caliber aorta and IVC. URINARY BLADDER: Stable diverticulum arising to the left, measuring 10.9 cm in greatest dimension. REPRODUCTIVE ORGANS: No pathologic process. MUSCULOSKELETAL: No acute or suspicious osseous abnormality. ADDITIONAL FINDINGS: Small right inguinal hernia containing fat. IMPRESSION: No acute or traumatic abnormalities in the chest, abdomen, or pelvis. Stable findings as above.
[2024-11-17 21:38] LABS: Specific Gravity 1.011 (1.005-1.030); Sqamous Epithelial <5 /HPF (None Seen); Urine Bacteria None Seen /HPF (<20); Urine Bilirubin NEGATIVE (Negative); Urine Blood Negative (Negative); Urine Clarity Clear (Clear); Urine Color Light-Yellow (Yellow); Urine Culture Reflex Order NOT NEEDED; Urine Glucose NEGATIVE (Negative); Urine Ketones NEGATIVE (Negative); Urine Microscopic Reflex YN ORDER UMIC; Urine Nitrite NEGATIVE (Negative); Urine Protein 1+ (Negative); Urine RBC <5 /HPF (None Seen); Urine Urobilinogen Normal (Normal); Urine WBC <5 /HPF (<5)
--- NOTE | 2024-11-17 23:01 | EDPHYS ---
Physician Documentation [facility] Name: Navi Contreras Age: 89 yrs Sex: Male : 1935 Arrival Date: 11/17/2024 Time: 18:20 Bed 15 Private MD: ED Physician Milton Naidu HPI: 11/17 18:47 This 89 yrs old Male presents to ER via EMS with complaints of fall, head injury. rn 18:47 Details of fall: The patient fell from an upright position. Onset: The symptoms/episode rn began/occurred just prior to arrival. Associated injuries: The patient sustained injury to the head. Severity of symptoms: At their worst the symptoms were mild, in the emergency department the symptoms are unchanged. EMS reports fall and head injury with confusion. Family reports more confused than baseline confusion. No fever or chills. Patient slow to respond and reports pain to head. Does not recall fall.. Historical: - Allergies: 18:31 Tetanus Vaccines and Toxoid; me1 - PMHx: 18:31 Aneurysm; Atrial fibrillation; Diverticulitis; Hyperlipidemia; Hypertension; me1 bradycardia (Hypertension); - PSHx: 18:31 pacemaker (Hypertension); me1 - Immunization history:: Adult Immunizations unknown. - Infectious Disease History:: Denies. - Social history:: Smoking status: unknown. - Family history:: not pertinent. - Hospitalizations: : No recent hospitalization is reported. ROS: 18:47 Constitutional: Negative for fever, chills, and weight loss, Neck: Negative for injury, rn pain, and swelling, Cardiovascular: Negative for chest pain, palpitations, and edema, Respiratory: Negative for shortness of breath, cough, wheezing, and pleuritic chest pain, Abdomen/GI: Negative for abdominal pain, nausea, vomiting, diarrhea, and constipation, Back: Negative for injury and pain, : Negative for injury, bleeding, discharge, and swelling, MS/Extremity: Negative for injury and deformity, Neuro: Positive for head injury and confusion Exam: 18:47 Constitutional: This is a well developed, well nourished patient who is awake, slow to rn respond but does follow commands and answers questions Head/Face: Normocephalic, atraumatic. Eyes: Pupils equal round and reactive to light, extra-ocular motions intact. Neck: In c-collar, no midline tenderness Chest/axilla: No rib tenderness or crepitus Cardiovascular: Bradycardic, regular. No pulse deficits. Respiratory: No increased work of breathing, no retractions or nasal flaring. Abdomen/GI: Soft, mid abdominal tenderness without peritoneal signs or distention MS/ Extremity: Full range of motion of all 4 extremities without deformity. Skin tear noted to right elbow Neuro: Awake and alert, GCS 15, moves all 4 extremities with equal strength. Oriented to person but not place or time Vital Signs: 18:38 BP 124 / 77; Pulse 54; Resp 18; Temp 98.4; Pulse Ox 97% ; Weight 54.43 kg; Pain 0/10; me1 19:00 BP 164 / 86; Pulse 65; Resp 17; Pulse Ox 97% ; me1 20:00 BP 133 / 92; Pulse 99; Resp 17; Pulse Ox 98% ; me1 21:00 BP 129 / 98; Pulse 107; Resp 19; Pulse Ox 99% ; me1 22:00 BP 134 / 56; Pulse 61; Resp 16; Pulse Ox 96% ; me1 23:00 BP 119 / 79; Pulse 66; Resp 17; Pulse Ox 100% ; me1 04 00:59 BP 134 / 54; Pulse 79; Resp 18; Pulse Ox 96% ; cp4 11/17 18:38 Pain Scale: Adult me1 MDM: 11/17 18:37 Medical Screening Exam initiated rn 23:00 Differential diagnosis: abrasion, closed head injury, multiple trauma, sprain, strain. sp4 Data reviewed: vital signs, nurses notes, EMS record, old medical records, lab test result(s), EKG, radiologic studies, CT scan. Consideration of Admission/Observation Patient was admitted/placed on observation. Escalation of care including admission/observation considered. Management of patient was discussed with the following: Primary Care Provider: Meseret DE LA FUENTE . ED course: stable for admission. 11/17 18:40 Order name: Basic Metabolic Panel; Complete Time: 20:06 rn 11/17 18:40 Order name: CBC with Diff; Complete Time: 20:06 rn 11/17 18:40 Order name: Urinalysis w/ reflexes; Complete Time: 22:05 rn 11/17 18:40 Order name: Protime (+inr); Complete Time: 20:06 rn 11/17 18:40 Order name: Ptt, Activated; Complete Time: 20:06 rn 11/17 20:18 Order name: Troponin High Sensitivity; Complete Time: 22:05 sp4 11/17 20:18 Order name: BNP; Complete Time: 22:05 sp4 11/17 18:45 Order name: Head C Spine Mpr Wo Con; Complete Time: 22:05 EDMS 11/17 19:47 Order name: Chest Abd Pelvis Wo Con; Complete Time: 22:05 EDMS 11/17 18:40 Order name: Labs collected and sent; Complete Time: 19:10 rn 11/17 20:18 Order name: Cath; Complete Time: 20:50 sp4 Administered Medications: 20:52 Drug: NS 0.9% IV 1000 ml IV at 100 ml/hr Per protocol; to be given as a bolus over 60 me1 minutes Route: IV; Rate: 100 ml/hr; Site: right antecubital; 11/18 01:01 Follow up: IV Status: Completed infusion 4 11/17 23:53 Drug: Geodon IM 20 mg IM once Route: IM; Site: left vastus lateralis; cp4 11/18 01:01 Follow up: Response: No adverse reaction cp4 00:00 Drug: Ativan IVP 1 mg IVP once Route: IVP; Site: right antecubital; ha1 01:01 Follow up: Response: No adverse reaction cp4 Disposition Summary: 11/17/24 23:00 Hospitalization Ordered Notes: Hospitalization Status: Inpatient Admission sp4 Provider: Abbe Carl [facility] sp4 Condition: Stable sp4 Problem: new sp4 Symptoms: have improved sp4 Bed/Room Type: Standard sp4 Room Assignment: [facility](11/18/24 00:02) [facility] Diagnosis - Acute hypoactive delirium, acute fall at home, acute head injury, moderate sp4 dehydration, acute on chronic renal insufficiency Forms: - Medication Reconciliation Form sp4 - SBAR form sp4 - Leadership Thank You Letter sp4 Signatures: Dispatcher [employer] Hilario Johnson MD MD rn Ayala, Heidy, RN RN 1 Milton Naidu MD MD 4 Edwina Rogers RN RN [facility] [place] Vanessa Ramirez [facility] Allyson Loja kmf Corrections: (The following items were deleted from the chart) 11/17 18:40 18:40 BASIC METABOLIC PANEL+C.LAB.BRZ ordered. EDMS EDMS 18:40 18:40 CBC+H.LAB.BRZ ordered. EDMS EDMS 18:40 18:40 Urinalysis+U.LAB.BRZ ordered. EDMS EDMS 18:40 18:40 PROTIME (+INR)+COAG.LAB.BRZ ordered. EDMS EDMS 18:40 18:40 PTT, ACTIVATED+COAG.LAB.BRZ ordered. EDMS EDMS 18:40 18:40 Head C Spine CAP W Con+CT.RAD.BRZ ordered. EDMS EDMS 19:47 18:44 Chest Abdomen Pelvis W Cont ordered. EDMS EDMS 11/18 00:02 11/17 23:00 sp4 kmf
--- NOTE | 2024-11-17 23:01 | ER ---
Nurse's Notes [facility] Name: Navi Contreras Age: 89 yrs Sex: Male : 1935 Arrival Date: 11/17/2024 Time: 18:20 Bed 15 Private MD: Diagnosis: Acute hypoactive delirium, acute fall at home, acute head injury, moderate dehydration, acute on chronic renal insufficiency Presentation: 11/17 18:29 Chief complaint: EMS states: toned out for witnessed fall where patient hit his head, me1 No LOC, on blood thinners. Pacemaker placed last week, v paced on monitor, c collar in place, skin tear to R elbow, 18 g RAC. Confused at baseline. Coronavirus screen: Vaccine status: At this time, the client does not indicate any symptoms associated with coronavirus-19. Ebola Screen: No symptoms or risks identified at this time. Risk Assessment: Do you want to hurt yourself or someone else? Patient reports no desire to harm self or others. Onset of symptoms was November 17, 2024 at 18:00. 18:29 Method Of Arrival: EMS: [facility] 18:29 Acuity: IFTIKHAR 3 me1 18:38 Initial Sepsis Screen: Does the patient meet any 2 criteria? No. Patient's initial me1 sepsis screen is negative. Does the patient have a suspected source of infection? No. Patient's initial sepsis screen is negative. Triage Assessment: 18:31 General: Appears in no apparent distress. Behavior is calm, cooperative, appropriate me1 for age. Pain: Denies pain. EENT: No signs and/or symptoms were reported regarding the EENT system. Neuro: Level of Consciousness is awake, alert, obeys commands, Oriented to person, Appropriate for age. Cardiovascular: Patient's skin is warm and dry. Respiratory: Airway is patent Respiratory effort is even, unlabored, Respiratory pattern is regular, symmetrical. GI: No signs and/or symptoms were reported involving the gastrointestinal system. : No signs and/or symptoms were reported regarding the genitourinary system. Derm: Skin with poor turgor Skin is pink, warm \T\ dry. Wound noted right elbow Wound is skin tear. Musculoskeletal: No signs and/or symptoms reported regarding the musculoskeletal system. Injury Description: fall, hit head. no loc. Historical: - Allergies: 18:31 Tetanus Vaccines and Toxoid; me1 - PMHx: 18:31 Aneurysm; Atrial fibrillation; Diverticulitis; Hyperlipidemia; Hypertension; me1 bradycardia (Hypertension); - PSHx: 18:31 pacemaker (Hypertension); me1 - Immunization history:: Adult Immunizations unknown. - Infectious Disease History:: Denies. - Social history:: Smoking status: unknown. - Family history:: not pertinent. - Hospitalizations: : No recent hospitalization is reported. Screenin:48 [facility] ED Fall Risk Assessment (Adult) History of falling in the last 3 months, wy1 including since admission Yes- single mechanical fall (1 pt) Confusion or Disorientation Yes (5 pts) Intoxicated or Sedated No (0 pts) Impaired Gait Yes (1 pt) Mobility Assist Device Used Yes (1 pt) Altered Elimination No (0 pt) Score/Fall Risk Level 3 or more points = High Risk Maintained a safe environment, Provided non-skid footwear, Hourly rounding (assess needs \T\ fall precautionary measures) done, Used ambulatory aids as needed (educated on \T\ assisted with). Abuse screen: Denies threats or abuse. Nutritional screening: No deficits noted. Tuberculosis screening: No symptoms or risk factors identified. Assessment: 19:48 General: See triage assessment. wy1 Vital Signs: 18:38 BP 124 / 77; Pulse 54; Resp 18; Temp 98.4; Pulse Ox 97% ; Weight 54.43 kg; Pain 0/10; me1 19:00 BP 164 / 86; Pulse 65; Resp 17; Pulse Ox 97% ; me1 20:00 BP 133 / 92; Pulse 99; Resp 17; Pulse Ox 98% ; me1 21:00 BP 129 / 98; Pulse 107; Resp 19; Pulse Ox 99% ; me1 22:00 BP 134 / 56; Pulse 61; Resp 16; Pulse Ox 96% ; me1 23:00 BP 119 / 79; Pulse 66; Resp 17; Pulse Ox 100% ; me1 04 00:59 BP 134 / 54; Pulse 79; Resp 18; Pulse Ox 96% ; cp4 11/17 18:38 Pain Scale: Adult [facility] ED Course: 11/17 18:24 Patient arrived in ED. eb 18:29 Edwina Rogers, RN is Primary Nurse. wy1 18:31 Triage completed. me1 18:31 Arm band placed on Patient placed in an exam room. me1 18:37 Hilario Infante MD is Attending Physician. rn 19:04 Maintain EMS IV. Dressing intact. Good blood return noted. Site clean \T\ dry. Gauge \T\ me 1 site: 18g RAC. Flushed with 10 mL NS. 19:08 Attending Physician role handed off by Hilario Infante MD sp4 19:08 Milton Naidu MD is Attending Physician. sp4 19:10 Protime (+inr) Sent. me1 19:10 Ptt, Activated Sent. me1 19:10 Basic Metabolic Panel Sent. me1 19:10 CBC with Diff Sent. me1 19:48 Patient has correct armband on for positive identification. Bed in low position. Call me1 light in reach. Side rails up X 1. Provided Education on: POC. Verbalized understanding. Client placed on continuous cardiac and pulse oximetry monitoring. NIBP monitoring applied. monitoring tech on. Pulse ox on. NIBP on. 19:48 No provider procedures requiring assistance completed. me1 19:58 Head C Spine Mpr Wo Con In Process Unspecified. EDMS 19:58 Chest Abd Pelvis Wo Con In Process Unspecified. EDMS 20:50 BNP Sent. me1 20:50 Troponin High Sensitivity Sent. me1 20:50 Urine collected: straight cath specimen, clear. me1 20:53 Urinalysis w/ reflexes Sent. me1 22:59 Abbe Carl MD is Hospitalizing Provider. sp4 11/18 01:00 Patient admitted, IV remains in place. cp4 Administered Medications: 11/17 20:52 Drug: NS 0.9% IV 1000 ml IV at 100 ml/hr Per protocol; to be given as a bolus over 60 me1 minutes Route: IV; Rate: 100 ml/hr; Site: right antecubital; 11/18 01:01 Follow up: IV Status: Completed infusion cp4 11/17 23:53 Drug: Geodon IM 20 mg IM once Route: IM; Site: left vastus lateralis; cp4 11/18 01:01 Follow up: Response: No adverse reaction cp4 00:00 Drug: Ativan IVP 1 mg IVP once Route: IVP; Site: right antecubital; ha1 01:01 Follow up: Response: No adverse reaction cp4 Medication: 11/17 19:48 VIS not applicable for this client. me1 Outcome: 23:00 Decision to Hospitalize by Provider. sp4 11/18 01:00 Admitted to Med/surg accompanied by tech, via stretcher, with chart, cp4 Condition: stable Instructed on the need for admit, 01:07 Patient left the ED. ha1 Signatures: Dispatcher [employer] EDMS Hilario Infante MD MD rn Botello, Elizabeth eb Ayala, Heidy, RN RN 1 Milton Naidu MD MD 4 Edwina Rogers RN RN wy1 Vanessa Ramirez cp4 Corrections: (The following items were deleted from the chart) 11/17 19:47 18:29 Chief complaint: EMS states: toned out for witnessed fall where patient hit his wy1 head, No LOC, on blood thinners. Pacemaker placed last week, v paced on monitor, c collar in place, skin tear to R elbow, 18 g RAC. Confused at baseline wy1
[2024-11-17] MEDS ORDERED: ZIPRASIDONE MESYLA 20 MG/VIAL IM ONE (23:49)
[2024-11-17] MEDS ORDERED: WATER FOR INJ,STERILE 10 ML ONE (23:50)
[2024-11-17] MEDS ORDERED: LORazepam 2 MG/ML VIAL ONE (23:59)
[2024-11-18] MEDS ORDERED: ALBUTEROL 2.5 MG/3 ML NEB SOL NEB PRN ×2 (01:12→15:54)
[2024-11-18] MEDS ORDERED: MAGNESIUM HYDROXIDE 8% 30 ML PO PRN (01:12)
[2024-11-18] MEDS ORDERED: ZIPRASIDONE MESYLA 20 MG/VIAL IM PRN (01:12)
[2024-11-18] MEDS ORDERED: WATER FOR INJ,STERILE 10 ML IM PRN (01:12)
[2024-11-18] MEDS: NA CHLORIDE 0.9% 1,000 ML IV SCH (01:12)
[2024-11-18] MEDS ORDERED: ACETAMINOPHEN 325 MG TABLET PO PRN (01:12)
[2024-11-18] MEDS ORDERED: ZOLPIDEM TARTRATE 5 MG TABLET PO PRN (01:12)
[2024-11-18] MEDS ORDERED: ONDANSETRON 4 MG/2 ML VIAL IV PRN (01:12)
[2024-11-18 04:22] VITALS: BMI 19.3
[2024-11-18 04:59] LABS: Anion Gap 9.9 mEq/L (5.0-15.0); Potassium 3.9 mEq/L (3.5-5.1); Thyroid Stimulating Hormone 3.3 uIU/mL (0.358-3.740); Troponin High Sensitivity 27.1 pg/mL (<58.9)
[2024-11-18] MEDS ORDERED: cloNIDine HCL 0.1 MG TAB PO SCH (09:00)
[2024-11-18] MEDS ORDERED: FAMOTIDINE 20 MG TAB PO SCH (09:00)
[2024-11-18] MEDS: AMLODIPINE 5 MG TAB PO SCH (09:39)
[2024-11-18] MEDS: METOPROLOL TAR 50 MG TAB PO SCH (09:39)
[2024-11-18] MEDS: APIXABAN 2.5 MG TABLET PO SCH (09:39)
[2024-11-18] MEDS: DULERA 100/5 (MOMETASONE/FORMOTEROL) INHALER IH SCH (09:39)
[2024-11-18] MEDS: FLUTICASONE 50MCG NASAL SPRAY NAS SCH (09:40)
[2024-11-18] MEDS: QUETIAPINE 25 MG TAB PO ONE (16:38)
[2024-11-18] MEDS: LORazepam 2 MG/ML VIAL ONE (17:41)
[2024-11-18] MEDS: LORazepam 2 MG/ML VIAL IV ONE (17:42)
[2024-11-18] MEDS: QUETIAPINE 25 MG TAB PO SCH (21:00)
[2024-11-18] MEDS: TAMSULOSIN 0.4 MG SR CAP PO SCH (21:05)
[2024-11-18] MEDS: FAMOTIDINE 20 MG TAB PO SCH (21:06)
[2024-11-18] MEDS: ATORVASTATIN 10 MG TAB PO SCH (21:06)
[2024-11-18] MEDS: ENSURE ENLIVE 237 ML CAN PO SCH (21:06)
[2024-11-18] MEDS: LORazepam 2 MG/ML VIAL IV PRN (23:19)
--- NOTE | 2024-11-19 00:52 | HP ---
Date of Admission: 11/18/2024 Chief Complaint: Fall. History Of Present Illness: An 89-year-old pleasant male patient, who lives at home, recently had a pacemaker placement about 2 weeks ago at outside hospital, lives at home with full-time caregiver services. The patient did not listen to instruction from caregiver as I understand and decided to walk on his own and fell down and was brought into the emergency room. After he was evaluated, I was contacted requesting admission to hospital. Last night, he had lot of agitation and behavior problems, so he received 1 dose of Geodon and this morning when I saw him, he was sleeping and caregiver was at bedside. I have also called and discussed details with the patient's son this evening. Allergies: TO TETANUS TOXOID CAUSING RASH. Review of Systems: PATIENT ACCOUNT LIAISON: As mentioned above. Constitutional: As mentioned above. All other systems reviewed and negative. Medications: Albuterol nebulizer treatment 4 times a day as needed, alprazolam 0.25 mg at bedtime as needed, amlodipine 5 mg daily in morning, metoprolol 50 mg2 times a day, famotidine 20 mg daily at bedtime, Breo Ellipta inhaler 1 puff daily, fluticasone nasal spray 1 spray each nostril 2 times a day, eliquis 2.5 mg 2 times a day, simvastatin 20 mg daily at bedtime,tamsulosin 0.4 mg daily. Past Medical History: Significant for hypertension, abdominal aortic aneurysm which is infrarenal, chronic kidney disease stage IIIB, unspecified anemia, hyperlipidemia, gastroesophageal reflux disease, benign prostatic hypertrophy, osteoarthritis at multiple sites, impaired fasting glucose. Past Surgical History: Endograft placement on February 10, 2023, for abdominal aortic aneurysm, inguinal hernia repair, transurethral resection of bladder tumor, shoulder surgery, removal of basal cell carcinoma from left ear in 2020. Family History: Parents and brother , details unknown about any of this family members. Social History: Negative for smoking. Use of alcohol, couple of glasses of wine once a week. Physical Examination: Vital Signs: Height 6 feet, weight 143 pounds, temperature 98.2, pulse 75, respiratory rate 16, blood pressure 167/91, oxygen saturation 95%. General: Sleeping, not in distress. HEENT: Head atraumatic, normocephalic. Conjunctivae nonerythematous. Sclerae white. Mouth, no thrush or edema noted. Ears/Nose, no mass, lesion, discharge noted. Neck: Supple. No JVD, lymph nodes, bruit, thyromegaly noted. Lungs: Bilateral good equal air entry. Clear to auscultation. No rhonchi. No rales. Heart: Normal heart sounds, no murmur or gallop. Abdomen: Soft, bowel sounds normal. No guarding, rigidity, tenderness, mass, hepatosplenomegaly, distention, or bruit noted. Extremities: No leg edema. No calf tenderness. Skin: No rash, ulcer, cellulitis. Lymphatics: No lymph node enlargement in neck, supraclavicular, infraclavicular region. Neuro: No focal neurological deficit. Chest: Unremarkable. External Genitalia: Deferred. Rectal: Deferred. Laboratory Data: CAT scan of chest, abdomen, and pelvis shows no acute findings, chronic stable finding includes large bladder diverticulum, liver cyst, renal cyst. CAT scan of the head and cervical spine was negative for any acute changes. Urinalysis was negative. For chemistry yesterday, sodium 139, potassium 4.1, chloride 106, bicarb 28, BUN 22, creatinine 1.80, glucose 119. Initial troponin 16.8, ProBNP 2532, second troponin this morning was 27.1 and this morning chemistry shows sodium 140, potassium 3.9, chloride 105, bicarb 29, BUN 23, creatinine 1.56, glucose 109, TSH 3.30. WBC 8.6, hemoglobin 12, platelets 233. Impression: 1. Encephalopathy, unspecified. 2. Senile dementia with behavior problem. 3. Chronic kidney disease stage IIIB. 4. Anemia due to chronic kidney disease. 5. Hypertension. 6. Hyperlipidemia. 7. Paroxysmal atrial fibrillation. 8. Chronic anticoagulation therapy. 9. Gastroesophageal reflux disease. 10. Osteoarthritis, multiple sites. 11. Abdominal aortic aneurysm, infrarenal, status post aortic endograft placement in 2022. 12. Status post permanent pacemaker placement. Plan: We will go ahead and admit the patient to hospital for further evaluation and management of this problem. The patient is appropriate for inpatient and is expected to spend 2 midnights in hospital. The patient is having lot of behavior issues related to his senile dementia and encephalopathy due to underlying dementia problem. There is no evidence of any infection. Last night, he received Geodon and I have discontinued that and I did order Seroquel 25 mg at bedtime for him, but during the course of day today this afternoon, he was having lot more agitation and restlessness and it was difficult for nursing staff to control this behavior, so they contacted me and evening dose of Seroquel was ordered to be given earlier, which apparently did not help, so nurse contacted me again and at that time, Ativan 0.5 mg IV was ordered. This has actually started to help him to calm down. I did talk to the patient's son in great detail this evening and recommended to him that it is not safe for the patient to return back home. He has 24-hour caregiver at home and in my opinion, he should go to [facility] facility and he is agreeable with that. He will look into facility close to his home in [place] or local options that he has and he will communicate with Social Service tomorrow regarding this. Once we are able to control his behavior problem, then we will plan to discharge him. Total time spent was 85 minutes including communication with emergency room physician, review of emergency room visit record, review of last hospital admission record from 09/19/2024, performing today's evaluation and management, and communication with family. HELEN/ZA Voice ID: [id number] JAYLIN
[2024-11-19] MEDS ORDERED: WATER FOR INJ,STERILE 10 ML IM PRN (10:53)
[2024-11-19] MEDS: ZIPRASIDONE MESYLA 20 MG/VIAL IM ONE (10:59)
[2024-11-19] MEDS: D5 0.45 NS 1,000 ML IV SCH (11:43)
[2024-11-19] MEDS: cloNIDine HCL 0.1 MG TAB PO PRN (17:50)
--- NOTE | 2024-11-19 20:31 | PN ---
Date of Progress Note: 11/19/2024 Subjective: The patient was seen this morning for followup. No new complaints or problems reported by patient. He was sleeping. Caregiver was with him at bedside. Objective: Vital Signs: Reviewed. HEENT: Unremarkable. Lungs: Clear to auscultation. Heart: Sounds normal. Abdomen: Soft. Bowel sounds normal. No guarding, rigidity, tenderness, or distention. Extremities: No leg edema. Impression: 1. Encephalopathy. 2. Senile dementia. 3. Hypertension. 4. Hyperlipidemia. Plan: When I saw the patient he was comfortable and sleeping. Subsequently, he woke up and during t he course of day today during morning hours, nurse contacted me, informed me that he was very agitate d and did not respond to Ativan. At that time, he would not take any oral medication like Seroquel, so Geodon 10 mg IM x1 dose was ordered to control his behavior problem. He did not eat or drink anyt rubia this morning, so maintenance IV fluid was ordered after Geodon injection. I will see him tomorr ow for followup. Family to work with Social Service for placement. HELEN/MODL Voice ID: [id number] Report ID: [id number]
[2024-11-20 07:13] LABS: Absolute Eosinophils 0.6 K/uL (0-0.5); Absolute Lymphocytes (CBC) 1.5 K/uL (0.7-4.9); Absolute Monocytes 0.9 K/uL (0.1-1.3); Absolute Neutrophil 5.8 K/uL (1.8-8.0); Basophils % 0.5 % (0-1.3); Eosinophils % 6.7 % (0-4.4); Hematocrit 31.9 % (39.6-49.0); Hemoglobin 10.8 g/dL (13.6-17.9); Lymphocytes % 17.4 % (15.3-44.8); MCHC 33.8 g/dL (32.0-36.0); MCV 91.7 fL (80-100); MPV 8.2 fL (7.6-11.3); Monocytes % 10.5 % (3.3-12.3); Neutrophils % 64.9 % (41.7-73.7); Platelets 203 thou/uL (152-406); RBC Red Blood Cell Count 3.48 M/uL (4.33-5.43); Red Cell Distribution Width 14.8 % (12.1-15.2)
[2024-11-20 07:35] LABS: AST/SGOT 22 U/L (15-37); Albumin 2.4 g/dL (3.4-5.0); Albumin/Globulin Ratio 0.6 (1.1-1.8); Alkaline Phosphatase 65 U/L (45-117); Anion Gap 6.4 mEq/L (5.0-15.0); BUN Blood Urea Nitrogen 15 mg/dL (7-18); Bicarbonate 29 mEq/L (21-32); Bilirubin Total 0.5 mg/dL (0.2-1.0); Globulin 4.2 g/dL (2.3-3.5); Glomerular Filtration Rate 48 ml/min (=/>90); Glucose Level 100 mg/dL (74-106); Potassium 3.4 mEq/L (3.5-5.1); Protein, Total 6.6 g/dL (6.4-8.2); Sodium Level 141 mEq/L (136-145)
[2024-11-20 07:36] LABS: ALT/SGPT < 14 U/L (16-61)
[2024-11-20] MEDS: QUETIAPINE 25 MG TAB PO SCH (20:19)
[2024-11-20] MEDS: SCOPOLAMINE HYDROBROMIDE PATCH TD ONE (20:19)
--- NOTE | 2024-11-21 05:57 | PN ---
Date of Progress Note: 11/20/2024 Subjective: The patient was seen in the morning for followup. He was sleeping. He had received Juve don 10 mg intramuscular injection yesterday around 11 a.m., and it was one time dose. He has not rec eived any other Geodon since that time. Caregiver was present with him. This morning, when I saw michael sheriff, the patient was sleeping and caregiver reported yesterday the patient had probably just few bites of food for dinner. Otherwise, he did not have much food all day. Objective: Vital Signs: Reviewed. HEENT: Unremarkable. Lungs: Clear to auscultation. Heart: Sounds normal. Abdomen: Soft. Bowel sounds normal. No guarding, rigidity, tenderness, distention. Extremities: No leg edema. Laboratory Data: CBC and chemistry profile result from today reviewed. Impression: 1. Encephalopathy. 2. Senile dementia. 3. Hypertension. 4. Chronic kidney disease. 5. Hyperlipidemia. Plan: We will go ahead and continue to encourage the patient to eat, caregiver was made aware of andrew t, and also to use supplement like Ensure. Continue maintenance IV fluid. We will not use any more Geodon. Later this evening, I did communicate with the day nurse and he informed me that the patient was sleeping almost all day and had just woken up for the dinnertime, and hopefully he will eat some food for dinner, but otherwise all day he was sleeping. He did receive Ativan 1 time dose today. I have encouraged nursing staff to make sure to give his Seroquel 50 mg at bedtime tonight, and I will see him tomorrow. Possible discharge [facility] go [facility] jail as early as tomorrow depending on the patient's condition and arrangements that is being made by Social Service. HELEN/MODL Voice ID: [id number] Report ID: [id number]
--- NOTE | 2024-11-21 23:08 | PN ---
Date of Progress Note: 11/21/2024 Subjective: The patient was seen this morning for followup. He was sleeping. His care provider was with him at bedside. He did wake up, but did not answer any questions, opened his eyes, and went ba ck to sleep. Not in respiratory distress. He did sleep well last night. Objective: Vital Signs: Reviewed. HEENT: Unremarkable. Lungs: Clear to auscultation. Heart: Sounds normal. Abdomen: Soft. Bowel sounds normal. No guarding, rigidity, tenderness, distention. Extremities: No leg edema. Impression: 1. Encephalopathy. 2. Senile dementia. 3. Hypertension. 4. Hyperlipidemia. 5. Chronic kidney disease, stage IIIB. Plan: We will go ahead and continue current medications. Continue Seroquel at nighttime. Continue p.r.n. use of Ativan. Continue current antihypertensive medication. Social service is working with longterm facility and family for placement and the patient is medically stable for discharge a s soon as arrangements gets made, will be able to discharge him from the hospital. HELEN/MODL Voice ID: [id number] Report ID: [id number]
[2024-11-22 09:07] VITALS: O2SAT 96
[2024-11-22] MEDS ORDERED: LORAZEPAM 0.5 MG TABLET PO PRN (09:28)
[2024-11-22 10:03] LABS: Anion Gap 7.2 mEq/L (5.0-15.0); Magnesium 1.9 mg/dL (1.6-2.4); Potassium 3.2 mEq/L (3.5-5.1)
--- NOTE | 2024-11-22 10:59 | PN ---
Date of Progress Note: 11/22/2024 Subjective: The patient was seen this morning for followup. Caregiver was with the patient who spen t almost all day yesterday with him and reported today that yesterday he ate lot better than last few days. He was sleeping this morning. Overall, his condition was better yesterday and probably had t he best day since he has been in the hospital. No nausea, vomiting. This morning, he was sleeping, not in distress. Objective: Vital Signs: Reviewed. HEENT: Unremarkable. Lungs: Clear to auscultation. Heart: Sounds normal. Abdomen: Soft. Bowel sounds normal. No guarding, rigidity, tenderness, distention. Extremities: No leg edema. Impression: 1. Encephalopathy. 2. Senile dementia. 3. Hypertension. 4. Hyperlipidemia. 5. Chronic kidney disease stage III. Plan: We will go ahead and continue current Seroquel at nighttime. We will discontinue IV Ativan an d change it to Ativan 0.5 mg p.o. 2 times a day as needed and continue current antihypertensive medic ation and statin therapy. The patient is medically stable for discharge to go to senior care fac [facility] [place] and Social Service is assisting the patient and family with that. Soon as that is arranged, we will be able to discharge him and that ca n happen as early as today. HELEN/MODL Voice ID: [id number] Report ID: [id number]
[2024-11-22 18:46] VITALS: BP 157/82
[2024-11-22 21:16] VITALS: TEMP 98
--- NOTE | 2024-11-24 11:23 | DS ---
Date of Discharge: 11/22/2024 Disposition: The patient was discharged to go to [facility]. Discharge Medications And Instructions: 1. Diet: Regular 2. Fall precautions 3. Consult PT and OT 4. Albuterol inhaler 2 puffs by mouth four times a day as needed for shortness of breath or wheezing 5. Breo Ellipta inhaler, 1 puff by mouth daily, rinse mouth with water after its use 6. Amlodipine 5 mg, take 1 tablet by mouth daily in morning 7. Eliquis 2.5 mg, take 1 tablet by mouth two times a day 8. Famotidine 20 mg, take 1 tablet by mouth daily at bedtime 9. Fluticasone nasal spray, 1 spray in each nostril two times a day 10. Metoprolol tartrate 50 mg, take 1 tablet by mouth two times a day 11. Simvastatin 20 mg, take 1 tablet by mouth daily at bedtime 12. Seroquel 50 mg, take 1 tablet by mouth daily at bedtime 13. Ativan 0.5 mg, take 1 tablet by mouth two times a day as needed for agitation. 14. Clonidine 0.1 mg, take 1 tablet by mouth two times a day as needed for systolic BP higher than 160 15. Potassium chloride 10 meq capsule, take 1 capsule by mouth daily for five days. 16. Ensure, 1 can by mouth three times a day. Laboratory Data: Upon admission, WBC 8.6, hemoglobin 12, platelets 233, and last CBC from 11/20/2024 shows WBC 8.9, hemoglobin 10.8, platelets 203. For chemistry, last chemistry from 11/22/2024, sodium 142, potassium 3.2, chloride 110, bicarb 28, BUN 19, creatinine 1.49, glucose 113. Upon admission, sodium 139, potassium 4.1, chloride 106, bicarb 28, BUN 22, creatinine 1.80, glucose 119. His initial troponin 16.8, second troponin 27.1, third troponin 27.3. TSH 3.30. Hospital Course: An 89-year-old male patient, who lives at home, was brought into emergency room because of fall. Please see dictated H and P for more information. The patient was admitted to hospital with confusion and falling down, had encephalopathy as noted, and was admitted to hospital. Lately, the patient is having significant cognitive issue as noted during last few hospital admission and I am concerned about him having underlying dementia problem and he lives at home by himself with full-time caregiver. I had a long discussion with the patient's son who lives in [place] and recommended higher level of care and instead of taking him back home with full-time caregiver, my recommendation was for the patient to go [facility], which the patient's son was agreeable and Social Service consultation was requested and the patient's family work with Social Service to make arrangements for the patient to go to [facility] of their choice. Today, after we received acceptance from the facility, we were able to discharge him to go to such facility in stable condition. During this hospitalization, the patient continued to remain confused, this is a significant change from his baseline. He does not answer any questions. Caregiver was with him all the time at bedside. His oral intake of food in the beginning was very poor and later on during this hospitalization, he did improve. Physical Therapy was consulted. Overall, the patient's prognosis is poor in view of this dementia problem. His CAT scan of the chest, abdomen, pelvis done upon arrival to emergency room was negative for any acute findings. Chronic stable finding includes large bladder diverticulum, liver cyst, and renal cyst. CAT scan of the head and cervical spine was negative for any acute changes. For the patient's behavior problem that was agitation and restlessness during this hospitalization, we did require to use Seroquel at nighttime and p.r.n. use of Geodon and IV Ativan. Final Diagnoses: 1. Encephalopathy, unspecified. 2. Senile dementia with behavior problem. 3. Chronic kidney disease stage IIIB. 4. Anemia due to chronic kidney disease. 5. Hypertension. 6. Hyperlipidemia. 7. Paroxysmal atrial fibrillation. 8. Chronic anticoagulation therapy. 9. Gastroesophageal reflux disease. 10. Osteoarthritis, multiple sites. 11. Abdominal aortic aneurysm, infrarenal, status post aortic endograft placement in 2022. 12. Status post pacemaker placement. Total time spent 45 minutes. HELEN/MODL Voice ID: [id number] Report ID: [id number] JAYLIN
== END 2024-11-22 21:57 | DRG 884 ==
LOC: ER 18:20 → ERHOLD 23:43 → 2ND 11-18 00:16
PROVIDERS: ADMIT Internal Medicine; ATTEND Internal Medicine
DX: F03.911 Unspecified dementia, unspecified severity, with agitation (principal); F05 Delirium due to known physiological condition; G93.40 Encephalopathy, unspecified; E86.0 Dehydration; E78.5 Hyperlipidemia, unspecified; M19.09 Primary osteoarthritis, other specified site; N28.9 Disorder of kidney and ureter, unspecified; K21.9 Gastro-esophageal reflux disease without esophagitis; N40.0 Benign prostatic hyperplasia without lower urinary tract symptoms; I12.9 Hypertensive chronic kidney disease with stage 1 through stage 4 chronic kidney disease, or unspecified chronic kidney disease; N18.32 Chronic kidney disease, stage 3b; D63.1 Anemia in chronic kidney disease; K76.89 Other specified diseases of liver; N28.1 Cyst of kidney, acquired; I48.0 Paroxysmal atrial fibrillation; I71.43 Infrarenal abdominal aortic aneurysm, without rupture; S09.90XA Unspecified injury of head, initial encounter; R73.01 Impaired fasting glucose; Z95.0 Presence of cardiac pacemaker; Z88.7 Allergy status to serum and vaccine; Z79.01 Long term (current) use of anticoagulants; Z79.899 Other long term (current) drug therapy; W18.30XA Fall on same level, unspecified, initial encounter; Y93.9 Activity, unspecified; Y92.019 Unspecified place in single-family (private) house as the place of occurrence of the external cause; Y99.9 Unspecified external cause status
CPT/HCPCS: 36415; 70450; 71250; 72125; 74176; 80048; 80053; 81001; 83735; 83880; 84439; 84443; 84484; 85025; 85610; 85730; 96361; 96372; 96374; 97110; 97161; 97530; 99285; J3486; J3535; J7030; J7799

== ENCOUNTER 2024-11-26 13:42 | Inpatient (IN) | payer OTHER, BC ==
--- NOTE | 2024-11-26 14:20 | RAD REPORT ---
EXAMINATION: ONE VIEW CHEST XR CLINICAL INDICATION: COUGH TECHNIQUE: Frontal chest projection is submitted. Examination is limited by patient positioning and t echnique. COMPARISON: 11/03/2024 FINDINGS: The lungs are well inflated and clear. The heart is upper limit of normal in size. No displaced fract ures identified. Single-lead pacer device. IMPRESSION: No acute intrathoracic abnormalities.
[2024-11-26 15:03] LABS: Absolute Basophils 0.1 K/uL (0-0.5); Absolute Eosinophils 0.2 K/uL (0-0.5); Absolute Lymphocytes (CBC) 1.2 K/uL (0.7-4.9); Absolute Monocytes 0.9 K/uL (0.1-1.3); Basophils % 0.7 % (0-1.3); Eosinophils % 1.7 % (0-4.4); Hematocrit 34.3 % (39.6-49.0); Hemoglobin 11.8 g/dL (13.6-17.9); Lymphocytes % 10.6 % (15.3-44.8); MCH 31.4 pg (27.0-35.0); MCHC 34.4 g/dL (32.0-36.0); MCV 91.3 fL (80-100); MPV 8.8 fL (7.6-11.3); Monocytes % 7.7 % (3.3-12.3); Neutrophils % 79.3 % (41.7-73.7); Platelets 210 thou/uL (152-406); RBC Red Blood Cell Count 3.75 M/uL (4.33-5.43); Red Cell Distribution Width 14.7 % (12.1-15.2)
[2024-11-26] MEDS ORDERED: CEFTRIAXONE 1000 MG/VIAL ONE (15:06)
[2024-11-26] MEDS ORDERED: NA CHLORIDE 0.9% 1,000 ML ONE ×2 (15:06→17:41)
[2024-11-26 15:11] LABS: PT Prothrombin Time 14.4 SECONDS (10-13.0); Protime INR 1.28
[2024-11-26 15:19] LABS: Influenza A Ag Negative; Influenza B Ag Negative; SARS-CoV-2 Antigen Rapid Res Negative (Negative)
[2024-11-26 15:23] LABS: ALT/SGPT < 14 U/L (16-61); AST/SGOT 20 U/L (15-37); Albumin 2.8 g/dL (3.4-5.0); Albumin/Globulin Ratio 0.6 (1.1-1.8); Alkaline Phosphatase 90 U/L (45-117); Anion Gap 9.8 mEq/L (5.0-15.0); BUN Blood Urea Nitrogen 38 mg/dL (7-18); Bicarbonate 26 mEq/L (21-32); Bilirubin Direct 0.3 mg/dL (0-0.2); Bilirubin Indirect, Calculated 0.5 mg/dL (0.2-0.8); Bilirubin Total 0.8 mg/dL (0.2-1.0); Globulin 4.9 g/dL (2.3-3.5); Glomerular Filtration Rate 28 ml/min (=/>90); Glucose Level 118 mg/dL (74-106); Lipase 18 U/L (13-75); Magnesium 2.2 mg/dL (1.6-2.4); NT PRO-BNP 2203 pg/mL (<450); Potassium 3.8 mEq/L (3.5-5.1); Protein, Total 7.7 g/dL (6.4-8.2); Sodium Level 140 mEq/L (136-145); Troponin High Sensitivity 22.2 pg/mL (<58.9)
--- NOTE | 2024-11-26 17:28 | ER ---
Nurse's Notes [facility] Name: Navi Contreras Age: 89 yrs Sex: Male : 1935 Arrival Date: 11/26/2024 Time: 13:42 Bed 5 Private MD: Diagnosis: Dementia in other diseases classified elsewhere with behavioral disturbance;Dehydration;Acute kidney failure, unspecified-on chronic;Altered mental status, unspecified Presentation: 11/26 13:49 Chief complaint: EMS states: GENERALIZED WEAKNESS WHILE BEING FED AT [facility]. PT bp NORMALLY GENERALLY WEAK AND ALTERED. Coronavirus screen: At this time, the client does not indicate any symptoms associated with coronavirus-19. Ebola Screen: No symptoms or risks identified at this time. Initial Sepsis Screen: Does the patient meet any 2 criteria? Altered Mental Status. No. Patient's initial sepsis screen is negative. Does the patient have a suspected source of infection? No. Patient's initial sepsis screen is negative. Risk Assessment: Do you want to hurt yourself or someone else? Patient reports no desire to harm self or others. Onset of symptoms is unknown. Care prior to arrival: Glucose check: 124. 13:49 Method Of Arrival: EMS: [facility] bp 13:49 Acuity: IFTIKHAR 3 bp Triage Assessment: 13:52 General: Appears in no apparent distress. Behavior is uncooperative. Pain: Unable to bp use pain scale. Does not appear to understand pain scale. EENT: No deficits noted. Neuro: Level of Consciousness is confused, lethargic, Oriented to none. Cardiovascular: Rhythm is sinus rhythm. Respiratory: No deficits noted. GI: No signs and/or symptoms were reported involving the gastrointestinal system. : No signs and/or symptoms were reported regarding the genitourinary system. Derm: No deficits noted. Musculoskeletal: No deficits noted. Historical: - Allergies: 13:52 Tetanus Vaccines and Toxoid; bp - PMHx: 13:52 Atrial fibrillation; Hyperlipidemia; Diverticulitis; BRADYCARDIA (Hypertension); bp Aneurysm; Hypertension; - PSHx: 13:52 pacemaker (en); bp - Immunization history:: Adult Immunizations up to date. - Infectious Disease History:: Denies. - Social history:: Smoking status: unknown. Screenin:13 [facility] ED Fall Risk Assessment (Adult) History of falling in the last 3 months, bp including since admission No falls in past 3 months (0 pts) Confusion or Disorientation Yes (5 pts) Intoxicated or Sedated No (0 pts) Impaired Gait No (0 pts) Mobility Assist Device Used No (0 pt) Altered Elimination No (0 pt) Score/Fall Risk Level 3 or more points = High Risk Oriented to surroundings. Abuse screen: Denies threats or abuse. Denies injuries from another. Nutritional screening: No deficits noted. Tuberculosis screening: No symptoms or risk factors identified. Assessment: 15:13 Reassessment: No changes from previously documented assessment. Patient is alert, bp oriented x 3, equal unlabored respirations, skin warm/dry/pink. 16:03 Reassessment: Patient appears in no apparent distress at this time. Patient is alert, bp oriented x 3, equal unlabored respirations, skin warm/dry/pink. 17:51 Reassessment: Patient appears in no apparent distress at this time. Patient and/or bp family updated on plan of care and expected duration. Pain level reassessed. 19:26 Reassessment: Patient appears in no apparent distress at this time. No changes from vc1 previously documented assessment. Patient and/or family updated on plan of care and expected duration. Pain level reassessed. Patient is alert, oriented x 3, equal unlabored respirations, skin warm/dry/pink. Neuro: Level of Consciousness is lethargic, Oriented to person. Vital Signs: 13:49 BP 152 / 74; Pulse 83; Resp 16; Temp 97.9; Pulse Ox 98% ; Weight 55 kg; bp 15:13 BP 148 / 58; Pulse 80; Resp 14; Pulse Ox 96% ; bp 16:03 BP 164 / 64; Pulse 81; Resp 20; Pulse Ox 100% ; bp 17:51 BP 156 / 67; Pulse 86; Resp 15; Pulse Ox 95% ; bp 19:26 BP 141 / 73; Pulse 70; Resp 15; Pulse Ox 96% ; vc1 ED Course: 13:49 Patient arrived in ED. bp 13:51 Triage completed. bp 13:52 Arm band placed on. bp 13:53 Rajesh Goins, KIA is Primary Nurse. bp 13:55 Michel Alfred MD is Attending Physician. narciso 14:17 XRAY Chest (1 view) In Process Unspecified. EDMS 14:29 EKG done, by ED staff. tm3 14:55 Inserted saline lock: 22 gauge in right forearm, using aseptic technique. Blood bp collected. Flushed with 10 mL NS. 14:55 Initial lab(s) drawn, by me, sent to lab. First set of blood cultures drawn by me. bp 15:13 Patient has correct armband on for positive identification. bp 17:25 Abbe Carl MD is Hospitalizing Provider. narciso 17:48 Chest Abd Pelvis Wo Con In Process Unspecified. EDMS 17:48 Head C Spine Mpr Wo Con In Process Unspecified. EDMS 18:49 No provider procedures requiring assistance completed. Patient admitted, IV remains in bp place. 19:28 Provided Education on: admission information. vc1 Administered Medications: 15:12 Drug: NS 0.9% IV (30 ml/kg) 30 ml/kg IV at bolus once; Sepsis Protocol; to be given as bp a bolus over 90 minutes Route: IV; Rate: bolus; Site: right forearm; 19:00 Follow up: IV Status: Completed infusion; IV Intake: 1650ml vc1 15:12 Drug: Rocephin IV 1 grams IV at per protocol once; Given slow IV push per pharmacy bp instructions Route: IV; Rate: per protocol; Site: right forearm; 17:45 CANCELLED (Other Intervention Used): viscous lidocaineliquid (4 %) 5 ml Mucous Membrane bp once 18:02 Drug: Banana Bag - (Multivitamin IV 1 amp, NS 0.9% IV 1000 ml, Thiamine IV 100 mg, bp foLIC Acid IVPB 1 mg) IV at 125 ml/hr once Route: IV; Rate: 125 ml/hr; Site: right forearm; 19:27 Follow up: IV Status: Infusion continued upon admission vc1 18:03 Drug: Ativan IVP 0.5 mg IVP once Route: IVP; Site: right forearm; bp 19:27 Follow up: Response: No adverse reaction; Marked relief of symptoms vc1 18:03 Drug: Ativan IVP 0.5 mg IVP once Route: IVP; Site: right forearm; bp 19:00 Follow up: Response: No adverse reaction; Marked relief of symptoms vc1 Medication: 19:26 VIS not applicable for this client. vc1 Intake: 19:00 IV: 1650ml; Total: 1650ml. vc1 Outcome: 17:27 Decision to Hospitalize by Provider. narciso 18:49 Condition: stable bp 18:49 Instructed on the need for admit, 19:59 Admitted to Med/surg accompanied by tech, via wheelchair, room 228, with oxygen, with vc1 chart, 20:00 Patient left the ED. vc1 Signatures: Dispatcher [employer] EDMS Raul Hardwick tm3 Michel Alfred MD MD cha Peltier, Brian, RN RN bp CalcViky walker RN RN vc1 Corrections: (The following items were deleted from the chart) 14:18 13:49 BP 152 / 74; Pulse 83bpm; Resp 16bpm; Pulse Ox 98%; Temp 97.9F; bp bp
--- NOTE | 2024-11-26 17:28 | EDPHYS ---
Physician Documentation [facility] Name: Navi Contreras Age: 89 yrs Sex: Male : 1935 Arrival Date: 11/26/2024 Time: 13:42 Bed 5 Private MD: ED Physician Michel Alfred HPI: 11/26 17:14 This 89 yrs old Male presents to ER via EMS with complaints of General narciso Weakness. Historical: - Allergies: 13:52 Tetanus Vaccines and Toxoid; bp - PMHx: 13:52 Atrial fibrillation; Hyperlipidemia; Diverticulitis; BRADYCARDIA (Hypertension); bp Aneurysm; Hypertension; - PSHx: 13:52 pacemaker (en); bp - Immunization history:: Adult Immunizations up to date. - Infectious Disease History:: Denies. - Social history:: Smoking status: unknown. ROS: 17:15 Eyes: Negative for injury, pain, redness, and discharge, ENT: Negative for injury, narciso pain, and discharge, Neck: Negative for injury, pain, and swelling, Cardiovascular: Negative for chest pain, palpitations, and edema, Respiratory: Negative for shortness of breath, cough, wheezing, and pleuritic chest pain, Abdomen/GI: Negative for abdominal pain, nausea, vomiting, diarrhea, and constipation, Back: Negative for injury and pain, : Negative for injury, bleeding, discharge, and swelling, MS/Extremity: Negative for injury and deformity, Skin: Negative for injury, rash, and discoloration, Psych: Negative for depression, anxiety, suicide ideation, homicidal ideation, and hallucinations, Allergy/Immunology: Negative for hives, rash, and allergies, Endocrine: Negative for neck swelling, polydipsia, polyuria, polyphagia, and marked weight changes, 17:15 Constitutional: Positive for body aches, chills, fatigue, malaise, poor PO intake, weight loss, 17:15 Neuro: Positive for altered mental status, Exam: 17:15 Constitutional: This is a well developed, well nourished patient who is awake, alert, narciso and in no acute distress. Head/Face: Normocephalic, atraumatic. Eyes: Pupils equal round and reactive to light, extra-ocular motions intact. Lids and lashes normal. Conjunctiva and sclera are non-icteric and not injected. Cornea within normal limits. Periorbital areas with no swelling, redness, or edema. Neck: Trachea midline, no thyromegaly or masses palpated, and no cervical lymphadenopathy. Supple, full range of motion without nuchal rigidity, or vertebral point tenderness. No Meningismus. Chest/axilla: Normal chest wall appearance and motion. Nontender with no deformity. No lesions are appreciated. Cardiovascular: Regular rate and rhythm with a normal S1 and S2. No gallops, murmurs, or rubs. Normal PMI, no JVD. No pulse deficits. Respiratory: Lungs have equal breath sounds bilaterally, clear to auscultation and percussion. No rales, rhonchi or wheezes noted. No increased work of breathing, no retractions or nasal flaring. Abdomen/GI: Soft, non-tender, with normal bowel sounds. No distension or tympany. No guarding or rebound. No evidence of tenderness throughout. Back: No spinal tenderness. No costovertebral tenderness. Full range of motion. Male : Normal genitalia with no discharge or lesions. Skin: Warm, dry with normal turgor. Normal color with no rashes, no lesions, and no evidence of cellulitis. MS/ Extremity: Pulses equal, no cyanosis. Neurovascular intact. Full, normal range of motion., bilateral aka Neuro: Awake and alert, GCS 15, oriented to person, place, time, and situation. Cranial nerves II-XII grossly intact. Motor strength 5/5 in all extremities. Sensory grossly intact. Cerebellar exam normal. Normal gait. Psych: Awake, alert, with orientation to person, place and time. Behavior, mood, and affect are within normal limits. 17:15 ENT: Mouth: Oral mucosa: dry, Gums: pink, Tongue: dry, 17:15 ECG was reviewed by the Attending Physician. Vital Signs: 13:49 BP 152 / 74; Pulse 83; Resp 16; Temp 97.9; Pulse Ox 98% ; Weight 55 kg; bp 15:13 BP 148 / 58; Pulse 80; Resp 14; Pulse Ox 96% ; bp 16:03 BP 164 / 64; Pulse 81; Resp 20; Pulse Ox 100% ; bp 17:51 BP 156 / 67; Pulse 86; Resp 15; Pulse Ox 95% ; bp 19:26 BP 141 / 73; Pulse 70; Resp 15; Pulse Ox 96% ; vc1 MDM: 13:55 Medical Screening Exam initiated narciso 17:18 Differential Diagnosis altered mental status, sepsis, flu. Differential Diagnosis: CVA, narciso electrolyte abnormality, hypoglycemia, intracranial bleed, overdose, pneumonia, seizure, sepsis, TIA, UTI, volume depletion. Data reviewed: vital signs, nurses notes, EMS record, lab test result(s), EKG, radiologic studies, CT scan, plain films. Consideration of Admission/Observation Patient was admitted/placed on observation. Escalation of care including admission/observation considered. I considered the following discharge prescriptions or medication management in the emergency department Medications were administered in the Emergency Department. See MAR. Independent interpretation of the following test(s) in the Emergency Department EKG: See my EKG interpretation above. Test considered but Not performed: EKG: no mri. Historians other than the Patient: EMS: ems well informed. Family Member: son from [place] well informed. Care significantly affected by the following chronic conditions: Hypertension, a fib, pace maker last week. Post IV fluid administration reassessment for Sepsis: Sepsis focused reassessment complete. Counseling: I had a detailed discussion with the patient and/or guardian regarding the historical points, exam findings, and any diagnostic results supporting the discharge/admit diagnosis, lab results, radiology results, the need for further work-up and treatment in the hospital. 11/26 13:58 Order name: Basic Metabolic Panel; Complete Time: 16:35 11/26 13:58 Order name: CBC with Diff; Complete Time: 16:35 11/26 13:58 Order name: LFT's; Complete Time: 16:35 11/26 13:58 Order name: Magnesium; Complete Time: 16:35 11/26 13:58 Order name: NT PRO-BNP; Complete Time: 16:35 11/26 13:58 Order name: PT-INR; Complete Time: 16:35 11/26 13:58 Order name: Troponin HS; Complete Time: 16:35 11/26 13:58 Order name: Lipase; Complete Time: 16:35 11/26 13:58 Order name: Urinalysis w/ reflexes; Complete Time: 19:21 11/26 13:58 Order name: Lactate w/ 2H reflex if indic.; Complete Time: 16:35 11/26 13:58 Order name: Blood Culture Adult (2) 11/26 13:58 Order name: COVID-19 Ag + Flu A+B Ag; Complete Time: 16:35 [facility] 11/26 13:58 Order name: XRAY Chest (1 view); Complete Time: 16:35 [facility] 11/26 17:20 Order name: Chest Abd Pelvis Wo Con; Complete Time: 19:21 EDMS 11/26 17:21 Order name: Head C Spine Mpr Wo Con; Complete Time: 19:21 EDHI 11/26 13:58 Order name: EKG; Complete Time: 13:58 [facility] 11/26 13:58 Order name: Cardiac monitoring; Complete Time: 14:43 [facility] 11/26 13:58 Order name: EKG - Nurse/Tech; Complete Time: 14:43 [facility] 11/26 13:58 Order name: IV Saline Lock; Complete Time: 14:55 [facility] 11/26 13:58 Order name: Labs collected and sent; Complete Time: 14:55 [facility] 11/26 13:58 Order name: O2 Per Protocol; Complete Time: 14:43 [facility] 11/26 13:58 Order name: O2 Sat Monitoring; Complete Time: 14:43 [facility] 11/26 17:10 Order name: Misc. Order: cath; Complete Time: 17:45 [facility] 11/26 19:23 Order name: Oxygen: 2 liters; Complete Time: 19:33 narciso EC:15 Rate is 77 beats/min. Rhythm is regular. QRS [place] is Normal. ME interval is normal. QRS narciso interval is normal. QT interval is normal. No Q waves. T waves are Normal. No ST changes noted. Clinical impression: NSR w/ Non-specific ST/T Changes, LVH, and No evidence of ischemia. Interpreted by me. Reviewed by me. Administered Medications: 15:12 Drug: NS 0.9% IV (30 ml/kg) 30 ml/kg IV at bolus once; Sepsis Protocol; to be given as bp a bolus over 90 minutes Route: IV; Rate: bolus; Site: right forearm; 19:00 Follow up: IV Status: Completed infusion; IV Intake: 1650ml vc1 15:12 Drug: Rocephin IV 1 grams IV at per protocol once; Given slow IV push per pharmacy bp instructions Route: IV; Rate: per protocol; Site: right forearm; 17:45 CANCELLED (Other Intervention Used): viscous lidocaineliquid (4 %) 5 ml Mucous Membrane bp once 18:02 Drug: Banana Bag - (Multivitamin IV 1 amp, NS 0.9% IV 1000 ml, Thiamine IV 100 mg, bp foLIC Acid IVPB 1 mg) IV at 125 ml/hr once Route: IV; Rate: 125 ml/hr; Site: right forearm; 19:27 Follow up: IV Status: Infusion continued upon admission vc1 18:03 Drug: Ativan IVP 0.5 mg IVP once Route: IVP; Site: right forearm; bp 19:27 Follow up: Response: No adverse reaction; Marked relief of symptoms vc1 18:03 Drug: Ativan IVP 0.5 mg IVP once Route: IVP; Site: right forearm; bp 19:00 Follow up: Response: No adverse reaction; Marked relief of symptoms vc1 Disposition Summary: 11/26/24 17:27 Hospitalization Ordered Notes: Hospitalization Status: Inpatient Admission narciso Provider: Abbe Carl cha Location: Telemetry/MedSurg (Inpatient) narciso Condition: Fair narciso Problem: an acute exacerbation narciso Symptoms: have worsened narciso Bed/Room Type: Standard narciso Room Assignment: 228(11/26/24 19:34) vc1 Diagnosis - Dementia in other diseases classified elsewhere with behavioral disturbance narciso - Dehydration narciso - Acute kidney failure, unspecified - on chronic narciso - Altered mental status, unspecified narciso Forms: - Medication Reconciliation Form narciso - SBAR form narciso - Leadership Thank You Letter narciso Signatures: Dispatcher [employer] EDMS Michel Alfred MD MD cha Williams, Irene RN RN Rajesh Goins RN RN bp Viky Cleveland RN RN vc1 Corrections: (The following items were deleted from the chart) 17:14 17:13 Griffin ordered. narciso narciso 17:21 17:10 Head C Spine Cap Wo Con+CT.RAD.BRZ ordered. EDMS EDMS 17:45 17:13 Viscous Lidocaine Mucous Membrane Liquid (4 %) 5 ml Mucous Membrane once ordered. bp narciso 18:21 17:27 narciso iw 19:34 18:21 222 iw vc1
[2024-11-26 17:39] LABS: Specific Gravity 1.017 (1.005-1.030); Sqamous Epithelial <5 /HPF (None Seen); Urine Bacteria None Seen /HPF (<20); Urine Bilirubin NEGATIVE (Negative); Urine Blood Negative (Negative); Urine Clarity Clear (Clear); Urine Color Yellow (Yellow); Urine Culture Reflex Order NOT NEEDED; Urine Glucose NEGATIVE (Negative); Urine Ketones NEGATIVE (Negative); Urine Microscopic Reflex YN ORDER UMIC; Urine Mucus Slight /HPF (None Seen); Urine Nitrite NEGATIVE (Negative); Urine Protein 1+ (Negative); Urine RBC <5 /HPF (None Seen); Urine Urobilinogen Normal (Normal); Urine WBC <5 /HPF (<5); Urine pH 5.5 (5.0-7.0)
[2024-11-26] MEDS ORDERED: LORazepam 2 MG/ML VIAL ONE (17:40)
[2024-11-26] MEDS ORDERED: THIAMINE 200 MG/2 ML INJ ONE (17:40)
[2024-11-26] MEDS ORDERED: MULTIVITAMINS 10 ML VIAL (INJ) IV ONE (17:40)
[2024-11-26] MEDS ORDERED: FOLIC ACID 5 MG/ML VIAL ONE (17:41)
[2024-11-26] MEDS ORDERED: LORazepam 2 MG/ML VIAL IV PRN (17:44)
--- NOTE | 2024-11-26 17:59 | RAD REPORT ---
EXAM: CT brain without contrast HISTORY: Weakness;Declining state COMPARISON: None TECHNIQUE: Multiple contiguous axial images were obtained and a CT of the brain without contrast. Sag ittal and coronal reformats were performed. One or more of the following dose reduction techniques were used: Automated exposure control, adjust ment of the mA and/or kV according to patient size, and/or iterative reconstruction. FINDINGS: No evidence of hydrocephalus, intracranial hemorrhage, or extra-axial fluid collection. Moderate brain atrophy with moderate periventricular and deep white matter chronic microvascular isc hemic changes present. No evidence of midline shift or areas of brain edema. The calvarium is intact. Mild polypoid mucosal thickening noted in the paranasal sinuses. Vertebral atherosclerosis. EXAM: CT of the cervical spine without contrast HISTORY: Neck pain, injury Weakness;Declining state TECHNIQUE: Multiple contiguous axial images were obtained in a CT of the cervical spine without contr ast. Sagittal and coronal reformats were performed. FINDINGS: 3 mm degenerative anterolisthesis of C5 on 6. No evidence of acute fracture or subluxation. . No degenerative changes are present. No prevertebral soft tissue swelling is seen. The posterior facets are well aligned. Normal alignment of the skull base with the cervical spine is seen. Bilateral vertebral atherosclerosis. The lung apices are unremarkable. COMBINED IMPRESSION: No evidence of acute intracranial abnormality. No evidence of acute osseous abnormality of the cervical spine. 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
--- NOTE | 2024-11-26 18:05 | RAD REPORT ---
EXAM: CT CHEST, ABDOMEN AND PELVIS WITHOUT CONTRAST CLINICAL INDICATION: WEAKNESS TECHNIQUE: CT chest, abdomen and pelvis was performed without contrast, as per department protocol. A xial, sagittal and coronal reconstructions were obtained. One or more of the following dose reduction techniques were used: Automated exposure control, adjustment of the mA and/or kV according to patient size, and/or iterative reconstruction. Unless otherwise specified, incidental findings do not require dedicated imaging follow-up. Examination is limited by the lack of intravenous contrast material. COMPARISON: No prior exam. FINDINGS: LUNGS: No evidence of airspace or interstitial process. No nodules. Pacer device noted. PLEURA: No pleural effusion. No pneumothorax. MEDIASTINUM AND LYMPH NODES: No mediastinal mass or fluid collection. Normal size mediastinal, hilar, and axillary lymph nodes. OSSEOUS STRUCTURES AND CHEST WALL: Intact. LIVER: 13 mm low-density lesion is seen in the right lobe of the liver. No worrisome liver lesion or biliary dilatation. Grossly unremarkable gallbladder. PANCREAS: No mass, ductal dilation, or oscar-pancreatic fluid. SPLEEN: Normal size. No focal lesion. ADRENALS: Normal; no mass. KIDNEYS: Normal size and contour. No hydronephrosis. 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 GASTROINTESTINAL TRACT: No bowel obstruction, free air, significant free fluid or abscess. APPENDIX: Normal appendix. LYMPH NODES: No lymphadenopathy. MUSCULOSKELETAL: Moderate levoscoliosis of the lumbar spine. 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 Small fat-containing righ t inguinal hernia. IMPRESSION: No acute abnormalities seen in the chest, abdomen or pelvis. Large bladder diverticulum.
[2024-11-26] MEDS ORDERED: ACETAMINOPHEN 325 MG TABLET PO PRN (20:15)
[2024-11-26] MEDS ORDERED: ONDANSETRON 4 MG/2 ML VIAL IV PRN (20:15)
--- NOTE | 2024-11-26 20:48 | HP ---
Date of Admission: 11/26/2024 Chief Complaint: Weakness and altered mental status. History Of Present Illness: This is an 89-year-old pleasant male patient, who was recently admitted to the hospital on 11/17/2024 and was discharged to go [place] [facility] [place] on 11/22/2024. Today, the patient was brought back to emergency room via ambulance as the patient's caregiver called ambulance because of altered mental status and significant generalized weakness and after the patient was evaluated in emergency room, I was contacted requesting admission to hospital with acute kidney injury and dehydration problem. The patient was started on IV fluid in emergency room and when I saw him, he was still in the emergency room. The patient's caregiver and the patient's son was at bedside. As I have learned details from the patient's son, he informed me that ever since the patient left the hospital 4 days ago, his condition has deteriorated. He had very minimal amount of food and very minimal amount of water in last 4 days. Son informed me that he was not happy with the care that he was getting at that nursing facility and the patient has a 24-hour private caregiver who is staying with him at the nursing facility and today, son informed me that nursing facility was not willing to call ambulance and caregiver ended up calling ambulance and the patient was brought into ER. Son also has lot of concern about cleanliness about this particular facility where he was and he does not want the patient to go back to the same facility. Allergies: TO TETANUS TOXOID CAUSING RASH. Review of Systems: DATA SECURITY ADMINISTRATOR: As mentioned above. Constitutional: As mentioned above. All other systems reviewed and negative. Medications: 1. Albuterol inhaler 2 puffs by mouth four times a day as needed for shortness of breath or wheezing 2. Breo Ellipta inhaler, 1 puff by mouth daily, rinse mouth with water after its use 3. Amlodipine 5 mg, take 1 tablet by mouth daily in morning 4. Eliquis 2.5 mg, take 1 tablet by mouth two times a day 5. Famotidine 20 mg, take 1 tablet by mouth daily at bedtime 6. Fluticasone nasal spray, 1 spray in each nostril two times a day 7. Metoprolol tartrate 50 mg, take 1 tablet by mouth two times a day 8. Simvastatin 20 mg, take 1 tablet by mouth daily at bedtime 9. Seroquel 50 mg, take 1 tablet by mouth daily at bedtime 10. Ativan 0.5 mg, take 1 tablet by mouth two times a day as needed for agitation. 11. 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 Past Surgical History: Endograft placement on February 10, 2023, for abdominal aortic aneurysm, inguinal hernia repair, transurethral resection of bladder tumor, shoulder surgery, removal of basal cell carcinoma from left ear in 2020. Family History: Parents and brother , details unknown about any of this family members. Social History: Negative for smoking. Use of alcohol, couple of glasses of wine once a week. Physical Examination: Vital Signs: Height 5 feet 10 inches, weight 121 pounds, temperature 97.9, pulse 83, respiratory rate 16, blood pressure 152/74, oxygen saturation 98%. General: The patient lying in bed with mouth open, eyes partially open, not communicating, not answer any questions and was noted to have Bean-Chen breathing pattern. HEENT: Head atraumatic, normocephalic. Conjunctivae nonerythematous. Sclerae white. Mouth, no thrush or edema noted. Ears/Nose, no mass, lesion, discharge noted. Neck: Supple. No JVD, lymph nodes, bruit, thyromegaly noted. Lungs: Bilateral good equal air entry. Clear to auscultation. No rhonchi. No rales. Heart: Normal heart sounds, no murmur or gallop. Abdomen: Soft, bowel sounds normal. No guarding, rigidity, tenderness, mass, hepatosplenomegaly, distention, or bruit noted. Extremities: No leg edema. No calf tenderness. Skin: No rash, ulcer, cellulitis. Lymphatics: No lymph node enlargement in neck, supraclavicular, infraclavicular region. Neuro: No focal neurological deficit. Chest: Unremarkable. External Genitalia: Deferred. Rectal: Deferred. Laboratory Data: WBC 11.4, hemoglobin 11.8, platelets 210. Sodium 140, potassium 3.8, chloride 108, bicarb 26, BUN 38, creatinine 2.21, glucose 118, lactic acid 1.4. Liver function tests unremarkable. Troponin 22.2 and proBNP 2203. Lipase 18. Urinalysis, 1+ protein, otherwise unremarkable. Influenza A, B, and COVID-19 test negative. Chest x-ray, no acute cardiopulmonary changes. CAT scan of the head and cervical spine, no acute intracranial or cervical spine findings. CAT scan of chest, abdomen, pelvis shows evidence of bladder diverticulum, unchanged from before, no other acute findings noted. Impression: 1. Acute kidney injury. 2. Volume depletion. 3. Senile dementia with behavior problem. 4. Acute respiratory failure with hypoxia. 5. Anemia due to chronic kidney disease. 6. Chronic kidney disease stage IIIB. 7. Hypertension. 8. Hyperlipidemia. 9. Paroxysmal atrial fibrillation. 10. Chronic anticoagulation therapy. 11. Osteoarthritis, multiple sites. 12. Abdominal aortic aneurysm, infrarenal, status post aortic endograft placement in 2022. 13. Status post permanent pacemaker placement. Plan: Admit the patient to hospital for further evaluation and management of this problem. The patient is appropriate for inpatient and is expected to spend 2 midnights in hospital. When I saw him in emergency room, he was on room air and oxygen saturation was around 85% and oxygen was ordered for this respiratory failure with hypoxia, which we will continue that. The patient was noted to have Bean-Chne breathing pattern and I have discussed details regarding importance of this kind of breathing pattern with the patient's son. For his acute kidney injury and volume depletion, we will continue IV fluid. The patient's son reports that after 1 bag of IV fluid given in emergency room, he started to respond to some extent where he felt like he was improving and we will continue his IV fluid. Repeat blood work tomorrow. At this time, we do not see any evidence of any infection anywhere. I have discussed with the patient's son regarding advance directives and according to decision made by the patient and the patient's son, has informed me that in the event of cardiopulmonary arrest, the patient would not have wanted any CPR, defibrillation, or ventilator support, so DNR order was placed in the chart. For atrial fibrillation, we will continue his medications per order and no need for further intervention at this time. For hypertension, we will continue to monitor blood pressure and provide antihypertensive medication per order. For senile dementia with behavior problem during his last hospital admission, we started him on Seroquel and Ativan and we will continue those. The patient's son has informed me that he was not satisfied with the care that the patient has received at [facility] and he does know want his dad to go back to this facility and he really would prefer for him to go to this particular facility of his choice in [facility] and I have asked him to communicate with our Social Service to see if they can assist with this kind of arrangements. We also talked about possibility of hospice care and the patient's son is willing to consider that option also and it all depends on how the patient responds and behaves during this hospitalization. I am definitely concerned about his respiratory failure with Bean strokes breathing pattern that we see and I have discussed all those details with the patient's son as well. I had a long discussion with the patient's son regarding the patient's overall status, poor prognosis, and discharge planning and treatment. Depending on his response and our hospital course, we will decide whether he will be appropriate hospice candidate or go to different facility of family's choice. Total time spent today was 75 minutes including communication with emergency room physician, review of emergency room visit record, performing today's evaluation and management, communication with family, and review of last hospital admission record from 11/17/2024. I will see him tomorrow for followup. HELEN/ZA Voice ID: [id number] JAYLIN
[2024-11-26] MEDS: D5 0.45 NS 1,000 ML IV SCH (21:41)
[2024-11-27 00:02] VITALS: BMI 17.4
[2024-11-27 05:30] LABS: Absolute Basophils 0.1 K/uL (0-0.5); Absolute Eosinophils 0.3 K/uL (0-0.5); Absolute Lymphocytes (CBC) 1.4 K/uL (0.7-4.9); Absolute Monocytes 0.9 K/uL (0.1-1.3); Absolute Neutrophil 6.1 K/uL (1.8-8.0); Eosinophils % 3.3 % (0-4.4); Hematocrit 31.8 % (39.6-49.0); Hemoglobin 10.9 g/dL (13.6-17.9); Lymphocytes % 15.8 % (15.3-44.8); MCH 31.5 pg (27.0-35.0); MCHC 34.4 g/dL (32.0-36.0); MCV 91.6 fL (80-100); MPV 8.8 fL (7.6-11.3); Monocytes % 10.4 % (3.3-12.3); Neutrophils % 69.5 % (41.7-73.7); Platelets 183 thou/uL (152-406); RBC Red Blood Cell Count 3.47 M/uL (4.33-5.43); Red Cell Distribution Width 14.7 % (12.1-15.2)
[2024-11-27 05:58] LABS: Anion Gap 8.4 mEq/L (5.0-15.0); Potassium 3.4 mEq/L (3.5-5.1)
[2024-11-27] MEDS ORDERED: ALBUTEROL 2.5 MG/3 ML NEB SOL NEB PRN (07:13)
[2024-11-27] MEDS: D5 0.45 NS 1,000 ML IV SCH (07:18)
[2024-11-27] MEDS: DULERA 100/5 (MOMETASONE/FORMOTEROL) INHALER IH SCH (09:00)
[2024-11-27] MEDS ORDERED: FAMOTIDINE 20 MG/2 ML VIAL IV SCH (09:00)
[2024-11-27] MEDS: FLUTICASONE 50MCG NASAL SPRAY NAS SCH (09:00)
[2024-11-27] MEDS: METOPROLOL TAR 50 MG TAB PO SCH (10:24)
[2024-11-27] MEDS: APIXABAN 2.5 MG TABLET PO SCH (10:25)
[2024-11-27] MEDS: AMLODIPINE 5 MG TAB PO SCH (10:25)
[2024-11-27] MEDS: POTASSIUM CL SA 10 MEQ TAB PO SCH (10:25)
[2024-11-27] MEDS: FAMOTIDINE 20 MG TAB PO SCH (10:25)
--- NOTE | 2024-11-27 12:37 | EKG ---
Test Date: 2024-11-26 Test Time: 14:26:56 Brick Carrier: MARANDA MEASUREMENT RESULTS: Intervals: Rate: 77 AL: 178 QRSD: 78 QT: 390 QTc: 441 [place]: P: 72 AL: 178 QRS: 4 T: 69 INTERPRETIVE STATEMENTS: Sinus rhythm with premature atrial complexes Minimal voltage criteria for LVH, may be normal variant Nonspecific T wave abnormality Abnormal ECG Compared to ECG 11/03/2024 17:53:07 Atrial premature complex(es) now present Left ventricular hypertrophy now present T-wave abnormality now present Sinus bradycardia no longer present Sinus arrhythmia no longer present Electronically Signed On 11-27-24 12:36:01 CDT by Mathew Lundy
[2024-11-27] MEDS: ATORVASTATIN 10 MG TAB PO SCH (20:07)
[2024-11-27] MEDS: ALPRAZOLAM 0.25 MG TABLET PO SCH (20:07)
[2024-11-28 06:01] LABS: Absolute Basophils 0.1 K/uL (0-0.5); Absolute Eosinophils 0.4 K/uL (0-0.5); Absolute Lymphocytes (CBC) 1.5 K/uL (0.7-4.9); Absolute Monocytes 1.1 K/uL (0.1-1.3); Absolute Neutrophil 6.9 K/uL (1.8-8.0); Basophils % 0.7 % (0-1.3); Eosinophils % 3.7 % (0-4.4); Hematocrit 31.8 % (39.6-49.0); Hemoglobin 11.2 g/dL (13.6-17.9); Lymphocytes % 14.7 % (15.3-44.8); MCHC 35.3 g/dL (32.0-36.0); MCV 90.8 fL (80-100); Monocytes % 11.3 % (3.3-12.3); Neutrophils % 69.6 % (41.7-73.7); Platelets 182 thou/uL (152-406); Red Cell Distribution Width 14.5 % (12.1-15.2)
--- NOTE | 2024-11-28 06:15 | PN ---
Date of Progress Note: 11/27/2024 Subjective: The patient was seen this morning for followup. His caregiver was with him at bedside. He was sleeping with his eyes closed, but as I was talking to caregiver and subsequently when I was examining the patient, he opened his eyes and looked at me, started to smile, and was trying to talk, but his speech is extremely difficult to understand, so I could not understand anything he was tryin g to say, but I felt like he recognized me and was smiling at me and trying to communicate. This is the best response I have seen out of him in last several days that includes this hospital stay as wel l as last hospital stay. Objective: Vital Signs: Reviewed. HEENT: Unremarkable. Lungs: Clear to auscultation. Heart: Sounds normal. Abdomen: Soft. Bowel sounds normal. No guarding, rigidity, tenderness, distention. Extremities: No leg edema. Laboratory Data: WBC 8.7, hemoglobin 10.9, platelets 183. Sodium 141, potassium 3.4, chloride 111, bicarb 25, BUN 30, creatinine 1.60, glucose 133. Impression: 1. Acute kidney injury. 2. Volume depletion. 3. Anemia. 4. Hypokalemia. 5. Hypertension. 6. Senile dementia. Plan: We will go ahead and start potassium replacement with potassium chloride 10 mEq p.o. daily per order. We will continue IV fluid, but reduce rate to 70 cc/hour. Caregiver was advised to try to f eed him while the patient is sitting upright at 90-degree angle and we will continue his medications per order including his Eliquis and antihypertensive medication. During his last hospital stay, he w as started on Seroquel as well as Ativan. During this hospital stay, he has only received Ativan, bu t not Seroquel and I will go ahead and try to stop both of those medication and just use alprazolam 0 .25 mg at bedtime as needed, which he was taking it on outpatient basis for long time. During last h ospital stay, there was lot of agitation, so the patient did require those 2 medications, but I would like to see if we can avoid using those medications to avoid any possibility of excessive sedation. Social Service consultation was requested to assist with discharge planning. I will see him tomorro w for followup. We will repeat blood work tomorrow. Physical Therapy to work with the patient. HELEN/MODL Voice ID: [id number] Report ID: [id number]
[2024-11-28 06:35] LABS: Anion Gap 8.9 mEq/L (5.0-15.0); Magnesium 1.5 mg/dL (1.6-2.4); Potassium 2.9 mEq/L (3.5-5.1)
[2024-11-28] MEDS: D5 0.45 NS 1,000 ML IV SCH (10:04)
[2024-11-28] MEDS: ENSURE ENLIVE 237 ML CAN PO SCH (20:34)
[2024-11-28] MEDS: ALPRAZOLAM 0.25 MG TABLET PO SCH (21:00)
--- NOTE | 2024-11-28 21:00 | PN ---
Date of Progress Note: 11/28/2024 Subjective: The patient was seen this morning for followup. He was sleeping. Caregiver was at bed side. He did eat yesterday and was communicating with the caregiver during daytime yesterday. Last night, he did not sleep as well and did get alprazolam 0.25 mg last night as per my discussion with [facility] nursing staff. Objective: Vital Signs: Reviewed. HEENT: Unremarkable. Lungs: Clear to auscultation. Heart: Sounds normal. Abdomen: Soft. Bowel sounds normal. No guarding, rigidity, tenderness, distention. Extremities: No leg edema. Laboratory Data: WBC 10, hemoglobin 11.2, platelets 182. Sodium 142, potassium 2.9, chloride 109, b icarb 27, BUN 14, creatinine 1.28, glucose 102, magnesium 1.5. Impression: 1. Acute kidney injury. 2. Volume depletion. 3. Hypokalemia. 4. Hypertension. 5. Hypomagnesemia. 6. Mild dementia. Plan: We will go ahead and continue IV fluid, but reduce rate to 30 cc/hour. Replace potassium and magnesium per electrolyte replacement protocol. We will increase dose of alprazolam from 0.25 mg to 0.5 mg at bedtime and continue to work with Social Service to help make arrangements for patient to go to [facility] facility of family's choice in [place]. I will see him tomorrow for followup. HELEN/MODL Voice ID: [id number] Report ID: [id number]
[2024-11-29] MEDS: cloNIDine HCL 0.1 MG TAB PO PRN (04:03)
[2024-11-29 06:05] LABS: Anion Gap 6.1 mEq/L (5.0-15.0); Magnesium 1.8 mg/dL (1.6-2.4); Potassium 3.1 mEq/L (3.5-5.1)
[2024-11-29] MEDS: POTASSIUM 25 MEQ EFFERV TAB PO ONE ×2 (08:08→11:18)
--- NOTE | 2024-11-29 10:09 | PN ---
Date of Progress Note: 11/29/2024 Subjective: The patient was seen this morning for followup. No new complaints or problems reported by the patient. The patient's caregiver who was at bedside. She reported that yesterday the patient had much better day than last several days. He actually was awake during daytime. He woke up aroun d 9:45 a.m. yesterday and stayed up most of the day, ate very well, and in fact when caregiver was ramsey arnol to feed him, he asked caregiver that he wanted to eat by himself and he did and had a lot better intake of his food yesterday than previous day. Last night, we did give him slightly higher dose of alprazolam because previous night he did not sleep as well, so last night, we gave him 0.5 mg and ca regiver reports this morning that he did sleep better last night and this morning when I saw him, he was still sleeping. Physical Examination: Vital Signs: Reviewed. Temperature 97.9, pulse 60, blood pressure this morning was 192/86, oxygen s aturation 98%. HEENT: Unremarkable. Lungs: Clear to auscultation. Heart: Sounds normal. Abdomen: Soft. Bowel sounds normal. No guarding, rigidity, tenderness, distention. Extremities: No leg edema. Impression: 1. Acute kidney injury. 2. Volume depletion. 3. Senile dementia. 4. Hypertension. 5. Hypokalemia. 6. Hypomagnesemia. Laboratory Data: Today, sodium was 141, potassium 3.1, chloride 108, bicarb 30, BUN 14, creatinine 1 .29, glucose 106, magnesium 1.8. Plan: We will go ahead and continue to replace electrolyte per protocol. Continue IV fluid at 30 cc /hour. We will increase the dose of amlodipine from 5 mg once a day to twice a day for better blood pressure control. Continue clonidine for p.r.n. use per order and we will continue alprazolam 0.5 mg at bedtime. Social Service is working on making arrangements for the patient to go to skilled [facility] of family's choice. As soon as it is arranged, we will be able to discharge him. The patient is medically stable for discharge. HELEN/MODL Voice ID: [id number] Report ID: [id number]
[2024-11-29] MEDS: AMLODIPINE 5 MG TAB PO SCH (10:32)
--- NOTE | 2024-11-30 10:30 | PN ---
Date of Progress Note: 11/30/2024 Subjective: The patient was seen this morning for followup. He was lying in bed, a little restless when I entered the room and after I talked to him, I was able to calm him down. Caregiver was with pteer christianson at bedside. He did not eat much this morning. He was awake and not in any distress. I believe peter kirby did recognize me, but did not come up with my name. Physical Examination: Vital Signs: Reviewed this morning, temperature 97.5, pulse 96, respiratory rate 14, blood pressure 167/79, oxygen saturation 95% for physical exam. HEENT: Unremarkable. Lungs: Clear to auscultation. Heart: Sounds normal. Abdomen: Soft, bowel sounds normal. No guarding, rigidity, tenderness, distention. Extremities: No leg edema. Impression: 1. Acute kidney injury. 2. Volume depletion. 3. Hypertension. 4. Senile dementia. 5. Hypokalemia. Plan: We will go ahead and continue current antihypertensive medication. Blood pressure still remai ns elevated. The patient has clonidine more for p.r.n. use, but I will go ahead and add lisinopril 5 mg 2 times a day starting this morning. Monitor blood pressure and if necessary make further adjust ment. We will continue to follow up with Social Service. So far, we have not been able to make any arrangements for him to go to facility of family's choice in [place], but social Service is working o n it. HELEN/MODL Voice ID: [id number] Report ID: [id number]
[2024-11-30] MEDS: lisinopriL 5 MG TAB PO SCH (12:10)
[2024-12-01] MEDS: LORazepam 2 MG/ML VIAL IV ONE (01:23)
[2024-12-01 07:56] LABS: Absolute Basophils 0.1 K/uL (0-0.5); Absolute Eosinophils 0.5 K/uL (0-0.5); Absolute Lymphocytes (CBC) 1.8 K/uL (0.7-4.9); Absolute Monocytes 1.1 K/uL (0.1-1.3); Absolute Neutrophil 5.4 K/uL (1.8-8.0); Basophils % 0.8 % (0-1.3); Hematocrit 33.2 % (39.6-49.0); Hemoglobin 11.6 g/dL (13.6-17.9); Lymphocytes % 19.8 % (15.3-44.8); MCH 31.8 pg (27.0-35.0); MCHC 34.8 g/dL (32.0-36.0); MCV 91.3 fL (80-100); MPV 9.2 fL (7.6-11.3); Monocytes % 12.5 % (3.3-12.3); Neutrophils % 60.9 % (41.7-73.7); Nucleated Red Blood Cells % 0.1 % (0-0); Platelets 193 thou/uL (152-406); RBC Red Blood Cell Count 3.64 M/uL (4.33-5.43)
[2024-12-01 08:20] LABS: Anion Gap 6.5 mEq/L (5.0-15.0); Magnesium 1.9 mg/dL (1.6-2.4); Potassium 3.5 mEq/L (3.5-5.1)
--- NOTE | 2024-12-01 11:56 | PN ---
Date of Progress Note: 12/01/2024 Subjective: The patient was seen this morning for followup. No new complaints or problems reported by patient. Lying in bed, not in distress. Caregiver was with the patient at bedside. He was sleep ing, but he woke up when I was in room and try to communicate but difficult to understand his speech. He did eat better this morning for breakfast. Last night, he did not sleep well and nurse called sharita kirby. The patient did receive his alprazolam 0.5 mg at bedtime and middle of the night when nurse carter d me 0.5 mg Ativan IV x1 dose was ordered. Physical Examination: HEENT: Unremarkable. Lungs: Clear to auscultation. Heart: Sounds normal. Abdomen: Soft. Bowel sounds normal. No guarding, rigidity, tenderness, distention. Extremities: No leg edema. Laboratory Data: WBC 8.9, hemoglobin 11.6, platelets 193. Sodium 140, potassium 4.5, chloride 105, bicarb 32, BUN 18, creatinine 1.34, glucose 97, magnesium 1.9. Impression: 1. Acute kidney injury. 2. Hypokalemia. 3. Volume depletion. 4. Hypertension. 5. Senile dementia. 6. Anemia, unspecified. 7. Chronic kidney disease, stage 3A. Plan: We will go ahead and continue current blood pressure medication this morning. Last blood pres sure was 129/67, pulse rate 86. So after making adjustment on blood pressure medication, it appears that his blood pressure is under much better control now. Potassium and magnesium are normal as well . I will see him tomorrow for followup. We are waiting on arrangements to be completed by social service for patient to go to [facility] family's choice in [place]. HELEN/MODL Voice ID: [id number] Report ID: [id number]
[2024-12-02 08:45] LABS: Anion Gap 6.8 mEq/L (5.0-15.0); Potassium 3.8 mEq/L (3.5-5.1)
[2024-12-02] MEDS: D5 0.45 NS 1,000 ML IV SCH (10:10)
[2024-12-02] MEDS: QUETIAPINE 25 MG TAB PO SCH (21:27)
--- NOTE | 2024-12-02 22:07 | PN ---
Date of Progress Note: 12/02/2024 Subjective: The patient was seen this morning for followup. He was lying in bed, sleeping. Caregiver was at bedside. The patient did not sleep last night and was restless. He did get 0.5 mg of alprazolam at bedtime, but that did not help. Early this morning he had fallen asleep, so when I saw him, he was sleeping, not in any distress. Objective: Vital Signs: Reviewed. HEENT: Unremarkable. Lungs: Clear to auscultation. Heart: Sounds normal. Abdomen: Soft. Bowel sounds normal. No guarding, rigidity, tenderness, distention. Extremities: No leg edema. Laboratory Data: No new labs today. Impression: 1. Acute kidney injury. 2. Volume depletion. 3. Senile dementia. 4. Chronic anticoagulation therapy. Plan: We will go ahead and continue IV fluid. The patient is on IV fluid at 30 cc/hour. We will increase it to 60 cc/hour considering his oral intake is not back to normal. We are waiting for Social Service to make arrangements for him to go to skilled facility of family's choice. Blood pressure reviewed. Continue current antihypertensive medication. Starting tonight, we will go ahead and add Seroquel 25 mg at bedtime along with alprazolam 0.5 mg at bedtime to be continued. I will see him tomorrow for followup. HELEN/MODL Voice ID: [id number] Report ID: [id number] JAYLIN
--- NOTE | 2024-12-03 08:08 | RAD REPORT ---
Procedure: Chest Single View HISTORY: Cough COMPARISON: November 24, 2024 FINDINGS: The lungs appear clear of acute infiltrate. No significant pleural effusion noted. The heart is normal size.. Pacemaker leads in place. IMPRESSION: No acute abnormality is displayed.
[2024-12-03 09:01] LABS: Absolute Basophils 0.1 K/uL (0-0.5); Absolute Eosinophils 0.4 K/uL (0-0.5); Absolute Lymphocytes (CBC) 1.6 K/uL (0.7-4.9); Absolute Neutrophil 6.1 K/uL (1.8-8.0); Eosinophils % 4.7 % (0-4.4); Hematocrit 34.3 % (39.6-49.0); Hemoglobin 11.9 g/dL (13.6-17.9); MCH 31.5 pg (27.0-35.0); MCHC 34.7 g/dL (32.0-36.0); MCV 90.8 fL (80-100); Neutrophils % 66.3 % (41.7-73.7); Platelets 214 thou/uL (152-406); RBC Red Blood Cell Count 3.78 M/uL (4.33-5.43); Red Cell Distribution Width 14.8 % (12.1-15.2)
[2024-12-03 09:18] LABS: Albumin 2.7 g/dL (3.4-5.0); Albumin/Globulin Ratio 0.6 (1.1-1.8); Anion Gap 9.6 mEq/L (5.0-15.0); Bilirubin Total 0.6 mg/dL (0.2-1.0); Globulin 4.7 g/dL (2.3-3.5); Magnesium 1.9 mg/dL (1.6-2.4); Potassium 3.6 mEq/L (3.5-5.1); Protein, Total 7.4 g/dL (6.4-8.2)
[2024-12-03] MEDS: KCL 20 MEQ/100 mL IVPB 20 MEQ/100 ML BAG IV ONE (21:38)
--- NOTE | 2024-12-04 00:44 | PN ---
Date of Progress Note: 12/03/2024 The patient was seen this morning for followup. No new complaints or problems reported by caregiver, except he did not sleep last night and this morning when I saw him, he had just started to sleep, bu t he did wake up when I was in room with him. Nurse reported that last night she did not give any me dications to him because she was concerned about the patient's ability to swallow, so she did not giv e any last night medication which was Seroquel and alprazolam. This morning when I saw him, he was n oted to have a lot of cough and mucus buildup in his throat area and some of it was cleared with suct ion. I did inform caregiver who was at bedside to make sure not to give him any food or liquids with out clearing with the nursing staff and order was written to keep patient n.p.o. and speech therapies and modified barium swallow was ordered. Physical Examination: HEENT: Unremarkable. Lungs: Clear to auscultation. Not in any respiratory distress. Heart: Sounds normal. Abdomen: Soft. Bowel sounds normal. No guarding, rigidity, tenderness, distention. Extremities: No leg edema. Laboratory Data: WBC 9.2, hemoglobin 11.9, platelets 214. Sodium 140, potassium 3.6, chloride 105, bicarb 29, BUN 15, creatinine 1.42, glucose 100. Liver function tests unremarkable. Chest x-ray, no evidence of any pneumonia. Impression: 1. Acute kidney injury. 2. Volume depletion. 3. Senile dementia. 4. Dysphagia. Plan: We will go ahead and continue IV fluid per order. Speech therapist did evaluate the patient t rashid and after speech therapist's evaluation, she ordered puree diet with thin liquids, and tomorrow, patient will have a modified barium swallow. The patient has not slept while in last couple of nigh ts, so last night along with alprazolam I wanted to try Seroquel 25 mg, but unfortunately, he did not get any help his last night's medication because of swallowing difficulty, and hopefully, we will tr frank hensley and see how he responds. I did call the patient's son and discussed details at [facility] and he has informed me that this afternoon he got the message that the patient did get accepted int facility in [place] that social service has been trying and the patient can leave hospital as early as tomorrow, and most concerned about his mental and physical ability to do the physical therapy, bu t in the event if he goes to this facility and if he is not able to do the therapy, then he should ge t on hospice care and son has informed me that in that case he will consider to bring patient back to his house here in [place]. So with all that, I have even asked the patient's son to see magnus r he really wants to take him to [place], as chances of meaningful improvement is very small in view of his current condition. He is really not eating, drinking well, also without IV fluid hydration. He is going to get dehydrated within short period of times, will end up back in the hospital with deh ydration and kidney failure again, and he does not want to keep on prolonging things if there is no c aby of meaningful recovery, and in that case, we did talk about consideration of going [facility] with [facility] and he was to think about it over next 24 hours or so and then tomorrow evening we will co sherrill again. HELEN/MODL Voice ID: [id number] Report ID: [id number]
[2024-12-04] MEDS: DIGOXIN 0.25 MG/ML AMP ONE (01:52)
[2024-12-04] MEDS: METOPROLOL TARTRATE 5 MG/5 ML INJ IV ONE ×2 (01:52→01:58)
[2024-12-04] MEDS: DIGOXIN 0.25 MG/ML AMP IV ONE (01:58)
[2024-12-04 10:39] LABS: Specific Gravity 1.011 (1.005-1.030); Sqamous Epithelial <5 /HPF (None Seen); Transitional Epithelial <5 /HPF (None Seen); Urine Bacteria None Seen /HPF (<20); Urine Bilirubin NEGATIVE (Negative); Urine Blood Negative (Negative); Urine Clarity Extremely Turbid (Clear); Urine Color Light-Yellow (Yellow); Urine Culture Reflex Order NOT NEEDED; Urine Glucose NEGATIVE (Negative); Urine Ketones NEGATIVE (Negative); Urine Microscopic Reflex YN ORDER UMIC; Urine Nitrite NEGATIVE (Negative); Urine Protein 1+ (Negative); Urine RBC <5 /HPF (None Seen); Urine Urobilinogen Normal (Normal); Urine WBC <5 /HPF (<5); Urine pH 7.5 (5.0-7.0)
[2024-12-04] MEDS: ALBUTEROL 2.5 MG/3 ML NEB SOL NEB PRN (12:45)
[2024-12-04] MEDS: CLONIDINE 0.2 MG/PATCH TD SCH (16:09)
[2024-12-04] MEDS ORDERED: ALBUTEROL 2.5 MG/3 ML NEB SOL NEB PRN (17:02)
[2024-12-04] MEDS: NITROGLYCERIN 1 GM PKT TD SCH (18:00)
[2024-12-04] MEDS: METOPROLOL TARTRATE 5 MG/5 ML INJ IV PRN (20:20)
[2024-12-04] MEDS: PIPER TAZO 3.375 GM in NA CHLORIDE 0.9% 100 ML IV SCH (20:24)
[2024-12-04] MEDS: ACETAMINOPHEN 650MG/RECT SUPP PR PRN (20:25)
--- NOTE | 2024-12-04 20:31 | RAD REPORT ---
EXAMINATION: ONE VIEW CHEST XR CLINICAL INDICATION: increased temp and heart rate TECHNIQUE: Frontal chest projection is submitted. Examination is limited by patient positioning and t echnique. COMPARISON: 12/03/2024 FINDINGS: Mild patchy opacity is developed in the right lung base and to a lesser extent the medial left lung b ase suspicious for pneumonia. The heart is moderately enlarged. Tortuous thoracic aorta. Single-lead pacer device.
[2024-12-04] MEDS: KCL 20 MEQ/100 mL IVPB 20 MEQ/100 ML BAG IV SCH (21:00)
--- NOTE | 2024-12-05 06:20 | PN ---
Date of Progress Note: 12/04/2024 Subjective: The patient was seen this morning for followup. He was lying in bed sleeping last night around 1 or 1:30 in the morning. Nurse contacted me and informed me that the patient's pulse rate w as elevated around 120 or so and had anywhere between sinus tachycardia and atrial fibrillation type of rhythm. I did review rhythm strip. This morning, the patient was sleeping, not in any distress. The patient did sleep very well last night and this is probably one of the best night that he had sl eeping rice without any agitation. During nighttime, when nurse contacted me, IV digoxin and IV Lopr essor were ordered. As the day progressed today, the patient continued to remain excessively sedated all throughout the day, so he did not eat or drink anything and was not able to participate with the speech therapist to undergo modified barium swallow, so this particular test was not done. The isiah ent was kept n.p.o. because of high risk of aspiration considering he is excessively sedated. When peter kirby came into the hospital from assisted, he was getting Seroquel 50 mg at bedtime at assisted and Ativan 0.5 mg b.i.d. p.r.n., both of those medications were discontinued and he was not able to s leep at night at all, so we started him on alprazolam 0.25 mg at bedtime, which he has been using it on outpatient basis for a long time. Unfortunately, 0.25 mg dose was not adequate, so we doubled the dose and started 0.5 mg at bedtime and once again, that was not adequate to control his agitation an d restlessness during nighttime, so he was not getting any sleep at night. Finally, we decided to co ntinue 0.5 mg alprazolam and add a smaller dose of Seroquel which was 25 mg instead of 50 mg dose he was taking at assisted and he got first dose last night and now we are dealing with this excessiv e sleepiness problem, so unfortunately he is no longer going to be able to take medication like Seroq uel with this kind of response. I did reach out to the patient's son this evening and explained all those details to him as well. We also had a discussion regarding his nutrition since he is not eatin g or drinking anything. He is getting IV fluid hydration, but not nutrition and different options of either nasogastric tube placement, TPN, or PEG tube placement type of intervention for nutritional s upport discussed and we also discussed hospice care. The patient's son understands all those interve ntions and risk involved with nasogastric tube. Unfortunately, I am afraid he will pull it out and w e will not be able to keep it in. TPN will be a temporary support, not really ideal way to provide n utrition, and not sure about the PEG tube placement with his long-term prognosis which is guarded, so hospice care might be appropriate option in this kind of situation. The patient's son understands a nd realizes that, so he is keeping that option in mind at this time. Physical Examination: HEENT: Unremarkable. Lungs: Clear to auscultation. Heart: Sounds normal. Abdomen: Soft. Bowel sounds normal. No guarding, rigidity, tenderness, distention. Extremities: No leg edema. Laboratory Data: Chest x-ray was done this evening showing possibility of pneumonia in both basal re gion. Impression: 1. Pneumonia, likely aspiration pneumonia. 2. Senile dementia. 3. Hypertension. Plan: We will go ahead and start the patient on Zosyn. Today, his pulse rate and blood pressure rem ain elevated, so during day, we ordered clonidine patch and nitroglycerin ointment and this evening o rdered IV Lopressor. I will see him tomorrow for followup. The patient's son also informed me that when he goes home, he will look into the patient's advance directives because the patient probably do es not want any artificial feeding support, but he will review all that information and when I talked to him again tomorrow, he will inform me. HELEN/MODL Voice ID: [id number] Report ID: [id number]
[2024-12-05 06:39] LABS: Anion Gap 8.5 mEq/L (5.0-15.0); Potassium 4.5 mEq/L (3.5-5.1)
[2024-12-05] MEDS ORDERED: ALBUTEROL 2.5 MG/3 ML NEB SOL NEB PRN (07:18)
[2024-12-05] MEDS: ALBUTEROL 2.5 MG/3 ML NEB SOL NEB SCH (08:13)
[2024-12-05] MEDS: D5 0.45 NS 1,000 ML IV SCH (10:20)
--- NOTE | 2024-12-05 11:57 | EKG ---
Test Date: 2024-12-04 Test Time: 00:38:17 Invoicing Machine Operator: FS MEASUREMENT RESULTS: Intervals: Rate: 147 GA: QRSD: 68 QT: 274 QTc: 428 [place]: P: GA: QRS: 6 T: 40 INTERPRETIVE STATEMENTS: Atrial fibrillation with rapid ventricular response Possible Anterior infarct, age undetermined Abnormal ECG Compared to ECG 11/26/2024 14:26:56 Myocardial infarct finding now present Sinus rhythm no longer present Atrial premature complex(es) no longer present Left ventricular hypertrophy no longer present T-wave abnormality no longer present Electronically Signed On 12-05-24 11:53:52 CDT by Mathew Lundy
[2024-12-05] MEDS: DIAZEPAM 2 MG TABLET PO SCH (21:00)
--- NOTE | 2024-12-05 23:10 | PN ---
Date of Progress Note: 12/05/2024 Subjective: The patient was seen this morning for followup. He was lying in bed, not in any distres s, sleeping with his eyes closed and caregiver was at bedside. As I was talking to caregiver, iqra t opened his eyes and started saying something. When I asked him, he was able to recognize me and wa s able to tell me my name and his speech was not normal, but lot better than before. Physical Examination: Vital Signs: Reviewed. Last temperature this morning 98.2, pulse 84, respiratory rate 18, blood pre ssure 149/67, oxygen saturation 96%. HEENT: Unremarkable. Lungs: Clear to auscultation. No wheezing. No rales. Heart: Sounds normal. Abdomen: Soft. Bowel sounds normal. No guarding, rigidity, tenderness, distention. Extremities: No leg edema. Impression: 1. Aspiration pneumonia. 2. Hypertension. 3. Paroxysmal atrial fibrillation. 4. Hyperlipidemia. 5. Dysphagia. 6. Acute respiratory failure with hypoxia. Plan: We will go ahead and continue current supplemental oxygen. Continue Zosyn, which was started last night. I did perform some suction while I was at bedside this morning and we will continue that on a p.r.n. basis. Continue current antihypertensive medication, which is clonidine and nitroglycer in ointment and p.r.n. IV Lopressor while patient is n.p.o. We will continue to follow up with [facility] therapist for swallowing evaluation and see if speech therapist can clear us for some oral nutritio n. I did communicate with the patient's son this evening and details were discussed with him. He sp ent few hours with the patient today and he also noted improvement in him today compared to last few days. He also informed me that the patient would not have wanted any feeding tube in this kind of si tuation, so we will continue current management. Hopefully, once speech therapist gives us clearance , we can start providing oral nutrition support. Today, his condition has improved. If we continue to see ongoing improvement, then he should be able to go to long-term facility in [place] as he has been accepted to that facility. I will see him tomorrow for followup. HELEN/MODL Voice ID: [id number] Report ID: [id number]
[2024-12-06] MEDS: DIAZEPAM 10 MG/2 ML INJ SYRINGE IV ONE (01:16)
[2024-12-06 06:18] LABS: Absolute Eosinophils 0.1 K/uL (0-0.5); Absolute Lymphocytes (CBC) 1.4 K/uL (0.7-4.9); Absolute Monocytes 1.1 K/uL (0.1-1.3); Absolute Neutrophil 11.3 K/uL (1.8-8.0); Basophils % 0.3 % (0-1.3); Eosinophils % 0.7 % (0-4.4); Hemoglobin 10.2 g/dL (13.6-17.9); Lymphocytes % 9.9 % (15.3-44.8); MCH 31.1 pg (27.0-35.0); MCHC 34.2 g/dL (32.0-36.0); MCV 91.1 fL (80-100); MPV 8.8 fL (7.6-11.3); Monocytes % 7.6 % (3.3-12.3); Neutrophils % 81.5 % (41.7-73.7); Platelets 179 thou/uL (152-406); RBC Red Blood Cell Count 3.29 M/uL (4.33-5.43); Red Cell Distribution Width 15.1 % (12.1-15.2)
[2024-12-06 06:34] LABS: Anion Gap 10.4 mEq/L (5.0-15.0); Potassium 3.4 mEq/L (3.5-5.1)
--- NOTE | 2024-12-06 08:08 | RAD REPORT ---
EXAM: Chest Single View HISTORY: 89 years Male pneumonia COMPARISON: 12/04/2024 FINDINGS: LUNGS/PLEURA: Mild opacities in the lung bases bilaterally. Slight improved lung volumes.. CARDIAC/MEDIASTINUM: Stable size and configuration. UPPER ABDOMEN: No significant abnormality. BONES: No acute abnormality. LINES/TUBES/OTHER: Pacemaker present. IMPRESSION: Mild basilar opacities could reflect atelectasis and/or pneumonia. No significant change from prior.
--- NOTE | 2024-12-06 11:12 | PN ---
Date of Progress Note: 12/06/2024 Subjective: The patient was seen this morning for followup. No new complaints or problems reported by the patient. He was lying in bed, restless. Caregiver was at bedside. Last night around 1 or 2 o'clock in the morning, nurse contacted me and requested some medications for agitation and restlessn ess and Valium 2 mg IV x1 dose was ordered, but this morning when I communicated with the nursing sta ff, I was informed that the medication was not effective. The patient was not in any respiratory dis tress. He was awake, alert, recognized me and was able to tell me my name. Objective: Vital Signs: Reviewed. He remains afebrile. HEENT: Unremarkable. Lungs: Clear to auscultation. No wheezing or rales. Heart: Sounds normal. Abdomen: Soft. Bowel sounds normal. No guarding, rigidity, tenderness, distention. Extremities: No leg edema. Laboratory Data: Labs and chest x-ray done today, results reviewed. Impression: 1. Aspiration pneumonia. 2. Dementia. 3. Hypertension. 4. Paroxysmal atrial fibrillation. 5. Chronic anticoagulation therapy. 6. Volume depletion. 7. Acute kidney injury. Plan: We will continue current IV fluid while the patient is n.p.o. and speech therapist was not abl e to do modified barium swallow yesterday and I have asked nursing staff today to reach out to speech therapist to see if she would like to finish barium swallow today or provide diet recommendation wit hout doing the test on basis of her evaluation, so we can start oral nutrition for the patient. Mean while, continue current antibiotic which is Zosyn. The patient has not responded well to alprazolam or Ativan, did not respond to Valium last night and unfortunately Seroquel, he did not tolerate well, even the lowest dose caused excess amount of sedation for 24 to 48 hours, so we will not be able to use that particular medication, so I did reach out to Dr. Erickson from Neurology and requested his e valuation for the patient for this dementia with his behavior problems and requested his help for med ication management and we did talk about possibly use of Depakote which he agrees and we can start us ing it tonight provided speech therapist give us recommendation for the patient to swallow oral medic ation. If not, we can do IV Depakote. Dr. Erickson will evaluate the patient and provide his consul tation today. HELEN/ZA Voice ID: [id number] Report ID: [id number]
[2024-12-06] MEDS: DIVALPROEX DR 250 MG TAB PO SCH (19:19)
--- NOTE | 2024-12-06 21:05 | CON ---
Consultation called by Dr. Carl because of dementia with psychotic features. History Of Present Illness: Mr. Contreras is an 89-year-old patient with history of dementia, who is a t a longterm in [facility] and has a 24-hour caregiver, who was recently hospitalized and did in patient rehabilitation. The patient has had progressive generalized weakness along with dementia and behavioral disturbances consistent with psychotic features. He came back to [facility] on 11/26/2024, when the patient's son noted that he was not taking care properly while at the facility. He was worried about the cleanliness of the facility and wanted him to go to a different place. Dr. Carl mentioned that the patient had medications to help with his agitation and behavior including an tipsychotic medications and benzodiazepines, which appear to have either over sedating affects or pro ducing excessive behavioral changes such as confrontational behavior or more aggressive behavior. He did receive Seroquel at night for sleep, but again was sedating, did cause the patient to be more ag itated. In addition, he had Ativan as well that had a similar affect. The patient was seen and admi tted. His CT scan of the head showed moderate to global cerebral atrophy without acute ischemic or h emorrhagic findings. His blood work initially showed a slightly elevated white blood cell count of 1 1.4 with 79% neutrophils, hemoglobin 11.8. Today, his white blood cell count is 13.9 with 81.5% neut rophils, hemoglobin 10.2, normal platelets. INR 1.28, potassium today slightly low at 3.4, his sodiu m normal at 140, chloride 106, BUN mildly elevated to 22 and his serum creatinine has increased to 1. 88 from 1.34 on admission. Glucose ranged 97-107. Calcium normal. Magnesium normal. Liver functio n studies were normal. His urinalysis at admission essentially unremarkable and on the did show extreme turbidity, pH 7.5, and urine protein was +1. He was negative for COVID with influenza A and B. At the time of my evaluation, the patient had a caregiver at the bedside along with family member. H e was continuously moving the bed sheet around, thought it was a towel, thought it was also a shirt, trying to fold and unfold it, but was very confused about that. He did follow simple instructions to keep his legs in the air and moves arms appropriately. He was unaware of his location and the reaso n why he was in the hospital. Past Medical History: Includes hypertension, chronic stage IIIB kidney disease, dyslipidemia, GE ref lux, benign prostatic hypertrophy, osteoarthritis, impaired fasting glucose, abdominal aortic aneurys m. Allergies: TETANUS TOXOID. Current Medications: Tylenol 650 mg every 6 hours as needed and Tylenol suppository 650 as needed ev prasanna 6 hours for temperature greater than 100, albuterol nebulizer 2.5 mg every 6 hours, Norvasc 5 mg twice daily, Eliquis 2.5 mg twice daily, Lipitor 10 mg at bedtime, clonidine 0.1 mg twice daily as ne eded. He has Valium 2 mg at bedtime, Pepcid 20 mg daily, Flonase 1 spray twice daily, Prinivil 5 mg twice daily, Lopressor 50 mg twice daily, Zofran 4 mg every 4 hours as needed. He is on antibiotic p iperacillin/tazobactam 3.375 mg every 8 hours from 12/04/2024, and Seroquel 25 mg at bedtime. He alf l begin Depakote 250 mg twice daily. Family History: Noncontributory. Social History: No alcohol, tobacco, or IV drug use. Reportedly drinks except for a couple of glass es of wine once a week. Surgical History: Abdominal aortic aneurysm, inguinal hernia repair, transurethral resection of blad nestor tumor, shoulder surgery, basal cell carcinoma removal from left ear in 2020. Review of Systems: There is not a reliable review of systems as the patient is not oriented to exactly where he is and w hy he is in the hospital. Again, follows commands appropriately to lift legs and move arms. Physical Examination: Vital Signs: Blood pressure 165/87, pulse from 74-100, temperature 97.4 oxygen saturation 96%, respi ratory rate 16. He did have 2 L of oxygen via nasal cannula, weight 122 pounds, height 5 feet 7 inch es, BMI 17.5. General: Mr. Contreras is lying in bed. He appears to be in no significant distress. He is picking a t the bed sheets and moving it around. HEENT: He is otherwise normocephalic, atraumatic. Sclerae are anicteric. Oropharynx pink and moist . Neck: Supple. Chest: Clear. Extremities: No significant edema, cyanosis, or clubbing noted. Neurologic: He does answer to his name, but believes he is at some other facility instead of the [facility]. He did get the year properly, but he thought it was March in terms of the month and had diff iculty recalling any words given to him; however, again he followed instructions to move the arms and legs fairly well. He did not have asymmetries in terms of his movement, coordination, and sensory r esponses to touch in the extremities. Imaging: His chest x-ray done on 12/06/2024, and compared to 3 of the chest x-rays done earlier in h is admission showed mild basilar opacities, could reflect atelectasis and/or pneumonia, no significan t change from prior study. An electrocardiogram done on 12/04/2024, showed atrial fibrillation with rapid ventricular response, possible anterior infarct, age undetermined, abnormal ECG. Again, head a nd C-spine MRI shows moderate small vessel ischemic disease with cerebral atrophy. No evidence of an y acute ischemic hemorrhagic stroke. No fractures identified in the cervical spine. No osseous or a cute abnormalities identified. There is mild mid and lower level cervical degenerative spondylosis. Abdomen and chest and pelvis CT scan on 11/26, showed the liver having a 13 mm low-density lesion in the right lobe, however not felt to be worrisome. There is a 6.2 cm infrarenal abdominal aortic ane urysm with endograft in place. There is a small fat containing right inguinal hernia. 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 Assessment: Mr. Contreras is an 89-year-old patient with multiple medical problems as noted, he appear s to have a moderate, at least to perhaps severe dementia potentially of mixed etiology. The moderat e chronic small vessel ischemic disease and cerebral atrophy may be consistent with a vascular zarina ia. However, the patient may also have Alzheimer disease. He has comorbid conditions, which include potential infection. He has elevated heart rate from atrial fibrillation, but no evidence of any fo kelly neurological deficits. He has on antibiotics per Dr. Carl. Electrolyte abnormalities and renal dysfunction may be contributing a small amount of patient's encephalopathy with his psychotic feature s. Plan: 1. The patient may have blood work to rule out Alzheimer disease, which includes serum A beta 42/40 r atio and the plasma phosphorylated [id number] blood test, those have been ordered. 2. The patient, if further evaluation is required to rule out Alzheimer's, may have a lumbar puncture for the CSF A beta 42/40 ratio. 3. For his behavioral changes and to help with mood control, we will start Depakote 250 mg twice jennifer y. 4. Also discussed with Dr. Calr as the possibility of CBD at 5 or 10 mg daily, maybe in the form of g ummies or pills as the patient has been evaluated by the speech service and determined that swallowin g maybe adequately done with pudding consistencies, soft bite-size diet, and that is on their full re commendation of the speech, who did the swallowing study and in particular the swallow recommendation s are dysphagia, soft mechanical diet with ground meat, thin liquids upright at 90 degrees, small bit es with sips, alternate solids and liquids, eat slowly and remain upright after meals. The patient m ay begin oral intake as soon as need be. In addition, the patient may benefit from physical therapy. It is noted that with the physical therapist, he was actually able to maintain upright position. Shelby kirby did do transfers with contact guard assistance and he ambulated with a rolling walker 270 feet once with the therapist and with the wheelchair following. He was able to transfer without an assistive device from bed to an arm chair with standby assistance. He was able to sit up in the chair with fam juan members present. It is suggested that the patient continue with therapy to help him reduce the r isk of developing areas of skin breakdown to increase his ability, to mobilize safely, and to decreas e his fall risk. 5. The patient is being considered for correction where he should be able to receive therapy. W e will suggest maintaining good oral hydration and the medications noted including Depakote and CBD f or behavioral stabilization and reducing the psychotic effects from his dementia. We will follow up on the blood work for ruling out Alzheimer disease. LB/MODL Voice ID: [id number] Report ID: [id number]
--- NOTE | 2024-12-07 11:20 | PN ---
Date of Progress Note: 12/07/2024 Subjective: The patient was seen this morning for followup, no new complaints or problems reported. He appeared more awake, alert, and calm today compared to last several days. In fact, I have not se en him this well for this entire hospital stay and last hospital stay. As per my discussion with the nursing staff, he did sleep well last night. This morning, he had some breakfast, probably half of it and other half was still in the plate. Caregiver was with him at bedside and I did talk to patien t and try to convince him to finish the rest of this breakfast and hopefully he will try to do so. D enies any complaints. Yesterday, he did ambulate very well with physical therapy. Objective: Vital Signs: Reviewed. HEENT: Unremarkable. Lungs: Clear to auscultation. Heart: Sounds normal. Abdomen: Soft, bowel sounds normal. No guarding, rigidity, tenderness, distention. Extremities: No leg edema. Laboratory Data: No new labs today. Assessment: 1. Aspiration pneumonia. 2. Dementia. 3. Rule out Alzheimer disease. 4. Hypertension. 5. Paroxysmal atrial fibrillation. 6. Chronic anticoagulation therapy. Plan: We will go ahead and continue current antibiotic, which is Zosyn, continue IV fluid. We will repeat blood work tomorrow morning. The patient was encouraged to finish his meal and eat all his me als and I did talk to him about it today. Neurology consultation from Dr. Erickson is appreciated. He has ordered testing for Alzheimer's yesterday. This will be a send out test, so we will start to follow up on it on an outpatient basis once the result is available. Meanwhile, we will continue to work with Physical therapy, continue Depakote 250 mg 2 times a day, which was started yesterday and tracy moraless like he is tolerating that very well and responding well to it. I will see him tomorrow for eliel gonzales. I did communicate with the patient's son in details yesterday and our plan is to possibly dis charge him on Monday, which is day after tomorrow to [facility] in [place] as he has been accep radha by this particular facility. HELEN/MODL Voice ID: [id number] Report ID: [id number]
[2024-12-08 06:47] LABS: Absolute Basophils 0.1 K/uL (0-0.5); Absolute Eosinophils 0.4 K/uL (0-0.5); Absolute Lymphocytes (CBC) 1.6 K/uL (0.7-4.9); Absolute Monocytes 0.8 K/uL (0.1-1.3); Absolute Neutrophil 6.7 K/uL (1.8-8.0); Basophils % 0.6 % (0-1.3); Eosinophils % 4.5 % (0-4.4); Hematocrit 32.7 % (39.6-49.0); Hemoglobin 11.3 g/dL (13.6-17.9); Lymphocytes % 16.4 % (15.3-44.8); MCH 31.1 pg (27.0-35.0); MCHC 34.6 g/dL (32.0-36.0); MPV 8.2 fL (7.6-11.3); Monocytes % 8.5 % (3.3-12.3); Nucleated Red Blood Cells % 0.1 % (0-0); Platelets 266 thou/uL (152-406); RBC Red Blood Cell Count 3.64 M/uL (4.33-5.43); Red Cell Distribution Width 14.9 % (12.1-15.2)
[2024-12-08 06:56] LABS: Anion Gap 9.5 mEq/L (5.0-15.0); Magnesium 1.9 mg/dL (1.6-2.4); Potassium 3.5 mEq/L (3.5-5.1)
[2024-12-08] MEDS: POTASSIUM CL SA 10 MEQ TAB PO ONE (12:40)
--- NOTE | 2024-12-08 15:16 | PN ---
Date of Progress Note: 12/08/2024 Subjective: The patient was seen this morning for followup. No new complaints or problems reported by caregiver who was at bedside. The patient slept from 11 p.m. to 4 a.m. or so, on basis of what james kline tells me. Yesterday, he did eat fairly well. What the caregiver described was the patient s till has lot of anxiety while he is awake. When I saw him, he was sleeping, not in any distress. Objective: Vital Signs: Reviewed. HEENT: Unremarkable. Lungs: Clear to auscultation. Heart: Sounds normal. Abdomen: Soft. Bowel sounds normal. No guarding, rigidity, tenderness, distention. Extremities: No leg edema. Laboratory Data: WBC 9.6, hemoglobin 11.3, and platelets 266. Sodium 141, potassium 3.5, chloride 1 09, bicarb 26, BUN 12, creatinine 1.68, glucose 81, magnesium 1.9. Impression: 1. Acute kidney injury. 2. Volume depletion. 3. Aspiration pneumonia. 4. Dementia. 5. Anemia, unspecified. Plan: We will go ahead and continue current IV fluid. Continue current antibiotic which is Zosyn. The patient will continue current antihypertensive medication and potassium replacement per order. W e will continue Depakote 250 mg twice a day, and at appropriate time, we will consider to increase th e dose. So far, he has responded well to Depakote and we hope that as we go up on the dose, he will respond even more. If the patient's condition remained stable, plan is to discharge him tomorrow to go to residential facility of family's choice in [place]. HELEN/MODL Voice ID: [id number] Report ID: [id number]
[2024-12-09] MEDS: TRAZODONE 50 MG TABLET PO SCH (20:55)
[2024-12-09 23:58] VITALS: O2SAT 94
--- NOTE | 2024-12-10 00:17 | PN ---
Date of Progress Note: 12/09/2024 Subjective: The patient was seen this morning for followup. He did not sleep well last night. This morning when I saw him, he was awake, appearing little tired. Caregiver was at bedside and the isiah ent has lot of restlessness along with insomnia problem. Objective: Vital Signs: Reviewed. HEENT: Unremarkable. Lungs: Clear to auscultation. Heart: Sounds normal. Abdomen: Soft. Bowel sounds normal. No guarding, rigidity, tenderness, distention. Extremities: No leg edema. Impression: 1. Acute kidney injury. 2. Volume depletion. 3. Aspiration pneumonia. 4. Senile dementia. 5. Rule out Alzheimer's disease. 6. Paroxysmal atrial fibrillation. 7. Chronic anticoagulation therapy. Plan: We will continue current IV fluid. Continue Depakote per order and starting tonight, we will add trazodone 50 mg daily at bedtime. Continue current antihypertensive medication and anticoagulati on therapy. Social Service was requested to communicate with facility who has accepted the patient a nd I was notified that facility will be able to accept him tomorrow. I will see him tomorrow morning for followup and possible discharge tomorrow. HELEN/MODL Voice ID: [id number] Report ID: [id number]
[2024-12-10 05:46] VITALS: BP 137/83
[2024-12-10 08:39] VITALS: TEMP 97.6
--- NOTE | 2024-12-10 23:02 | DS ---
Date of Discharge: 12/10/2024 Disposition: Discharged to go to [facility] in [place]. Physical Examination: HEENT: Unremarkable. Lungs: Clear to auscultation. No wheezing. No rales. Heart: Sounds normal. Abdomen: Soft. Bowel sounds normal. No guarding, rigidity, tenderness, distention. Extremities: No leg edema. Discharge Medications And Instructions: 1. . 2. . 3. . Laboratory Data: Last blood work from 12/08/2024, WBC 9.6, hemoglobin 11.3, platelets 266. For chem istry from 12/08/2024, sodium 141, potassium 3.5, chloride 109, bicarb 26, BUN 12, creatinine 1.68, g lucose 81, magnesium 1.9. Upon admission on 11/26/2024, WBC 11.4, hemoglobin 11.8, and platelets 210 , with sodium 140, potassium 3.8, chloride 108, bicarb 26, BUN 38, creatinine 2.21, glucose 118. Iris er function tests unremarkable. Lactic acid 1.4. Troponin 22.2. ProBNP 2203. Hospital Course: This is an 89-year-old pleasant male patient, who was admitted to hospital when he was brought into emergency room from [facility] after staying there for about 4 days wi th weakness and altered mental status. Please see dictated H and P for more information. The patien t really did not eat or drink hardly anything for 4 days that he was at the [facility] facility and he was brought in. The patient was admitted to hospital with acute kidney injury and volume depl etion. Initially when I saw him in emergency room, he had Bean-Chen breathing pattern and I was concerned about this breathing pattern, but overall his condition improved. His breathing pattern no rmalized and his excessive sleepiness and altered mental status improved. Obviously, he never return ed back to his normal as he has some significant underlying dementia problem. We gave him IV fluid a nd he started to eat and drink. Appetite has not been great, but at least he was eating and drinking without having any trouble swallowing. The biggest challenge during this hospitalization we had was his restlessness, agitation, and insomnia. Initially, I started him on alprazolam 0.25 mg at bedtim e after first couple of days of not giving any medication and this allowed 2 days or so of initial ho spital stay of not getting any medication allowed. His Seroquel medication effect to be completely o ut of his body and at appropriate time, we started him on alprazolam 0.25 mg at bedtime. The patient has used alprazolam for the last several years, so we decided to try that, unfortunately did not hel p for his insomnia, so we increased the dose to 0.5 mg, again that did not help to control his anxiet y, restlessness, insomnia at all. So, we decided to continue alprazolam and add Seroquel 25 mg inste ad of 50 mg dose he was taking at the [facility] facility and unfortunately he did not tolerate this 25 mg dose at all and he started having excessive sleepiness and did not wake up for 24 to 36 ho urs after Seroquel, so we decided that he can no longer take medications like Seroquel at all. He re quired some IV Ativan at some point during this hospitalization for agitation and restlessness. Whil e he was recovering from this side effect of Seroquel, we had to maintain IV fluid hydration and [facility] therapist was consulted to evaluate his swallowing. Once he recovered from this effect of Seroque l, speech therapist allowed him to start to eat and drink with instructions that the speech therapist has given. Overall, his condition has improved now where he is swallowing well without any difficul ties. He is ambulating well with assistance. Dr. Erickson from Neurology was consulted over the and he was ordered some biomarkers for Alzheimer's disease and after I did communicate with Dr. Erickson, over the weekend he started the patient on Depakote 250 mg 2 times a day, which he has tole rated very well and has helped him to reduce some of his anxiety and restlessness, but he still had t hat trouble along with insomnia, so we added trazodone 50 mg at bedtime, as of last night was the night he got that trazodone. This morning when I talked to caregiver, I was informed that he slep t about 3 to 4 hours with this first dose of trazodone, so I am hoping as the time goes on, this Depa kote and trazodone will work for him. The patient's son wanted [facility] to go to this [facility] in [place] and Social Service was consulted from the beginning of this hospital admission and a ll the arrangements were completed and the patient was accepted to go to this facility and today, he was transferred in stable condition with above-mentioned medications and instructions. Final Diagnoses: 1. . 2. . 3. . I did call the patient's son this evening and communicated with him about importance of hydration and using nutritional supplement like Ensure or boost. The patient has 24-hour caregiver, so it will be easier for caregiver to try to assist him with hydration and using nutritional supplement and the charanjit salcido's son will communicate those details with caregiver as well. I have asked the patient's son to call my office next week to check on pending biomarker test results for Alzheimer's that we have don e for the patient. Total time spent today was 45 minutes. HELEN/MODL Voice ID: [id number] Report ID: [id number]
== END 2024-12-10 10:02 | DRG 682 ==
LOC: ER 13:42 → ERHOLD 17:32 → 2ND 19:11
PROVIDERS: ADMIT Internal Medicine; ATTEND Internal Medicine
DX: N17.9 Acute kidney failure, unspecified (principal); J69.0 Pneumonitis due to inhalation of food and vomit; J96.01 Acute respiratory failure with hypoxia; E44.0 Moderate protein-calorie malnutrition; Z68.1 Body mass index [BMI] 19.9 or less, adult; F03.918 Unspecified dementia, unspecified severity, with other behavioral disturbance; E86.0 Dehydration; I48.0 Paroxysmal atrial fibrillation; E86.9 Volume depletion, unspecified; E87.6 Hypokalemia; E83.42 Hypomagnesemia; E78.5 Hyperlipidemia, unspecified; I12.9 Hypertensive chronic kidney disease with stage 1 through stage 4 chronic kidney disease, or unspecified chronic kidney disease; N18.32 Chronic kidney disease, stage 3b; D63.1 Anemia in chronic kidney disease; K21.9 Gastro-esophageal reflux disease without esophagitis; N40.0 Benign prostatic hyperplasia without lower urinary tract symptoms; M19.09 Primary osteoarthritis, other specified site; R73.01 Impaired fasting glucose; Z95.0 Presence of cardiac pacemaker; Z88.7 Allergy status to serum and vaccine; Z11.52 Encounter for screening for COVID-19
CPT/HCPCS: 36415; 70450; 71045; 71250; 72125; 74176; 80048; 80053; 80076; 81001; 82947; 83605; 83690; 83735; 83880; 84484; 85025; 85610; 87040; 87428; 92526; 92610; 92611; 93005; 96365; 96366; 96375; 97110; 97116; 97161; 97168; 97530; 99285; J0696; J1160; J2543; J3360; J3411; J3480; J3535; J7030; J7613; J7799